=== PATIENT | female | born 1995 | race Caucasian/White ===

== ENCOUNTER → 2017-07-30 11:36 | Outpatient (CLI) | payer MEDICAID, SELFPAY ==
[2017-07-30 13:33] LABS: HCG Qualitative, Serum Negative (Negative); HCG,Quantitative 0 mIU/mL
== END ==
PROVIDERS: PCP Physician Assistant; Visit Provider Physician Assistant
DX: Z32.00 Encounter for pregnancy test, result unknown (principal)
CPT/HCPCS: 36415; 84702; 84703

== ENCOUNTER 2017-08-11 | Emergency (ER) | payer MEDICAID, SELFPAY ==
[2017-08-11 00:06] VITALS: BP 139/75; PULSE 60; RESP 16; TEMP 36.9; O2SAT 96; BMI 41.6
[2017-08-11 00:30] LABS: Microscopic, Urine URINE MICROSCOPIC (MICROSCOPIC)
[2017-08-11 00:33] LABS: Appearance,Urine Cloudy (Clear); Bilirubin,Urine Negative (Negative); Blood, Urine Negative (Negative); Color,Urine Yellow (Yellow); Glucose,Urine (UA) Negative (Negative); Ketones,Urine Negative (Negative); Leukocyte Esterase,Urine Negative (Negative); Nitrate,Urine Negative (Negative); Protein,Urine Trace (Negative); Urine Pregnancy, HCG Qual. Negative (Negative)
[2017-08-11 00:34] LABS: Squamous Epithelial Cell,Urine 20-50 #/hpf (0-5)
--- NOTE | 2017-08-11 01:19 | HMH.EDABDPAI ---
ED Disposition Clinical Impression: Viral gastroenteritis Disposition: Home, Self-Care Condition on Discharge: Good Instructions: DI for Viral Gastroenteritis -- Adult Additional Instructions: Please drink plenty of fluids, take the meds prescribed per instructions. If better within 2-3 days please follow-up with your PCP, in the office. Prescriptions: Ondansetron [Zofran 4mg ODT] 4 mg PO QID #20 tab.rapdis Referrals: Melissa Hernandez PA [Primary Care Provider] - Time of Disposition: 02:08 - Critical Care Critical Care Time: No Attestation: On 08/11/17, the high probability of a clinically significant, sudden or life threatening deterioration of the following system(s) required my full and direct attention, intervention and personal management. The time I documented below is in addition to time spent performing reported procedures but includes the following listed in this critical care notation. Medical Decision Making - Medical Records Medical records reviewed: Yes: I reviewed the patient's medical records. Vital Signs: 08/11/17 00:06 08/11/17 01:41 Temperature 98.5 F 97.3 F L Temperature Source Oral Oral Pulse Rate [Brachial] 60 59 L Respiratory Rate 16 20 Blood Pressure [Right Arm] 139/75 131/68 Blood Pressure Mean [Right Arm] 96 89 Blood Pressure Source [Right Arm] Automatic Cuff Automatic Cuff Blood Pressure Position [Right Arm] Sitting Sitting 02 Sat by Pulse Oximetry 96 97 Oxygen Delivery Method Room Air Room Air - Lab Data Lab results reviewed: Yes: I reviewed the patient's lab results. Lab Results 08/11/17 00:15: Urine Color Yellow, Urine Appearance Cloudy, Urine pH 7.0, Ur Specific [place] 1.020, Urine Protein Trace, Urine Glucose (UA) Negative, Urine Ketones Negative, Urine Blood Negative, Urine Nitrate Negative, Urine Bilirubin Negative, Urine Urobilinogen 1.0, Ur Leukocyte Esterase Negative, Urine RBC None, Urine WBC None, Ur Squamous Epith Cells 20-50 08/11/17 00:15: Urine HCG, Qual Negative 08/11/17 01:27: WBC 10.1, RBC 5.13, Hgb 13.7, Hct 43.7, MCV 85.2, MCH 26.7 L, MCHC 31.3 L, RDW 13.3, Plt Count 261, MPV 9.4, Neut % (Auto) 74.6, Lymph % (Auto) 19.2, [place] % (Auto) 5.5, Eos % (Auto) 0.5, Baso % (Auto) 0.2, Neut # (Auto) 7.5, Lymph # (Auto) 1.9, [place] # (Auto) 0.6, Eos # (Auto) 0.1, Baso # (Auto) 0.0 08/11/17 01:27: Sodium 140, Potassium 4.2, Chloride 103, Carbon Dioxide 31, Anion Gap 10.2, BUN 9, Creatinine 0.73, Estimated Creat Clear 100, Estimated GFR 100, Est GFR ( Amer) 121, Glucose 105, Calcium 9.0, Total Bilirubin 0.4, AST 16, ALT 23, Alkaline Phosphatase 52, Total Protein 7.8, Albumin 4.0, Globulin 3.8 H, Albumin/Globulin Ratio 1.1, Amylase 77, Lipase 109 Result diagrams: 08/11/17 01:27 08/11/17 01:27 Orders (Tests/Meds): ED MEDICATIONS Discontinued Medications Generic Name Dose Route Start Last Admin Trade Name Freq PRN Reason Stop Dose Admin Cephalexin HCl 500 mg 08/11/17 01:05 Cephalexin 500mg Capsule PO 08/11/17 01:06 ONCE ONE Protocol Tramadol HCl 1 noah 08/11/17 01:05 Ultram Take Home Pack 50mg (10) PO 08/11/17 01:06 ONCE ONE ORDERS Category Date Time Status CT abdomen pelvis wo con Stat Cat Scan 08/11/17 01:18 Stop Req - Vinny Inquiry Pt receiving controlled substance: No - Reevaluation(s) Time: 01:45 Reevaluation #1: Upon reevaluation patient appears in no acute distress, medically stable, afebrile, nonseptic looking. Patient is able to tolerate oral fluids, denies any ongoing pain or distress. Patient instructed to follow-up with PCP if not better per discharge instructions. Abdominal Pain HPI - General Chief Complaint: Abdominal Pain Stated Complaint: Nausea and Vomiting,Cramping Time Seen by Provider: 08/11/17 01:19 Mode of Arrival: Ambulatory Source of Information: Patient Limitations: No Limitations Description of Symptoms (Recalled from ER Triage Doc. by RN): GENERALIZED
[2017-08-11 01:40] LABS: Basophils % 0.2 % (0.1-2.0); Eosinophils # 0.1 K/mm3 (0.0-0.4); Eosinophils % 0.5 % (0.1-12.0); Hematocrit 43.7 % (37.0-47.0); Hemoglobin 13.7 g/dL (12.2-16.2); Lymphocytes # 1.9 K/mm3 (0.7-4.5); Lymphocytes % 19.2 K/mm3 (10-50); Mean Corpuscular HGB Conc 31.3 g/dL (31.8-35.4); Mean Corpuscular Hemoglobin 26.7 pg (27.0-31.2); Mean Corpuscular Volume 85.2 fl (81-99); Mean Platelet Volume 9.4 fl (7.4-10.4); Monocytes # 0.6 K/mm3 (0.1-1.0); Monocytes % 5.5 % (1.7-9.3); Neutrophils # 7.5 K/mm3 (1.8-7.8); Neutrophils % 74.6 % (37.0-80.0); Platelet Count 261 K/mm3 (142-424); Red Blood Count 5.13 M/mm3 (4.20-5.40); Red Cell Distribution Width 13.3 % (11.5-17.5); White Blood Count 10.1 K/mm3 (4.8-10.8)
[2017-08-11 01:41] VITALS: BP 131/68; PULSE 59; RESP 20; TEMP 36.3; O2SAT 97
[2017-08-11 01:53] LABS: Alanine Aminotransferase 23 U/L (12-78); Albumin/Globulin Ratio 1.1 (1.1-1.8); Alkaline Phosphatase 52 U/L (46-116); Amylase 77 U/L (25-125); Anion Gap 10.2 mEq/L (5-15); Aspartate Amino Transferase 16 U/L (15-37); Bilirubin,Total 0.4 mg/dL (0.2-1.0); Blood Urea Nitrogen 9 mg/dL (7-18); Carbon Dioxide 31 mmol/L (21.0-32.0); Chloride 103 mmol/L (98-107); Creatinine Clearance Estimated 100 mL/min (0-300); Creatinine,Serum 0.73 mg/dL (0.55-1.02); Estimated Glomerular Filt Rate 100 ml/min (>60); GFR (African American) 121 ML/MIN (>60); Globulin 3.8 gm/dl (1.3-3.2); Glucose 105 mg/dL (74-106); Lipase 109 u/L (73-393); Potassium 4.2 mmoL/L (3.5-5.1); Sodium 140 mmol/L (136-145); Total Protein,Serum 7.8 gm/dL (6.4-8.2)
== END 2017-08-11 02:46 | disposition home or self-care (01) ==
PROVIDERS: Emergency Provider Emergency Medicine; Family Provider Physician Assistant; PCP Physician Assistant
DX: A08.4 Viral intestinal infection, unspecified (principal); Z91.040 Latex allergy status
CPT/HCPCS: 80053; 81001; 81025; 82150; 83690; 85025; 99283

== ENCOUNTER 2017-10-17 20:41 | Emergency (ER) | payer MEDICAID, SELFPAY ==
[2017-10-17 21:06] VITALS: BP 141/68; PULSE 72; RESP 18; TEMP 36.8; O2SAT 98; BMI 41.1
[2017-10-17 21:18] LABS: Microscopic, Urine URINE MICROSCOPIC (MICROSCOPIC)
[2017-10-17 21:19] LABS: Appearance,Urine CLEAR (Clear); Bilirubin,Urine Negative (Negative); Blood, Urine Negative (Negative); Color,Urine YELLOW (Yellow); Glucose,Urine (UA) Negative (Negative); Ketones,Urine Negative (Negative); Leukocyte Esterase,Urine Negative (Negative); Nitrate,Urine Negative (Negative); PH,Urine 6.5 (5.0-8.5); Protein,Urine Negative (Negative); Specific Gravity, Urine 1.025 (1.005-1.030); Urobilinogen,Urine 0.2 EU/dl (0.2)
[2017-10-17 21:28] LABS: Amorphous Sediment,Urine 2+ /lpf; Bacteria,Urine 1+ /lpf; Squamous Epithelial Cell,Urine 20-50 #/hpf (0-5); WBC,Urine Occasional #/hpf (0-3)
[2017-10-17 21:33] LABS: Urine Pregnancy, HCG Qual. Positive (Negative)
[2017-10-17 22:38] VITALS: BP 136/74; PULSE 78; RESP 20
[2017-10-17 22:52] LABS: Basophils % 0.2 % (0.1-2.0); Eosinophils # 0.2 K/mm3 (0.0-0.4); Eosinophils % 1.3 % (0.1-12.0); Hemoglobin 13.8 g/dL (12.2-16.2); Lymphocytes # 3.4 K/mm3 (0.7-4.5); Lymphocytes % 22.9 K/mm3 (10-50); Mean Corpuscular HGB Conc 30.7 g/dL (31.8-35.4); Mean Corpuscular Hemoglobin 26.9 pg (27.0-31.2); Mean Corpuscular Volume 87.5 fl (81-99); Mean Platelet Volume 10.5 fl (7.4-10.4); Monocytes # 0.8 K/mm3 (0.1-1.0); Monocytes % 5.3 % (1.7-9.3); Neutrophils # 10.3 K/mm3 (1.8-7.8); Neutrophils % 70.4 % (37.0-80.0); Platelet Count 249 K/mm3 (142-424); Red Blood Count 5.14 M/mm3 (4.20-5.40); Red Cell Distribution Width 13.7 % (11.5-17.5); White Blood Count 14.6 K/mm3 (4.8-10.8)
[2017-10-17 23:17] LABS: Alanine Aminotransferase 21 U/L (12-78); Albumin Level 3.7 gm/dL (3.4-5.0); Albumin/Globulin Ratio 0.9 (1.1-1.8); Alkaline Phosphatase 48 U/L (46-116); Anion Gap 9.8 mEq/L (5-15); Aspartate Amino Transferase 16 U/L (15-37); Bilirubin,Total 0.2 mg/dL (0.2-1.0); Blood Urea Nitrogen 7 mg/dL (7-18); Calcium 9.1 mg/dL (8.5-10.1); Carbon Dioxide 27 mmol/L (21.0-32.0); Chloride 101 mmol/L (98-107); Creatinine Clearance Estimated 249 mL/min (0-300); Creatinine,Serum 0.59 mg/dL (0.55-1.02); Estimated Glomerular Filt Rate 127 ml/min (>60); GFR (African American) 154 ML/MIN (>60); Globulin 4.1 gm/dl (1.3-3.2); Glucose 83 mg/dL (74-106); Potassium 3.8 mmoL/L (3.5-5.1); Sodium 134 mmol/L (136-145); Total Protein,Serum 7.8 gm/dL (6.4-8.2)
--- NOTE | 2017-10-18 01:20 | HMH.EDPREG ---
ED Disposition Clinical Impression: Abdominal pain Qualifiers: Abdominal location: epigastric Qualified Code(s): R10.13 - Epigastric pain Qualifiers: Weeks of gestation: 8 weeks Qualified Code(s): Z3A.08 - 8 weeks gestation of Disposition: Home, Self-Care Condition on Discharge: Good Instructions: DI for Acute Abdomen Additional Instructions: keep appt with dr stevens friday Referrals: Melissa Hernandez PA [Primary Care Provider] - - Critical Care Critical Care Time: No Attestation: On 10/17/17, the high probability of a clinically significant, sudden or life threatening deterioration of the following system(s) required my full and direct attention, intervention and personal management. The time I documented below is in addition to time spent performing reported procedures but includes the following listed in this critical care notation. Medical Decision Making - Medical Records Medical records reviewed: Yes: I reviewed the patient's medical records. - Vinny Inquiry Pt receiving controlled substance: No Vital Signs: 10/17/17 21:06 10/17/17 22:38 Temperature 98.3 F Temperature Source Oral Pulse Rate [Brachial] 72 78 Respiratory Rate 18 20 Blood Pressure [Right Arm] 141/68 136/74 Blood Pressure Mean [Right Arm] 92 94 Blood Pressure Source [Right Arm] Automatic Cuff Automatic Cuff Blood Pressure Position [Right Arm] Sitting 02 Sat by Pulse Oximetry 98 Oxygen Delivery Method Room Air - Lab Data Lab results reviewed: Yes: I reviewed the patient's lab results. Lab Results 10/17/17 21:00: Urine Color Yellow, Urine Appearance Clear, Urine pH 6.5, Ur Specific [place] 1.025, Urine Protein Negative, Urine Glucose (UA) Negative, Urine Ketones Negative, Urine Blood Negative, Urine Nitrate Negative, Urine Bilirubin Negative, Urine Urobilinogen 0.2, Ur Leukocyte Esterase Negative, Urine RBC None, Urine WBC Occasional, Ur Squamous Epith Cells 20-50, Amorphous Sediment 2+, Urine Bacteria 1+ 10/17/17 21:20: Urine HCG, Qual Positive 10/17/17 22:35: WBC 14.6 H, RBC 5.14, Hgb 13.8, Hct 45.0, MCV 87.5, MCH 26.9 L, MCHC 30.7 L, RDW 13.7, Plt Count 249, MPV 10.5 H, Neut % (Auto) 70.4, Lymph % (Auto) 22.9, [place] % (Auto) 5.3, Eos % (Auto) 1.3, Baso % (Auto) 0.2, Neut # (Auto) 10.3 H, Lymph # (Auto) 3.4, [place] # (Auto) 0.8, Eos # (Auto) 0.2, Baso # (Auto) 0.0 10/17/17 22:35: Sodium 134 L, Potassium 3.8, Chloride 101, Carbon Dioxide 27, Anion Gap 9.8, BUN 7, Creatinine 0.59, Estimated Creat Clear 249, Estimated GFR 127, Est GFR ( Amer) 154, Glucose 83, Calcium 9.1, Total Bilirubin 0.2, AST 16, ALT 21, Alkaline Phosphatase 48, Total Protein 7.8, Albumin 3.7, Globulin 4.1 H, Albumin/Globulin Ratio 0.9 L, HCG, Quant [id number] Result diagrams: 10/17/17 22:35 10/17/17 22:35 HPI - General Chief complaint: Abdominal Pain Stated complaint: 8 Weeks Cramping Time Seen by Provider: 10/18/17 01:20 Mode of Arrival: Ambulatory Source of Information: Patient, Significant Other, Relative, Medical Record Limitations: No Limitations Description of Symptoms (Recalled from ER Triage Doc. by RN): C/O CRAMPING PAIN TO EPIGASTRIC AREA, REPORTS 8 WEEKS DENIES ANY. BLEEDING - History of Present Illness HPI Narrative: upper abd pain with no vag bleeding - 8 weeks preg - no vomiting and nausea MD Complaint: abdominal pain Onset (ago): hour(s) Location: abdomen Severity: moderate Vaginal bleeding: none : yes Date of Last Menstrual Period: 08/18/17 - Related Data Para: 0 Home Medications Medication Instructions Recorded Confirmed Albuterol Sulfate [Albuterol HFA 2 puff INHALATION Q6H 10/18/17 10/18/17 Inhaler] Pnv No.118/Iron Fumarate/FA 1 tab PO QAM 10/18/17 10/18/17 [Se- 19 Chewable Tablet] Allergies Allergy/AdvReac Type Severity Reaction Status Date / Time latex [LATEX] Allergy Unknown Verified 10/14/17 14:05 ONION Allergy Mild
--- NOTE | 2017-10-18 01:24 | ED_ITS ---
ED Disposition Clinical Impression: Abdominal pain Qualifiers: Abdominal location: epigastric Qualified Code(s): R10.13 - Epigastric pain Qualifiers: Weeks of gestation: 8 weeks Qualified Code(s): Z3A.08 - 8 weeks gestation of Disposition: Home, Self-Care Condition on Discharge: Good Instructions: DI for Acute Abdomen Additional Instructions: keep appt with dr stevens friday Referrals: Melissa Hernandez PA [Primary Care Provider] - - Critical Care Critical Care Time: No Attestation: On 10/17/17, the high probability of a clinically significant, sudden or life threatening deterioration of the following system(s) required my full and direct attention, intervention and personal management. The time I documented below is in addition to time spent performing reported procedures but includes the following listed in this critical care notation. Medical Decision Making - Medical Records Medical records reviewed: Yes: I reviewed the patient's medical records. - Vinny Inquiry Pt receiving controlled substance: No Vital Signs: 10/17/17 21:06 10/17/17 22:38 Temperature 98.3 F Temperature Source Oral Pulse Rate [Brachial] 72 78 Respiratory Rate 18 20 Blood Pressure [Right Arm] 141/68 136/74 Blood Pressure Mean [Right Arm] 92 94 Blood Pressure Source [Right Arm] Automatic Cuff Automatic Cuff Blood Pressure Position [Right Arm] Sitting 02 Sat by Pulse Oximetry 98 Oxygen Delivery Method Room Air - Lab Data Lab results reviewed: Yes: I reviewed the patient's lab results. Lab Results 10/17/17 21:00: Urine Color Yellow, Urine Appearance Clear, Urine pH 6.5, Ur Specific [place] 1.025, Urine Protein Negative, Urine Glucose (UA) Negative, Urine Ketones Negative, Urine Blood Negative, Urine Nitrate Negative, Urine Bilirubin Negative, Urine Urobilinogen 0.2, Ur Leukocyte Esterase Negative, Urine RBC None, Urine WBC Occasional, Ur Squamous Epith Cells 20-50, Amorphous Sediment 2+, Urine Bacteria 1+ 10/17/17 21:20: Urine HCG, Qual Positive 10/17/17 22:35: WBC 14.6 H, RBC 5.14, Hgb 13.8, Hct 45.0, MCV 87.5, MCH 26.9 L, MCHC 30.7 L, RDW 13.7, Plt Count 249, MPV 10.5 H, Neut % (Auto) 70.4, Lymph % ( Auto) 22.9, [place] % (Auto) 5.3, Eos % (Auto) 1.3, Baso % (Auto) 0.2, Neut # (Auto ) 10.3 H, Lymph # (Auto) 3.4, [place] # (Auto) 0.8, Eos # (Auto) 0.2, Baso # (Auto ) 0.0 10/17/17 22:35: Sodium 134 L, Potassium 3.8, Chloride 101, Carbon Dioxide 27, Anion Gap 9.8, BUN 7, Creatinine 0.59, Estimated Creat Clear 249, Estimated GFR 127, Est GFR ( Amer) 154, Glucose 83, Calcium 9.1, Total Bilirubin 0.2, AST 16, ALT 21, Alkaline Phosphatase 48, Total Protein 7.8, Albumin 3.7, Globulin 4.1 H, Albumin/Globulin Ratio 0.9 L, HCG, Quant [id number] Result diagrams: 10/17/17 22:35 10/17/17 22:35 HPI - General Chief complaint: Abdominal Pain Stated complaint: 8 Weeks Cramping Time Seen by Provider: 10/18/17 01:20 Mode of Arrival: Ambulatory Source of Information: Patient, Significant Other, Relative, Medical Record Limitations: No Limitations Description of Symptoms (Recalled from ER Triage Doc. by RN): C/O CRAMPING PAIN TO EPIGASTRIC AREA, REPORTS 8 WEEKS DENIES ANY. BLEEDING - History of Present Illness HPI Narrative: upper abd pain with no vag bleeding - 8 weeks preg - no vomiting and nausea MD Complaint: abdominal pain Onset (ago): hour(s) Location: abdomen Severity: moderate Vagina
[2017-10-18 01:42] VITALS: BP 123/85; PULSE 85; RESP 17; TEMP 36.8; O2SAT 96
== END 2017-10-18 01:43 | disposition home or self-care (01) ==
PROVIDERS: Emergency Provider Emergency Medicine; Family Provider Physician Assistant; PCP Physician Assistant
DX: R10.13 Epigastric pain (principal); Z3A.08 8 weeks gestation of pregnancy; F17.210 Nicotine dependence, cigarettes, uncomplicated
CPT/HCPCS: 80053; 81001; 81025; 84702; 85025; 99283

== ENCOUNTER → 2017-10-27 13:34 | Outpatient (CLI) | payer MEDICAID, SELFPAY ==
--- NOTE | 2017-10-27 13:36 | US_ITS ---
US OB transvaginal COMPARISON: None HISTORY: Known early , for dates TECHNIQUE: Transvaginal imaging FINDINGS: There is a single fetus within the gestational sac. The crown-rump length measures 1.75 cm corresponding to 8 weeks and 2 days. The exact measures 0.74 cm. The heart rate is 1 67 bpm there the amnion and chorion are visualized. There appears be small corpus luteum cyst left ovary measuring 2.0 x 1.8 x 1.1 cm. The right ovary is normal. IMPRESSION: Early viable intrauterine gestation proximal age 8 weeks 2 days, consider follow-up study in possibly 4-6 weeks to obtain better measurements for dating if clinically indicated.
[2017-10-27 15:10] LABS: Basophils % 0.1 % (0.1-2.0); Eosinophils # 0.1 K/mm3 (0.0-0.4); Eosinophils % 0.6 % (0.1-12.0); Hematocrit 42.9 % (37.0-47.0); Hemoglobin 13.4 g/dL (12.2-16.2); Mean Corpuscular HGB Conc 31.3 g/dL (31.8-35.4); Mean Corpuscular Hemoglobin 26.9 pg (27.0-31.2); Mean Corpuscular Volume 85.9 fl (81-99); Mean Platelet Volume 10.5 fl (7.4-10.4); Monocytes # 0.4 K/mm3 (0.1-1.0); Monocytes % 4.8 % (1.7-9.3); Neutrophils # 6.7 K/mm3 (1.8-7.8); Neutrophils % 72.4 % (37.0-80.0); Platelet Count 223 K/mm3 (142-424); Red Blood Count 4.99 M/mm3 (4.20-5.40); Red Cell Distribution Width 13.5 % (11.5-17.5); White Blood Count 9.2 K/mm3 (4.8-10.8)
[2017-10-29 05:14] LABS: HIV Screen 4th Generation wRfx Non Reactive (Non Reactive)
[2017-10-29 16:32] LABS: Hepatitis B Surface Antigen Negative (Negative); Hepatitis C Antibody <0.1 s/co ratio (0.0-0.9); Rapid Plasma Reagin Ab Titer Non Reactive (NonRea<1:1); Rubella Antibodies, IgG 1.52 index (Immune >0.99)
== END ==
PROVIDERS: Family Provider Physician Assistant; PCP Physician Assistant; Visit Provider Nurse Practitioner Obstetrics & Gynecology
DX: O26.841 Uterine size-date discrepancy, first trimester (principal); Z34.90 Encounter for supervision of normal pregnancy, unspecified, unspecified trimester
CPT/HCPCS: 36415; 76830; 85025; 86592; 86703; 86762; 86850; 87340; 87380; G0432

== ENCOUNTER → 2018-01-08 10:27 | Outpatient (CLI) | payer MEDICAID, SELFPAY ==
--- NOTE | 2018-01-08 12:14 | US_ITS ---
US abdomen complete HISTORY: Left upper quadrant pain and swelling ITS.REASON: Left upper quadrant pain and swelling ORDERING PHYSICIAN: TEO Sandoval PATIENT AGE: 22 years COMPARISON: None FINDINGS: Patient reports a generalized fullness in the upper abdomen. This area is scanned. The area of concern represents fatty tissue. No solid or cystic abnormalities evident. IMPRESSION: Area of fullness in the upper abdomen appears to represent fatty tissue.
[2018-01-08 18:55] LABS: Basophils % 0.2 % (0.1-2.0); Eosinophils # 0.1 K/mm3 (0.0-0.4); Eosinophils % 0.9 % (0.1-12.0); Hematocrit 41.5 % (37.0-47.0); Hemoglobin 12.4 g/dL (12.2-16.2); Lymphocytes # 1.9 K/mm3 (0.7-4.5); Lymphocytes % 20.4 K/mm3 (10-50); Mean Corpuscular HGB Conc 29.8 g/dL (31.8-35.4); Mean Corpuscular Hemoglobin 26.2 pg (27.0-31.2); Mean Platelet Volume 11.7 fl (7.4-10.4); Monocytes # 0.5 K/mm3 (0.1-1.0); Monocytes % 5.6 % (1.7-9.3); Neutrophils # 6.9 K/mm3 (1.8-7.8); Neutrophils % 72.9 % (37.0-80.0); Platelet Count 212 K/mm3 (142-424); Red Blood Count 4.72 M/mm3 (4.20-5.40); Red Cell Distribution Width 13.9 % (11.5-17.5); White Blood Count 9.5 K/mm3 (4.8-10.8)
[2018-01-08 19:00] LABS: Alanine Aminotransferase 22 U/L (12-78); Albumin Level 2.8 gm/dL (3.4-5.0); Albumin/Globulin Ratio 0.8 (1.1-1.8); Alkaline Phosphatase 45 U/L (46-116); Anion Gap 12.9 mEq/L (5-15); Aspartate Amino Transferase 17 U/L (15-37); Bilirubin,Total 0.2 mg/dL (0.2-1.0); Blood Urea Nitrogen 5 mg/dL (7-18); Calcium 9.1 mg/dL (8.5-10.1); Carbon Dioxide 27 mmol/L (21.0-32.0); Chloride 106 mmol/L (98-107); Creatinine,Serum 0.53 mg/dL (0.55-1.02); Estimated Glomerular Filt Rate 144 ml/min (>60); GFR (African American) 175 ML/MIN (>60); Globulin 3.6 gm/dl (1.3-3.2); Glucose 70 mg/dL (74-106); Potassium 3.9 mmoL/L (3.5-5.1); Sodium 142 mmol/L (136-145); T4 (Thyroxine) 16.1 ug/dl (4.7-13.3); Total Protein,Serum 6.4 gm/dL (6.4-8.2)
[2018-01-10 16:59] LABS: EBV Ab VCA, IgG 97.5 U/mL (0.0-17.9); EBV Ab VCA, IgM <36.0 U/mL (0.0-35.9); EBV Nuclear Antigen Ab, IgG 94.5 U/mL (0.0-17.9)
== END ==
PROVIDERS: PCP Physician Assistant; Visit Provider Physician Assistant
DX: R10.12 Left upper quadrant pain (principal); R19.00 Intra-abdominal and pelvic swelling, mass and lump, unspecified site
CPT/HCPCS: 76700; 80053; 84436; 84443; 85025; 86664; 86665; 87086

== ENCOUNTER 2018-01-20 22:37 | Outpatient (CLI) | payer MEDICAID, SELFPAY ==
[2018-01-20 22:52] VITALS: BP 116/68; PULSE 78; RESP 16; TEMP 36.8; O2SAT 99; BMI 40.5; BMI 40.6
[2018-01-20 23:14] LABS: Microscopic, Urine URINE MICROSCOPIC (MICROSCOPIC)
[2018-01-20 23:17] LABS: Appearance,Urine CLOUDY (Clear); Bilirubin,Urine Negative (Negative); Blood, Urine Negative (Negative); Color,Urine YELLOW (Yellow); Glucose,Urine (UA) Negative (Negative); Ketones,Urine Negative (Negative); Leukocyte Esterase,Urine TRACE (Negative); Nitrate,Urine Negative (Negative); Protein,Urine TRACE (Negative)
[2018-01-20 23:25] LABS: Amorphous Sediment,Urine 1+ /lpf; Bacteria,Urine 1+ /lpf; RBC,Urine Occasional #/hpf (0-3)
[2018-01-20 23:26] LABS: Amphetamine/Metha Screen,Urine Negative ng/mL (<1000); Barbiturates Screen,Urine Negative ng/mL (<200); Benzodiazepines Screen,Urine Negative ng/mL (200); Cannabinoid Screen,Urine Negative ng/mL (<50); Cocaine Screen,Urine Negative ng/g (<300); Methadone Screen,Urine Negative ng/mL (<300); Opiate Screen,Urine Negative ng/mL (<300); Phencyclidine Screen,Urine Negative ng/mL (<25)
== END 2018-01-20 23:47 | disposition home or self-care (01) ==
LOC: OBOUT 22:41 → OB 22:42
PROVIDERS: PCP Student in an Organized Health Care Education/Training Program; Visit Provider Nurse Practitioner Obstetrics & Gynecology
DX: O20.9 Hemorrhage in early pregnancy, unspecified (principal); Z3A.20 20 weeks gestation of pregnancy; R10.9 Unspecified abdominal pain
CPT/HCPCS: 80305; 81001

== ENCOUNTER 2018-02-02 20:46 | Outpatient (CLI) | payer MEDICAID, SELFPAY ==
[2018-02-02 20:54] VITALS: BMI 39.4
[2018-02-02 21:01] LABS: Microscopic, Urine URINE MICROSCOPIC (MICROSCOPIC)
[2018-02-02 21:04] LABS: Appearance,Urine SL CLOUDY (Clear); Bilirubin,Urine Negative (Negative); Blood, Urine Negative (Negative); Color,Urine YELLOW (Yellow); Glucose,Urine (UA) Negative (Negative); Ketones,Urine Negative (Negative); Leukocyte Esterase,Urine 1+ (Negative); Nitrate,Urine Negative (Negative); Protein,Urine Negative (Negative); Specific Gravity, Urine >= 1.030 (1.005-1.030); Urobilinogen,Urine 0.2 EU/dl (0.2)
[2018-02-02 21:08] VITALS: BP 122/65; PULSE 81; RESP 16; TEMP 36.9; O2SAT 100; BMI 39.4
[2018-02-02 21:12] LABS: Bacteria,Urine 3+ /lpf; RBC,Urine Occasional #/hpf (0-3); Squamous Epithelial Cell,Urine 20-50 #/hpf (0-5)
== END 2018-02-02 21:32 | disposition home or self-care (01) ==
LOC: OBOUT 20:47 → OB 20:48
PROVIDERS: PCP Physician Assistant; Referring Provider Student in an Organized Health Care Education/Training Program; Visit Provider Obstetrics & Gynecology
DX: O26.892 Other specified pregnancy related conditions, second trimester (principal); Z3A.22 22 weeks gestation of pregnancy; R10.32 Left lower quadrant pain; R10.2 Pelvic and perineal pain
CPT/HCPCS: 59025; 81001; 87086

== ENCOUNTER 2018-02-20 22:42 | Outpatient (CLI) | payer MEDICAID, SELFPAY ==
[2018-02-20 23:09] VITALS: BP 143/83; PULSE 83; RESP 16; TEMP 36.8; O2SAT 98; BMI 40.5
[2018-02-20 23:31] LABS: Amphetamine/Metha Screen,Urine Negative ng/mL (<1000); Barbiturates Screen,Urine Negative ng/mL (<200); Benzodiazepines Screen,Urine Negative ng/mL (<200); Cannabinoid Screen,Urine Negative ng/mL (<50); Cocaine Screen,Urine Negative ng/mL (<300); Methadone Screen,Urine Negative ng/mL (<300); Opiate Screen,Urine Negative ng/mL (<300); Phencyclidine Screen,Urine Negative ng/mL (<25)
== END 2018-02-20 23:40 | disposition home or self-care (01) ==
LOC: OBOUT 22:44 → OB 22:45
PROVIDERS: PCP Physician Assistant; Visit Provider Obstetrics & Gynecology
DX: O36.8130 Decreased fetal movements, third trimester, not applicable or unspecified (principal); Z3A.32 32 weeks gestation of pregnancy
CPT/HCPCS: 59025; 80305

== ENCOUNTER → 2018-02-23 10:10 | Outpatient (CLI) | payer MEDICAID, SELFPAY ==
[2018-02-23 10:51] LABS: Glucose,Fasting 83 mg/dL (60-105)
[2018-02-23 11:57] LABS: Basophils % 0.3 % (0.1-2.0); Eosinophils # 0.1 K/mm3 (0.0-0.4); Eosinophils % 0.6 % (0.1-12.0); Hematocrit 35.3 % (37.0-47.0); Hemoglobin 11.5 g/dL (12.2-16.2); Lymphocytes # 2.4 K/mm3 (0.7-4.5); Lymphocytes % 24.3 K/mm3 (10-50); Mean Corpuscular HGB Conc 32.4 g/dL (31.8-35.4); Mean Corpuscular Hemoglobin 27.8 pg (27.0-31.2); Mean Corpuscular Volume 85.6 fl (81-99); Mean Platelet Volume 10.6 fl (7.4-10.4); Monocytes # 0.4 K/mm3 (0.1-1.0); Monocytes % 4.4 % (1.7-9.3); Neutrophils # 6.9 K/mm3 (1.8-7.8); Neutrophils % 70.3 % (37.0-80.0); Platelet Count 208 K/mm3 (142-424); Red Blood Count 4.13 M/mm3 (4.20-5.40); White Blood Count 9.8 K/mm3 (4.8-10.8)
[2018-02-23 12:25] LABS: Glucose 1 Hour 142 mg/dL (74-106)
== END ==
PROVIDERS: Visit Provider Student in an Organized Health Care Education/Training Program
DX: Z34.83 Encounter for supervision of other normal pregnancy, third trimester (principal); Z3A.28 28 weeks gestation of pregnancy
CPT/HCPCS: 36415; 82951; 85025; 86850

== ENCOUNTER 2018-03-04 17:59 | Outpatient (CLI) | payer MEDICAID, SELFPAY ==
[2018-03-04 18:10] VITALS: BP 142/81; PULSE 76; RESP 18; TEMP 37.1; O2SAT 99; BMI 39.8
[2018-03-04 18:26] LABS: Microscopic, Urine URINE MICROSCOPIC (MICROSCOPIC)
[2018-03-04 18:28] LABS: Appearance,Urine SL CLOUDY (Clear); Bilirubin,Urine Negative (Negative); Blood, Urine Negative (Negative); Color,Urine YELLOW (Yellow); Glucose,Urine (UA) Negative (Negative); Ketones,Urine Negative (Negative); Leukocyte Esterase,Urine 1+ (Negative); Nitrate,Urine Negative (Negative); Protein,Urine Negative (Negative)
[2018-03-04 18:33] LABS: Amorphous Sediment,Urine 2+ /lpf; Bacteria,Urine 2+ /lpf; RBC,Urine Occasional #/hpf (0-3); Squamous Epithelial Cell,Urine TNTC #/hpf (0-5)
== END 2018-03-04 18:48 | disposition home or self-care (01) ==
LOC: OBOUT 18:01 → OB 18:02
PROVIDERS: PCP Physician Assistant; Referring Provider Student in an Organized Health Care Education/Training Program; Visit Provider Nurse Practitioner Obstetrics & Gynecology
DX: O36.8120 Decreased fetal movements, second trimester, not applicable or unspecified (principal); Z3A.26 26 weeks gestation of pregnancy
CPT/HCPCS: 59025; 81001; 87086

== ENCOUNTER 2018-03-18 17:54 | Outpatient (CLI) | payer MEDICAID, SELFPAY ==
[2018-03-18 18:00] VITALS: BP 129/7; PULSE 74; RESP 18; TEMP 37; O2SAT 100; BMI 40.3
[2018-03-18 18:28] LABS: Microscopic, Urine URINE MICROSCOPIC (MICROSCOPIC)
[2018-03-18 18:32] LABS: Appearance,Urine CLOUDY (Clear); Bilirubin,Urine Negative (Negative); Blood, Urine Negative (Negative); Color,Urine YELLOW (Yellow); Glucose,Urine (UA) Negative (Negative); Ketones,Urine Negative (Negative); Leukocyte Esterase,Urine Negative (Negative); Nitrate,Urine Negative (Negative); PH,Urine 7.5 (5.0-8.5); Protein,Urine Negative (Negative); Specific Gravity, Urine 1.025 (1.005-1.030); Urobilinogen,Urine 0.2 EU/dl (0.2)
[2018-03-18 18:36] LABS: Fetal Membrane Rupture (Rapid) Negative (Negative)
[2018-03-18 18:54] LABS: Fetal Fibronectin (Rapid) Negative (Negative)
[2018-03-18 18:58] LABS: Amorphous Sediment,Urine 3+ /lpf; Bacteria,Urine 2+ /lpf; Squamous Epithelial Cell,Urine TNTC #/hpf (0-5); WBC,Urine Occasional #/hpf (0-3)
== END 2018-03-18 18:51 | disposition home or self-care (01) ==
LOC: OBOUT 17:55 → OB 17:56
PROVIDERS: Visit Provider Nurse Practitioner Obstetrics & Gynecology
DX: O47.03 False labor before 37 completed weeks of gestation, third trimester (principal); Z3A.28 28 weeks gestation of pregnancy
CPT/HCPCS: 59025; 81001; 82731; 84112; 87086

== ENCOUNTER 2018-03-30 19:59 | Outpatient (CLI) | payer MEDICAID, SELFPAY ==
[2018-03-30 20:09] VITALS: BMI 40.1
[2018-03-30 20:25] VITALS: BP 121/74; PULSE 84; RESP 17; TEMP 36.9; O2SAT 98; BMI 40.1
[2018-03-30 20:34] LABS: Microscopic, Urine URINE MICROSCOPIC (MICROSCOPIC)
[2018-03-30 20:38] LABS: Appearance,Urine SL CLOUDY (Clear); Bilirubin,Urine Negative (Negative); Blood, Urine Negative (Negative); Color,Urine YELLOW (Yellow); Glucose,Urine (UA) Negative (Negative); Ketones,Urine Negative (Negative); Leukocyte Esterase,Urine TRACE (Negative); Nitrate,Urine Negative (Negative); Protein,Urine Negative (Negative); Specific Gravity, Urine >= 1.030 (1.005-1.030); Urobilinogen,Urine 0.2 EU/dl (0.2)
[2018-03-30 20:46] LABS: Amphetamine/Metha Screen,Urine Negative ng/mL (<1000); Bacteria,Urine 1+ /lpf; Barbiturates Screen,Urine Negative ng/mL (<200); Benzodiazepines Screen,Urine Negative ng/mL (<200); Cannabinoid Screen,Urine Negative ng/mL (<50); Cocaine Screen,Urine Negative ng/mL (<300); Methadone Screen,Urine Negative ng/mL (<300); Opiate Screen,Urine Negative ng/mL (<300); Phencyclidine Screen,Urine Negative ng/mL (<25)
[2018-03-30 21:06] LABS: Fetal Fibronectin (Rapid) Negative (Negative)
== END 2018-03-30 22:21 | disposition home or self-care (01) ==
LOC: OBOUT 20:01 → OB 20:02
PROVIDERS: PCP Student in an Organized Health Care Education/Training Program; Visit Provider Obstetrics & Gynecology
DX: O60.03 Preterm labor without delivery, third trimester (principal); Z3A.30 30 weeks gestation of pregnancy; N39.0 Urinary tract infection, site not specified; R10.2 Pelvic and perineal pain
CPT/HCPCS: 59025; 80305; 81001; 82731; 96360; J0290

== ENCOUNTER 2018-05-25 19:08 | Outpatient (CLI) | payer MEDICAID, SELFPAY ==
[2018-05-25 19:36] VITALS: BP 130/72; PULSE 103; RESP 18; TEMP 36.9; O2SAT 98; BMI 39.6
[2018-05-25 19:51] VITALS: BMI 34.0
[2018-05-25 20:18] LABS: Microscopic, Urine URINE MICROSCOPIC (MICROSCOPIC)
[2018-05-25 20:23] LABS: Appearance,Urine SL CLOUDY (Clear); Bilirubin,Urine Negative (Negative); Blood, Urine Negative (Negative); Color,Urine YELLOW (Yellow); Glucose,Urine (UA) Negative (Negative); Ketones,Urine Negative (Negative); Leukocyte Esterase,Urine 1+ (Negative); Nitrate,Urine Negative (Negative); Protein,Urine Negative (Negative); Specific Gravity, Urine 1.015 (1.005-1.030)
[2018-05-25 20:30] LABS: Amphetamine/Metha Screen,Urine Negative ng/mL (<1000); Barbiturates Screen,Urine Negative ng/mL (<200); Benzodiazepines Screen,Urine Negative ng/mL (<200); Cannabinoid Screen,Urine Negative ng/mL (<50); Cocaine Screen,Urine Negative ng/mL (<300); Methadone Screen,Urine Negative ng/mL (<300); Opiate Screen,Urine Negative ng/mL (<300); Phencyclidine Screen,Urine Negative ng/mL (<25)
[2018-05-25 20:54] LABS: WBC,Urine Occasional #/hpf (0-3)
== END 2018-05-25 20:37 | disposition home or self-care (01) ==
LOC: OBOUT 19:11 → OB 19:12
PROVIDERS: PCP Student in an Organized Health Care Education/Training Program; Visit Provider Obstetrics & Gynecology
DX: O60.03 Preterm labor without delivery, third trimester (principal); Z3A.38 38 weeks gestation of pregnancy; R11.0 Nausea
CPT/HCPCS: 59025; 80305; 81001; 87086

== ENCOUNTER → 2018-07-13 13:29 | Outpatient (CLI) | payer MEDICAID, SELFPAY | PROVIDERS: Visit Provider Physician Assistant | DX: R10.9 Unspecified abdominal pain (principal) | CPT/HCPCS: 87086 ==

== ENCOUNTER → 2018-07-30 13:23 | Outpatient (CLI) | payer MEDICAID, SELFPAY ==
--- NOTE | 2018-07-30 13:25 | CT_ITS ---
CT chest wo con HISTORY: Pulmonary nodule follow-up ITS.REASON: Nodule of lung on CT abd/pelvis ORDERING PHYSICIAN: TEO Sandoval PATIENT AGE: 23 years COMPARISON: 06/29/2018, 06/15/2018 Technique: Axial images obtained with sagittal and coronal reformats. All CT scans at the facility use one or more dose reduction, viz: automated exposure control, ma/kV adjustment per patient size (including targeted exams where dose is matched to indication, i.e. head), or iterative reconstruction technique. FINDINGS: Soft tissue density in the anterior mediastinum and may relate to residual finding tissue. There is prominence of pulmonary outflow tract. The right left main pulmonary arteries are not enlarged. No suspicious pulmonary nodules are evident. There is minimal thickening of the major fissure superiorly on the right. Adjacent to this there is a 4 mm noncalcified nodular density which is unchanged from 06/15/2018. There is some minimal subpleural scarring at this area which is unchanged. A small subpleural nodule present in the right lower lobe posteriorly measuring 3 mm unchanged. There is a 5 mm nodule in the left lower lobe anteriorly with central calcification consistent with a granuloma which is unchanged. No effusions or infiltrates. There are scattered small lymph nodes in the axilla. Unremarkable upper abdomen. No acute bony anomalies IMPRESSION: 1. Stable benign-appearing bilateral pulmonary nodules. Consider one-year follow-up to confirm stability 2. Mild prominence of the pulmonary outflow tract.
== END ==
PROVIDERS: PCP Physician Assistant; Visit Provider Physician Assistant
DX: R91.1 Solitary pulmonary nodule (principal)
CPT/HCPCS: 71250

== ENCOUNTER → 2018-10-19 15:53 | Outpatient (CLI) | payer MEDICAID, SELFPAY ==
[2018-10-19 16:24] LABS: HCG,Quantitative 0 mIU/mL
== END ==
PROVIDERS: Visit Provider Physician Assistant
DX: N91.2 Amenorrhea, unspecified (principal)
CPT/HCPCS: 84702

== ENCOUNTER → 2018-11-24 17:54 | Outpatient (CLI) | payer MEDICAID, SELFPAY ==
[2018-11-24 18:29] LABS: HCG Qualitative, Serum Positive (Negative)
== END ==
PROVIDERS: Visit Provider Nurse Practitioner Family
DX: N92.6 Irregular menstruation, unspecified (principal); Z34.90 Encounter for supervision of normal pregnancy, unspecified, unspecified trimester
CPT/HCPCS: 84702; 84703

== ENCOUNTER 2019-06-07 22:16 | Outpatient (CLI) | payer MEDICAID, SELFPAY ==
[2019-06-07 22:28] VITALS: BP 143/79; PULSE 87; RESP 18; TEMP 37.1; O2SAT 97; BMI 35.2
[2019-06-07 23:03] LABS: Microscopic, Urine URINE MICROSCOPIC (MICROSCOPIC)
[2019-06-07 23:15] LABS: Amphetamine/Metha Screen,Urine Negative ng/mL (<1000); Barbiturates Screen,Urine Negative ng/mL (<200); Benzodiazepines Screen,Urine Negative ng/mL (<200); Cannabinoid Screen,Urine Positive ng/mL (<50); Cocaine Screen,Urine Negative ng/mL (<300); Methadone Screen,Urine Negative ng/mL (<300); Opiate Screen,Urine Negative ng/mL (<300); Phencyclidine Screen,Urine Negative ng/mL (<25)
[2019-06-07 23:19] LABS: Appearance,Urine CLEAR (Clear); Bilirubin,Urine Negative (Negative); Blood, Urine Negative (Negative); Color,Urine YELLOW (Yellow); Glucose,Urine (UA) Negative (Negative); Ketones,Urine Negative (Negative); Leukocyte Esterase,Urine 1+ (Negative); Nitrate,Urine Negative (Negative); PH,Urine 6.5 (5.0-8.5); Protein,Urine Negative (Negative); Urobilinogen,Urine 0.2 EU/dl (0.2)
[2019-06-07 23:20] LABS: Bacteria,Urine Trace /lpf; WBC,Urine Occasional #/hpf (0-3)
[2019-06-07 23:50] LABS: Basophils % 0.3 % (0.1-2.0); Eosinophils # 0.1 K/mm3 (0.0-0.4); Eosinophils % 0.7 % (0.1-12.0); Hematocrit 36.4 % (37.0-47.0); Hemoglobin 11.5 g/dL (12.2-16.2); Lymphocytes # 2.9 K/mm3 (0.7-4.5); Lymphocytes % 24.6 % (10-50); Mean Corpuscular HGB Conc 31.6 g/dL (31.8-35.4); Mean Corpuscular Volume 85.5 fl (81-99); Mean Platelet Volume 10.7 fl (7.4-10.4); Monocytes # 0.5 K/mm3 (0.1-1.0); Monocytes % 4.6 % (1.7-9.3); Neutrophils # 8.2 K/mm3 (1.8-7.8); Neutrophils % 69.8 % (37.0-80.0); Platelet Count 217 K/mm3 (142-424); Red Blood Count 4.26 M/mm3 (4.20-5.40); Red Cell Distribution Width 14.7 % (11.5-17.5); White Blood Count 11.7 K/mm3 (4.8-10.8)
[2019-06-09 12:20] LABS: HIV Screen 4th Generation wRfx Non Reactive (Non Reactive); Hepatitis B Surface Antigen Negative (Negative); Rapid Plasma Reagin Ab Titer Non Reactive (NonRea<1:1); Rubella Antibodies, IgG 1.12 index (Immune >0.99)
== END 2019-06-08 00:59 | disposition home or self-care (01) ==
LOC: OBOUT 22:20 → OB 22:20
PROVIDERS: PCP Student in an Organized Health Care Education/Training Program; Visit Provider Obstetrics & Gynecology
DX: O47.03 False labor before 37 completed weeks of gestation, third trimester (principal); Z3A.35 35 weeks gestation of pregnancy
CPT/HCPCS: 36415; 59025; 80305; 81001; 85025; 86592; 86762; 86850; 87086; 87340; 96360; 96372

== ENCOUNTER 2019-06-23 13:55 | Outpatient (CLI) | payer MEDICAID, SELFPAY ==
[2019-06-23 14:37] VITALS: BMI 35.9
[2019-06-23 14:38] VITALS: BP 154/86; PULSE 117; RESP 18; TEMP 36.6; O2SAT 98; BMI 35.9
[2019-06-23 14:43] LABS: Microscopic, Urine URINE MICROSCOPIC (MICROSCOPIC)
[2019-06-23 14:49] LABS: Appearance,Urine CLOUDY (Clear); Bilirubin,Urine Negative (Negative); Blood, Urine Negative (Negative); Color,Urine DK YELLOW (Yellow); Glucose,Urine (UA) Negative (Negative); Ketones,Urine Negative (Negative); Leukocyte Esterase,Urine 1+ (Negative); Nitrate,Urine Negative (Negative); PH,Urine 7.5 (5.0-8.5); Protein,Urine Negative (Negative)
[2019-06-23 14:54] LABS: Amphetamine/Metha Screen,Urine Negative ng/mL (<1000); Barbiturates Screen,Urine Negative ng/mL (<200); Benzodiazepines Screen,Urine Negative ng/mL (<200); Cannabinoid Screen,Urine Positive ng/mL (<50); Cocaine Screen,Urine Negative ng/mL (<300); Methadone Screen,Urine Negative ng/mL (<300); Opiate Screen,Urine Negative ng/mL (<300); Phencyclidine Screen,Urine Negative ng/mL (<25)
[2019-06-23 15:11] LABS: Bacteria,Urine 2+ /lpf; RBC,Urine Occasional #/hpf (0-3); Squamous Epithelial Cell,Urine 20-50 #/hpf (0-5)
== END 2019-06-23 15:30 | disposition home or self-care (01) ==
LOC: OBOUT 13:56 → OB 13:57
PROVIDERS: Visit Provider Nurse Practitioner Obstetrics & Gynecology
DX: O21.9 Vomiting of pregnancy, unspecified (principal); Z3A.37 37 weeks gestation of pregnancy; R19.7 Diarrhea, unspecified; R10.9 Unspecified abdominal pain
CPT/HCPCS: 59025; 80305; 81001; 87086; 96360

== ENCOUNTER → 2019-10-28 16:00 | Outpatient (CLI) | payer MEDICAID, SELFPAY ==
[2019-10-30 07:26] LABS: Progesterone 14.7 ng/mL (.)
== END ==
PROVIDERS: PCP Physician Assistant; Visit Provider Family Medicine
DX: Z32.01 Encounter for pregnancy test, result positive (principal)
CPT/HCPCS: 36415; 84144; 84702

== ENCOUNTER → 2019-10-30 15:59 | Outpatient (CLI) | payer MEDICAID, SELFPAY ==
[2019-10-30 17:45] LABS: HCG,Quantitative 107440 mIU/ml (0-5.42)
== END ==
PROVIDERS: PCP Physician Assistant; Visit Provider Family Medicine
DX: Z32.01 Encounter for pregnancy test, result positive (principal)
CPT/HCPCS: 36415; 84702

== ENCOUNTER 2019-11-06 21:08 | Emergency (ER) | payer MEDICAID, SELFPAY ==
[2019-11-06 21:26] VITALS: BP 125/76; PULSE 65; RESP 18; TEMP 37.2; O2SAT 100; BMI 32.8
--- NOTE | 2019-11-06 21:56 | US_ITS ---
PROCEDURE: US OB TRANSVAGINAL CLINICAL INDICATION: abd crampin while patient with known early , unsure of dates COMPARISON: [facility] US OB transvaginal from 10/27/2017 FINDINGS: There is a single viable intrauterine gestation noted. The crown-rump length measures 1.99 cm equaling 8 weeks and 4 days. The heart rate is 156 beats per minute. The yolk sac is identified and appears normal. The amnion and chorion are identified. The left ovary pre is normal, there is small cyst right ovary. IMPRESSION: Viable early intrauterine gestation approximate age 8 weeks and 4 days. Dictated by: Dr. Tereso Garcia MD 11/07/2019 12:[address] Tereso Garcia MD in [place] 11/07/2019 12:23
[2019-11-06 22:08] LABS: Basophils % 0.2 % (0.1-2.0); Eosinophils # 0.2 K/mm3 (0.0-0.4); Eosinophils % 1.6 % (0.1-12.0); Hematocrit 36.6 % (37.0-47.0); Hemoglobin 11.2 g/dL (12.2-16.2); Lymphocytes # 2.5 K/mm3 (0.7-4.5); Lymphocytes % 26.6 % (10-50); Mean Corpuscular HGB Conc 30.6 g/dL (31.8-35.4); Mean Corpuscular Hemoglobin 24.4 pg (27.0-31.2); Mean Corpuscular Volume 79.9 fl (81-99); Mean Platelet Volume 10.4 fl (7.4-10.4); Monocytes # 0.4 K/mm3 (0.1-1.0); Monocytes % 4.6 % (1.7-9.3); Neutrophils # 6.4 K/mm3 (1.8-7.8); Neutrophils % 66.9 % (37.0-80.0); Platelet Count 236 K/mm3 (142-424); Red Blood Count 4.59 M/mm3 (4.20-5.40); Red Cell Distribution Width 15.3 % (11.5-17.5); White Blood Count 9.5 K/mm3 (4.8-10.8)
[2019-11-06 22:09] LABS: Microscopic, Urine URINE MICROSCOPIC (MICROSCOPIC)
[2019-11-06 22:10] LABS: Appearance,Urine CLOUDY (Clear); Bilirubin,Urine Negative (Negative); Blood, Urine Negative (Negative); Color,Urine YELLOW (Yellow); Glucose,Urine (UA) Negative (Negative); Ketones,Urine Negative (Negative); Leukocyte Esterase,Urine 1+ (Negative); Nitrate,Urine Negative (Negative); Protein,Urine Negative (Negative); Urobilinogen,Urine 0.2 EU/dl (0.2)
[2019-11-06 22:14] LABS: Bacteria,Urine 1+ /lpf; Squamous Epithelial Cell,Urine 50-100 #/hpf (0-5)
[2019-11-06 22:15] LABS: Chloride 101 mmol/L (98-107); Sodium 135 mmol/L (136-145)
[2019-11-06 22:18] LABS: Alanine Aminotransferase 24 U/L (12-78); Albumin Level 3.8 g/dl (3.5-5.0); Albumin/Globulin Ratio 1.3 (1.1-1.8); Alkaline Phosphatase 36 U/L (38-126); Aspartate Amino Transferase 28 U/L (14-36); Blood Urea Nitrogen 8 mg/dl (7-17); Carbon Dioxide 27 mmol/L (22.0-30.0); Creatinine Clearance Estimated 261 mL/min (50-200); Estimated Glomerular Filt Rate 152 ml/min (>60); GFR (African American) 183 ML/MIN (>60); Globulin 2.9 g/dL (1.3-3.2); Total Protein,Serum 6.7 g/dl (6.3-8.2)
[2019-11-06 22:19] LABS: Calcium 9.4 mg/dl (8.4-10.2); Glucose 97 mg/dl (74-100)
[2019-11-06 22:25] LABS: Bilirubin,Total 0.1 mg/dl (0.2-1.3)
--- NOTE | 2019-11-06 22:41 | HMH.EDPREG ---
ED Disposition Clinical Impression: Qualifiers: Weeks of gestation: 8 weeks Qualified Code(s): Z3A.08 - 8 weeks gestation of Disposition: Home, Self-Care Condition on Discharge: Good Instructions: DI for -- Discomforts and Remedies Additional Instructions: call ob on friday for follow up Referrals: Melissa Hernandez PA [Primary Care Provider] - - Critical Care Critical Care Time: No Attestation: On 11/06/19, the high probability of a clinically significant, sudden or life threatening deterioration of the following system(s) required my full and direct attention, intervention and personal management. The time I documented below is in addition to time spent performing reported procedures but includes the following listed in this critical care notation. Medical Decision Making - Medical Records Medical records reviewed: Yes: I reviewed the patient's medical records. - Vinny Inquiry Pt receiving controlled substance: No Vital Signs: 11/06/19 21:26 Temperature 99.0 F Temperature Source Oral Pulse Rate [Right Brachial] 65 Respiratory Rate 18 Blood Pressure [Right Arm] 125/76 Blood Pressure Mean [Right Arm] 92 Blood Pressure Source [Right Arm] Automatic Cuff Blood Pressure Position [Right Arm] Sitting 02 Sat by Pulse Oximetry 100 Oxygen Delivery Method Room Air - Lab Data Lab results reviewed: Yes: I reviewed the patient's lab results. Lab Results 11/06/19 21:56: WBC 9.5, RBC 4.59, Hgb 11.2 L, Hct 36.6 L, MCV 79.9 L, MCH 24.4 L, MCHC 30.6 L, RDW 15.3, Plt Count 236, MPV 10.4, Neut % (Auto) 66.9, Lymph % (Auto) 26.6, [place] % (Auto) 4.6, Eos % (Auto) 1.6, Baso % (Auto) 0.2, Neut # (Auto) 6.4, Lymph # (Auto) 2.5, [place] # (Auto) 0.4, Eos # (Auto) 0.2, Baso # (Auto) 0.0 11/06/19 21:56: Sodium 135 L, Potassium 4.0, Chloride 101, Carbon Dioxide 27, Anion Gap 11.0, BUN 8, Creatinine 0.50 L, Estimated Creat Clear 261, Estimated GFR 152, Est GFR ( Amer) 183, Glucose 97, Calcium 9.4, Total Bilirubin 0.1 L, AST 28, ALT 24, Alkaline Phosphatase 36 L, Total Protein 6.7, Albumin 3.8, Globulin 2.9, Albumin/Globulin Ratio 1.3, HCG, Quant [id number] H 11/06/19 21:56: Urine Color Yellow, Urine Appearance Cloudy, Urine pH 7.0, Ur Specific [place] 1.020, Urine Protein Negative, Urine Glucose (UA) Negative, Urine Ketones Negative, Urine Blood Negative, Urine Nitrate Negative, Urine Bilirubin Negative, Urine Urobilinogen 0.2, Ur Leukocyte Esterase 1+ A, Urine WBC 5-10, Ur Squamous Epith Cells 50-100, Urine Bacteria 1+ Result diagrams: 11/06/19 21:56 11/06/19 21:56 Orders (Tests/Meds): ED MEDICATIONS Generic Name Dose Route Start Last Admin Trade Name Freq PRN Reason Stop Dose Admin Sodium Chloride 1,000 mls @ 999 mls/hr 11/06/19 22:00 11/06/19 22:12 Sod Chlor 0.9% 1000ml Bag IV 11/06/19 23:00 999 mls/hr .[id number] RANI Administration ORDERS Category Date Time Status Urine Culture Stat Micro 11/06/19 21:56 Received US OB transvaginal Stat Ultrasound 11/06/19 21:56 Ordered - US Data US Images: Pelvis ED US Reviewed: Yes: I discussed the US results w/the radiologist Findings Narrative: 8 weeks iup with fht HPI - General Chief complaint: OB/Uterine Contractions Stated complaint: Time Seen by Provider: 11/06/19 21:50 Mode of Arrival: Family Vehicle Source of Information: Patient, Medical Record Limitations: No Limitations Description of Symptoms (Recalled from ER Triage Doc. by RN): pt is and unsure of how far along she is; states she has called her tactical/mobile watch officer who refuses to do anything about her cramping in her abdomen and tells me to take tylenol ; has been seen twice in the last week ( and fri) to have blood drawn - History of Present Illness HPI Narrative: reported as preg and has crampy abd pain with no vaginal bleeding - MD Complaint: abdominal pain Onset (ago): day(s) Consistency: intermittent Severity: moderate Asso
[2019-11-06 23:01] LABS: HCG,Quantitative 131160 mIU/ml (0-5.42)
--- NOTE | 2019-11-06 23:05 | PC.NURSE ---
pt back from ultrasound. verbal report given per eusebio stanton to dr hughes.
[2019-11-06 23:19] VITALS: BP 121/74; PULSE 73; RESP 19; TEMP 36.8; O2SAT 98
== END 2019-11-06 23:22 | disposition home or self-care (01) ==
PROVIDERS: Emergency Provider Emergency Medicine; PCP Physician Assistant
DX: O26.899 Other specified pregnancy related conditions, unspecified trimester (principal); R10.9 Unspecified abdominal pain; Z3A.08 8 weeks gestation of pregnancy
CPT/HCPCS: 76817; 80053; 81001; 84702; 85025; 87086; 96365; 99283

== ENCOUNTER 2019-12-12 02:45 | Emergency (ER) | payer MEDICAID, SELFPAY ==
[2019-12-12 03:12] VITALS: BP 131/65; PULSE 77; RESP 16; TEMP 36.9; O2SAT 100; BMI 37.4
--- NOTE | 2019-12-12 03:22 | PC.NURSE ---
Heart tones are 156
[2019-12-12 03:41] LABS: Microscopic, Urine URINE MICROSCOPIC (MICROSCOPIC)
[2019-12-12 03:44] LABS: Appearance,Urine CLOUDY (Clear); Bilirubin,Urine Negative (Negative); Blood, Urine Negative (Negative); Color,Urine YELLOW (Yellow); Glucose,Urine (UA) Negative (Negative); Ketones,Urine TRACE (Negative); Leukocyte Esterase,Urine TRACE (Negative); Nitrate,Urine Negative (Negative); Protein,Urine Negative (Negative); Specific Gravity, Urine 1.025 (1.005-1.030)
[2019-12-12 03:47] LABS: Squamous Epithelial Cell,Urine 50-100 #/hpf (0-5); Urine Pregnancy, HCG Qual. Positive (Negative); WBC,Urine Occasional #/hpf (0-3)
--- NOTE | 2019-12-12 03:56 | HMH.EDPREG ---
ED Disposition Clinical Impression: Qualifiers: Weeks of gestation: 13 weeks Qualified Code(s): Z3A.13 - 13 weeks gestation of Disposition: Home, Self-Care Condition on Discharge: Good Instructions: Diet Additional Instructions: fluids and see pcp for follow up Referrals: Melissa Hernandez PA [Primary Care Provider] - - Critical Care Critical Care Time: No Attestation: On 12/12/19, the high probability of a clinically significant, sudden or life threatening deterioration of the following system(s) required my full and direct attention, intervention and personal management. The time I documented below is in addition to time spent performing reported procedures but includes the following listed in this critical care notation. Medical Decision Making - Medical Records Medical records reviewed: Yes: I reviewed the patient's medical records. - Vinny Inquiry Pt receiving controlled substance: No Vital Signs: 12/12/19 03:12 Temperature 98.5 F Temperature Source Oral Pulse Rate [Right] 77 Respiratory Rate 16 Blood Pressure [Right Arm] 131/65 Blood Pressure Mean [Right Arm] 87 Blood Pressure Source [Right Arm] Automatic Cuff Blood Pressure Position [Right Arm] Sitting 02 Sat by Pulse Oximetry 100 Oxygen Delivery Method Room Air - Lab Data Lab results reviewed: Yes: I reviewed the patient's lab results. Lab Results 12/12/19 03:05: Urine Color Yellow, Urine Appearance Cloudy, Urine pH 7.0, Ur Specific [place] 1.025, Urine Protein Negative, Urine Glucose (UA) Negative, Urine Ketones Trace, Urine Blood Negative, Urine Nitrate Negative, Urine Bilirubin Negative, Urine Urobilinogen 1.0, Ur Leukocyte Esterase Trace, Urine WBC Occasional, Ur Squamous Epith Cells 50-100 12/12/19 03:05: Urine HCG, Qual Positive HPI - General Chief complaint: OB/Uterine Contractions Stated complaint: 13 wks can't hear heart beat some abdompn Time Seen by Provider: 12/12/19 03:56 Mode of Arrival: Ambulatory Source of Information: Patient, Medical Record Limitations: No Limitations Description of Symptoms (Recalled from ER Triage Doc. by RN): Pt states she got a home doppler and can't find her baby's heart beat and got concerned - History of Present Illness HPI Narrative: preg and could not hear fht - no fever or bleeding MD Complaint: other (no fht about 13 weeks ) Associated symptoms: denies other symptoms Vaginal discharge: none Vaginal bleeding: none : yes Date of Last Menstrual Period: na - Related Data Home Medications Medication Instructions Recorded Confirmed No.137/Iron/Folic Acd 1 each PO DAILY 11/06/19 12/12/19 [ Vitamin Tablet] Allergies Allergy/AdvReac Type Severity Reaction Status Date / Time ondansetron Allergy Verified 09/30/19 09:24 [From Zofran (as hydrochloride)] ONION Allergy Severe Anaphylaxis Uncoded 09/30/19 09:24 [facility] History - Hepatitis A Screen Drug use history?: No High risk sexual behaviors?: No History of sexually transmitted infection?: No Currently employed?: No Childcare worker?: No Do you have indoor plumbing?: Yes Do you have electricity?: Yes Attestation statement:: This patient has been screened for Hepatitis A risk factors. 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
[2019-12-12 04:10] VITALS: BP 111/62; PULSE 76; RESP 14; TEMP 36.9; O2SAT 99
== END 2019-12-12 04:12 | disposition home or self-care (01) ==
PROVIDERS: Emergency Provider Emergency Medicine; PCP Physician Assistant
DX: Z3A.13 13 weeks gestation of pregnancy (principal); J45.909 Unspecified asthma, uncomplicated; F17.210 Nicotine dependence, cigarettes, uncomplicated
CPT/HCPCS: 81001; 81025; 99282

== ENCOUNTER 2020-01-24 15:21 | Outpatient (CLI) | payer MEDICAID, SELFPAY ==
[2020-01-24 16:02] VITALS: BP 133/68; PULSE 73; RESP 18; TEMP 36.9; O2SAT 98; BMI 36.5
[2020-01-24 16:27] LABS: Microscopic, Urine URINE MICROSCOPIC (MICROSCOPIC)
[2020-01-24 16:32] LABS: Appearance,Urine CLEAR (Clear); Bilirubin,Urine Negative (Negative); Blood, Urine Negative (Negative); Color,Urine YELLOW (Yellow); Glucose,Urine (UA) Negative (Negative); Ketones,Urine Negative (Negative); Leukocyte Esterase,Urine Negative (Negative); Nitrate,Urine Negative (Negative); Protein,Urine Negative (Negative); Urobilinogen,Urine 0.2 EU/dl (0.2)
[2020-01-24 16:43] LABS: Barbiturates Screen,Urine Negative ng/ml (<200)
[2020-01-24 16:44] LABS: Amphetamine/Metha Screen,Urine Negative ng/ml (<1000); Benzodiazepines Screen,Urine Negative ng/ml (<200)
[2020-01-24 16:45] LABS: Cannabinoid Screen,Urine Positive ng/ml (<50)
[2020-01-24 16:46] LABS: Cocaine Screen,Urine Negative ng/ml (<300); Methadone Screen,Urine Negative ng/ml (<300)
[2020-01-24 16:47] LABS: Opiate Screen,Urine Negative ng/ml (<300)
[2020-01-24 16:48] LABS: Phencyclidine Screen,Urine Negative ng/ml (<25)
[2020-01-24 16:53] LABS: Bacteria,Urine Trace /lpf; WBC,Urine Occasional #/hpf (0-3)
--- NOTE | 2020-01-24 17:49 | PC.NURSE ---
Charting and pt care reviewed by this RN.
== END 2020-01-24 17:45 | disposition home or self-care (01) ==
LOC: OBOUT 15:22 → OB 15:25
PROVIDERS: PCP Physician Assistant; Visit Provider Nurse Practitioner Obstetrics & Gynecology
DX: O26.892 Other specified pregnancy related conditions, second trimester (principal); R10.9 Unspecified abdominal pain; M54.5 Low back pain; Z3A.20 20 weeks gestation of pregnancy
CPT/HCPCS: 80305; 81001; G0463

== ENCOUNTER → 2020-01-26 12:48 | Outpatient (CLI) | payer MEDICAID, SELFPAY ==
--- NOTE | 2020-01-26 12:49 | US_ITS ---
PROCEDURE: US OB /MATERNAL DETAIL CLINICAL INDICATION: 20 week gestation of Focus is at the COMPARISON: US OB TRANSVAGINAL from 11/06/2019 FINDINGS: The exam is technically difficult due to maternal body habitus. There is a single live fetus present in breech presentation. heart and body motion noted. Placenta is anterior and grade 1. The cervix is closed measuring 3.7 cm. Complete survey performed and was unremarkable on the submitted images as in PACS. No discrete anomalies identified on survey imaging by technologist. Active fetus. Three-vessel cord with satisfactory umbilical cord insertion. Subtle abnormality is noted of the left ventricular and right ventricular outflow tracts which do not appear to cross is a would normally be expected. Survey of brain & ventricles Unremarkable. Face and neck survey unremarkable. Diaphragm and chest views unremarkable. Abdomen: Both kidneys noted and unremarkable. Stomach noted and satisfactory. Spine: Survey of the spine satisfactory with no anomalies identified nor imaged. Both arms and legs noted. Amniotic Fluid: Adequate. Maternal adnexa: No significant findings. Measurements: Average ultrasound age 21w0d. Gestational Age 20w2d Estimated due date by ultrasound age 21w0d. Estimated weight 369g BPD = 21w4d OFD = 21w3d HC = 20w5d AC = 21w2d FL = 20w0d Growth Percentile= 67% Heart Rate = 167 bpm Cerebellum = 20w6d Humerus = 21w1d HC/AC is 1.13 (1.09-1.26) CI is 79% (70-86%) FL/BPD is 62% FL/AC is 20% IMPRESSION: Live IUP with an average ultrasound age of 21 weeks 0 days in breech presentation. All parameters correlate. There is however questionable anomaly at the cardiovascular region with the right ventricular outflow tract and left ventricular outflow tracts not having normal crossing appearance which could be seen with transposition of the great vessels.. Suggest high-risk OB ultrasound evaluation. Dictated by: Sajan Toledo MD 01/28/2020 16:07 Electronically signed by Sajan Toledo MD in [place] 01/28/2020 16:07
== END ==
PROVIDERS: PCP Physician Assistant; Visit Provider Nurse Practitioner Obstetrics & Gynecology
DX: Z34.90 Encounter for supervision of normal pregnancy, unspecified, unspecified trimester (principal); Z3A.20 20 weeks gestation of pregnancy
CPT/HCPCS: 76811

== ENCOUNTER → 2020-03-24 10:23 | Outpatient (CLI) | payer MEDICAID, SELFPAY ==
[2020-03-24 11:06] LABS: Basophils % 0.2 % (0.1-2.0); Eosinophils # 0.1 K/mm3 (0.0-0.4); Eosinophils % 0.9 % (0.1-12.0); Hematocrit 34.4 % (37.0-47.0); Hemoglobin 11.6 g/dL (12.2-16.2); Lymphocytes # 2.3 K/mm3 (0.7-4.5); Lymphocytes % 20.4 % (10-50); Mean Corpuscular HGB Conc 33.7 g/dL (31.8-35.4); Mean Corpuscular Hemoglobin 27.5 pg (27.0-31.2); Mean Corpuscular Volume 81.5 fl (81-99); Mean Platelet Volume 11.6 fl (7.4-10.4); Monocytes # 0.4 K/mm3 (0.1-1.0); Monocytes % 3.1 % (1.7-9.3); Neutrophils # 8.6 K/mm3 (1.8-7.8); Neutrophils % 75.5 % (37.0-80.0); Platelet Count 165 K/mm3 (142-424); Red Blood Count 4.22 M/mm3 (4.20-5.40); Red Cell Distribution Width 14.7 % (11.5-17.5); White Blood Count 11.4 K/mm3 (4.8-10.8)
[2020-03-24 11:16] LABS: Glucose,Fasting 89 mg/dl (74-100)
[2020-03-24 12:40] LABS: Glucose 1 Hour 133 mg/dL (74-100)
== END ==
PROVIDERS: Visit Provider Nurse Practitioner
DX: Z34.83 Encounter for supervision of other normal pregnancy, third trimester (principal); Z3A.28 28 weeks gestation of pregnancy
CPT/HCPCS: 36415; 82951; 85025; 86850

== ENCOUNTER 2020-04-21 15:40 | Emergency (ER) | payer MEDICAID, SELFPAY ==
[2020-04-21 15:48] VITALS: BP 115/70; PULSE 75; RESP 18; TEMP 36.7; O2SAT 95; BMI 36.6
--- NOTE | 2020-04-21 16:00 | HMH.EDUTC ---
[facility] [place] Disposition Clinical Impression: Chemical burn of left lower leg Qualifiers: Encounter type: initial encounter Corrosion degree: second degree Qualified Code(s): T24.632A - Corrosion of second degree of left lower leg, initial encounter Left knee pain Qualifiers: Chronicity: acute Qualified Code(s): M25.562 - Pain in left knee Disposition: Home, Self-Care Condition on Discharge: Good Instructions: How to Use Crutches, DI for Keyes, Keyes Additional Instructions: Keep the wounds clean and dry. Follow up with your regular doctor. 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 Apply the topical medication as directed. Watch the wound for any signs of infection, such as worsening redness, drainage, swelling, etc. GO TO THE ER FOR ANY WORSENING SYMPTOMS Follow up with orthopedics (Dr. Perez) if you continue to have trouble with your knee. Prescriptions: Mupirocin [Bactroban 2% Ointment 22gm tube] 1 applicatio TP TID 7 Days #1 tube Transmission Status: Pending to [facility] Referrals: Melissa Hernandez PA [Primary Care Provider] - Trinity Perez MD [Physician] - Time of Disposition: 16:11 Medical Decision Making - Medical Records Medical records reviewed: No: I reviewed the patient's medical records. - Vinny Inquiry Pt receiving controlled substance: No Vital Signs: 04/21/20 15:48 Temperature 98.0 F Temperature Source Oral Pulse Rate [Radial] 75 Respiratory Rate 18 Blood Pressure [Right Arm] 115/70 Blood Pressure Mean [Right Arm] 85 Blood Pressure Source [Right Arm] Automatic Cuff Blood Pressure Position [Right Arm] Sitting 02 Sat by Pulse Oximetry 95 Oxygen Delivery Method Room Air Medical Decision Narrative: heart tones checked. rate is 152. [facility] [place] HPI - General Stated complaint: fell in leaves twisted knee Time Seen by Provider: 04/21/20 16:00 Mode of Arrival: Wheelchair Source of Information: Patient Limitations: No Limitations Description of Symptoms (Recalled from Triage Doc. by RN): fell in bleach left knee HEENT Symptoms (Recalled from RN notes): No Resp Symptoms (Recalled from RN notes): No Skin Symptoms (Recalled from RN notes): Yes MS Symptoms (Recalled from RN notes): No Functional Status (Recalled from RN notes): wnl - History of Present Illness Provider Complaint: She states that earlier today she was cleaning at home when she got bleach on the floor and fell in it. She came down onto her left knee. The bleach on the floor has irritated an area on her left knee. She is 32 weeks . She denies any injuries other than the knee injury. Her tetanus immunization is up to date. - Related Data Home Medications Medication Instructions Recorded Confirmed No.137/Iron/Folic Acd 1 each PO DAILY 11/06/19 01/18/20 [ Vitamin Tablet] Previous Rx's Medication Instructions Recorded ferrous sulfate 325 mg (65 mg 325 mg PO DAILY #30 tab 01/18/20 iron) tablet terconazole 0.4 % vaginal cream 1 appful VAGINAL QHS 7 Days #45 g 01/18/20 Mupirocin [Bactroban 2% Ointment 1 applicatio TP TID 7 Days #1 tube 04/21/20 22gm tube] Allergies Allergy/AdvReac Type Severity Reaction Status Date / Time ondansetron Allergy Verified 01/18/20 13:57 [From Zofran (as hydrochloride)] ONION Allergy Severe Anaphylaxis Uncoded 01/18/20 13:57 - Worker's Comp Is this a Worker's Comp case?: No [facility] History - Hepatitis A Screen Drug use history?: No High risk sexual behaviors?: No History of sexually transmitted infection?: No Currently employed?: No Childcare worker?: No Do you have indoor plumbing?: Yes Do you have electricity?: Yes Attestation statement:: This patient has been screened for Hepatitis A risk factors. I have reviewed the patient's past medical history: Yes 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: Reports:: Asthma Denies:: Cancer, Diabetes Mellitus Type 1, Diabetes Mellitus Type 2, MRSA Comment: GERD
--- NOTE | 2020-04-21 16:00 | PC.NURSE ---
FHT HEARD AT 151 BPM USING DOPPLER. FETUS IS ACTIVE PER PATIENT. NO BLEEDING OR LOF.
[2020-04-21 16:20] VITALS: BP 115/70; PULSE 75; RESP 18; TEMP 36.7; O2SAT 95
== END 2020-04-21 16:22 | disposition home or self-care (01) ==
PROVIDERS: Emergency Provider Nurse Practitioner Family; PCP Physician Assistant
DX: S83.92XA Sprain of unspecified site of left knee, initial encounter (principal); W01.0XXA Fall on same level from slipping, tripping and stumbling without subsequent striking against object, initial encounter; Y92.010 Kitchen of single-family (private) house as the place of occurrence of the external cause; Z3A.32 32 weeks gestation of pregnancy; F17.210 Nicotine dependence, cigarettes, uncomplicated
CPT/HCPCS: 99201

== ENCOUNTER 2020-04-30 12:04 | Outpatient (CLI) | payer MEDICAID, SELFPAY ==
[2020-04-30 12:20] VITALS: BP 111/69; PULSE 80; RESP 20; TEMP 36.7; O2SAT 100; BMI 40.7
[2020-04-30 12:46] LABS: Microscopic, Urine URINE MICROSCOPIC (MICROSCOPIC)
[2020-04-30 12:47] LABS: Appearance,Urine SL CLOUDY (Clear); Bilirubin,Urine Negative (Negative); Blood, Urine Negative (Negative); Color,Urine YELLOW (Yellow); Glucose,Urine (UA) Negative (Negative); Ketones,Urine Negative (Negative); Leukocyte Esterase,Urine Negative (Negative); Nitrate,Urine Negative (Negative); Protein,Urine Negative (Negative); Specific Gravity, Urine 1.025 (1.005-1.030)
[2020-04-30 12:55] LABS: Fetal Membrane Rupture (Rapid) Negative (Negative)
[2020-04-30 12:58] LABS: Barbiturates Screen,Urine Negative ng/ml (<200)
[2020-04-30 12:59] LABS: Benzodiazepines Screen,Urine Negative ng/ml (<200)
[2020-04-30 13:00] LABS: Amphetamine/Metha Screen,Urine Negative ng/ml (<1000); Bacteria,Urine 2+ /lpf; Cannabinoid Screen,Urine Positive ng/ml (<50); Hyaline Casts,Urine Occasional #/lpf (0); WBC,Urine Occasional #/hpf (0-3)
[2020-04-30 13:01] LABS: Cocaine Screen,Urine Negative ng/ml (<300)
[2020-04-30 13:02] LABS: Methadone Screen,Urine Negative ng/ml (<300); Opiate Screen,Urine Negative ng/ml (<300)
[2020-04-30 13:03] LABS: Phencyclidine Screen,Urine Negative ng/ml (<25)
== END 2020-04-30 13:10 | disposition home or self-care (01) ==
LOC: OBOUT 12:09 → OB 12:10
PROVIDERS: PCP Physician Assistant; Visit Provider Obstetrics & Gynecology
DX: O26.893 Other specified pregnancy related conditions, third trimester (principal); Z3A.33 33 weeks gestation of pregnancy
CPT/HCPCS: 59025; 80305; 81001; 84112; 87086; 87088; 87186

== ENCOUNTER 2020-06-18 13:30 | Emergency (ER) | payer MEDICAID, SELFPAY ==
[2020-06-18 13:41] VITALS: BP 119/75; PULSE 67; RESP 17; TEMP 37; O2SAT 100; BMI 39.8
--- NOTE | 2020-06-18 13:56 | HMH.EDGENADL ---
ED Disposition Clinical Impression: Postoperative bleeding from incision Disposition: Home, Self-Care Condition on Discharge: Good Additional Instructions: Continue current care/treatment. 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 Referrals: Melissa Hernandez PA [Primary Care Provider] - - Critical Care Critical Care Time: No Attestation: On 06/18/20, the high probability of a clinically significant, sudden or life threatening deterioration of the following system(s) required my full and direct attention, intervention and personal management. The time I documented below is in addition to time spent performing reported procedures but includes the following listed in this critical care notation. Medical Decision Making - Vinny Inquiry Pt receiving controlled substance: No Vital Signs: 06/18/20 13:41 Temperature 98.6 F Temperature Source Oral Pulse Rate [Right Radial] 67 Respiratory Rate 17 Blood Pressure [Right Arm] 119/75 Blood Pressure Mean [Right Arm] 89 02 Sat by Pulse Oximetry 100 Oxygen Delivery Method Room Air General Adult HPI - General Chief complaint: Skin/Abscess/Foreign Body Stated complaint: C section incision bleeding Time Seen by Provider: 06/18/20 13:57 Mode of Arrival: Ambulatory Limitations: No Limitations Description of Symptoms (Recalled from ER Triage Doc. by RN): pt states that she had a c section on 05/31/[address] [place] [address] tianna guzman. pt states that she seen her on friday concerning a place in her c section incision that had opened up. pt states dr guzman instructed her to leave it alone and not lift her stomach. pt states that today she noticed a spot of blood on her underwear and thinks her site is bleeding. no bleeding noted upon nurse assessment. - History of Present Illness HPI narrative: 18 days post section, lower transverse incision. She has a known small area of superficial dehiscence of the wound for which she saw her surgeon on Friday, 2 days ago. Today she noticed a small spot of blood on her underwear and therefore came into the emergency department. No active bleeding. She has incisional pain, but no fever. - Related Data Home Medications Medication Instructions Recorded Confirmed No.137/Iron/Folic Acd 1 each PO DAILY 11/06/19 01/18/20 [ Vitamin Tablet] Previous Rx's Medication Instructions Recorded ferrous sulfate 325 mg (65 mg 325 mg PO DAILY #30 tab 01/18/20 iron) tablet terconazole 0.4 % vaginal cream 1 appful VAGINAL QHS 7 Days #45 g 01/18/20 Mupirocin [Bactroban 2% Ointment 1 applicatio TP TID 7 Days #1 tube 04/21/20 22gm tube] Allergies Allergy/AdvReac Type Severity Reaction Status Date / Time ondansetron Allergy Verified 06/18/20 13:46 [From Zofran (as hydrochloride)] ONION Allergy Severe Anaphylaxis Uncoded 01/18/20 13:57 [facility] History - Hepatitis A Screen Drug use history?: No High risk sexual behaviors?: No History of sexually transmitted infection?: No Currently employed?: No Childcare worker?: No Do you have indoor plumbing?: Yes Do you have electricity?: Yes Attestation statement:: This patient has been screened for Hepatitis A risk factors. 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
[2020-06-18 14:10] VITALS: BP 124/79; PULSE 85; RESP 15; TEMP 36.8; O2SAT 99
== END 2020-06-18 14:11 | disposition home or self-care (01) ==
PROVIDERS: Emergency Provider Emergency Medicine; PCP Physician Assistant
DX: L76.22 Postprocedural hemorrhage of skin and subcutaneous tissue following other procedure (principal); J45.909 Unspecified asthma, uncomplicated; F17.210 Nicotine dependence, cigarettes, uncomplicated
CPT/HCPCS: 99281

== ENCOUNTER 2020-06-26 11:10 | Emergency (ER) | payer MEDICAID, SELFPAY ==
[2020-06-26 11:11] VITALS: BP 143/89; PULSE 66; RESP 18; TEMP 36.8; O2SAT 100; BMI 39.8
--- NOTE | 2020-06-26 11:33 | HMH.EDGENADL ---
ED Disposition Clinical Impression: Wound dehiscence Pharyngitis Qualifiers: Pharyngitis/tonsillitis etiology: unspecified etiology Qualified Code(s): J02.9 - Acute pharyngitis, unspecified Disposition: Home, Self-Care Condition on Discharge: Good Referrals: Melissa Hernandez PA [Primary Care Provider] - - Critical Care Critical Care Time: No Attestation: On , the high probability of a clinically significant, sudden or life threatening deterioration of the following system(s) required my full and direct attention, intervention and personal management. The time I documented below is in addition to time spent performing reported procedures but includes the following listed in this critical care notation. Medical Decision Making - Medical Records Medical records reviewed: Yes: I reviewed the patient's medical records. - Vinny Inquiry Pt receiving controlled substance: No Vital Signs: 06/26/20 11:11 Temperature 98.3 F Temperature Source Oral Pulse Rate [Left Radial] 66 Respiratory Rate 18 Blood Pressure [Right Arm] 143/89 H Blood Pressure Mean [Right Arm] 107 Blood Pressure Source [Right Arm] Automatic Cuff Blood Pressure Position [Right Arm] Sitting 02 Sat by Pulse Oximetry 100 Oxygen Delivery Method Room Air - Lab Data Lab Results 06/26/20 11:32: Group A Strep Rapid Negative Orders (Tests/Meds): ORDERS Category Date Time Status Strep Screen Confirmation Stat Micro 06/26/20 11:32 Received Medical Decision Narrative: 25-year-old female presenting with sore throat. Nontoxic, afebrile, hemodynamically stable. Oropharynx is clear. Rapid strep is negative. She also presented with concern for wound dehiscence. I spoke to the the snow plow tractor operator on-call who advised that she was too far out from surgery to have a need for surgical repair and I agree with this clinically. He advised that she keep it clean and dry and follow-up in clinic. She will take NSAIDs for symptomatic control and follow-up accordingly. General Adult HPI - General Chief complaint: Vaginal Bleeding Stated complaint: sore itchy throat, c section icesion pain Time Seen by Provider: 06/26/20 11:34 Mode of Arrival: Ambulatory Limitations: No Limitations Description of Symptoms (Recalled from ER Triage Doc. by RN): c/o vaginal bleeding post on the 4th. States she is having big numerous blood clots with pain around belly button area. She is worried because she usually doesnt start her period for a few months after her c-sections so this is not normal for her. States per her OBGYN she should be starting her period soon but that should be after her appt with her. She is also having a itchy throat. - History of Present Illness HPI narrative: This is a 25-year-old female 1 month status post a section presenting with a 2-day history of sore throat and odynophagia and 1 week history of what she describes to be wound dehiscence to her . She thinks this has gotten worse in the past couple of days while working at [employer]. No fever, chills, difficulty tolerating oral intake, cough, shortness of breath. There was a triage report of vaginal bleeding, however I did not obtain this in my review of systems. She has not been taking any medication for her symptoms. - Related Data Home Medications Medication Instructions Recorded Confirmed No.137/Iron/Folic Acd 1 each PO DAILY 11/06/19 01/18/20 [ Vitamin Tablet] Previous Rx's Medication Instructions Recorded ferrous sulfate 325 mg (65 mg 325 mg PO DAILY #30 tab 01/18/20 iron) tablet terconazole 0.4 % vaginal cream 1 appful VAGINAL QHS 7 Days #45 g 01/18/20 Mupirocin [Bactroban 2% Ointment 1 applicatio TP TID 7 Days #1 tube 04/21/20 22gm tube] Allergies Allergy/AdvReac Type Severity Reaction Status Date / Time ondansetron Allergy Verified 06/18/20 13:46 [From Zofran (as hydrochloride)] ONION Aller
--- NOTE | 2020-06-26 11:37 | PC.NURSE ---
dr hilda martinez
--- NOTE | 2020-06-26 11:41 | PC.NURSE ---
Dr Peterson speaking with Dr Martinez
[2020-06-26 13:01] LABS: Strep Scrn Group A (Rapid) Negative (Negative)
[2020-06-26 13:20] VITALS: BP 130/76; PULSE 60; RESP 16; TEMP 36.8; O2SAT 100
== END 2020-06-26 13:21 | disposition home or self-care (01) ==
PROVIDERS: Emergency Provider Physician Assistant; PCP Physician Assistant
DX: T81.30XA Disruption of wound, unspecified, initial encounter (principal); J02.9 Acute pharyngitis, unspecified; J45.909 Unspecified asthma, uncomplicated; F17.210 Nicotine dependence, cigarettes, uncomplicated
CPT/HCPCS: 87430; 99282

== ENCOUNTER 2020-08-16 18:49 | Emergency (ER) | payer MEDICAID, SELFPAY ==
[2020-08-16 18:50] VITALS: BP 130/74; PULSE 76; RESP 18; TEMP 36.9; O2SAT 100; BMI 37.8
[2020-08-16 19:09] LABS: UTC Pregnancy Test, Urine Negative (Negative)
--- NOTE | 2020-08-16 19:09 | HMH.EDUTC ---
[facility] [place] Disposition Clinical Impression: Amenorrhea, Nausea Disposition: Home, Self-Care Condition on Discharge: Good Instructions: DI for Amenorrhea Additional Instructions: Follow up with your regular doctor. Follow up with your tanning consultant. Take the promethazine for nausea. It will make you drowsy so don't drive or operate heavy machinery after taking it. GO TO THE ER FOR ANY WORSENING SYMPTOMS OR CONCERNS Prescriptions: Promethazine HCl [Phenergan 25mg tab] 25 mg PO Q6H PRN #20 tab PRN Reason: Nausea And Vomiting Transmission Status: Received by [facility] Referrals: Melissa Hernandez PA [Primary Care Provider] - Time of Disposition: 19:14 Medical Decision Making - Medical Records Medical records reviewed: No: I reviewed the patient's medical records. - Vinny Inquiry Pt receiving controlled substance: No Vital Signs: 08/16/20 18:50 08/16/20 19:17 Temperature 98.4 F 98.4 F Temperature Source Oral Oral Pulse Rate 76 Pulse Rate [Right] 76 Respiratory Rate 18 18 Blood Pressure 130/74 Blood Pressure [Right Arm] 130/74 Blood Pressure Mean [Right Arm] 92 02 Sat by Pulse Oximetry 100 - Lab Data Lab results reviewed: Yes: I reviewed the patient's lab results. Lab Results 08/16/20 18:52: Tst Clinic Negative [facility] [place] HPI - General Stated complaint: possible three days late on period Time Seen by Provider: 08/16/20 19:09 Description of Symptoms (Recalled from Triage Doc. by RN): pt states 3 days late on period concerned she HEENT Symptoms (Recalled from RN notes): No Resp Symptoms (Recalled from RN notes): No Skin Symptoms (Recalled from RN notes): No MS Symptoms (Recalled from RN notes): No Functional Status (Recalled from RN notes): wnl - History of Present Illness Provider Complaint: She is 3 days late on her period. She last had a baby in May (2 months ago) so she does not want to be . - Related Data Home Medications Medication Instructions Recorded Confirmed No.137/Iron/Folic Acd 1 each PO DAILY 11/06/19 01/18/20 [ Vitamin Tablet] Previous Rx's Medication Instructions Recorded ferrous sulfate 325 mg (65 mg 325 mg PO DAILY #30 tab 01/18/20 iron) tablet terconazole 0.4 % vaginal cream 1 appful VAGINAL QHS 7 Days #45 g 01/18/20 Mupirocin [Bactroban 2% Ointment 1 applicatio TP TID 7 Days #1 tube 04/21/20 22gm tube] Promethazine HCl [Phenergan 25mg 25 mg PO Q6H PRN #20 tab 08/16/20 tab] Allergies Allergy/AdvReac Type Severity Reaction Status Date / Time ondansetron Allergy Verified 08/16/20 19:06 [From Zofran (as hydrochloride)] ONION Allergy Severe Anaphylaxis Uncoded 01/18/20 13:57 - Worker's Comp Is this a Worker's Comp case?: No [facility] History - Hepatitis A Screen Drug use history?: No High risk sexual behaviors?: No History of sexually transmitted infection?: No Currently employed?: No Childcare worker?: No Do you have indoor plumbing?: Yes Do you have electricity?: Yes Attestation statement:: This patient has been screened for Hepatitis A risk factors. 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
[2020-08-16 19:17] VITALS: BP 130/74; PULSE 76; RESP 18; TEMP 36.9; O2SAT 100
== END 2020-08-16 19:18 | disposition home or self-care (01) ==
PROVIDERS: Emergency Provider Nurse Practitioner Family; PCP Physician Assistant
DX: N91.2 Amenorrhea, unspecified (principal); K21.9 Gastro-esophageal reflux disease without esophagitis; J45.909 Unspecified asthma, uncomplicated; F17.210 Nicotine dependence, cigarettes, uncomplicated
CPT/HCPCS: 81025; 99202; G0463

== ENCOUNTER 2020-08-21 17:50 | Emergency (ER) | payer MEDICAID, SELFPAY ==
[2020-08-21 17:50] VITALS: BP 134/63; PULSE 65; RESP 20; TEMP 37; O2SAT 98; BMI 41.1
--- NOTE | 2020-08-21 18:04 | HMH.EDUTC ---
[facility] [place] Clinical Impression: Amenorrhea Disposition: Home, Self-Care Condition on Discharge: Good Instructions: DI for Amenorrhea Additional Instructions: Follow up with your primary care physician as you have scheduled. GO TO THE ER FOR ANY WORSENING SYMPTOMS OR CONCERNS Referrals: Melissa Hernandez PA [Primary Care Provider] - Time of Disposition: 18:27 Medical Decision Making - Medical Records Medical records reviewed: No: I reviewed the patient's medical records. - Vinny Inquiry Pt receiving controlled substance: No Vital Signs: 08/21/20 17:50 08/21/20 18:28 Temperature 98.6 F 98.6 F Temperature Source Oral Pulse Rate 65 Pulse Rate [Right Brachial] 65 Respiratory Rate 20 20 Blood Pressure 134/63 Blood Pressure [Right Arm] 134/63 Blood Pressure Mean [Right Arm] 86 Blood Pressure Source [Right Arm] Automatic Cuff Blood Pressure Position [Right Arm] Sitting 02 Sat by Pulse Oximetry 98 Oxygen Delivery Method Room Air - Lab Data Lab results reviewed: Yes: I reviewed the patient's lab results. Lab Results 08/21/20 18:09: Tst Clinic Negative [facility] [place]PI - General Stated complaint: test, nausea Time Seen by Provider: 08/21/20 18:07 - History of Present Illness Provider Complaint: She is here to have a urine test. She is 1 week late for her period. She denies any other complaints. - Related Data Home Medications Medication Instructions Recorded Confirmed No.137/Iron/Folic Acd 1 each PO DAILY 11/06/19 01/18/20 [ Vitamin Tablet] Previous Rx's Medication Instructions Recorded ferrous sulfate 325 mg (65 mg 325 mg PO DAILY #30 tab 01/18/20 iron) tablet terconazole 0.4 % vaginal cream 1 appful VAGINAL QHS 7 Days #45 g 01/18/20 Mupirocin [Bactroban 2% Ointment 1 applicatio TP TID 7 Days #1 tube 04/21/20 22gm tube] Promethazine HCl [Phenergan 25mg 25 mg PO Q6H PRN #20 tab 08/16/20 tab] Allergies Allergy/AdvReac Type Severity Reaction Status Date / Time ondansetron Allergy Verified 08/16/20 19:06 [From Zofran (as hydrochloride)] ONION Allergy Severe Anaphylaxis Uncoded 01/18/20 13:57 [facility] History - Hepatitis A Screen Attestation statement:: This patient has been screened for Hepatitis A risk factors. 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 Obtained: Yes All systems reviewed & no additional complaints - Constitutional Constitutional: Reports system reviewed and no additional complaints, except as docu - Eyes Eyes: Reports system reviewed and no additional complaints, except as docu - ENT Ears, Nose, Mouth, and Throat: Reports system reviewed and no additional complaints, except as docu - Cardiovascular Cardiovascular: Reports system reviewed and no additional complaints, except as docu - Respiratory Respiratory: Reports system reviewed and no additional complaints, except as docu - Gastrointestinal Gastrointestingal: Reports: system reviewed and no additional complaints, except as docu Physical Exam - General General appearance: alert, in no apparent distress - Head Head exam: atraumatic, normocephalic, normal inspection - Eye Eye exam: Present: normal appearance, PERRL, EOMI - ENT ENT exam: Present: normal exam, normal oropharynx, mucous membranes
[2020-08-21 18:13] LABS: UTC Pregnancy Test, Urine Negative (Negative)
[2020-08-21 18:28] VITALS: BP 134/63; PULSE 65; RESP 20; TEMP 37; O2SAT 98
== END 2020-08-21 18:30 | disposition home or self-care (01) ==
PROVIDERS: Emergency Provider Nurse Practitioner Family; PCP Physician Assistant
DX: N91.2 Amenorrhea, unspecified (principal); J45.909 Unspecified asthma, uncomplicated; F17.210 Nicotine dependence, cigarettes, uncomplicated
CPT/HCPCS: 81025; 99202; G0463

== ENCOUNTER → 2020-08-23 16:54 | Outpatient (CLI) | payer MEDICAID, SELFPAY ==
[2020-08-23 17:30] LABS: HCG Qualitative, Serum Negative (Negative)
== END ==
PROVIDERS: Visit Provider Physician Assistant
DX: N92.6 Irregular menstruation, unspecified (principal)
CPT/HCPCS: 84703

== ENCOUNTER 2020-09-21 19:35 | Emergency (ER) | payer MEDICAID, SELFPAY ==
[2020-09-21 19:40] VITALS: BP 136/68; PULSE 67; RESP 20; TEMP 36.4; O2SAT 100; BMI 41.1
[2020-09-21 20:09] LABS: Apearance,Urine Clear (Clear); Bilirubin,Urine Negative (Negative); Blood, Urine Negative (Negative); Color,Urine Yellow (Yellow); Glucose,Urine (UA) Negative (Negative); Ketones,Urine Negative (Negative); Protein,Urine Trace (Negative); UTC Leukocyte Esterase,Urine Negative (Negative); UTC Nitrate,Urine Negative (Negative); UTC Pregnancy Test, Urine Negative (Negative); Urobilinogen,Urine 1 EU/dl (0.2)
--- NOTE | 2020-09-21 20:19 | HMH.EDUTC ---
[facility] [place] Clinical Impression: Amenorrhea Disposition: Home, Self-Care Condition on Discharge: Good Instructions: Amenorrhea (Alternative Therapy), Absent Periods, DI for Low Back Pain Additional Instructions: *Ibuprofen maged 6 hours with meal as needed for pain/inflammation *Remember you had a Toradol shot in the clinic today, which is similar to Motrin *Not additional anti-inflammatory like motrin, aleve, advil with the above amount of ibuprofen. You can still take Tylenol every 4 hours as needed if you need something else for pain *Ice 20 minutes every 2 hours for the first 48 hours after the initial injury followed by moist heat every 20 minutes 3-4 times a day to affected area *Keep this area active, no movement leads to more stiffness, However take it easy and avoid heavy lifting pushing or pulling *Follow up with you family doctor if no improvement for further treatment Over the counter Pain patches like lidocaine or salan pas may help with pain in your lower back area Referrals: Melissa Hernandez PA [Primary Care Provider] - As needed Time of Disposition: 20:36 Medical Decision Making - Vinny Inquiry Pt receiving controlled substance: No Vinny was queried for this patient: No Vital Signs: 09/21/20 19:40 Temperature 97.6 F Temperature Source Temporal Artery Scan Pulse Rate [Left Brachial] 67 Respiratory Rate 20 Blood Pressure [Left Arm] 136/68 Blood Pressure Mean [Left Arm] 90 Blood Pressure Source [Left Arm] Automatic Cuff Blood Pressure Position [Left Arm] Sitting 02 Sat by Pulse Oximetry 100 Oxygen Delivery Method Room Air - Lab Data Lab Results 09/21/20 19:49: Urine Color Yellow, Urine Appearance Clear, Urine pH 7.0, Ur Specific [place] 1.020, Urine Protein Trace, Urine Glucose (UA) Negative, Urine Ketones Negative, Urine Blood Negative, Urine Nitrate Negative, Urine Bilirubin Negative, Urine Urobilinogen 1, Ur Leukocyte Esterase Negative, Tst Clinic Negative 09/21/20 20:00: Serum HCG, Qual Negative [facility] [place] HPI - General Stated complaint: n/v Time Seen by Provider: 09/21/20 20:19 Mode of Arrival: Ambulatory Source of Information: Patient Limitations: No Limitations Description of Symptoms (Recalled from Triage Doc. by RN): PATEINT C/O NAUSEA AND LOWER BACK PAIN X 1 MONTH. STATES THE MOST RECENT HOME TEST SHE TOOK WAS POSITIVE HEENT Symptoms (Recalled from RN notes): No Resp Symptoms (Recalled from RN notes): No Skin Symptoms (Recalled from RN notes): No MS Symptoms (Recalled from RN notes): No Functional Status (Recalled from RN notes): WNL - History of Present Illness Provider Complaint: Patient states that she has history of muscle spasms in her lower back States that she has been having them off and on for about a month States that also she hasnt had a period since Jul and took a home test and it was positive so she came in [facility] to get checked for - Related Data Home Medications Medication Instructions Recorded Confirmed Acetaminophen with Codeine 1 tab PO Q6HP PRN 09/21/20 09/21/20 [Acetaminophen w/Codeine #3 Tablet] Allergies Allergy/AdvReac Type Severity Reaction Status Date / Time ondansetron Allergy Verified 08/23/20 12:54 [From Zofran (as hydrochloride)] onion Allergy Verified 09/21/20 19:57 - Worker's Comp Is this a Worker's Comp case?: No [facility] History - Hepatitis A Screen Drug use history?: No High risk sexual behaviors?: No History of sexually transmitted infection?: No Currently employed?: No Childcare worker?: No Do you have indoor plumbing?: Yes Do you have electricity?: Yes Attestation statement:: This patient has been screened for Hepatitis A risk factors. 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
[2020-09-21 20:28] VITALS: BP 136/68; PULSE 67; RESP 20; TEMP 36.4; O2SAT 100
[2020-09-21 20:35] LABS: HCG Qualitative, Serum Negative (Negative)
== END 2020-09-21 20:30 | disposition home or self-care (01) ==
PROVIDERS: Emergency Provider Nurse Practitioner; PCP Physician Assistant
DX: N91.2 Amenorrhea, unspecified (principal); M54.5 Low back pain; J45.909 Unspecified asthma, uncomplicated; F17.210 Nicotine dependence, cigarettes, uncomplicated
CPT/HCPCS: 81003; 81025; 84703; 99202; G0463

== ENCOUNTER 2020-10-19 11:38 | Emergency (ER) | payer MEDICAID, SELFPAY ==
[2020-10-19 11:53] VITALS: BP 138/70; PULSE 64; RESP 17; TEMP 36.7; O2SAT 98; BMI 37.4
[2020-10-19 11:56] LABS: UTC Pregnancy Test, Urine Negative (Negative)
--- NOTE | 2020-10-19 11:58 | HMH.EDUTC ---
[facility] – [place] Disposition Clinical Impression: Urine test negative Disposition: Home, Self-Care Condition on Discharge: Good Instructions: Menstrual Problems, General (Alternative Therapy) Additional Instructions: Make sure to keep your appointment with your OBGYN next month and they can retest you for Return if needed Straight to ER if any life threatening symptoms Referrals: Melissa Hernandez PA [Primary Care Provider] - As needed Time of Disposition: 12:02 Medical Decision Making - Vinny Inquiry Pt receiving controlled substance: No Vinny was queried for this patient: No Vital Signs: 10/19/20 11:53 Temperature 98.0 F Temperature Source Oral Pulse Rate [Right] 64 Respiratory Rate 17 Blood Pressure [Right Arm] 138/70 Blood Pressure Mean [Right Arm] 92 02 Sat by Pulse Oximetry 98 Oxygen Delivery Method Room Air - Lab Data Lab results reviewed: Yes: I reviewed the patient's lab results. Lab Results 10/19/20 11:47: Tst Clinic Negative [facility] [place] HPI - General Stated complaint: test Time Seen by Provider: 10/19/20 11:58 Mode of Arrival: Family Vehicle Source of Information: Patient Limitations: No Limitations Description of Symptoms (Recalled from Triage Doc. by RN): Pt presents to [facility] wanting to have a pregancny test. Pt states her last period was 09/30/20 and only lasted for 3 days which has never happened before . HEENT Symptoms (Recalled from RN notes): No Resp Symptoms (Recalled from RN notes): No Skin Symptoms (Recalled from RN notes): No MS Symptoms (Recalled from RN notes): No Functional Status (Recalled from RN notes): na - History of Present Illness Provider Complaint: Patient state that she wanted to get a test States that she had a period earlier this month but it only lasted a couple days States that she took a test at home but it was inconclusive so she came in to get tested here - Related Data Allergies Allergy/AdvReac Type Severity Reaction Status Date / Time ondansetron Allergy Verified 08/23/20 12:54 [From Zofran (as hydrochloride)] onion Allergy Verified 09/21/20 19:57 - Worker's Comp Is this a Worker's Comp case?: No [facility] History - Hepatitis A Screen Drug use history?: Yes High risk sexual behaviors?: No History of sexually transmitted infection?: No Currently employed?: No Childcare worker?: No Do you have indoor plumbing?: Yes Do you have electricity?: Yes Attestation statement:: This patient has been screened for Hepatitis A risk factors. 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 Absent: respiratory distress - Cardiovascular Cardiovascular exam: Present: regular rate, normal rhythm. Absent: JVD - Abdom
[2020-10-19 12:00] VITALS: BP 140/80; PULSE 79; RESP 20; TEMP 36.7; O2SAT 98
== END 2020-10-19 12:05 | disposition home or self-care (01) ==
PROVIDERS: Emergency Provider Nurse Practitioner; PCP Physician Assistant
DX: N92.5 Other specified irregular menstruation (principal)
CPT/HCPCS: 81025; 99202; G0463

== ENCOUNTER 2020-10-26 11:10 | Emergency (ER) | payer MEDICAID, SELFPAY ==
[2020-10-26 11:11] VITALS: BP 136/87; PULSE 89; RESP 18; TEMP 36.7; O2SAT 97; BMI 37.4
[2020-10-26 11:33] LABS: Microscopic, Urine URINE MICROSCOPIC (MICROSCOPIC)
[2020-10-26 11:37] LABS: Urine Pregnancy, HCG Qual. Negative (Negative)
--- NOTE | 2020-10-26 11:41 | HMH.EDABDPAI ---
ED Disposition Clinical Impression: Dyspepsia Disposition: Home, Self-Care Condition on Discharge: Good Instructions: DI for Dyspepsia Prescriptions: Famotidine [Pepcid 20mg Tablet] 20 mg PO DAILY #15 tab Transmission Status: Pending to [facility] Promethazine HCl [Phenergan 25mg tab] 25 mg PO BID #8 tab Transmission Status: Pending to [facility] Referrals: Melissa Hernandez PA [Primary Care Provider] - Romeo Ziegler MD [Staff Physician] - - Critical Care Critical Care Time: No Attestation: On 10/26/20, the high probability of a clinically significant, sudden or life threatening deterioration of the following system(s) required my full and direct attention, intervention and personal management. The time I documented below is in addition to time spent performing reported procedures but includes the following listed in this critical care notation. Medical Decision Making - Medical Records Medical records reviewed: Yes: I reviewed the patient's medical records. - Vinny Inquiry Pt receiving controlled substance: No Vital Signs: 10/26/20 11:11 Temperature 98.1 F Temperature Source Oral Pulse Rate [Right] 89 Respiratory Rate 18 Blood Pressure [Right Arm] 136/87 Blood Pressure Mean [Right Arm] 103 02 Sat by Pulse Oximetry 97 - Lab Data Lab Results 10/26/20 11:23: Urine Color Yellow, Urine Appearance Cloudy, Urine pH 8.5, Ur Specific [place] 1.020, Urine Protein Negative, Urine Glucose (UA) Negative, Urine Ketones Negative, Urine Blood Trace-l, Urine Nitrate Negative, Urine Bilirubin Negative, Urine Urobilinogen 0.2, Ur Leukocyte Esterase Negative, Urine RBC None, Urine WBC 5-10, Ur Squamous Epith Cells 10-20, Urine Bacteria 2+ 10/26/20 11:23: Urine HCG, Qual Negative 10/26/20 11:39: WBC 12.1 H, RBC 5.34, Hgb 12.5, Hct 41.1, MCV 77.0 L, MCH 23.3 L, MCHC 30.3 L, RDW 15.2, Plt Count 240, MPV 10.2, Neut % (Auto) 84.9 H, Lymph % (Auto) 10.0, [place] % (Auto) 4.1, Eos % (Auto) 0.7, Baso % (Auto) 0.2, Neut # (Auto) 10.3 H, Lymph # (Auto) 1.2, [place] # (Auto) 0.5, Eos # (Auto) 0.1, Baso # (Auto) 0.0 10/26/20 11:39: Sodium 138, Potassium 4.5, Chloride 104, Carbon Dioxide 29, Anion Gap 9.5, BUN 13, Creatinine 0.60, Estimated Creat Clear 238, Estimated GFR 122, Est GFR ( Amer) 147, Glucose 105 H, Calcium 9.4, Total Bilirubin 0.6, AST 25, ALT 24, Alkaline Phosphatase 61, Total Protein 7.5, Albumin 4.6, Globulin 2.9, Albumin/Globulin Ratio 1.6, Lipase 50 Result diagrams: 10/26/20 11:39 10/26/20 11:39 Orders (Tests/Meds): ED MEDICATIONS Generic Name Dose Route Start Last Admin Trade Name Freq PRN Reason Stop Dose Admin Sodium Chloride 1,000 mls @ 999 mls/hr 10/26/20 11:30 10/26/20 11:44 Sod Chlor 0.9% 1000ml Bag IV 10/26/20 12:30 999 mls/hr .Q1H1M RANI Administration Sodium Chloride 8 ml 10/26/20 11:19 Sodium Chloride 0.9% 10ml Vial IV 11/25/20 11:18 NEEDED PRN dilute pepcid Discontinued Medications Generic Name Dose Route Start Last Admin Trade Name Freq PRN Reason Stop Dose Admin Diphenhydramine HCl 25 mg 10/26/20 11:19 10/26/20 11:48 Diphenhydramine 50mg/Ml Vial IV 10/26/20 11:20 25 mg ONCE ONE Administration Famotidine 20 mg 10/26/20 11:19 10/26/20 11:46 Famotidine 20mg/2ml Vial IV 10/26/20 11:20 20 mg ONCE ONE Administration ORDERS Category Date Time Status Comprehensive Metabolic Panel Stat Lab 10/26/20 11:39 Results HCG,Quantitative Stat Lab 10/26/20 11:39 Results Lipase Stat Lab 10/26/20 11:39 Results Urine Culture Stat Micro 10/26/20 11:23 Received - Reevaluation(s) Time: 12:10 Reevaluation #1: On reevaluation, patient is feeling much better. Repeat abdominal exam is benign. Patient is tolerating oral intake. was negative. I do believe symptoms are consistent with dyspepsia versus peptic ulcer disease. I do believe the patient would benefit from follow-up gastroenterology
[2020-10-26 11:42] LABS: Appearance,Urine CLOUDY (Clear); Bilirubin,Urine Negative (Negative); Blood, Urine TRACE-L (Negative); Color,Urine YELLOW (Yellow); Glucose,Urine (UA) Negative (Negative); Ketones,Urine Negative (Negative); Leukocyte Esterase,Urine Negative (Negative); Nitrate,Urine Negative (Negative); PH,Urine 8.5 (5.0-8.5); Protein,Urine Negative (Negative); Urobilinogen,Urine 0.2 EU/dl (0.2)
[2020-10-26 11:44] LABS: Bacteria,Urine 2+ /lpf
[2020-10-26 11:48] LABS: Basophils % 0.2 % (0.1-2.0); Eosinophils # 0.1 K/mm3 (0.0-0.4); Eosinophils % 0.7 % (0.1-12.0); Hematocrit 41.1 % (37.0-47.0); Hemoglobin 12.5 g/dL (12.2-16.2); Lymphocytes # 1.2 K/mm3 (0.7-4.5); Mean Corpuscular HGB Conc 30.3 g/dL (31.8-35.4); Mean Corpuscular Hemoglobin 23.3 pg (27.0-31.2); Mean Platelet Volume 10.2 fl (7.4-10.4); Monocytes # 0.5 K/mm3 (0.1-1.0); Monocytes % 4.1 % (1.7-9.3); Neutrophils # 10.3 K/mm3 (1.8-7.8); Neutrophils % 84.9 % (37.0-80.0); Platelet Count 240 K/mm3 (142-424); Red Blood Count 5.34 M/mm3 (4.20-5.40); Red Cell Distribution Width 15.2 % (11.5-17.5); White Blood Count 12.1 K/mm3 (4.8-10.8)
[2020-10-26 11:55] LABS: Chloride 104 mmol/L (98-107); Potassium 4.5 mmoL/L (3.5-5.1); Sodium 138 mmol/L (136-145)
[2020-10-26 11:58] LABS: Alanine Aminotransferase 24 U/L (12-78); Albumin Level 4.6 g/dl (3.5-5.0); Albumin/Globulin Ratio 1.6 (1.1-1.8); Alkaline Phosphatase 61 U/L (38-126); Anion Gap 9.5 mEq/L (5-15); Aspartate Amino Transferase 25 U/L (14-36); Bilirubin,Total 0.6 mg/dl (0.2-1.3); Blood Urea Nitrogen 13 mg/dl (7-17); Calcium 9.4 mg/dl (8.4-10.2); Carbon Dioxide 29 mmol/L (22.0-30.0); Creatinine Clearance Estimated 238 mL/min (50-200); Estimated Glomerular Filt Rate 122 ml/min (>60); GFR (African American) 147 ML/MIN (>60); Globulin 2.9 g/dL (1.3-3.2); Glucose 105 mg/dl (74-100); Lipase 50 U/L (23-300); Total Protein,Serum 7.5 g/dl (6.3-8.2)
[2020-10-26 12:19] LABS: HCG,Quantitative < 2 mIU/ml (0-5.42)
--- NOTE | 2020-10-26 12:38 | PC.NURSE ---
speaking with Dr Rojas
[2020-10-26 12:43] VITALS: BP 146/54; PULSE 78; RESP 16; TEMP 36.9; O2SAT 98
== END 2020-10-26 12:34 | disposition home or self-care (01) ==
PROVIDERS: Emergency Provider Emergency Medicine; PCP Physician Assistant
DX: R10.13 Epigastric pain (principal); J45.909 Unspecified asthma, uncomplicated; F17.210 Nicotine dependence, cigarettes, uncomplicated
CPT/HCPCS: 80053; 81001; 81025; 83690; 84702; 85025; 87086; 87088; 99281

== ENCOUNTER 2021-01-09 15:27 | Emergency (ER) | payer MEDICAID, SELFPAY ==
[2021-01-09 15:51] VITALS: BP 151/85; PULSE 70; RESP 18; TEMP 37.1; O2SAT 99; BMI 41.1
--- NOTE | 2021-01-09 15:58 | HMH.EDUTC ---
[facility] – [place] Disposition Clinical Impression: Qualifiers: Weeks of gestation: less than 8 weeks Qualified Code(s): Z3A.01 - Less than 8 weeks gestation of Disposition: Home, Self-Care Condition on Discharge: Good Instructions: Diet Additional Instructions: Follow up with your primary care physician and your ob\[facility] doctor as scheduled. GO TO THE ER FOR ANY CONCERNS Prescriptions: Pnv No.95/Ferrous Fum/Folic AC [ Vitamins Tablet] 1 each PO DAILY 11 Days #30 tab Transmission Status: Received by [facility] Referrals: Melissa Hernandez PA [Primary Care Provider] - Time of Disposition: 16:05 Medical Decision Making - Medical Records Medical records reviewed: No: I reviewed the patient's medical records. - Vinny Inquiry Pt receiving controlled substance: No Vital Signs: 01/09/21 15:51 01/09/21 16:03 Temperature 98.8 F 98.0 F Temperature Source Temporal Artery Scan Pulse Rate 70 Pulse Rate [Right Brachial] 70 Respiratory Rate 18 18 Blood Pressure 151/85 H Blood Pressure [Right Arm] 151/85 H Blood Pressure Mean [Right Arm] 107 Blood Pressure Source [Right Arm] Automatic Cuff Blood Pressure Position [Right Arm] Sitting 02 Sat by Pulse Oximetry 99 Oxygen Delivery Method Room Air - Lab Data Lab results reviewed: Yes: I reviewed the patient's lab results. Lab Results 01/09/21 16:00: HCG, Quant 263 H [facility] [place] HPI - General Stated complaint: Possibly Time Seen by Provider: 01/09/21 15:58 - History of Present Illness Provider Complaint: She is here to have her positive home test verified. She states that her last period was in November. She is unsure of the last date. She states that she had 2 periods in November and that is why she is here. She would like to have a blood test done to see what her hcg level is. - Related Data Previous Rx's Medication Instructions Recorded Famotidine [Pepcid 20mg Tablet] 20 mg PO DAILY #15 tab 10/26/20 Promethazine HCl [Phenergan 25mg 25 mg PO BID #8 tab 10/26/20 tab] omeprazole 40 mg capsule,delayed 40 mg PO DAILY #90 cap 10/31/20 release Pnv No.95/Ferrous Fum/Folic AC 1 each PO DAILY 11 Days #30 tab 01/09/21 [ Vitamins Tablet] Allergies Allergy/AdvReac Type Severity Reaction Status Date / Time ondansetron Allergy Verified 01/09/21 16:02 [From Zofran (as hydrochloride)] onion Allergy Verified 12/19/20 15:48 [facility] History - Hepatitis A Screen Attestation statement:: This patient has been screened for Hepatitis A risk factors. 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: Yes All systems reviewed & no additional complaints - Constitutional Constitutional: Reports system reviewed and no additional complaints, except as docu - Eyes Eyes: Reports system reviewed and no additional complaints, except as docu - ENT Ears, Nose, Mouth, and Throat: Reports system reviewed and no additional complaints, except as docu - Cardiovascular Cardiovascular: Reports system reviewed and no additional complaints, except as docu, Denies chest pain - Respiratory Respiratory: Reports system reviewed and no additional complaints, except as docu, Denies chest congestion, Denies cough - Gastrointestinal Gastrointestingal: Denies: abdominal pain, diarrhea, nausea,
[2021-01-09 16:03] VITALS: BP 151/85; PULSE 70; RESP 18; TEMP 36.7; O2SAT 99
[2021-01-09 16:51] LABS: HCG,Quantitative 263 mIU/ml (0-5.42)
[2021-01-09 19:46] LABS: UTC Pregnancy Test, Urine Positive (Negative)
== END 2021-01-09 16:22 | disposition home or self-care (01) ==
PROVIDERS: Emergency Provider Nurse Practitioner Family; PCP Physician Assistant
DX: Z3A.01 Less than 8 weeks gestation of pregnancy (principal); J45.909 Unspecified asthma, uncomplicated; F17.210 Nicotine dependence, cigarettes, uncomplicated; Z32.01 Encounter for pregnancy test, result positive
CPT/HCPCS: 81025; 84702; 99202; G0463

== ENCOUNTER → 2021-01-17 15:56 | Outpatient (CLI) | payer MEDICAID, SELFPAY ==
[2021-01-17 18:02] LABS: HCG,Quantitative 6579 mIU/ml (0-5.42)
== END ==
PROVIDERS: Visit Provider Obstetrics & Gynecology
DX: Z34.90 Encounter for supervision of normal pregnancy, unspecified, unspecified trimester (principal)
CPT/HCPCS: 84702

== ENCOUNTER 2021-01-22 19:59 | Emergency (ER) | payer MEDICAID, SELFPAY ==
[2021-01-22 20:09] VITALS: BP 134/68; PULSE 76; RESP 18; TEMP 36.8; O2SAT 99; BMI 41.1
[2021-01-22 20:19] VITALS: BMI 41.1
--- NOTE | 2021-01-22 20:20 | XR_ITS ---
PROCEDURE INFORMATION: Exam: XR Left Knee Exam date and time: 01/22/2021 8:20 PM Age: 25 years old Clinical indication: Injury or trauma; Fall; Blunt trauma; Patient HX: Patient is six weeks . She fell this morning injuring her left knee. She was shielded with 2 full lead aprons. ; Additional info: Fall with left knee injury TECHNIQUE: Imaging protocol: XR Left knee. Views: 3 views. COMPARISON: No relevant prior studies available. FINDINGS: Bones/joints: No acute fracture. No dislocation. No significant joint effusion. Soft tissues: Unremarkable. IMPRESSION: No fracture. If pain persists, suggest MRI to evaluate for occult fracture/internal arrangement.
[2021-01-22 20:24] LABS: Microscopic, Urine URINE MICROSCOPIC (MICROSCOPIC)
[2021-01-22 20:27] LABS: Urine Pregnancy, HCG Qual. Positive (Negative)
[2021-01-22 20:35] LABS: Basophils % 0.4 % (0.1-2.0); Eosinophils # 0.2 K/mm3 (0.0-0.4); Eosinophils % 1.9 % (0.1-12.0); Hematocrit 36.1 % (37.0-47.0); Hemoglobin 11.9 g/dL (12.2-16.2); Lymphocytes # 2.7 K/mm3 (0.7-4.5); Mean Corpuscular HGB Conc 32.9 g/dL (31.8-35.4); Mean Corpuscular Hemoglobin 24.8 pg (27.0-31.2); Mean Corpuscular Volume 75.3 fl (81-99); Mean Platelet Volume 11.2 fl (7.4-10.4); Monocytes # 0.5 K/mm3 (0.1-1.0); Monocytes % 5.1 % (1.7-9.3); Neutrophils # 6.9 K/mm3 (1.8-7.8); Neutrophils % 66.6 % (37.0-80.0); Platelet Count 289 K/mm3 (142-424); Red Cell Distribution Width 15.2 % (11.5-17.5); White Blood Count 10.4 K/mm3 (4.8-10.8)
[2021-01-22 20:37] LABS: Chloride 104 mmol/L (98-107); Potassium 4.3 mmoL/L (3.5-5.1); Sodium 136 mmol/L (136-145)
[2021-01-22 20:39] LABS: Amylase 116 U/L (30-110)
[2021-01-22 20:40] LABS: Alanine Aminotransferase 34 U/L (12-78); Albumin Level 4.4 g/dl (3.5-5.0); Albumin/Globulin Ratio 1.3 (1.1-1.8); Alkaline Phosphatase 58 U/L (38-126); Anion Gap 13.3 mEq/L (5-15); Aspartate Amino Transferase 38 U/L (14-36); Bilirubin,Total 0.7 mg/dl (0.2-1.3); Blood Urea Nitrogen 9 mg/dl (7-17); Calcium 8.9 mg/dl (8.4-10.2); Carbon Dioxide 23 mmol/L (22.0-30.0); Creatinine Clearance Estimated 238 mL/min (50-200); Estimated Glomerular Filt Rate 122 ml/min (>60); GFR (African American) 147 ML/MIN (>60); Globulin 3.5 g/dL (1.3-3.2); Glucose 87 mg/dl (74-100); Lipase 78 U/L (23-300); Total Protein,Serum 7.9 g/dl (6.3-8.2)
[2021-01-22 20:44] LABS: Appearance,Urine CLEAR (Clear); Bilirubin,Urine Negative (Negative); Blood, Urine Negative (Negative); Color,Urine YELLOW (Yellow); Glucose,Urine (UA) Negative (Negative); Ketones,Urine Negative (Negative); Leukocyte Esterase,Urine Negative (Negative); Nitrate,Urine Negative (Negative); Protein,Urine Negative (Negative); Specific Gravity, Urine 1.025 (1.005-1.030); Urobilinogen,Urine 0.2 EU/dl (0.2)
[2021-01-22 20:45] LABS: Amorphous Sediment,Urine 1+ /lpf; Bacteria,Urine Trace /lpf; WBC,Urine Occasional #/hpf (0-3)
--- NOTE | 2021-01-22 20:45 | HMH.ITSTN ---
PATIENT IS SIX WEEKS . SHE SIGNED CONSENT FORM. SHE WAS SHIELDED WITH 2 LEAD APRONS FOR LEFT KNEE X-RAY.
--- NOTE | 2021-01-22 21:26 | HMH.EDLOEX ---
ED Disposition Clinical Impression: Contusion of knee, left Qualifiers: Encounter type: initial encounter Qualified Code(s): S80.02XA - Contusion of left knee, initial encounter Qualifiers: Weeks of gestation: less than 8 weeks Qualified Code(s): Z3A.01 - Less than 8 weeks gestation of Disposition: Home, Self-Care Condition on Discharge: Good Instructions: DI for Knee Pain Additional Instructions: ice and tyenol and see pcp for follow up Referrals: Melissa Hernandez PA [Primary Care Provider] - - Critical Care Critical Care Time: No Attestation: On 01/22/21, the high probability of a clinically significant, sudden or life threatening deterioration of the following system(s) required my full and direct attention, intervention and personal management. The time I documented below is in addition to time spent performing reported procedures but includes the following listed in this critical care notation. Medical Decision Making - Medical Records Medical records reviewed: Yes: I reviewed the patient's medical records. - Vinny Inquiry Pt receiving controlled substance: No Vital Signs: 01/22/21 20:09 Temperature 98.2 F Temperature Source Oral Pulse Rate [Right] 76 Respiratory Rate 18 Blood Pressure [Right Arm] 134/68 Blood Pressure Mean [Right Arm] 90 Blood Pressure Source [Right Arm] Automatic Cuff Blood Pressure Position [Right Arm] Sitting 02 Sat by Pulse Oximetry 99 Oxygen Delivery Method Room Air - Lab Data Lab results reviewed: Yes: I reviewed the patient's lab results. Lab Results 01/22/21 20:15: Urine Color Yellow, Urine Appearance Clear, Urine pH 6.0, Ur Specific [place] 1.025, Urine Protein Negative, Urine Glucose (UA) Negative, Urine Ketones Negative, Urine Blood Negative, Urine Nitrate Negative, Urine Bilirubin Negative, Urine Urobilinogen 0.2, Ur Leukocyte Esterase Negative, Urine WBC Occasional, Ur Squamous Epith Cells 3-5, Amorphous Sediment 1+, Urine Bacteria Trace 01/22/21 20:15: WBC 10.4, RBC 4.80, Hgb 11.9 L, Hct 36.1 L, MCV 75.3 L, MCH 24.8 L, MCHC 32.9, RDW 15.2, Plt Count 289, MPV 11.2 H, Neut % (Auto) 66.6, Lymph % (Auto) 26.0, [place] % (Auto) 5.1, Eos % (Auto) 1.9, Baso % (Auto) 0.4, Neut # (Auto) 6.9, Lymph # (Auto) 2.7, [place] # (Auto) 0.5, Eos # (Auto) 0.2, Baso # (Auto) 0.0 01/22/21 20:15: Urine HCG, Qual Positive 01/22/21 20:15: Sodium 136, Potassium 4.3, Chloride 104, Carbon Dioxide 23, Anion Gap 13.3, BUN 9, Creatinine 0.60, Estimated Creat Clear 238, Estimated GFR 122, Est GFR ( Amer) 147, Glucose 87, Calcium 8.9, Total Bilirubin 0.7, AST 38 H, ALT 34, Alkaline Phosphatase 58, Total Protein 7.9, Albumin 4.4, Globulin 3.5 H, Albumin/Globulin Ratio 1.3, Amylase 116 H, Lipase 78 Result diagrams: 01/22/21 20:15 01/22/21 20:15 Orders (Tests/Meds): ORDERS Category Date Time Status Knee XR left 3 views [XR knee LT 3V] Stat Exams 01/22/21 20:20 Taken - Radiology Data #1 Image(s): Knee Image Reviewed: Yes I reviewed the patient's radiology image Preliminary Findings: No Fracture Seen Medical Decision Narrative: ice and tyenol and see pcp for follow up Lower Extremity Injury HPI - General Chief Complaint: Abdominal Pain Stated Complaint: 7 weeks abdominal pain Time Seen by Provider: 01/22/21 21:27 Mode of Arrival: Ambulatory Source of Information: Patient, Significant Other, Medical Record Limitations: No Limitations Description of Symptoms (Recalled from ER Triage Doc. by RN): Pt states she is 6 weeks and is having RLQ abd pain with Nausea, denies Bleeding or discharge. Pt states she also fell down on her left knee. - History of Present Illness HPI Narrative: acute injury lt knee tonight - is w/o bleeding -has seen ob MD complaint: knee injury Onset (ago): hour(s) Injury: Left: knee Type of Injury: blunt Place: home Severity: moderate Context: fall Associated symptoms: ambulatory Othe
[2021-01-22 21:58] VITALS: BP 125/75; PULSE 76; RESP 18; TEMP 36.9; O2SAT 98
== END 2021-01-22 22:01 | disposition home or self-care (01) ==
PROVIDERS: Emergency Provider Emergency Medicine; PCP Physician Assistant
DX: S80.02XA Contusion of left knee, initial encounter (principal); Z3A.01 Less than 8 weeks gestation of pregnancy; W01.0XXA Fall on same level from slipping, tripping and stumbling without subsequent striking against object, initial encounter; Y92.9 Unspecified place or not applicable; F17.210 Nicotine dependence, cigarettes, uncomplicated
CPT/HCPCS: 73562; 80053; 81001; 81025; 82150; 83690; 85025; 99283

== ENCOUNTER → 2021-01-26 12:54 | Outpatient (CLI) | payer MEDICAID, SELFPAY ==
--- NOTE | 2021-01-26 12:54 | US_ITS ---
PROCEDURE: US OB <= 14 WEEKS FETUS CLINICAL INDICATION: Dates Evaluate gestational age COMPARISON: US US OB /MATERNAL DETAIL from 01/26/2020 FINDINGS: There is an intrauterine gestational sac present. A pole is not identified and a yolk sac is not identified. Cannot confirm viability. Please correlate with serum beta HCG and follow-up ultrasound. Adnexa are unremarkable. No cul-de-sac fluid. Beta HCG was reported to be 6579 on 01/17/2021. If this was indeed the case then, a blighted ovum is considered. IMPRESSION: Intrauterine gestational sac without pole or yolk sac. Cannot confirm viability. Suggest follow-up with serial beta hCG and repeat ultrasound. Dictated by: Sajan Toledo MD 01/26/2021 13:48 Sajan Toledo MD in OV 01/26/2021 13:48
== END ==
PROVIDERS: PCP Physician Assistant; Visit Provider Obstetrics & Gynecology
DX: Z34.90 Encounter for supervision of normal pregnancy, unspecified, unspecified trimester (principal)
CPT/HCPCS: 76801

== ENCOUNTER → 2021-02-01 13:51 | Outpatient (CLI) | payer MEDICAID, SELFPAY | PROVIDERS: Visit Provider Obstetrics & Gynecology | DX: Z34.90 Encounter for supervision of normal pregnancy, unspecified, unspecified trimester (principal) | CPT/HCPCS: 36415; 84702 ==

== ENCOUNTER → 2021-02-02 12:21 | Outpatient (CLI) | payer MEDICAID, SELFPAY ==
--- NOTE | 2021-02-02 12:21 | US_ITS ---
PROCEDURE: US OB TRANSVAGINAL CLINICAL INDICATION: Dates and viability COMPARISON: US US OB <= 14 WEEKS FETUS from 01/26/2021 FINDINGS: There is an intrauterine gestational sac present. Yolk sac is now noted. A pole is not identified. Gestational sac is larger measuring 3.7 x 1.4 cm. Previously the gestational sac measured 2.31.7 cm. Unremarkable adnexa. IMPRESSION: There is an intrauterine gestational sac present now with the yolk sac identified. However, pole is not demonstrated. Cannot confirm viability at this time. Suggest follow-up in 1-2 weeks as well as correlation with beta HCG. Dictated by: Sajan Toledo MD 02/02/2021 13:52 Sajan Toledo MD in OV 02/02/2021 13:52
== END ==
PROVIDERS: PCP Physician Assistant; Visit Provider Obstetrics & Gynecology
DX: Z34.91 Encounter for supervision of normal pregnancy, unspecified, first trimester (principal)
CPT/HCPCS: 76817

== ENCOUNTER → 2021-02-12 13:26 | Outpatient (CLI) | payer MEDICAID, SELFPAY ==
--- NOTE | 2021-02-12 13:26 | US_ITS ---
PROCEDURE: US OB <= 14 WEEKS FETUS CLINICAL INDICATION: Dates Viability COMPARISON: US US OB TRANSVAGINAL from 02/02/2021 FINDINGS: An intrauterine gestational sac is present with a pole with a crown-rump length of 2.31cm correlating to gestational age of 9weeks 1day. heart tones are present with an FHR of 151bpm. Yolk sac is noted. Left ovary is visualized and appears unremarkable. Right ovary is not visualized on the current study. IMPRESSION: Single viable intrauterine gestation. Estimated due date by Ultrasound is 09/16/2021 Dictated by: Farideh Harris 02/12/2021 15:21 Farideh Harris in [facility] 02/12/2021 15:21
== END ==
PROVIDERS: PCP Physician Assistant; Visit Provider Obstetrics & Gynecology
DX: Z34.91 Encounter for supervision of normal pregnancy, unspecified, first trimester (principal)
CPT/HCPCS: 76801

== ENCOUNTER 2021-02-27 16:04 | Emergency (ER) | payer MEDICAID, SELFPAY ==
[2021-02-27 16:05] VITALS: BP 130/88; PULSE 73; RESP 16; TEMP 36.1; O2SAT 100; BMI 41.6
--- NOTE | 2021-02-27 16:52 | HMH.EDUTC ---
[facility] [place] Disposition Clinical Impression: First trimester bleeding Disposition: Home, Self-Care Condition on Discharge: Good Instructions: DI for Acute Abdominal Pain Referrals: Melissa Hernandez PA [Primary Care Provider] - Demetria Rojas MD [Staff Physician] - (call office in the AM) Medical Decision Making - Vinny Inquiry Pt receiving controlled substance: No Vinny was queried for this patient: No Vital Signs: 02/27/21 16:05 02/27/21 17:08 02/27/21 17:52 Temperature 97.0 F L 98.6 F 98.3 F Temperature Source Oral Oral Oral Pulse Rate 62 Pulse Rate [Apical] 73 66 Respiratory Rate 16 18 16 Blood Pressure 141/87 H Blood Pressure [Right Arm] 130/88 126/71 Blood Pressure Mean [Right Arm] 102 89 Blood Pressure Source Automatic Cuff Blood Pressure Source [Right Arm] Automatic Cuff Blood Pressure Position Sitting Blood Pressure Position [Right Arm] Supine 02 Sat by Pulse Oximetry 100 99 Oxygen Delivery Method Room Air Room Air Room Air - Lab Data Lab Results 02/27/21 17:05: Urine Color Dk yellow, Urine Appearance Cloudy, Urine pH 6.0, Ur Specific [place] 1.025, Urine Protein Negative, Urine Glucose (UA) Negative, Urine Ketones Negative, Urine Blood Negative, Urine Nitrate Negative, Urine Bilirubin Negative, Urine Urobilinogen 1.0, Ur Leukocyte Esterase Negative, Urine RBC None, Urine WBC None, Ur Squamous Epith Cells Occasional, Urine Bacteria None Orders (Tests/Meds): ORDERS Category Date Time Status US OB transvaginal Stat Ultrasound 02/27/21 17:11 Taken Medical Decision Narrative: Due to patient being 11wks OB and having abdominal pain and spotting recommended transfer to the ED for further work up and evaluation and patient agreed Called ED spoke with Diane Salguero and patient was moved to room 11 [facility] [place] HPI - General Stated complaint: ao 02/26@2300Fell 11 wk preg abd pain and spottoin Time Seen by Provider: 02/27/21 16:52 Mode of Arrival: Ambulatory Source of Information: Patient Limitations: No Limitations Description of Symptoms (Recalled from Triage Doc. by RN): spotting, post fall. 11 weeks HEENT Symptoms (Recalled from RN notes): No Resp Symptoms (Recalled from RN notes): No Skin Symptoms (Recalled from RN notes): No MS Symptoms (Recalled from RN notes): No Functional Status (Recalled from RN notes): na - History of Present Illness Provider Complaint: Patient states that she was running last night on the road and felt like her knee gave out and she fell State that she is 11wks OB States that she started having spotting and pain in her abdomen today States that she isnt worried about the scratches on her right leg she is worried about the baby where she is spotting and having abdominal pain - Related Data Previous Rx's Medication Instructions Recorded Famotidine [Pepcid 20mg Tablet] 20 mg PO DAILY #15 tab 10/26/20 Promethazine HCl [Phenergan 25mg 25 mg PO BID #8 tab 10/26/20 tab] omeprazole 40 mg capsule,delayed 40 mg PO DAILY #90 cap 10/31/20 release Pnv No.95/Ferrous Fum/Folic AC 1 each PO DAILY 11 Days #30 tab 01/09/21 [ Vitamins Tablet] vitamin no.115-iron 29 1 tab PO DAILY #90 tab 02/02/21 mg-folic acid 1 mg chewable tablet Allergies Allergy/AdvReac Type Severity Reaction Status Date / Time ondansetron Allergy Verified 01/09/21 16:02 [From Zofran (as hydrochloride)] onion Allergy Verified 12/19/20 15:48 - Worker's Comp Is this a Worker's Comp case?: No [facility] History - Hepatitis A Screen Drug use history?: No High risk sexual behaviors?: No History of sexually transmitted infection?: No Currently employed?: No Childcare worker?: No Do you have indoor plumbing?: Yes Do you have electricity?: Yes Attestation statement:: This patient has been screened for Hepatitis A risk factors. I have reviewed the patient's past medical history: Yes 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: Reports:: Asthma Denies:: Canc
[2021-02-27 17:08] VITALS: BP 126/71; PULSE 66; RESP 18; TEMP 37; O2SAT 99; BMI 39.1
--- NOTE | 2021-02-27 17:11 | US_ITS ---
PROCEDURE INFORMATION: Exam: US , Transvaginal Exam date and time: 02/27/2021 5:11 PM Age: 25 years old Clinical indication: Lmp or gestational age (in weeks): 11 w 2 d; ; Patient HX: Spotting after falling down TECHNIQUE: Imaging protocol: Real-time transvaginal obstetrical ultrasound of the maternal pelvis with image documentation. Transvaginal imaging was used for better evaluation of the fetus, adnexa, and/or cervix. COMPARISON: US OB <= 14 WEEKS FETUS 02/12/2021 1:39 PM FINDINGS: Gestation: Single live intrauterine gestation. Gestational sac is normal in shape and contains a yolk sac. heart rate: 160 bpm (within normal limits for age) Placenta: No subchorionic hemorrhage. Amniotic fluid: Amniotic fluid volume is normal. BIOMETRY: Wadley-Rump length: 43.6 mm, 11 weeks 2 days estimated gestational age MATERNAL: Cervix: 4.85 cm with closed internal cervical os Right adnexa: Right ovary is normal in size and appearance. Left adnexa: Left ovary is normal in size and appearance. IMPRESSION: Normal intrauterine gestation, size equals dates.
--- NOTE | 2021-02-27 17:11 | PC.NURSE ---
notified rad of ultrasound order
[2021-02-27 17:12] LABS: Microscopic, Urine URINE MICROSCOPIC (MICROSCOPIC)
--- NOTE | 2021-02-27 17:15 | HMH.EDGENADL ---
ED Disposition Clinical Impression: First trimester bleeding Disposition: Home, Self-Care Condition on Discharge: Good Referrals: Melissa Hernandez PA [Primary Care Provider] - Demetria Rojas MD [Staff Physician] - (call office in the AM) Time of Disposition: 17:51 - Critical Care Critical Care Time: No Attestation: On 02/27/21, the high probability of a clinically significant, sudden or life threatening deterioration of the following system(s) required my full and direct attention, intervention and personal management. The time I documented below is in addition to time spent performing reported procedures but includes the following listed in this critical care notation. Medical Decision Making - Vinny Inquiry Pt receiving controlled substance: No Vital Signs: 02/27/21 16:05 02/27/21 17:08 Temperature 97.0 F L 98.6 F Temperature Source Oral Oral Pulse Rate [Apical] 73 66 Respiratory Rate 16 18 Blood Pressure [Right Arm] 130/88 126/71 Blood Pressure Mean [Right Arm] 102 89 Blood Pressure Source [Right Arm] Automatic Cuff Blood Pressure Position [Right Arm] Supine 02 Sat by Pulse Oximetry 100 99 Oxygen Delivery Method Room Air Room Air - Lab Data Lab Results 02/27/21 17:05: Urine Color Dk yellow, Urine Appearance Cloudy, Urine pH 6.0, Ur Specific [place] 1.025, Urine Protein Negative, Urine Glucose (UA) Negative, Urine Ketones Negative, Urine Blood Negative, Urine Nitrate Negative, Urine Bilirubin Negative, Urine Urobilinogen 1.0, Ur Leukocyte Esterase Negative, Urine RBC None, Urine WBC None, Ur Squamous Epith Cells Occasional, Urine Bacteria None Orders (Tests/Meds): ORDERS Category Date Time Status US OB transvaginal Stat Ultrasound 02/27/21 17:11 Ordered - US Data US Images: Pelvis Findings Narrative: no abnormal findings per US tech Medical Decision Narrative: Patient in no acute distress. Ultrasound obtained and tech finds no abnormal findings. Patient instructed to call OB office in the morning to discuss events and any further symptoms. Patient voiced understanding and agreed with plan. General Adult HPI - General Stated complaint: ao 02/26@2300Fell 11 wk preg abd pain and spottoin Time Seen by Provider: 02/27/21 16:52 Mode of Arrival: Ambulatory Source of Information: Patient Limitations: No Limitations Description of Symptoms (Recalled from ER Triage Doc. by RN): spotting, post fall. 11 weeks - History of Present Illness HPI narrative: 25yo at apprx 11wks reports the emergency department because she fell last night. She skinned her right leg on the concrete. She reports this morning she had some spotting. The spotting is now resolved but she complains of crampy lower abdominal pain. She denies any other injury. No fever, dysuria, nausea/vomiting. - Related Data Previous Rx's Medication Instructions Recorded Famotidine [Pepcid 20mg Tablet] 20 mg PO DAILY #15 tab 10/26/20 Promethazine HCl [Phenergan 25mg 25 mg PO BID #8 tab 10/26/20 tab] omeprazole 40 mg capsule,delayed 40 mg PO DAILY #90 cap 10/31/20 release Pnv No.95/Ferrous Fum/Folic AC 1 each PO DAILY 11 Days #30 tab 01/09/21 [ Vitamins Tablet] vitamin no.115-iron 29 1 tab PO DAILY #90 tab 02/02/21 mg-folic acid 1 mg chewable tablet Allergies Allergy/AdvReac Type Severity Reaction Status Date / Time ondansetron Allergy Verified 01/09/21 16:02 [From Zofran (as hydrochloride)] onion Allergy Verified 12/19/20 15:48 [facility] History - Hepatitis A Screen Drug use history?: No High risk sexual behaviors?: No History of sexually transmitted infection?: No Currently employed?: No Childcare worker?: No Do you have indoor plumbing?: Yes Do you have electricity?: Yes Attestation statement:: This patient has been screened for Hepatitis A risk factors. I have reviewed the patient's past medical history: Yes 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: Reports::
[2021-02-27 17:19] LABS: Appearance,Urine CLOUDY (Clear); Bilirubin,Urine Negative (Negative); Blood, Urine Negative (Negative); Color,Urine DK YELLOW (Yellow); Glucose,Urine (UA) Negative (Negative); Ketones,Urine Negative (Negative); Leukocyte Esterase,Urine Negative (Negative); Nitrate,Urine Negative (Negative); Protein,Urine Negative (Negative); Specific Gravity, Urine 1.025 (1.005-1.030)
[2021-02-27 17:28] LABS: Squamous Epithelial Cell,Urine Occasional #/hpf (0-5)
[2021-02-27 17:52] VITALS: BP 141/87; PULSE 62; RESP 16; TEMP 36.8; O2SAT 99
== END 2021-02-27 17:59 | disposition home or self-care (01) ==
LOC: UTC 16:57 → ER 17:01
PROVIDERS: Family Medicine; Emergency Provider Nurse Practitioner; PCP Physician Assistant
DX: O20.9 Hemorrhage in early pregnancy, unspecified (principal); Z3A.11 11 weeks gestation of pregnancy; W01.0XXA Fall on same level from slipping, tripping and stumbling without subsequent striking against object, initial encounter; Y92.89 Other specified places as the place of occurrence of the external cause; J45.909 Unspecified asthma, uncomplicated; F17.210 Nicotine dependence, cigarettes, uncomplicated
CPT/HCPCS: 76817; 81001; 99282

== ENCOUNTER 2021-04-25 12:12 | Outpatient (CLI) | payer MEDICAID, SELFPAY ==
[2021-04-25 12:55] VITALS: BP 122/52; PULSE 65; RESP 18; TEMP 36.4; O2SAT 95
[2021-04-25 13:09] VITALS: BMI 42.9
[2021-04-25 13:12] VITALS: BMI 42.9
[2021-04-25 13:30] LABS: Microscopic, Urine URINE MICROSCOPIC (MICROSCOPIC)
[2021-04-25 13:33] LABS: Appearance,Urine CLOUDY (Clear); Bilirubin,Urine Negative (Negative); Blood, Urine Negative (Negative); Color,Urine YELLOW (Yellow); Glucose,Urine (UA) Negative (Negative); Ketones,Urine Negative (Negative); Leukocyte Esterase,Urine Negative (Negative); Nitrate,Urine Negative (Negative); PH,Urine 8.5 (5.0-8.5); Protein,Urine TRACE (Negative); Specific Gravity, Urine 1.015 (1.005-1.030)
[2021-04-25 13:44] LABS: Barbiturates Screen,Urine Negative ng/ml (<200)
[2021-04-25 13:45] LABS: Benzodiazepines Screen,Urine Negative ng/ml (<200)
[2021-04-25 13:46] LABS: Amphetamine/Metha Screen,Urine Negative ng/ml (<1000); Cocaine Screen,Urine Negative ng/ml (<300)
[2021-04-25 13:47] LABS: Methadone Screen,Urine Negative ng/ml (<300); Squamous Epithelial Cell,Urine Occasional #/hpf (0-5)
[2021-04-25 13:48] LABS: Cannabinoid Screen,Urine Positive ng/ml (<50); Opiate Screen,Urine Negative ng/ml (<300)
[2021-04-25 13:49] LABS: Phencyclidine Screen,Urine Negative ng/ml (<25)
== END 2021-04-25 13:55 | disposition home or self-care (01) ==
LOC: OBOUT 12:14 → OB 12:19
PROVIDERS: PCP Physician Assistant; Visit Provider Nurse Practitioner Obstetrics & Gynecology
DX: O26.892 Other specified pregnancy related conditions, second trimester (principal); Z3A.20 20 weeks gestation of pregnancy; K59.00 Constipation, unspecified; R10.30 Lower abdominal pain, unspecified
CPT/HCPCS: 80305; 81001; G0463

== ENCOUNTER 2021-05-11 20:33 | Outpatient (CLI) | payer MEDICAID, SELFPAY ==
[2021-05-11 21:08] VITALS: BP 100/64; PULSE 66; RESP 18; TEMP 37; O2SAT 100; BMI 44.2
[2021-05-11 21:18] VITALS: BMI 44.2
[2021-05-11 21:27] LABS: Microscopic, Urine URINE MICROSCOPIC (MICROSCOPIC)
[2021-05-11 21:38] LABS: Appearance,Urine CLOUDY (Clear); Bilirubin,Urine Negative (Negative); Blood, Urine Negative (Negative); Color,Urine YELLOW (Yellow); Glucose,Urine (UA) Negative (Negative); Ketones,Urine Negative (Negative); Leukocyte Esterase,Urine Negative (Negative); Nitrate,Urine Negative (Negative); Protein,Urine Negative (Negative); Specific Gravity, Urine 1.025 (1.005-1.030); Urobilinogen,Urine 0.2 EU/dl (0.2)
[2021-05-11 21:49] LABS: Bacteria,Urine 4+ /lpf
[2021-05-11 21:51] LABS: Amphetamine/Metha Screen,Urine Negative ng/ml (<1000); Benzodiazepines Screen,Urine Negative ng/ml (<200)
[2021-05-11 21:52] LABS: Barbiturates Screen,Urine Negative ng/ml (<200)
[2021-05-11 21:53] LABS: Cannabinoid Screen,Urine Positive ng/ml (<50); Cocaine Screen,Urine Negative ng/ml (<300)
[2021-05-11 21:54] LABS: Methadone Screen,Urine Negative ng/ml (<300)
[2021-05-11 21:55] LABS: Opiate Screen,Urine Negative ng/ml (<300); Phencyclidine Screen,Urine Negative ng/ml (<25)
== END 2021-05-11 22:00 | disposition home or self-care (01) ==
LOC: OBOUT 20:37 → OB 20:37
PROVIDERS: PCP Obstetrics & Gynecology; Visit Provider Obstetrics & Gynecology
DX: O26.892 Other specified pregnancy related conditions, second trimester (principal); Z3A.22 22 weeks gestation of pregnancy; R10.9 Unspecified abdominal pain; M54.50 Low back pain, unspecified
CPT/HCPCS: 80305; 81001; 87086; G0463

== ENCOUNTER 2021-06-22 10:43 | Emergency (ER) | payer MEDICAID, SELFPAY ==
[2021-06-22 12:40] VITALS: BP 143/66; PULSE 76; RESP 20; TEMP 36.8; O2SAT 98; BMI 43.2
--- NOTE | 2021-06-22 13:28 | HMH.EDUTC ---
[facility] [place] Disposition Clinical Impression: Viral syndrome, Gastroenteritis Disposition: Home, Self-Care Condition on Discharge: Good Instructions: Viral Gastroenteritis, Promethazine Additional Instructions: Drink plenty of fluids. Take tylenol or ibuprofen for pain or fever. Take the medications as directed. Follow up with your regular doctor. GO TO THE ER FOR ANY WORSENING SYMPTOMS Quarantine until you know the results of your covid-19 test. If it is positive, the health department should call you and give you further instructions about your length of Quarantine and other things. Notify your school or workplace of your results and follow their instructions regarding return to work/school. 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 Prescriptions: Promethazine HCl [Phenergan 25mg tab] 25 mg PO Q6H PRN #30 tab PRN Reason: Nausea And Vomiting Transmission Status: Received by [facility] Referrals: Melissa Hernandez PA [Primary Care Provider] - Time of Disposition: 13:32 Medical Decision Making - Medical Records Medical records reviewed: No: I reviewed the patient's medical records. - Vinny Inquiry Pt receiving controlled substance: No Vital Signs: 06/22/21 12:40 06/22/21 13:30 Temperature 98.3 F 98.3 F Temperature Source Oral Pulse Rate 76 Pulse Rate [Right Brachial] 76 Respiratory Rate 20 20 Blood Pressure 143/66 H Blood Pressure [Right Arm] 143/66 H Blood Pressure Mean [Right Arm] 91 Blood Pressure Source [Right Arm] Automatic Cuff Blood Pressure Position [Right Arm] Sitting 02 Sat by Pulse Oximetry 98 Oxygen Delivery Method Room Air - Lab Data Lab results reviewed: Yes: I reviewed the patient's lab results. [facility] [place] HPI - General Stated complaint: BAKER,loss of appetite Time Seen by Provider: 06/22/21 12:50 Mode of Arrival: Ambulatory Source of Information: Patient Limitations: No Limitations Description of Symptoms (Recalled from Triage Doc. by RN): PATIENT C/O HEADACHE, NAUSEA AND DECREASED APPETITE X 4 DAYS HEENT Symptoms (Recalled from RN notes): Yes Resp Symptoms (Recalled from RN notes): No Skin Symptoms (Recalled from RN notes): No MS Symptoms (Recalled from RN notes): No Functional Status (Recalled from RN notes): WNL - History of Present Illness Provider Complaint: She has had n/v for the past 2 days. She is now able to hold down water, but at first even that came right back up. She denies diarrhea so far. She denies any abdominal pain. She is 28 weeks . She denies any issues with the . She denies any dysuria or urinary symptoms. She denies any back pain. - Related Data Home Medications Medication Instructions Recorded Confirmed Pnv No.118/Iron Fumarate/FA 1 tab PO DAILY 06/22/21 06/22/21 [ 19] Previous Rx's Medication Instructions Recorded Promethazine HCl [Phenergan 25mg 25 mg PO Q6H PRN #30 tab 06/22/21 tab] Allergies Allergy/AdvReac Type Severity Reaction Status Date / Time ondansetron Allergy Verified 05/29/21 11:12 [From Zofran (as hydrochloride)] onion Allergy Verified 05/29/21 11:12 - Worker's Comp Is this a Worker's Comp case?: No [facility] History - Hepatitis A Screen Drug use history?: No High risk sexual behaviors?: No History of sexually transmitted infection?: No Currently employed?: No Childcare worker?: No Do you have indoor plumbing?: Yes Do you have electricity?: Yes Attestation statement:: This patient has been screened for Hepatitis A risk factors. I have reviewed the patient's past medical history: Yes 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: Reports:: Asthma Denies:: Cancer, Diabetes Mellitus Type 1, Diabetes Mellitus Type 2, Internal Pacemaker, MRSA Comment: GERD Other Surgeries: Yes: No Previous Surgery, . No: Pacemaker Amputation: No Fractures: No - Social History Smoking Status: Current every day smoker Tobacco Type: c
[2021-06-22 13:30] VITALS: BP 143/66; PULSE 76; RESP 20; TEMP 36.8; O2SAT 98
== END 2021-06-22 13:35 | disposition home or self-care (01) ==
PROVIDERS: Emergency Provider Nurse Practitioner Family; PCP Physician Assistant
DX: K52.9 Noninfective gastroenteritis and colitis, unspecified (principal); J45.909 Unspecified asthma, uncomplicated; Z3A.28 28 weeks gestation of pregnancy; F17.210 Nicotine dependence, cigarettes, uncomplicated
CPT/HCPCS: 99202; C9803; G0463; U0003; U0005

== ENCOUNTER → 2021-06-27 08:28 | Outpatient (CLI) | payer MEDICAID, SELFPAY ==
[2021-06-27 09:27] LABS: Basophils % 0.5 % (0.1-2.0); Eosinophils # 0.1 K/mm3 (0.0-0.4); Hematocrit 34.6 % (37.0-47.0); Hemoglobin 11.5 g/dL (12.2-16.2); Lymphocytes # 2.2 K/mm3 (0.7-4.5); Lymphocytes % 27.3 % (10-50); Mean Corpuscular HGB Conc 33.3 g/dL (31.8-35.4); Mean Corpuscular Volume 83.9 fl (81-99); Mean Platelet Volume 11.9 fl (7.4-10.4); Monocytes # 0.4 K/mm3 (0.1-1.0); Monocytes % 4.5 % (1.7-9.3); Neutrophils # 5.2 K/mm3 (1.8-7.8); Neutrophils % 66.7 % (37.0-80.0); Platelet Count 172 K/mm3 (142-424); Red Blood Count 4.12 M/mm3 (4.20-5.40); Red Cell Distribution Width 14.7 % (11.5-17.5); White Blood Count 7.9 K/mm3 (4.8-10.8)
[2021-06-27 09:34] LABS: Opiate Screen,Urine Negative ng/ml (<300)
[2021-06-27 09:35] LABS: Phencyclidine Screen,Urine Negative ng/ml (<25)
[2021-06-27 09:36] LABS: Benzodiazepines Screen,Urine Negative ng/ml (<200)
[2021-06-27 09:37] LABS: Amphetamine/Metha Screen,Urine Negative ng/ml (<1000); Barbiturates Screen,Urine Negative ng/ml (<200)
[2021-06-27 09:40] LABS: Cannabinoid Screen,Urine Positive ng/ml (<50)
[2021-06-27 09:41] LABS: Cocaine Screen,Urine Negative ng/ml (<300); Methadone Screen,Urine Negative ng/ml (<300)
[2021-06-27 09:43] LABS: Glucose,Fasting 92 mg/dl (74-100)
[2021-06-27 11:15] LABS: Glucose 1 Hour 164 mg/dL (74-100)
[2021-06-27 13:39] LABS: Glucose 2 Hour 105 mg/dL (74-100)
[2021-06-27 14:19] LABS: Glucose 3 Hour 106 mg/dL (74-100)
== END ==
PROVIDERS: Visit Provider Student in an Organized Health Care Education/Training Program
DX: Z34.83 Encounter for supervision of other normal pregnancy, third trimester (principal); Z3A.28 28 weeks gestation of pregnancy
CPT/HCPCS: 36415; 80305; 82951; 85025; 86850

== ENCOUNTER 2021-07-11 14:40 | Outpatient (CLI) | payer MEDICAID, SELFPAY ==
[2021-07-11 15:01] VITALS: BP 116/75; PULSE 78; RESP 20; TEMP 36.9; O2SAT 97; BMI 44.2
[2021-07-11 15:20] LABS: Microscopic, Urine URINE MICROSCOPIC (MICROSCOPIC)
[2021-07-11 15:46] LABS: Appearance,Urine CLEAR (Clear); Bilirubin,Urine Negative (Negative); Blood, Urine Negative (Negative); Color,Urine YELLOW (Yellow); Glucose,Urine (UA) Negative (Negative); Ketones,Urine Negative (Negative); Leukocyte Esterase,Urine Negative (Negative); Nitrate,Urine Negative (Negative); Protein,Urine Negative (Negative)
[2021-07-11 15:50] LABS: Benzodiazepines Screen,Urine Negative ng/ml (<200); RBC,Urine Occasional #/hpf (0-3)
[2021-07-11 15:51] LABS: Amphetamine/Metha Screen,Urine Negative ng/ml (<1000)
[2021-07-11 15:52] LABS: Barbiturates Screen,Urine Negative ng/ml (<200); Cannabinoid Screen,Urine Positive ng/ml (<50)
[2021-07-11 15:53] LABS: Cocaine Screen,Urine Negative ng/ml (<300)
[2021-07-11 15:54] LABS: Methadone Screen,Urine Negative ng/ml (<300); Opiate Screen,Urine Negative ng/ml (<300)
[2021-07-11 15:55] LABS: Phencyclidine Screen,Urine Negative ng/ml (<25)
== END 2021-07-11 15:55 | disposition home or self-care (01) ==
LOC: OBOUT 14:41 → OB 14:42
PROVIDERS: Visit Provider Obstetrics & Gynecology
DX: O47.03 False labor before 37 completed weeks of gestation, third trimester (principal); Z3A.30 30 weeks gestation of pregnancy; R10.2 Pelvic and perineal pain
CPT/HCPCS: 59025; 80305; 81001; G0463

== ENCOUNTER 2021-08-19 14:45 | Outpatient (CLI) | payer MEDICAID, SELFPAY ==
[2021-08-19 14:59] VITALS: BMI 42.9
[2021-08-19 15:36] LABS: Microscopic, Urine URINE MICROSCOPIC (MICROSCOPIC)
[2021-08-19 15:44] LABS: Appearance,Urine SL CLOUDY (Clear); Bilirubin,Urine Negative (Negative); Blood, Urine Negative (Negative); Color,Urine YELLOW (Yellow); Glucose,Urine (UA) Negative (Negative); Ketones,Urine Negative (Negative); Leukocyte Esterase,Urine Negative (Negative); Nitrate,Urine Negative (Negative); PH,Urine 8.5 (5.0-8.5); Protein,Urine Negative (Negative)
[2021-08-19 15:46] VITALS: BMI 42.8
[2021-08-19 15:52] LABS: Fetal Membrane Rupture (Rapid) Negative (Negative)
[2021-08-19 15:55] LABS: Amphetamine/Metha Screen,Urine Negative ng/ml (<1000)
[2021-08-19 15:56] LABS: Barbiturates Screen,Urine Negative ng/ml (<200); Benzodiazepines Screen,Urine Negative ng/ml (<200)
[2021-08-19 15:57] LABS: Cannabinoid Screen,Urine Positive ng/ml (<50)
[2021-08-19 15:58] LABS: Cocaine Screen,Urine Negative ng/ml (<300); Methadone Screen,Urine Negative ng/ml (<300)
[2021-08-19 15:59] LABS: Opiate Screen,Urine Negative ng/ml (<300)
[2021-08-19 16:00] LABS: Phencyclidine Screen,Urine Negative ng/ml (<25)
[2021-08-19 16:04] LABS: Bacteria,Urine 4+ /lpf; WBC,Urine 20-50 #/hpf (0-3)
== END 2021-08-19 16:40 | disposition home or self-care (01) ==
LOC: OBOUT 14:47 → OB 14:48
PROVIDERS: PCP Physician Assistant; Visit Provider Obstetrics & Gynecology
DX: O36.8130 Decreased fetal movements, third trimester, not applicable or unspecified (principal); O60.03 Preterm labor without delivery, third trimester; Z3A.36 36 weeks gestation of pregnancy
CPT/HCPCS: 59025; 80305; 81001; 84112; 87086; G0463

== ENCOUNTER 2021-08-29 23:34 | Outpatient (CLI) | payer MEDICAID, SELFPAY ==
[2021-08-30 00:03] VITALS: BP 127/72; PULSE 70; RESP 17; TEMP 36.8; O2SAT 97; BMI 41.5
[2021-08-30 00:22] LABS: Microscopic, Urine URINE MICROSCOPIC (MICROSCOPIC)
[2021-08-30 00:24] LABS: Appearance,Urine CLOUDY (Clear); Bilirubin,Urine Negative (Negative); Blood, Urine Negative (Negative); Color,Urine YELLOW (Yellow); Glucose,Urine (UA) Negative (Negative); Ketones,Urine Negative (Negative); Leukocyte Esterase,Urine TRACE (Negative); Nitrate,Urine Negative (Negative); PH,Urine 8.5 (5.0-8.5); Protein,Urine TRACE (Negative)
[2021-08-30 00:26] LABS: Bacteria,Urine 2+ /lpf
[2021-08-30 01:37] LABS: Barbiturates Screen,Urine Negative ng/ml (<200)
[2021-08-30 01:38] LABS: Amphetamine/Metha Screen,Urine Negative ng/ml (<1000); Benzodiazepines Screen,Urine Negative ng/ml (<200)
[2021-08-30 01:39] LABS: Cannabinoid Screen,Urine Positive ng/ml (<50); Methadone Screen,Urine Negative ng/ml (<300)
[2021-08-30 01:40] LABS: Cocaine Screen,Urine Negative ng/ml (<300)
[2021-08-30 01:41] LABS: Opiate Screen,Urine Negative ng/ml (<300); Phencyclidine Screen,Urine Negative ng/ml (<25)
== END 2021-08-30 01:10 | disposition home or self-care (01) ==
LOC: OBOUT 23:36 → OB 23:37
PROVIDERS: PCP Emergency Medicine; Visit Provider Nurse Practitioner Obstetrics & Gynecology
DX: O60.03 Preterm labor without delivery, third trimester (principal); O36.8190 Decreased fetal movements, unspecified trimester, not applicable or unspecified; Z3A.37 37 weeks gestation of pregnancy
CPT/HCPCS: 59025; 80305; 81001; 87086; G0463

== ENCOUNTER 2021-11-23 23:08 | Emergency (ER) | payer MEDICAID, SELFPAY ==
[2021-11-23 23:20] VITALS: BP 138/56; PULSE 107; RESP 18; TEMP 36.7; O2SAT 97; BMI 37.3
[2021-11-23 23:24] VITALS: BP 138/56; PULSE 107; RESP 18; TEMP 36.8; O2SAT 99
== END 2021-11-23 23:26 | disposition left against medical advice (07) ==
PROVIDERS: Emergency Provider Emergency Medicine; PCP Physician Assistant
DX: Z53.21 Procedure and treatment not carried out due to patient leaving prior to being seen by health care provider (principal)
CPT/HCPCS: 99211

== ENCOUNTER 2021-12-06 15:13 | Emergency (ER) | payer MEDICAID, SELFPAY ==
[2021-12-06 15:58] VITALS: BP 129/64; PULSE 66; RESP 18; TEMP 36.9; O2SAT 98; BMI 41.2
--- NOTE | 2021-12-06 16:03 | XR_ITS ---
FINAL REPORT CLINICAL HISTORY: foot pain shielded FINDINGS: LEFT FOOT Two views view were obtained. There is no acute fracture or dislocation. The joint spaces appear normal. There are small calcaneal spurs. No soft tissue abnormality is identified. IMPRESSION: No acute process. Reviewed, Interpreted and Dictated by Flaco Fermin III, MD Transcribed by Kaitlyn Cade Authenticated by Flaco Fermin III, MD on 12/06/2021 04:49:16 PM [facility]
--- NOTE | 2021-12-06 16:03 | HMH.EDUTC ---
[facility] [place] Disposition Clinical Impression: Foot pain, left Disposition: Home, Self-Care Condition on Discharge: Good Instructions: DI for Foot Pain Additional Instructions: Weightbearing as tolerated rest Ice with cold pack for 20 minutes remove may repeat for comfort every hour Rich wrap for support and swelling no less in the shower. Be sure not too tight but not to lose either Elevate with foot above your heart as much as possible to help reduce swelling and therefore pain Ibuprofen every 6 hours as needed for pain or inflammation. If needs something more you can take Tylenol every 4 hours as needed as long as her primary care has told he was okayed for you to take both. If improving any do not need to follow-up you can bring begin exercising 2-3 weeks after injury. Follow-up immediately if new or worsening symptoms or no noticeable improvement over the next 3-[address] monique office for appointment if no improvement Referrals: Melissa Hernandez PA [Primary Care Provider] - Jess Monique DPM [Staff Physician] - Forms: Work/School Release Time of Disposition: 16:22 Medical Decision Making - Vinny Inquiry Pt receiving controlled substance: No Vital Signs: 12/06/21 15:58 Temperature 98.4 F Temperature Source Oral Pulse Rate [Radial] 66 Respiratory Rate 18 Blood Pressure [Right Arm] 129/64 Blood Pressure Mean [Right Arm] 85 02 Sat by Pulse Oximetry 98 Orders (Tests/Meds): ORDERS Category Date Time Status Foot XR left 2 views [XR foot LT 2V] Stat Exams 12/06/21 16:03 Taken [facility] [place] HPI - General Chief complaint: Urgent Treatment Center Stated complaint: L swollen foot Time Seen by Provider: 12/06/21 16:04 Mode of Arrival: Ambulatory Source of Information: Patient Limitations: No Limitations - History of Present Illness Provider Complaint: 26 yr old female presents for left foot pain and swelling. pt states for 3 days she has had swelling on the top of foot and today starte having pain. no known injury - Related Data Home Medications Medication Instructions Recorded Confirmed Pnv No.118/Iron Fumarate/FA 1 tab PO DAILY 06/22/21 09/27/21 [ 19] Previous Rx's Medication Instructions Recorded amoxicillin 875 mg tablet 875 mg PO BID #20 tab 09/27/21 prednisone 20 mg tablet 20 mg PO BID #10 tab 09/27/21 Allergies Allergy/AdvReac Type Severity Reaction Status Date / Time ondansetron Allergy Verified 12/06/21 16:07 [From Zofran (as hydrochloride)] onion Allergy Verified 12/06/21 16:07 [facility] History - Hepatitis A Screen Attestation statement:: This patient has been screened for Hepatitis A risk factors. I have reviewed the patient's past medical history: Yes 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: Reports:: Asthma Denies:: Cancer, Diabetes Mellitus Type 1, Diabetes Mellitus Type 2, Internal Pacemaker, MRSA Comment: GERD Other Surgeries: Yes: No Previous Surgery, . 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
[2021-12-06 16:39] VITALS: BP 129/64; PULSE 66; RESP 18; TEMP 36.9
== END 2021-12-06 16:41 | disposition home or self-care (01) ==
PROVIDERS: Emergency Provider Nurse Practitioner Family; PCP Physician Assistant
DX: M79.672 Pain in left foot (principal); Z88.8 Allergy status to other drugs, medicaments and biological substances
CPT/HCPCS: 73620; 99212; G0463

== ENCOUNTER 2021-12-11 13:34 | Emergency (ER) | payer MEDICAID, SELFPAY ==
[2021-12-11 13:45] VITALS: BP 147/86; PULSE 66; RESP 19; TEMP 37; O2SAT 97; BMI 38.6
--- NOTE | 2021-12-11 13:56 | HMH.EDUTC ---
[facility] [place] Disposition Clinical Impression: Gastroenteritis Disposition: Home, Self-Care Condition on Discharge: Good Instructions: Viral Gastroenteritis, DI for Viral Gastroenteritis -- Adult, Gastroenteritis Diet, Ondansetron Prescriptions: Promethazine HCl [Phenergan 25mg tab] 25 mg PO Q6H PRN #12 tab PRN Reason: Nausea And Vomiting Transmission Status: Pending to [facility] Referrals: Melissa Hernandez PA [Primary Care Provider] - Forms: Work/School Release Time of Disposition: 14:30 Medical Decision Making - Medical Records Medical records reviewed: No: I reviewed the patient's medical records. - Vinny Inquiry Pt receiving controlled substance: No Vital Signs: 12/11/21 13:45 Temperature 98.6 F Temperature Source Oral Pulse Rate [Left Radial] 66 Respiratory Rate 19 Blood Pressure [Right Arm] 147/86 H Blood Pressure Mean [Right Arm] 106 02 Sat by Pulse Oximetry 97 - Lab Data Lab results reviewed: Yes: I reviewed the patient's lab results. Lab Results 12/11/21 13:48: Group A Strep Rapid Negative 12/11/21 13:48: Influenza Type A Ag Negative, Influenza Type B Ag Negative Orders (Tests/Meds): ORDERS Category Date Time Status Strep Screen Confirmation Stat Micro 12/11/21 13:48 Received [facility] [place] HPI - General Stated complaint: fever, lightheaded, vomiting Time Seen by Provider: 12/11/21 14:21 Limitations: No Limitations HEENT Symptoms (Recalled from RN notes): No Resp Symptoms (Recalled from RN notes): No Skin Symptoms (Recalled from RN notes): No MS Symptoms (Recalled from RN notes): No Functional Status (Recalled from RN notes): wnl - History of Present Illness Provider Complaint: She states that since earlier today she has had n/v/d. She denies abdominal pain. She has been around multiple members of her family that have a stomach virus . She denies any cough or congestion. - Related Data Home Medications Medication Instructions Recorded Confirmed Pnv No.118/Iron Fumarate/FA 1 tab PO DAILY 06/22/21 09/27/21 [ 19] Previous Rx's Medication Instructions Recorded amoxicillin 875 mg tablet 875 mg PO BID #20 tab 09/27/21 prednisone 20 mg tablet 20 mg PO BID #10 tab 09/27/21 Promethazine HCl [Phenergan 25mg 25 mg PO Q6H PRN #12 tab 12/11/21 tab] Allergies Allergy/AdvReac Type Severity Reaction Status Date / Time ondansetron Allergy Verified 12/11/21 13:45 [From Zofran (as hydrochloride)] onion Allergy Verified 12/11/21 13:45 - Worker's Comp Is this a Worker's Comp case?: No [facility] History - Hepatitis A Screen Attestation statement:: This patient has been screened for Hepatitis A risk factors. I have reviewed the patient's past medical history: Yes 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: Reports:: Asthma Denies:: Cancer, Diabetes Mellitus Type 1, Diabetes Mellitus Type 2, Internal Pacemaker, MRSA Comment: GERD Other Surgeries: Yes: No Previous Surgery, . No: Pacemaker Amputation: No Fractures: No - Social History Smoking Status: Current every day smoker Tobacco Type: cigarettes # Packs/Day (cigarettes): 1 #Yrs smoked (if former smoker): 1 Alcohol Intake: never Substance Use Type: marijuana, former substance user Occupational Status: unemployed Housing: house Family Hx:: No significant family history Comment: Hx of Uncle born with hole in heart PHARMACY INTERN history: Spontaneous ROS Obtained: Yes All systems reviewed & no additional complaints - Constitutional Constitutional: Denies chills, Denies fever(s), Reports poor appetite, Reports malaise - Eyes Eyes: Denies eye discharge - ENT Ears, Nose, Mouth, and Throat: Denies dizziness, Denies otalgia, Denies sore throat - Cardiovascular Cardiovascular: Denies chest pain - Respiratory Respiratory: Denies chest congestion, Denies cough - Gastrointestinal Gastrointestingal: Reports: cramping, diarrhea, nausea, vomiting. Denies: abdominal pain - Genit
[2021-12-11 13:58] LABS: UTC Influenza A Antigen Negative (Negative)
[2021-12-11 13:59] LABS: UTC Influenza B Antigen Negative (Negative)
[2021-12-11 14:01] LABS: Strep Scrn Group A (Rapid) Negative (Negative)
[2021-12-11 14:47] VITALS: BP 147/86; PULSE 66; RESP 19; TEMP 37
== END 2021-12-11 14:48 | disposition home or self-care (01) ==
PROVIDERS: Emergency Provider Nurse Practitioner Family; PCP Physician Assistant
DX: K52.9 Noninfective gastroenteritis and colitis, unspecified
CPT/HCPCS: 87430; 87804; 99212; G0463

== ENCOUNTER 2021-12-19 08:00 | Emergency (ER) | payer MEDICAID, SELFPAY ==
[2021-12-19 08:15] VITALS: BP 122/69; PULSE 65; RESP 18; TEMP 36.8; O2SAT 98; BMI 38.4
--- NOTE | 2021-12-19 08:28 | PC.NURSE ---
Swab sent to lab
--- NOTE | 2021-12-19 08:32 | HMH.EDGENADL ---
ED Disposition Clinical Impression: Viral syndrome Disposition: Home, Self-Care Condition on Discharge: Good Instructions: DI for Viral Syndrome Additional Instructions: Please follow-up with your primary care physician in 2 to 3 days for further management. Please take the Phenergan as prescribed for symptomatic relief. Please also utilize Tylenol and ibuprofen as needed. Please return to the emergency department for inability to eat and drink, chest pain, difficulty breathing or any other concerning symptoms. Prescriptions: Promethazine HCl [Phenergan 12.5mg tablet] 12.5 mg PO Q6H PRN 3 Days #6 tab PRN Reason: Nausea Transmission Status: Received by [facility] Referrals: Melissa Hernandez PA [Primary Care Provider] - Forms: Work/School Release - Critical Care Critical Care Time: No Attestation: On 12/19/21, the high probability of a clinically significant, sudden or life threatening deterioration of the following system(s) required my full and direct attention, intervention and personal management. The time I documented below is in addition to time spent performing reported procedures but includes the following listed in this critical care notation. Medical Decision Making - Medical Records Medical records reviewed: Yes: I reviewed the patient's medical records. - Vinny Inquiry Pt receiving controlled substance: No Vital Signs: 12/19/21 08:15 12/19/21 08:45 Temperature 98.3 F 98.3 F Temperature Source Oral Pulse Rate 64 Pulse Rate [Left Radial] 65 Respiratory Rate 18 17 Blood Pressure 124/70 Blood Pressure [Right Arm] 122/69 Blood Pressure Mean [Right Arm] 86 02 Sat by Pulse Oximetry 98 Oxygen Delivery Method Room Air Room Air - Lab Data Lab results reviewed: Yes: I reviewed the patient's lab results. Orders (Tests/Meds): ED MEDICATIONS Discontinued Medications Generic Name Dose Route Start Last Admin Trade Name Freq PRN Reason Stop Dose Admin Acetaminophen 1,000 mg 12/19/21 08:18 12/19/21 08:29 Acetaminophen 500mg Tab PO 12/19/21 08:19 1,000 mg ONCE ONE Administration Promethazine HCl 12.5 mg 12/19/21 08:18 12/19/21 08:31 Promethazine Hcl 12.5mg Tablet PO 01/18/22 08:17 12.5 mg Q4HP PRN Administration Nausea And Vomiting ORDERS Category Date Time Status Covid-19 Nasal PCR ([facility]) Routine Lab 12/19/21 08:18 Received Medical Decision Narrative: Mrs. Montenegro is a 26-year-old female with no significant past medical history presenting to the emergency department for nausea, diarrhea, cough and congestion for 2 days. Known sick contacts. Patient is afebrile and hemodynamically stable on arrival. On physical exam patient is well-appearing. No clinical signs of dehydration. Good cap refill, moist mucous membranes good skin turgor. Patient has no abdominal tenderness on exam and is breathing comfortably otherwise benign exam. Low suspicion for pneumonia at this time given current clinical picture will not investigate further. Patient symptoms consistent with a viral mediated illness. Patient is given Tylenol, ibuprofen and Zofran for symptomatic relief and is p.o. challenge successfully. Patient is informed to follow-up with her primary care physician in 2 to 3 days for further management and to return for any concerning symptoms such as inability to eat and drink, bloody stools, abdominal pain or any other worsening symptoms. Patient reports she is ready for discharge and would just need a work note. Patient discharged in stable condition. General Adult HPI - General Chief complaint: Nausea/Vomiting/Diarrhea Stated complaint: nausea, congestion, cough, headache Time Seen by Provider: 12/19/21 08:20 Mode of Arrival: Ambulatory Source of Information: Patient Limitations: No Limitations Description of Symptoms (Recalled from ER Triage Doc. by RN): pt states diarrhea and a headache since friday. pt denies vomiting or abd pain
[2021-12-19 08:45] VITALS: BP 124/70; PULSE 64; RESP 17; TEMP 36.8; O2SAT 99
== END 2021-12-19 08:47 | disposition home or self-care (01) ==
PROVIDERS: Emergency Provider Student in an Organized Health Care Education/Training Program; PCP Physician Assistant
DX: J45.909 Unspecified asthma, uncomplicated (principal); F17.210 Nicotine dependence, cigarettes, uncomplicated
CPT/HCPCS: 99212; C9803; G0463; U0003; U0005

== ENCOUNTER 2022-01-09 11:17 | Emergency (ER) | payer MEDICAID, SELFPAY ==
[2022-01-09 11:30] VITALS: BP 114/70; PULSE 64; RESP 19; TEMP 36.8; O2SAT 97; BMI 37.0
--- NOTE | 2022-01-09 11:52 | HMH.EDUTC ---
[facility] [place] Clinical Impression: Viral syndrome Disposition: Home, Self-Care Condition on Discharge: Good Instructions: DI for Viral Syndrome, DI for Nasal Congestion Additional Instructions: *Monitor Temp, Over the counter Motrin or Tylenol as directed/as needed Tylenol every 4 hours and Motrin every 6 hours (as long as your family doctor has told you that you can take it) for fever or pain. and straight to ER if unable to lower temp less than 101.0 after medication given *Warm salt water gargles may help to soothe the throat *Throat Lozenges *Warm fluids like tea with honey may help to soothe the throat *Sleep elevated *Humidifier/Vaporizer Make sure to be drinking plenty of fluids Follow up IMMEDIATELY for new or worsening symptoms or no Noticeable improvement over the next 48-72 hours. 911 for difficulty breathing or swallowing You were tested for today for COVID19 your test result should be back in the next 24-48 hours, you may check your results on the [facility] My Health Portal Make sure to take your Vitamins Vit. C Vit D and Zinc if you can take them Referrals: Melissa Hernandez PA [Primary Care Provider] - As needed Forms: Work/School Release Medical Decision Making - Vinny Inquiry Pt receiving controlled substance: No Vinny was queried for this patient: No Vital Signs: 01/09/22 11:30 01/09/22 12:09 Temperature 98.2 F 98.2 F Temperature Source Oral Pulse Rate 64 Pulse Rate [Right Brachial] 64 Respiratory Rate 19 19 Blood Pressure 114/70 Blood Pressure [Right Arm] 114/70 Blood Pressure Mean [Right Arm] 84 Blood Pressure Source [Right Arm] Automatic Cuff Blood Pressure Position [Right Arm] Sitting 02 Sat by Pulse Oximetry 97 Oxygen Delivery Method Room Air - Lab Data Lab results reviewed: Yes: I reviewed the patient's lab results. Lab Results 01/09/22 11:30: [facility] Negative 01/09/22 12:01: Chlamy pneumoniae PCR Not detected, Adenovirus (PCR) Not detected, B. pertussis DNA (PCR) Not detected, Coronavirus OC43 (PCR) Not detected, Coronavirus HKU1 (PCR) Not detected, Coronavirus 229E (PCR) Not detected, SARS-CoV-2 (PCR) Not detected, Coronavirus NL63 (PCR) Not detected, Human Metapneumovir PCR Not detected, Influenza A (H1) PCR Not detected, Influ A (H1N1/09) PCR Not detected, Influenza A (H3) PCR Not detected, Influenza Type A (PCR) Not detected, Influenza Type B (PCR) Not detected, M. pneumoniae (PCR) Not detected, Parainfluenza 1 (PCR) Not detected, Parainfluenza 2 (PCR) Not detected, Parainfluenza 3 (PCR) Not detected, Parainfluenza 4 (PCR) Not detected, RSV (PCR) Not detected, Entero/Rhino (PCR) Detected A Medical Decision Narrative: Patient states that she hasnt had BM for 2 days and last BM was diarrhea and she was thinking she may be constipated, no tenderness with palpation abdomen soft Discussed with patient and if she recently had diarrhea may take a couple days for her to get back to normal States that she has been drinking plenty of water to help Denies pain at this time [facility] [place] - General Stated complaint: runny nose, BAKER, constipated, abd pain Time Seen by Provider: 01/09/22 11:52 Mode of Arrival: Ambulatory Source of Information: Patient Limitations: No Limitations Description of Symptoms (Recalled from Triage Doc. by RN): PATIENT C/O HEADACHE, VOMITING, CONSTIPATION, NASAL COGESTION. REQUESTING TEST HEENT Symptoms (Recalled from RN notes): Yes Resp Symptoms (Recalled from RN notes): No Skin Symptoms (Recalled from RN notes): No MS Symptoms (Recalled from RN notes): No Functional Status (Recalled from RN notes): WNL - History of Present Illness Provider Complaint: Patient state that she was having a headache yesterday and took some medication and it helped, state that she has been having nasal congestion, a little cough and had diarrhea last week then it stopped and not had a bowel movement in two days since the diarrhea stopped States kuldeep
[2022-01-09 11:53] LABS: UTC Pregnancy Test, Urine Negative (Negative)
[2022-01-09 12:08] LABS: Adenovirus,PCR Not Detected (NotDetected); Bordetella Pertussis Not Detected (NotDetected); Chlamydophila Pneumoniae, PCR Not Detected (NotDetected); Coronavirus 19, PCR Not Detected (NotDetected); Coronavirus 229E Not Detected (NotDetected); Coronavirus NL63 Not Detected (NotDetected); Coronavirus OC43 Not Detected (NotDetected); Coronovirus HKU1,PCR Not Detected (NotDetected); Human Metapneumovirus Not Detected (NotDetected); Influenza A, PCR Not Detected (NotDetected); Influenza AH1, 2009 Not Detected (NotDetected); Influenza AH1, PCR Not Detected (NotDetected); Influenza AH3,PCR Not Detected (NotDetected); Influenza B, PCR Not Detected (NotDetected); Mycoplasma Pneumoniae, PCR Not Detected (NotDetected); Parainfluenza 1, PCR Not Detected (NotDetected); Parainfluenza 2, PCR Not Detected (NotDetected); Parainfluenza 3, PCR Not Detected (NotDetected); Parainfluenza 4, PCR Not Detected (NotDetected); Respiratory Syncytial Virus Not Detected (NotDetected)
[2022-01-09 12:09] VITALS: BP 114/70; PULSE 64; RESP 19; TEMP 36.8; O2SAT 97
[2022-01-09 17:43] LABS: Rhinovirus/Enterovirus Detected (NotDetected)
== END 2022-01-09 12:12 | disposition home or self-care (01) ==
PROVIDERS: Emergency Provider Nurse Practitioner; PCP Physician Assistant
DX: B34.9 Viral infection, unspecified (principal); R51.9 Headache, unspecified; K59.00 Constipation, unspecified; R10.9 Unspecified abdominal pain; R05.9 Cough, unspecified; R09.81 Nasal congestion
CPT/HCPCS: 81025; 87581; 87632; 87798; 99212; C9803; G0463; U0003; U0005

== ENCOUNTER → 2022-02-25 14:08 | Outpatient (CLI) | payer MEDICAID, SELFPAY ==
[2022-02-25 13:23] LABS: Basophils # 0.1 K/mm3 (0-0.2); Basophils % 0.7 % (0.1-2.0); Chloride 104 mmol/L (98-107); Eosinophils # 0.1 K/mm3 (0.0-0.4); Eosinophils % 1.6 % (0.1-12.0); Hematocrit 40.1 % (37.0-47.0); Hemoglobin 12.3 g/dL (12.2-16.2); Lymphocytes # 2.4 K/mm3 (0.7-4.5); Lymphocytes % 28.8 % (10-50); Mean Corpuscular HGB Conc 30.6 g/dL (31.8-35.4); Mean Corpuscular Hemoglobin 24.6 pg (27.0-31.2); Mean Corpuscular Volume 80.5 fl (81-99); Mean Platelet Volume 11.8 fl (7.4-10.4); Monocytes # 0.5 K/mm3 (0.1-1.0); Monocytes % 5.5 % (1.7-9.3); Neutrophils # 5.4 K/mm3 (1.8-7.8); Neutrophils % 63.3 % (37.0-80.0); Platelet Count 272 K/mm3 (142-424); Potassium 4.6 mmoL/L (3.5-5.1); Red Blood Count 4.99 M/mm3 (4.20-5.40); Red Cell Distribution Width 15.6 % (11.5-17.5); Sodium 137 mmol/L (136-145); White Blood Count 8.4 K/mm3 (4.8-10.8)
[2022-02-25 13:25] LABS: Blood Urea Nitrogen 13 mg/dl (7-17)
[2022-02-25 13:26] LABS: Alanine Aminotransferase 19 U/L (12-78); Albumin Level 4.1 g/dl (3.5-5.0); Albumin/Globulin Ratio 1.3 (1.1-1.8); Alkaline Phosphatase 54 U/L (38-126); Anion Gap 10.6 mEq/L (5-15); Aspartate Amino Transferase 32 U/L (14-36); Bilirubin,Total 0.2 mg/dl (0.2-1.3); Carbon Dioxide 27 mmol/L (22.0-30.0); Cholesterol 219 mg/dl (140-200); Estimated Glomerular Filt Rate 101 ml/min (>60); GFR (African American) 122 ML/MIN (>60); Globulin 3.1 g/dL (1.3-3.2); Total Protein,Serum 7.2 g/dl (6.3-8.2); Triglycerides 92 mg/dl (30-150); VLDL Cholesterol 18 mg/dL (0-40)
[2022-02-25 13:27] LABS: Calcium 9.2 mg/dl (8.4-10.2); Chol/HDL Ratio 3.4 (1-3.5); Glucose 96 mg/dl (74-100); HDL Cholesterol 64 mg/dl (40-60)
[2022-02-25 13:37] LABS: Direct LDL Cholesterol 129.53 mg/dL (100-129)
[2022-02-25 13:57] LABS: Thyroid Stimulating Hormone 2.42 uIU/mL (0.465-4.68)
[2022-02-25 14:24] LABS: 25-OH Vitamin D, Total 27.2 ng/mL (30-100)
== END ==
PROVIDERS: PCP Physician Assistant; Visit Provider Physician Assistant
DX: K46.9 Unspecified abdominal hernia without obstruction or gangrene (principal); T14.8XXA Other injury of unspecified body region, initial encounter
CPT/HCPCS: 80053; 80061; 82306; 84443; 85025

== ENCOUNTER 2022-03-30 17:55 | Emergency (ER) | payer MEDICAID, SELFPAY ==
[2022-03-30 18:10] VITALS: BP 128/73; PULSE 64; RESP 18; TEMP 36.7; O2SAT 99; BMI 32.5
--- NOTE | 2022-03-30 19:05 | EXP.UTC ---
Discharge Plan Disposition Patient Disposition: Home, Self-Care Condition: Good Prescriptions Prescriptions: No Action ibuprofen 800 mg tablet 800 mg PO Q8H PRN (Reason: headache) Qty: 30 2RF zolmitriptan [Zomig] 5 mg tablet See Rx Instructions PO .COMPLEX Qty: 9 0RF Rx Instructions: take 1 tab at onset of headache; if no relief, may repeat 1 tab after at least 2 hrs; max = 2 tabs/24 hrs PO amitriptyline 25 mg tablet 25 mg PO HS Qty: 30 2RF norgestimate-ethinyl estradiol [Tri-Sprintec (28)] 0.18/0.215/0.25 mg-35 mcg (28) tablet 1 tab PO DAILY Qty: 28 12RF bhloydcmpf-gmnadetcyi-jyf-cod [Fioricet with Codeine] 48-923-44-30 mg capsule 1 cap PO ONCE PRN (Reason: headache if other meds don't work) Qty: 20 0RF sumatriptan succinate 25 mg tablet 25 mg PO Q2H PRN (Reason: migraine headache) Qty: 14 0RF Rx Instructions: do not exceed 8 doses per 24 hrs atorvastatin [Lipitor] 10 mg tablet 10 mg PO HS Qty: 90 3RF ergocalciferol (vitamin D2) 1,250 mcg (50,000 unit) capsule 1,250 mcg PO WEEKLY Qty: 14 3RF Referrals Follow up/Referrals: Melissa Hernandez PA [Primary Care Provider] - See instructions Clinical Impressions Clinical Impression: Headache above the eye region Instructions Patient Instructions: DI for Headache Discharge ED Provider: Karina Pineda [facility] [place] General Stated complaint: BAKER x 3 days Mode of Arrival: Ambulatory Source of Information: Patient Limitations: No Limitations Time Seen by Provider: 03/30/22 18:55 Description of Symptoms (Recalled from Triage Doc. by RN): PATIENT C/O HEADACHE X 3 DAYS HEENT Symptoms (Recalled from RN notes): Yes Resp Symptoms (Recalled from RN notes): No Skin Symptoms (Recalled from RN notes): No MS Symptoms (Recalled from RN notes): No Functional Status (Recalled from RN notes): WNL Related Data Previous Rx's Medication Instructions Recorded sumatriptan succinate 25 mg tablet 25 mg PO Q2H PRN migraine headache 06/17/22 #14 tabs amitriptyline 25 mg tablet 25 mg PO HS #30 tabs 01/30/22 butalbital 50 mg-acetaminophen 300 1 cap PO ONCE PRN headache if 01/30/22 mg-caffeine 40 mg-codeine 30 mg other meds don't work #20 caps cap (Fioricet with Codeine) ibuprofen 800 mg tablet 800 mg PO Q8H PRN headache #30 tabs 01/30/22 norgestimate-ethinyl estradiol 1 tab PO DAILY #28 tabs 01/30/22 0.18 mg/0.215mg/0.25mg-35 mcg(28)tablet (Tri-Sprintec (28)) zolmitriptan 5 mg tablet (Zomig) See Rx Instructions PO .COMPLEX #9 01/30/22 tabs atorvastatin 10 mg tablet (Lipitor) 10 mg PO HS #90 tabs 02/25/22 ergocalciferol (vitamin D2) 1,250 1,250 mcg PO WEEKLY #14 caps 02/25/22 mcg (50,000 unit) capsule Allergies Allergy/AdvReac Type Severity Reaction Status Date / Time ondansetron Allergy Verified 02/25/22 08:39 [From Zofran (as hydrochloride)] onion Allergy Verified 02/25/22 08:39 Worker's Comp Is this a Worker's Comp case?: No [facility] 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 (Updated 03/30/22 @ 19:14 by Karina Pineda APRN) Anxiety Depression Gastroesophageal reflux disease Hypertension Positive home test with 22 completed weeks gestation Round ligament pain Surgical History (Updated 03/30/22 @ 18:26 by Trish Garcia RN) History of section Social History (Updated 03/30/22 @ 18:27 by Trish Garcia RN) Smoking Status: Current every day smoker tobacco type: cigarettes packs per day: 1 second hand exposure: No alcohol intake: never substance use type: former substance user and marijuana current occupational status: unemployed Travel in the last 8 weeks: None housing: house number of children: 1 current occupational exposures/hazards: No caffeine: No ROS Obtained: Yes All systems reviewed & no additional complaints except as documented Constitutional Constitutional: Reports as per HPI and Reports headache(s) Comments: States that she cou
[2022-03-30 19:22] VITALS: BP 128/73; PULSE 64; RESP 18; TEMP 36.7; O2SAT 99
== END 2022-03-30 19:35 | disposition home or self-care (01) ==
PROVIDERS: Emergency Provider Nurse Practitioner Family; PCP Physician Assistant
DX: R51.9 Headache, unspecified (principal)
CPT/HCPCS: 96372; 99212; G0463

== ENCOUNTER 2022-04-16 17:27 | Emergency (ER) | payer MEDICAID, SELFPAY ==
[2022-04-16 17:29] VITALS: BP 126/55; PULSE 65; RESP 18; TEMP 37.1; O2SAT 97; BMI 38.2
--- NOTE | 2022-04-16 17:57 | EXP.UTC ---
Discharge Plan Disposition Patient Disposition: Home, Self-Care Condition: Good Prescriptions Prescriptions: New ondansetron 4 mg Tablet,Disintegrating 4 mg PO Q8H PRN (Reason: Nausea) Qty: 20 0RF No Action ibuprofen 800 mg tablet 800 mg PO Q8H PRN (Reason: headache) Qty: 30 2RF zolmitriptan [Zomig] 5 mg tablet See Rx Instructions PO .COMPLEX Qty: 9 0RF Rx Instructions: take 1 tab at onset of headache; if no relief, may repeat 1 tab after at least 2 hrs; max = 2 tabs/24 hrs PO amitriptyline 25 mg tablet 25 mg PO HS Qty: 30 2RF norgestimate-ethinyl estradiol [Tri-Sprintec (28)] 0.18/0.215/0.25 mg-35 mcg (28) tablet 1 tab PO DAILY Qty: 28 12RF mhgiywbdav-myjrjiscdm-qmi-cod [Fioricet with Codeine] 14-327-77-30 mg capsule 1 cap PO ONCE PRN (Reason: headache if other meds don't work) Qty: 20 0RF sumatriptan succinate 25 mg tablet 25 mg PO Q2H PRN (Reason: migraine headache) Qty: 14 0RF Rx Instructions: do not exceed 8 doses per 24 hrs atorvastatin [Lipitor] 10 mg tablet 10 mg PO HS Qty: 90 3RF ergocalciferol (vitamin D2) 1,250 mcg (50,000 unit) capsule 1,250 mcg PO WEEKLY Qty: 14 3RF Referrals Follow up/Referrals: Melissa Hernandez PA [Primary Care Provider] - See instructions Clinical Impressions Clinical Impression: Gastroenteritis Stand Alone Forms Stand Alone Forms: Work/School Release Instructions Patient Instructions: DI for Viral Gastroenteritis -- Adult Discharge ED Provider: Jimbo Chandra [facility] General Stated complaint: Light Headed, nasua Mode of Arrival: Ambulatory Source of Information: Patient Limitations: No Limitations Time Seen by Provider: 04/16/22 17:57 Description of Symptoms (Recalled from Triage Doc. by RN): THINKS SHE HAS FOOD POISIONING. N/V HEADACHE AND LIGHT HEADED HEENT Symptoms (Recalled from RN notes): No Resp Symptoms (Recalled from RN notes): No Skin Symptoms (Recalled from RN notes): No MS Symptoms (Recalled from RN notes): No Functional Status (Recalled from RN notes): NA History of Present Illness Provider Complaint: She states that she has had gi upset for the past 1 day. Her family has similar symptoms. they all ate some fried chicken that she thinks may have caused this. Related Data Previous Rx's Medication Instructions Recorded sumatriptan succinate 25 mg tablet 25 mg PO Q2H PRN migraine headache 01/11/22 #14 tabs amitriptyline 25 mg tablet 25 mg PO HS #30 tabs 01/30/22 butalbital 50 mg-acetaminophen 300 1 cap PO ONCE PRN headache if 01/30/22 mg-caffeine 40 mg-codeine 30 mg other meds don't work #20 caps cap (Fioricet with Codeine) ibuprofen 800 mg tablet 800 mg PO Q8H PRN headache #30 tabs 01/30/22 norgestimate-ethinyl estradiol 1 tab PO DAILY #28 tabs 01/30/22 0.18 mg/0.215mg/0.25mg-35 mcg(28)tablet (Tri-Sprintec (28)) zolmitriptan 5 mg tablet (Zomig) See Rx Instructions PO .COMPLEX #9 01/30/22 tabs atorvastatin 10 mg tablet (Lipitor) 10 mg PO HS #90 tabs 02/25/22 ergocalciferol (vitamin D2) 1,250 1,250 mcg PO WEEKLY #14 caps 02/25/22 mcg (50,000 unit) capsule ondansetron 4 mg disintegrating 4 mg PO Q8H PRN Nausea #20 tabs 04/16/22 tablet Allergies Allergy/AdvReac Type Severity Reaction Status Date / Time ondansetron Allergy Verified 02/25/22 08:39 [From Zofran (as hydrochloride)] onion Allergy Verified 02/25/22 08:39 Worker's Comp Is this a Worker's Comp case?: No PFSH PFSH 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 Anxiety Depression Gastroesophageal reflux disease Hypertension Positive home test with 22 completed weeks gestation Round ligament pain Surgical History History of section Social History Smoking Status: Current every day smoker tobacco type: cigarettes packs per day: 1 second hand
[2022-04-16 18:46] VITALS: BP 126/55; PULSE 65; RESP 18; TEMP 37.1; O2SAT 98
== END 2022-04-16 18:47 | disposition home or self-care (01) ==
PROVIDERS: Emergency Provider Nurse Practitioner Family; PCP Physician Assistant
DX: K52.9 Noninfective gastroenteritis and colitis, unspecified (principal)
CPT/HCPCS: 99212; G0463

== ENCOUNTER 2022-04-25 10:54 | Emergency (ER) | payer MEDICAID, SELFPAY ==
[2022-04-25 11:55] VITALS: BP 129/55; PULSE 60; RESP 20; TEMP 37; O2SAT 98; BMI 38.6
--- NOTE | 2022-04-25 12:10 | EXP.UTC ---
Discharge Plan Disposition Patient Disposition: Home, Self-Care Condition: Good Prescriptions Prescriptions: New amoxicillin [amoxicillin] 500 mg tablet 500 mg PO TID 10 Days Qty: 30 0RF pxpxrqpnidkjrzt-ouxroymuh-BT [Bromfed DM] 2-30-10 mg/5 mL Syrup 5 ml PO Q6H PRN (Reason: Cough) Qty: 240 0RF ondansetron 4 mg Tablet,Disintegrating 4 mg PO Q8H PRN (Reason: Nausea) Qty: 12 0RF No Action ibuprofen 800 mg tablet 800 mg PO Q8H PRN (Reason: headache) Qty: 30 2RF zolmitriptan [Zomig] 5 mg tablet See Rx Instructions PO .COMPLEX Qty: 9 0RF Rx Instructions: take 1 tab at onset of headache; if no relief, may repeat 1 tab after at least 2 hrs; max = 2 tabs/24 hrs PO amitriptyline 25 mg tablet 25 mg PO HS Qty: 30 2RF norgestimate-ethinyl estradiol [Tri-Sprintec (28)] 0.18/0.215/0.25 mg-35 mcg (28) tablet 1 tab PO DAILY Qty: 28 12RF vsmzhangbd-pfkkobgeyf-zro-cod [Fioricet with Codeine] 38-052-06-30 mg capsule 1 cap PO ONCE PRN (Reason: headache if other meds don't work) Qty: 20 0RF sumatriptan succinate 25 mg tablet 25 mg PO Q2H PRN (Reason: migraine headache) Qty: 14 0RF Rx Instructions: do not exceed 8 doses per 24 hrs atorvastatin [Lipitor] 10 mg tablet 10 mg PO HS Qty: 90 3RF ergocalciferol (vitamin D2) 1,250 mcg (50,000 unit) capsule 1,250 mcg PO WEEKLY Qty: 14 3RF ondansetron 4 mg Tablet,Disintegrating 4 mg PO Q8H PRN (Reason: Nausea) Qty: 20 0RF Referrals Follow up/Referrals: Melissa Hernandez PA [Primary Care Provider] - See instructions Activity Restrictions/Add. Instructions Additional Instructions/Restrictions: Drink plenty of fluids. Take tylenol or ibuprofen for pain or fever. Take the medications as directed. Follow up with your regular doctor. GO TO THE ER FOR ANY WORSENING SYMPTOMS Throw your tooth brush away and get a new one. Her symptoms began 2 days ago, so her excuse needs to count for yesterday too. Clinical Impressions Clinical Impression: Pharyngitis Stand Alone Forms Stand Alone Forms: Work/School Release Instructions Patient Instructions: DI for Strep Throat Discharge ED Provider: Jimbo Chandra [facility] [place] HPI General Stated complaint: nausea, vomiting Mode of Arrival: Ambulatory Source of Information: Patient Limitations: No Limitations Time Seen by Provider: 04/25/22 12:10 Description of Symptoms (Recalled from Triage Doc. by RN): HEADACHE, NAUSEA AND VOMITING HEENT Symptoms (Recalled from RN notes): Yes Resp Symptoms (Recalled from RN notes): No Skin Symptoms (Recalled from RN notes): No MS Symptoms (Recalled from RN notes): No Functional Status (Recalled from RN notes): NA History of Present Illness Provider Complaint: She states that for the past 2 days she has had sore throat, n/v/d. She states that she feels like she has strep throat. She has had a negative covid-19 test at home so she refuses a covid test. Related Data Previous Rx's Medication Instructions Recorded sumatriptan succinate 25 mg tablet 25 mg PO Q2H PRN migraine headache 01/11/22 #14 tabs amitriptyline 25 mg tablet 25 mg PO HS #30 tabs 01/30/22 butalbital 50 mg-acetaminophen 300 1 cap PO ONCE PRN headache if 01/30/22 mg-caffeine 40 mg-codeine 30 mg other meds don't work #20 caps cap (Fioricet with Codeine) ibuprofen 800 mg tablet 800 mg PO Q8H PRN headache #30 tabs 01/30/22 norgestimate-ethinyl estradiol 1 tab PO DAILY #28 tabs 01/30/22 0.18 mg/0.215mg/0.25mg-35 mcg(28)tablet (Tri-Sprintec (28)) zolmitriptan 5 mg tablet (Zomig) See Rx Instructions PO .COMPLEX #9 01/30/22 tabs atorvastatin 10 mg tablet (Lipitor) 10 mg PO HS #90 tabs 02/25/22 ergocalciferol (vitamin D2) 1,250 1,250 mcg PO WEEKLY #14 caps 02/25/22 mcg (50,000 unit) capsule ondansetron 4 mg disintegrating 4 mg PO Q8H PRN Nausea #20 tabs 04/16/22 tablet amoxicillin 500 mg tablet 500 mg PO TID 10 days #30 tabs 04/25/22 brompheniramine-pseudoep
[2022-04-25 12:27] VITALS: BP 129/55; PULSE 60; RESP 18; TEMP 37; O2SAT 98
== END 2022-04-25 12:28 | disposition home or self-care (01) ==
PROVIDERS: Emergency Provider Nurse Practitioner Family; PCP Physician Assistant
DX: J02.9 Acute pharyngitis, unspecified (principal); R11.2 Nausea with vomiting, unspecified; R51.9 Headache, unspecified; Z88.8 Allergy status to other drugs, medicaments and biological substances; Z79.899 Other long term (current) drug therapy
CPT/HCPCS: 99212; G0463

== ENCOUNTER 2022-05-02 11:59 | Emergency (ER) | payer MEDICAID, SELFPAY ==
[2022-05-02 12:35] VITALS: BP 124/67; PULSE 78; RESP 19; TEMP 36.8; O2SAT 99; BMI 42.2
[2022-05-02 12:47] LABS: UTC Strep Screen (Rapid) Negative (Negative)
--- NOTE | 2022-05-02 12:52 | EXP.UTC ---
Discharge Plan Disposition Patient Disposition: Home, Self-Care Condition: Good Prescriptions Prescriptions: No Action ibuprofen 800 mg tablet 800 mg PO Q8H PRN (Reason: headache) Qty: 30 2RF zolmitriptan [Zomig] 5 mg tablet See Rx Instructions PO .COMPLEX Qty: 9 0RF Rx Instructions: take 1 tab at onset of headache; if no relief, may repeat 1 tab after at least 2 hrs; max = 2 tabs/24 hrs PO amitriptyline 25 mg tablet 25 mg PO HS Qty: 30 2RF norgestimate-ethinyl estradiol [Tri-Sprintec (28)] 0.18/0.215/0.25 mg-35 mcg (28) tablet 1 tab PO DAILY Qty: 28 12RF alwvacvwsj-hqpukicvto-lfv-cod [Fioricet with Codeine] 56-283-03-30 mg capsule 1 cap PO ONCE PRN (Reason: headache if other meds don't work) Qty: 20 0RF sumatriptan succinate 25 mg tablet 25 mg PO Q2H PRN (Reason: migraine headache) Qty: 14 0RF Rx Instructions: do not exceed 8 doses per 24 hrs atorvastatin [Lipitor] 10 mg tablet 10 mg PO HS Qty: 90 3RF ergocalciferol (vitamin D2) 1,250 mcg (50,000 unit) capsule 1,250 mcg PO WEEKLY Qty: 14 3RF amoxicillin [amoxicillin] 500 mg tablet 500 mg PO TID 10 Days Qty: 30 0RF dcxosyifnipzrub-cutyexfbz-IQ [Bromfed DM] 2-30-10 mg/5 mL Syrup 5 ml PO Q6H PRN (Reason: Cough) Qty: 240 0RF ondansetron 4 mg Tablet,Disintegrating 4 mg PO Q8H PRN (Reason: Nausea) Qty: 12 0RF ondansetron 4 mg Tablet,Disintegrating 4 mg PO Q8H PRN (Reason: Nausea) Qty: 20 0RF Referrals Follow up/Referrals: Melissa Hernandez PA [Primary Care Provider] - See instructions Activity Restrictions/Add. Instructions Additional Instructions/Restrictions: Warm soaks and muscle rubs may help with calf spasms Make sure to wear good supportive socks and shoes when at work *Monitor Temp, Over the counter Motrin or Tylenol as directed/as needed Tylenol every 4 hours and Motrin every 6 hours (as long as your family doctor has told you that you can take it) for fever or pain. and straight to ER if unable to lower temp less than 101.0 after medication given *Warm salt water gargles may help to soothe the throat *Throat Lozenges? *Warm fluids like tea with honey may help to soothe the throat? *Sleep elevated *Humidifier/Vaporizer Your throat swab was sent for culture. Those results are typically sent to your primary care. Be sure to follow up in 2-3 days with your family doctor/primary care physician if no improvement so they can review those result and treat if necessary. If you don?t have a primary care doctor, I recommend you get one but in the mean time, you will have to return to a walk in clinic Follow up IMMEDIATELY for new or worsening symptoms or no Noticeable improvement over the next 48-72 hours. 911 for difficulty breathing or swallowing Clinical Impressions Clinical Impression: Sore throat (viral) Instructions Patient Instructions: DI for Calf Muscle Strain, DI for Muscle Spasm, Sore Throat Discharge ED Provider: Radha Mcgrath [facility] [place] HPI General Stated complaint: Sore throat, dry throat, cough, pain RT leg Mode of Arrival: Ambulatory Source of Information: Patient Limitations: No Limitations Time Seen by Provider: 05/02/22 12:52 Description of Symptoms (Recalled from Triage Doc. by RN): PATIENT C/O SORE THROAT AND LEG PAIN. RECENTLY EXPOSED TO STREP HEENT Symptoms (Recalled from RN notes): Yes Resp Symptoms (Recalled from RN notes): No Skin Symptoms (Recalled from RN notes): No MS Symptoms (Recalled from RN notes): Yes Functional Status (Recalled from RN notes): WNL History of Present Illness Provider Complaint: Patient states that he and child recently had strep throat and now her throat is hurting too States that also she has been having to walk alot at work and has been having cramping like pain in her right calf area but no swelling or bruising thinks she may have pulled something Related Data Previous Rx's Medication Instructions Rec
[2022-05-02 13:10] VITALS: BP 124/67; PULSE 78; RESP 19; TEMP 36.8; O2SAT 99
== END 2022-05-02 13:12 | disposition home or self-care (01) ==
PROVIDERS: Emergency Provider Nurse Practitioner; PCP Physician Assistant
DX: J02.9 Acute pharyngitis, unspecified (principal); R05.9 Cough, unspecified
CPT/HCPCS: 87880; 99212; G0463

== ENCOUNTER 2022-05-05 16:37 | Emergency (ER) | payer MEDICAID, SELFPAY ==
--- NOTE | 2022-05-05 17:13 | EXP.UTC ---
Discharge Plan Disposition Patient Disposition: Home, Self-Care Condition: Good Prescriptions Prescriptions: New ibuprofen [IBU] 800 mg tablet 800 mg PO Q8HP PRN (Reason: Moderate Pain) Qty: 30 0RF No Action ibuprofen 800 mg tablet 800 mg PO Q8H PRN (Reason: headache) Qty: 30 2RF zolmitriptan [Zomig] 5 mg tablet See Rx Instructions PO .COMPLEX Qty: 9 0RF Rx Instructions: take 1 tab at onset of headache; if no relief, may repeat 1 tab after at least 2 hrs; max = 2 tabs/24 hrs PO amitriptyline 25 mg tablet 25 mg PO HS Qty: 30 2RF norgestimate-ethinyl estradiol [Tri-Sprintec (28)] 0.18/0.215/0.25 mg-35 mcg (28) tablet 1 tab PO DAILY Qty: 28 12RF igemtwgmwj-thwgszhrdb-buw-cod [Fioricet with Codeine] 23-956-52-30 mg capsule 1 cap PO ONCE PRN (Reason: headache if other meds don't work) Qty: 20 0RF sumatriptan succinate 25 mg tablet 25 mg PO Q2H PRN (Reason: migraine headache) Qty: 14 0RF Rx Instructions: do not exceed 8 doses per 24 hrs atorvastatin [Lipitor] 10 mg tablet 10 mg PO HS Qty: 90 3RF ergocalciferol (vitamin D2) 1,250 mcg (50,000 unit) capsule 1,250 mcg PO WEEKLY Qty: 14 3RF amoxicillin [amoxicillin] 500 mg tablet 500 mg PO TID 10 Days Qty: 30 0RF wbjhsufnbhhmups-oxozpcrjy-OM [Bromfed DM] 2-30-10 mg/5 mL Syrup 5 ml PO Q6H PRN (Reason: Cough) Qty: 240 0RF ondansetron 4 mg Tablet,Disintegrating 4 mg PO Q8H PRN (Reason: Nausea) Qty: 12 0RF ondansetron 4 mg Tablet,Disintegrating 4 mg PO Q8H PRN (Reason: Nausea) Qty: 20 0RF Referrals Follow up/Referrals: Melissa Hernandez PA [Primary Care Provider] - See instructions Jess Monique DPM [Staff Physician] - See instructions Activity Restrictions/Add. Instructions Additional Instructions/Restrictions: Rest the extremity, apply ice for 15 minutes as tolerated three or four times per day, Wear the selvin wrap for compression, Elevate the extremity as tolerated while you are resting. Take ibuprofen for pain. I sent in a prescription to your pharmacy. Follow up with Dr. Monique (podiatry). I put in a referral but you need to call her office and schedule an appointment. Follow up with your regular doctor. GO TO THE ER FOR ANY WORSENING SYMPTOMS Clinical Impressions Clinical Impression: Foot pain, left Stand Alone Forms Stand Alone Forms: Work/School Release Instructions Patient Instructions: Metatarsalgia, DI for Foot Pain Discharge ED Provider: Jimbo Chandra [facility] General Stated complaint: L LEG SWOLLEN NO ACC Time Seen by Provider: 05/05/22 17:13 History of Present Illness Provider Complaint: She states that since yesterday day she has had left foot pain and swelling. She denies any known injury. Related Data Previous Rx's Medication Instructions Recorded sumatriptan succinate 25 mg tablet 25 mg PO Q2H PRN migraine headache 01/11/22 #14 tabs amitriptyline 25 mg tablet 25 mg PO HS #30 tabs 01/30/22 butalbital 50 mg-acetaminophen 300 1 cap PO ONCE PRN headache if 01/30/22 mg-caffeine 40 mg-codeine 30 mg other meds don't work #20 caps cap (Fioricet with Codeine) ibuprofen 800 mg tablet 800 mg PO Q8H PRN headache #30 tabs 01/30/22 norgestimate-ethinyl estradiol 1 tab PO DAILY #28 tabs 01/30/22 0.18 mg/0.215mg/0.25mg-35 mcg(28)tablet (Tri-Sprintec (28)) zolmitriptan 5 mg tablet (Zomig) See Rx Instructions PO .COMPLEX #9 01/30/22 tabs atorvastatin 10 mg tablet (Lipitor) 10 mg PO HS #90 tabs 02/25/22 ergocalciferol (vitamin D2) 1,250 1,250 mcg PO WEEKLY #14 caps 02/25/22 mcg (50,000 unit) capsule ondansetron 4 mg disintegrating 4 mg PO Q8H PRN Nausea #20 tabs 04/16/22 tablet amoxicillin 500 mg tablet 500 mg PO TID 10 days #30 tabs 04/25/22 rgdfwbwikzuhsmd-wkshiggmijynxol-XR 5 ml PO Q6H PRN Cough #240 mL 04/25/22 2 mg-30 mg-10 mg/5 mL oral syrup (Bromfed DM) ondansetron 4 mg disintegrating 4 mg PO Q8H PRN Nausea #12 tabs 04/25/22 tablet
[2022-05-05 17:14] VITALS: BP 135/81; PULSE 63; RESP 18; TEMP 37.3; O2SAT 100; BMI 38.6
[2022-05-05 17:46] VITALS: BP 135/81; PULSE 63; RESP 18; TEMP 37.3
== END 2022-05-05 17:49 | disposition home or self-care (01) ==
PROVIDERS: Emergency Provider Nurse Practitioner Family; PCP Physician Assistant
DX: M79.672 Pain in left foot (principal)
CPT/HCPCS: 99212; G0463

== ENCOUNTER 2022-05-25 10:36 | Emergency (ER) | payer MEDICAID, SELFPAY ==
[2022-05-25 11:15] VITALS: BP 117/61; PULSE 60; RESP 14; TEMP 36.8; O2SAT 97; BMI 34.2
--- NOTE | 2022-05-25 12:09 | EXP.UTC ---
Discharge Plan Disposition Patient Disposition: Home, Self-Care Condition: Good Prescriptions Prescriptions: New benzonatate 100 mg capsule 100 mg PO TID PRN (Reason: cough) Qty: 20 0RF No Action zolmitriptan [Zomig] 5 mg tablet See Rx Instructions PO .COMPLEX Qty: 9 0RF Rx Instructions: take 1 tab at onset of headache; if no relief, may repeat 1 tab after at least 2 hrs; max = 2 tabs/24 hrs PO amitriptyline 25 mg tablet 25 mg PO HS Qty: 30 2RF norgestimate-ethinyl estradiol [Tri-Sprintec (28)] 0.18/0.215/0.25 mg-35 mcg (28) tablet 1 tab PO DAILY Qty: 28 12RF lolkegojnv-dbmciuntrh-qhg-cod [Fioricet with Codeine] 05-644-38-30 mg capsule 1 cap PO ONCE PRN (Reason: headache if other meds don't work) Qty: 20 0RF prednisone 20 mg tablet 20 mg PO BID 5 Days Qty: 10 0RF naproxen 500 mg tablet 500 mg PO BID Qty: 30 0RF sumatriptan succinate 25 mg tablet 25 mg PO Q2H PRN (Reason: migraine headache) Qty: 14 0RF Rx Instructions: do not exceed 8 doses per 24 hrs atorvastatin [Lipitor] 10 mg tablet 10 mg PO HS Qty: 90 3RF ergocalciferol (vitamin D2) 1,250 mcg (50,000 unit) capsule 1,250 mcg PO WEEKLY Qty: 14 3RF ibuprofen [IBU] 800 mg tablet 800 mg PO Q8HP PRN (Reason: Moderate Pain) Qty: 30 0RF Referrals Follow up/Referrals: Melissa Hernandez PA [Primary Care Provider] - See instructions Activity Restrictions/Add. Instructions Additional Instructions/Restrictions: * No sign of bacterial infection. Likely viral. Virus can take 7-14 days to run their course *Nasal saline and bulb syringe or nose michelle to remove nasal drainage and help with nasal congestion. Hard to eat, drink, or sleep with nasal congestion so important to keep nose cleaned out. *Monitor Temp, Over the counter Motrin or Tylenol as directed/as needed Tylenol every 4 hours and Motrin every 6 hours (as long as your family doctor has told you that you can take it) for fever or pain. and straight to ER if unable to lower temp less than 101.0 after medication given *Warm salt water gargles may help to soothe the throat *Throat Lozenges? *Warm fluids like tea with honey may help to soothe the throat? *Sleep elevated *Humidifier/Vaporizer Your throat swab was sent for culture. Those results are typically sent to your primary care. Be sure to follow up in 2-3 days with your family doctor/primary care physician if no improvement so they can review those result and treat if necessary. If you don?t have a primary care doctor, I recommend you get one but in the mean time, you will have to return to a walk in clinic Follow up IMMEDIATELY for new or worsening symptoms or no Noticeable improvement over the next 48-72 hours. 911 for difficulty breathing or swallowing Clinical Impressions Clinical Impression: Sore throat (viral) Instructions Patient Instructions: Sore Throat Discharge ED Provider: Radha Mcgrath [facility] General Stated complaint: cough, sore throat Mode of Arrival: Ambulatory Source of Information: Patient Limitations: No Limitations Time Seen by Provider: 05/25/22 12:09 Description of Symptoms (Recalled from Triage Doc. by RN): PATIENT C/O SORE THROAT AND COUGH X 2 DAYS HEENT Symptoms (Recalled from RN notes): Yes Resp Symptoms (Recalled from RN notes): Yes Skin Symptoms (Recalled from RN notes): No MS Symptoms (Recalled from RN notes): No Functional Status (Recalled from RN notes): WNL History of Present Illness Provider Complaint: Patient states that she has been having cough and sore throat for several days States that today her throat was still hurting so she came in to get checked Related Data Previous Rx's Medication Instructions Recorded sumatriptan succinate 25 mg tablet 25 mg PO Q2H PRN migraine headache 01/11/22 #14 tabs amitriptyline 25 mg tablet 25 mg PO HS #30 tabs 01/30/22 butalbital 50 mg-acetaminophen 300 1 cap PO ONCE PRN heada
[2022-05-25 12:12] VITALS: BP 117/61; PULSE 60; RESP 14; TEMP 36.8; O2SAT 97
[2022-05-26 20:19] LABS: UTC Strep Screen (Rapid) Negative (Negative)
== END 2022-05-25 12:15 | disposition home or self-care (01) ==
PROVIDERS: Emergency Provider Nurse Practitioner; PCP Physician Assistant
DX: J02.9 Acute pharyngitis, unspecified (principal); R05.9 Cough, unspecified; I10 Essential (primary) hypertension; K21.9 Gastro-esophageal reflux disease without esophagitis; E78.5 Hyperlipidemia, unspecified; G43.909 Migraine, unspecified, not intractable, without status migrainosus; F32.A Depression, unspecified; F41.9 Anxiety disorder, unspecified; F17.210 Nicotine dependence, cigarettes, uncomplicated; Z79.3 Long term (current) use of hormonal contraceptives; Z79.52 Long term (current) use of systemic steroids; Z79.899 Other long term (current) drug therapy; Z88.8 Allergy status to other drugs, medicaments and biological substances; Z91.018 Allergy to other foods
CPT/HCPCS: 87880; 99213; G0463

== ENCOUNTER 2022-06-05 15:41 | Emergency (ER) | payer MEDICAID, SELFPAY ==
--- NOTE | 2022-06-05 17:06 | EXP.UTC ---
Discharge Plan Disposition Patient Disposition: Home, Self-Care Condition: Good Prescriptions Prescriptions: New azithromycin [Zithromax] 250 mg tablet 250 mg PO UD DOSE PK Qty: 6 0RF Rx Instructions: Take two (2) tablets today, then one (1) tablet days #2 thru #5 methylprednisolone 4 mg Tablets,Dose Pack 4 mg PO DIRECTED Qty: 21 0RF birvrwttosziojw-ixnfymaic-IP [Bromfed DM] 2-30-10 mg/5 mL Syrup 5 ml PO Q6H PRN (Reason: Cough) Qty: 240 0RF No Action zolmitriptan [Zomig] 5 mg tablet See Rx Instructions PO .COMPLEX Qty: 9 0RF Rx Instructions: take 1 tab at onset of headache; if no relief, may repeat 1 tab after at least 2 hrs; max = 2 tabs/24 hrs PO amitriptyline 25 mg tablet 25 mg PO HS Qty: 30 2RF norgestimate-ethinyl estradiol [Tri-Sprintec (28)] 0.18/0.215/0.25 mg-35 mcg (28) tablet 1 tab PO DAILY Qty: 28 12RF nmakqmztks-ivrrhebwrt-wsk-cod [Fioricet with Codeine] 36-428-68-30 mg capsule 1 cap PO ONCE PRN (Reason: headache if other meds don't work) Qty: 20 0RF prednisone 20 mg tablet 20 mg PO BID 5 Days Qty: 10 0RF naproxen 500 mg tablet 500 mg PO BID Qty: 30 0RF sumatriptan succinate 25 mg tablet 25 mg PO Q2H PRN (Reason: migraine headache) Qty: 14 0RF Rx Instructions: do not exceed 8 doses per 24 hrs atorvastatin [Lipitor] 10 mg tablet 10 mg PO HS Qty: 90 3RF ergocalciferol (vitamin D2) 1,250 mcg (50,000 unit) capsule 1,250 mcg PO WEEKLY Qty: 14 3RF ibuprofen [IBU] 800 mg tablet 800 mg PO Q8HP PRN (Reason: Moderate Pain) Qty: 30 0RF benzonatate 100 mg capsule 100 mg PO TID PRN (Reason: cough) Qty: 20 0RF Referrals Follow up/Referrals: Melissa Hernandez PA [Primary Care Provider] - See instructions Activity Restrictions/Add. Instructions Additional Instructions/Restrictions: Drink plenty of fluids. Take tylenol or ibuprofen for pain or fever. Take the medications as directed. Follow up with your regular doctor. GO TO THE ER FOR ANY WORSENING SYMPTOMS Clinical Impressions Clinical Impression: Sinusitis Stand Alone Forms Stand Alone Forms: Work/School Release Instructions Patient Instructions: Sinusitis, DI for Sinusitis Discharge ED Provider: Jimbo Chandra [facility] General Stated complaint: coughing,headache Time Seen by Provider: 06/05/22 17:06 History of Present Illness Provider Complaint: She states that for the past 5 days she has had sinus congestion, sinus drainage, ear pain and a cough. She states that she has a sinus infection Related Data Previous Rx's Medication Instructions Recorded sumatriptan succinate 25 mg tablet 25 mg PO Q2H PRN migraine headache 01/11/22 #14 tabs amitriptyline 25 mg tablet 25 mg PO HS #30 tabs 01/30/22 butalbital 50 mg-acetaminophen 300 1 cap PO ONCE PRN headache if 01/30/22 mg-caffeine 40 mg-codeine 30 mg other meds don't work #20 caps cap (Fioricet with Codeine) norgestimate-ethinyl estradiol 1 tab PO DAILY #28 tabs 01/30/22 0.18 mg/0.215mg/0.25mg-35 mcg(28)tablet (Tri-Sprintec (28)) zolmitriptan 5 mg tablet (Zomig) See Rx Instructions PO .COMPLEX #9 01/30/22 tabs atorvastatin 10 mg tablet (Lipitor) 10 mg PO HS #90 tabs 02/25/22 ergocalciferol (vitamin D2) 1,250 1,250 mcg PO WEEKLY #14 caps 02/25/22 mcg (50,000 unit) capsule ibuprofen 800 mg tablet (IBU) 800 mg PO Q8HP PRN Moderate Pain 05/05/22 #30 tabs naproxen 500 mg tablet 500 mg PO BID #30 tabs 05/09/22 prednisone 20 mg tablet 20 mg PO BID 5 days #10 tabs 05/09/22 benzonatate 100 mg capsule 100 mg PO TID PRN cough #20 caps 05/25/22 azithromycin 250 mg tablet 250 mg PO UD DOSE PK #6 tabs 06/05/22 (Zithromax) lvveshljzevqdqz-nkmoznaxsvmvoaq-VK 5 ml PO Q6H PRN Cough #240 mL 06/05/22 2 mg-30 mg-10 mg/5 mL oral syrup (Bromfed DM) methylprednisolone 4 mg tablets in 4 mg PO DIRECTED #21 tabs 06/05/22 a dose pack Allergies Allergy/AdvReac Type Severity Reaction
[2022-06-05 17:12] VITALS: BP 131/66; PULSE 61; RESP 17; TEMP 37; O2SAT 98; BMI 38.9
[2022-06-05 17:25] VITALS: BP 131/66; PULSE 61; RESP 17; TEMP 37
== END 2022-06-05 17:28 | disposition home or self-care (01) ==
PROVIDERS: Emergency Provider Nurse Practitioner Family; PCP Physician Assistant
DX: J32.9 Chronic sinusitis, unspecified (principal)
CPT/HCPCS: 99212; G0463

== ENCOUNTER → 2022-06-27 11:12 | Outpatient (CLI) | payer MEDICAID, SELFPAY | PROVIDERS: PCP Student in an Organized Health Care Education/Training Program; Visit Provider Student in an Organized Health Care Education/Training Program | DX: R35.0 Frequency of micturition (principal) | CPT/HCPCS: 87086 ==

== ENCOUNTER → 2022-07-10 10:35 | Outpatient (CLI) | payer MEDICAID, SELFPAY ==
[2022-07-10 14:48] LABS: HCG Qualitative, Serum Negative (Negative)
[2022-07-10 15:42] LABS: HCG,Quantitative < 2 mIU/ml (0-5.42)
== END ==
PROVIDERS: PCP Physician Assistant; Visit Provider Physician Assistant
DX: Z32.00 Encounter for pregnancy test, result unknown (principal); N91.2 Amenorrhea, unspecified
CPT/HCPCS: 84702; 84703

== ENCOUNTER → 2023-07-10 23:13 | Outpatient (CLI) | payer MEDICAID, SELFPAY ==
[2023-07-10 18:24] LABS: HCG Qualitative, Serum Negative (Negative)
[2023-07-10 18:26] LABS: Alanine Aminotransferase 21 U/L (12-78); Albumin Level 4.2 g/dl (3.5-5.0); Albumin/Globulin Ratio 1.3 (1.1-1.8); Alkaline Phosphatase 49 U/L (38-126); Anion Gap 11.6 mEq/L (5-15); Aspartate Amino Transferase 32 U/L (14-36); Bilirubin,Total 0.5 mg/dl (0.2-1.3); Blood Urea Nitrogen 11 mg/dl (7-17); Calcium 8.7 mg/dl (8.4-10.2); Carbon Dioxide 24 mmol/L (22.0-30.0); Chloride 104 mmol/L (98-107); Cholesterol 180 mg/dl (140-200); Estimated Glomerular Filt Rate 119 ml/min (>60); GFR (African American) 144 ML/MIN (>60); Globulin 3.2 g/dL (1.3-3.2); Glucose 80 mg/dl (74-100); HDL Cholesterol 61 mg/dl (40-60); Potassium 4.6 mmoL/L (3.5-5.1); Sodium 135 mmol/L (136-145); Total Protein,Serum 7.4 g/dl (6.3-8.2); Triglycerides 49 mg/dl (30-150); VLDL Cholesterol 10 mg/dL (0-40)
[2023-07-10 18:37] LABS: Direct LDL Cholesterol 104.05 mg/dL (100-129)
[2023-07-10 18:39] LABS: Basophils # 0.1 K/mm3 (0-0.2); Basophils % 0.4 % (0.1-2.0); Eosinophils # 0.1 K/mm3 (0.0-0.4); Eosinophils % 0.8 % (0.1-12.0); Hemoglobin 13.1 g/dL (12.2-16.2); Lymphocytes # 3.4 K/mm3 (0.7-4.5); Mean Corpuscular HGB Conc 32.7 g/dL (31.8-35.4); Mean Corpuscular Volume 82.6 fl (81-99); Mean Platelet Volume 12.3 fl (7.4-10.4); Monocytes # 0.5 K/mm3 (0.1-1.0); Monocytes % 4.4 % (1.7-9.3); Neutrophils # 7.4 K/mm3 (1.8-7.8); Neutrophils % 64.4 % (37.0-80.0); Platelet Count 234 K/mm3 (142-424); Red Blood Count 4.84 M/mm3 (4.20-5.40); Red Cell Distribution Width 15.2 % (11.5-17.5); White Blood Count 11.5 K/mm3 (4.8-10.8)
[2023-07-10 18:44] LABS: 25-OH Vitamin D, Total 18.7 ng/mL (30-100)
[2023-07-10 18:57] LABS: Thyroid Stimulating Hormone 0.93 uIU/mL (0.465-4.68)
== END ==
PROVIDERS: PCP Student in an Organized Health Care Education/Training Program; Visit Provider Student in an Organized Health Care Education/Training Program
DX: N91.2 Amenorrhea, unspecified (principal); R35.0 Frequency of micturition; Z13.21 Encounter for screening for nutritional disorder; E66.9 Obesity, unspecified; Z68.41 Body mass index [BMI] 40.0-44.9, adult
CPT/HCPCS: 80053; 80061; 82306; 84443; 84703; 85025; 87086

== ENCOUNTER → 2023-07-11 12:33 | Outpatient (CLI) | payer MEDICAID, SELFPAY ==
--- NOTE | 2023-07-11 12:36 | XR_ITS ---
FINAL REPORT CLINICAL HISTORY: low back pain worsening x2 months COMPARISON: None FINDINGS: No fracture is identified. Disc spaces are well-preserved. Alignment is normal. IMPRESSION: Unremarkable lumbar spine series. Reviewed, Interpreted and Dictated by Ej Muñiz MD Transcribed by Lottie Dumont Authenticated and [facility]
== END ==
PROVIDERS: PCP Student in an Organized Health Care Education/Training Program; Visit Provider Student in an Organized Health Care Education/Training Program
DX: M54.50 Low back pain, unspecified (principal)
CPT/HCPCS: 72100

== ENCOUNTER 2023-07-31 06:26 | Outpatient (CLI) | payer MEDICAID, SELFPAY | END 2023-07-31 23:59 | LOC: LAB.DROPOF 08-01 06:26 | PROVIDERS: PCP Student in an Organized Health Care Education/Training Program; Visit Provider Student in an Organized Health Care Education/Training Program | DX: R35.0 Frequency of micturition (principal); B96.89 Other specified bacterial agents as the cause of diseases classified elsewhere | CPT/HCPCS: 87086 ==

== ENCOUNTER 2023-08-01 10:49 | Emergency (ER) | payer MEDICAID, SELFPAY ==
[2023-08-01 11:20] VITALS: BP 141/85; PULSE 72; RESP 19; TEMP 36.9; O2SAT 99; BMI 42.7
[2023-08-01 11:24] LABS: UTC Pregnancy Test, Urine Negative (Negative)
--- NOTE | 2023-08-01 11:31 | ED_ITS ---
Discharge Plan Disposition Patient Disposition: Home, Self-Care Condition: Good Prescriptions Prescriptions: No Action metformin 850 mg tablet 850 mg PO DAILY Patient Comments: TAKE 1 TABLET BY MOUTH ONCE DAILY WITH BREAKFAST norgestimate-ethinyl estradiol [Tri-Linyah] 0.18/0.215/0.25 mg-35 mcg (28) tablet 1 tab PO DAILY hydroxyzine HCl 25 mg tablet 25 mg PO DAILY Vraylar 1.5 mg capsule 1.5 mg PO DAILY Referrals Follow up/Referrals: Silke Cano PA [Primary Care Provider] - See instructions Activity Restrictions/Add. Instructions Additional Instructions/Restrictions: Take tylenol or ibuprofen for pain. Follow up with your regular doctor. GO TO THE ER FOR ANY WORSENING SYMPTOMS Clinical Impressions Clinical Impression: Amenorrhea Instructions Patient Instructions: DI for Amenorrhea Discharge ED Provider: Jimbo Chandra [facility] General Stated complaint: needs bloodwork and lower back pain Time Seen by Provider: 08/01/23 11:31 History of Present Illness Provider Complaint: She states that her menstrual period is 1 week late. She is having breast tenderness and nausea also. She had a negative urine test yesterday. She came in to have a blood test done today. Related Data Home Medications Medication Instructions Recorded Confirmed cariprazine 1.5 mg capsule 1.5 mg PO DAILY 08/01/23 08/01/23 (Vraylar) hydroxyzine HCl 25 mg tablet 25 mg PO DAILY 08/01/23 08/01/23 metformin 850 mg tablet 850 mg PO DAILY 08/01/23 08/01/23 norgestimate-ethinyl estradiol 1 tab PO DAILY 08/01/23 08/01/23 0.18 mg/0.215mg/0.25mg-35 mcg(28)tablet (Tri-Linyah) Allergies Allergy/AdvReac Type Severity Reaction Status Date / Time ondansetron Allergy Verified 07/31/23 13:12 [From Zofran (as hydrochloride)] onion Allergy Verified 07/31/23 13:12 [facility] Disclaimer: The information contained in this section may have been updated after the patient was seen, as this information can be updated by other users. 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 Anxiety Depression Gastroesophageal reflux disease Hyperlipidemia Hypertension Pain of wrist after trauma Positive home test LMP 08/18/17. Positive urine test here. EDC 08/25/17. Call Dr Martinez for 1st OB appt. Start vitamins. Stop Zofran (takes PRN). Stop Advil, Aleve. No alcohol. with 22 completed weeks gestation Round ligament pain Surgical History History of section Family History Other No significant family history Social History Smoking Status: Current every day smoker tobacco type: cigarettes packs per day: 1 second hand exposure: No alcohol intake: never substance use type: former substance user and marijuana current occupational status: unemployed Travel in the last 8 weeks: None housing: house number of children: 1 current occupational exposures/hazards: No caffeine: No ROS Obtained: Yes All systems reviewed & no additional complaints except as documented Constitutional Constitutional: Denies chills and Denies fever(s) Eyes Eyes: Denies eye discharge ENT Ears, Nose, Mouth, and Throat: Denies dizziness, Denies otalgia and Denies sore throat Cardiovascular Cardiovascular: Denies chest pain Respiratory Respiratory: Denies shortness of breath, Denies chest congestion, Denies cough, Denies stridor and Denies wheezing Gastrointestinal Gastrointestingal: Denies nausea or vomiting Musculoskeletal Musculoskeletal: Reports system reviewed and no additional complaints, except as documented and Denies arthralgias Integumentary/Breasts Skin/Breast: Denies rash Neurologic Neurologic: Denies dizziness and Denies paresthesias Allergic/Immunologic Allergic/Immunologic: Denies wheezing Physical Exam General General appearance: alert and in no apparent distress Head Head exam: atraumatic, normocephalic and normal inspection Eye Eye exam: Present normal appearance, PERRL and EOMI ENT ENT exam: Present normal exam, normal oropharynx, mucous membranes moist, TM's normal bilaterally and normal external ear exam Neck Neck exam: Present normal inspection, full ROM and trachea midline; Absent meningismus or lymphadenopathy Chest Chest inspection: Present normal inspection and symmetric chest wall rise; Absent tenderness Respiratory Respiratory exam: Present normal lung sounds bilaterally; Absent respiratory distress Cardiovascular Cardiovascular exam: Present regular rate and normal rhythm; Absent JVD Abdominal Exam Abdominal exam: Present soft and normal bowel sounds; Absent distention, tenderness or guarding Extremities Exam Extremities exam: Present normal inspection, full ROM and normal capillary refill; Absent calf tenderness Back Exam Back exam: Present normal inspection; Absent tenderness Neurological Exam Neurological exam: Present alert and oriented X3 Psychiatric Psychiatric exam: Present normal affect and normal mood Skin Skin exam: Present warm, dry, intact and normal color Lymphatic Lymphatic Findings: no adenopathy Medical Decision Making Medical Records Medical records reviewed: No I reviewed the patient's medical records. Vinny Inquiry Pt receiving controlled substance: No Lab Data Lab results reviewed: Yes I reviewed the patient's lab results. Lab Results 08/01/23 11:12: [facility] Negative Orders (Tests/Meds): ORDERS Category Date Time Status Serum [HCG Qualitative, Serum] Stat Lab 08/01/23 11:12 Ordered
[2023-08-01 12:06] VITALS: BP 141/85; PULSE 72; RESP 19; TEMP 36.9; O2SAT 99
[2023-08-01 12:24] LABS: HCG Qualitative, Serum Negative (Negative)
== END 2023-08-01 12:29 | disposition home or self-care (01) ==
PROVIDERS: Emergency Provider Nurse Practitioner Family; PCP Student in an Organized Health Care Education/Training Program
DX: N91.2 Amenorrhea, unspecified (principal); K21.9 Gastro-esophageal reflux disease without esophagitis; I10 Essential (primary) hypertension; E78.5 Hyperlipidemia, unspecified
CPT/HCPCS: 81025; 84703; 99212; 99213; G0463

== ENCOUNTER 2023-08-14 17:00 | Outpatient (RCR) | payer MEDICAID, SELFPAY ==
--- NOTE | 2023-07-29 18:08 | HMH.PTOPEV ---
PT Outpatient Evaluation Rehab PT Outpatient Evaluation Start: 07/29/23 17:03 Freq: Status: Active Protocol: Document 07/29/23 17:03 DEBORAHSANDRA (Rec: 07/29/23 18:07 JAD [id number]) E-signed By Anum Russell, PT Outpatient Therapy Subjective History Subjective History Pt is a 28 y/o female who reports onset of low back pain following the of her first son in 2018. Pt reports she had an epidural and a c- section and after that she had intermittent low back pain. Pt reports after the of her second son in 2018 when she had a spinal tap, she has had constant low back pain and onset of left leg pain. Pt reports when she sits for prolonged periods her left leg will go to sleep from the knee to her calf region. Pt reports increased urgency to urinate after having her fourth kid in 2021. Pt denies saddle anesthesia. Pt had a lumbar spine radiograph at [facility] performed on 07/11/23 with impression of No fracture is identified. Disc spaces are well-preserved. Alignment is normal. Pt reports she was prescribed muscle relaxers which she states has helped with pain. Pt reports pain is aggravated by lifting her kids (45-50#), lifting the left leg, sitting straight up, and applying pressure to her back. 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: high blood pressure, pre-diabetic, anxiety New diagnosis of cancer in past 12 No months? Chief Complaint Pain,Paresthesia Symptom Type Throb,Sharp,Numbness,Tingling Symptoms Relieved By Heat,Prescription Meds Symptoms Aggravated By Bending/Stooping,Physical Activity,Lifting Prior Functional Limitations None Current Functional Limitations Lifting,Housework,Sleeping, Standing,Sitting,Bending/ Stooping Symptom Description Constant but Variable Level of pain today (0-10) 8 Pain scale - at its best (0-10) 7 Pain scale - at its worst (0-10) 10 Lumbopelvic Eval Posture Lumbar Spine Posture Standing Position Increased Lordosis Palapation tenderness bilateral lumbar spinal tenderness Yes paraspinal tenderness Yes buttock tenderness Yes: L piriformis, greater troch Lumbar/Sacral Palpation Findings Tenderness Lumbar/Sacral Palpation Overall Comment 3/4 TTP Accessory Movement L-spine Vertebrae Accessory Movements Central P/A Wilson that Elicit Symptoms L3 bilateral L4 bilateral L5 bilateral Range of Motion Lumbar Spine Active Flexion Range of 90 Motion (degrees) Lumbar Spine Active Extension Range of 25 Motion (degrees) Left Lumbar Spine Lateral Flexion Active 18 Range of Motion (degrees) Right Lumbar Spine Lateral Flexion 14 Active Range of Motion (degrees) Manual Muscle Test Bilateral Knee Extension Strength Grade 5 Normal Knee Flexion Strength Grade 5 Normal Hip Flexion Strength Grade 5 Normal Hip Abduction Strength Grade 4 Good Hip Adduction Strength Grade 4 Good Hip Extension Strength Grade 4 Good Ankle Dorsiflexion Strength Grade 5 Normal DTR Rt Patellar 1+ Lt Patellar 2+ Rt Gastroc/Soleus 2+ Lt Gastroc/Soleus 2+ Altered Sensation Bilateral LE Dermatome Level L3,L4 Comment decreased light touch sensation L compared to R Special Tests Hip Gustavo (ALMA) Test Negative Left,Negative Right Sciatic Nerve Tension Test Negative Right,Positive Left Unilateral Straight Leg Raise (Lasegue) Negative Right,Positive Left Test Oswestry Index Section 1 Pain Intensity The pain comes and goes and is moderate Section 2 Personal Care (Washing,Dresing) change my way of washing or dressing in order to avoid pain Section 3 Lifting Pain prevents me from lifting weights off the floor Section 4 Walking I have no pain when walking Section 5 Sitting Pain prevents me from sitting for more than one hour Section 6 Standing I have some pain on standing, but it does not increase with time Section 7 Sleeping Because of pain, my normal nights sleep is less than 2 hours sleep Section 8 Social Life My social life is normal and gives me no extra pain Section 9 Traveling I get some pain when traveling , but none of my usual forms of travel m Section 10 Changing Degreee of Pain My pain fluctuates, but overall is definitely getting better Score and Risk Level Oswestry Sc 13 Oswestry Risk Level Mild Disability Outpatient Therapy Assessment Impairments Problems/Impairmments Palpation Tenderness,Impaired Range of Motion,Impaired Strength,Impaired Sitting, Impaired Lifting,Impaired Household Care,Impaired Bending,Subjective C/O Pain, Impaired Self Care/Self Management Prognosis Rehab Potential Good Clinical Impression Consistent with Diagnosis Yes Short Term Goals Number of Weeks 3 Decrease Subjective C/O Pain Yes: Improve pain at worst 8/ 10 to improve overall QOL Improve Self Care/Self Management Yes Patient to be Ind w/ HEP Yes Care Home Goals Number of Weeks 6 Decreased Palpation Tenderness Yes: 1-2/4 TTP of lumbar paraspinals, SP Increase Range of Motion Yes: Improve lumbar LF AROM to 20-25 Increase Strength Yes: Improve hip/core strength to 4+-5/5 grossly to assist with function Restore Ability to Lift Objects to Waist Yes: 45-50# with proper Level mechanics to assist with lifting children Improve Oswestry Score Yes: Improve score to 8 to improve overall QOL Decrease Subjective C/O Pain Yes: Improve pain at worst 6/ 10 to improve overall QOL Outpatient Therapy Plan of Care Treatment Plan May Include Therapeutic Exercise Including Home Yes Exercise Program Manual Therapy Techniques Yes Neuromuscular Re-education Yes Therapeutic Activities to Return to Yes Previous Functional/Work Level ADL/Self Care Education Yes Mechanical Traction Yes Dry Needling Yes Thermal Modalities Yes Electrical Stimulation Yes Ultrasound/Phonophoresis Yes Iontophoresis Yes Massage Yes Eval/Re-Eval Yes Frequency Times per week 2 Duration Number of Weeks 4-6 Addendums This patient is a candidate for social No or vocational rehab? Patient/Guardian verbally acknowledges Yes understanding of treatment program and consents to further treatment? Patient/Guardian verbally acknowledges Yes understanding of diagnosis, prognosis and goals for treatment? Eval Complexity PT Charges 64202 - Low Complexity Shoulder/Elbow Eval Shoulder Objective Measurements Elbow Objective Measurements PHYSICIAN CERTIFICATION: I certify the specified therapy services for [facility] are required, authorized, and reviewed every 30 days.
== END 2023-08-14 18:00 | disposition home or self-care (01) ==
LOC: PT 17:00
PROVIDERS: PCP Student in an Organized Health Care Education/Training Program; Visit Provider Student in an Organized Health Care Education/Training Program
DX: M54.50 Low back pain, unspecified (principal)
CPT/HCPCS: 97010; 97014; 97110; 97163; 97530; G0283

== ENCOUNTER 2023-08-18 17:55 | Outpatient (CLI) | payer MEDICAID, SELFPAY ==
[2023-08-18 22:43] LABS: HCG,Quantitative 13 mIU/ml (0-5.42)
[2023-08-20 13:11] LABS: Progesterone 13.4 ng/mL (.)
== END 2023-08-18 23:59 ==
LOC: LAB.DROPOF 17:55
PROVIDERS: PCP Student in an Organized Health Care Education/Training Program; Visit Provider Student in an Organized Health Care Education/Training Program
DX: N91.2 Amenorrhea, unspecified (principal); Z32.01 Encounter for pregnancy test, result positive
CPT/HCPCS: 84144; 84702

== ENCOUNTER 2023-08-26 21:15 | Outpatient (CLI) | payer MEDICAID, SELFPAY ==
[2023-08-26 18:41] LABS: Adenovirus,PCR Not Detected (NotDetected); Coronavirus 19, PCR Not Detected (NotDetected); Coronavirus 229E Not Detected (NotDetected); Coronavirus NL63 Not Detected (NotDetected); Coronavirus OC43 Not Detected (NotDetected); Coronovirus HKU1,PCR Not Detected (NotDetected); Human Metapneumovirus Not Detected (NotDetected); Influenza A, PCR Not Detected (NotDetected); Influenza AH1, 2009 Not Detected (NotDetected); Influenza AH1, PCR Not Detected (NotDetected); Influenza AH3,PCR Not Detected (NotDetected); Parainfluenza 1, PCR Not Detected (NotDetected); Parainfluenza 2, PCR Not Detected (NotDetected); Parainfluenza 3, PCR Not Detected (NotDetected); Parainfluenza 4, PCR Not Detected (NotDetected); Respiratory Syncytial Virus Not Detected (NotDetected); Rhinovirus/Enterovirus Not Detected (NotDetected)
[2023-08-26 21:37] LABS: Influenza B, PCR Detected (NotDetected)
== END 2023-08-26 23:59 ==
LOC: LAB.DROPOF 21:15
PROVIDERS: PCP Student in an Organized Health Care Education/Training Program; Visit Provider Student in an Organized Health Care Education/Training Program
DX: R11.2 Nausea with vomiting, unspecified (principal); J10.1 Influenza due to other identified influenza virus with other respiratory manifestations
CPT/HCPCS: 87632; 87635

== ENCOUNTER 2023-10-03 06:39 | Emergency (ER) | payer MEDICAID, SELFPAY ==
[2023-10-03 06:42] VITALS: BP 138/94; PULSE 67; RESP 18; TEMP 37.1; O2SAT 99; BMI 38.2
--- NOTE | 2023-10-03 07:29 | PC.NURSE ---
Dr. Rojas at [facility] with [facility]
--- NOTE | 2023-10-03 07:31 | US_ITS ---
PROCEDURE INFORMATION: Exam: US , Transvaginal and US Duplex Artery and Vein, Ovaries, Complete Exam date and time: 10/03/2023 7:59 AM Age: 28 years old Clinical indication: Lmp or gestational age (in weeks): 07/13/2024; Other: Bleeding and cramping; ; Additional info: 11 wks by dates, spotting LABS AND CLINICAL REPORTS: Last menstrual period start date: 07/13/2023 TECHNIQUE: Imaging protocol: Real-time transvaginal obstetrical ultrasound of the maternal pelvis and a first trimester with image documentation. Transvaginal imaging was used for better evaluation of the fetus, adnexa, and/or cervix. Real-time duplex ultrasound scan of the arterial and venous flow of the ovaries with B-mode, color Doppler flow and spectral waveform analysis, Complete Duplex. Duplex exam was performed to evaluate for torsion and other vascular conditions. COMPARISON: No relevant recent comparison exams. FINDINGS: GESTATION: Gestation: Single intrauterine gestational sac containing yolk sac without visualization pole. Embryonic/ heart rate: NA Subchorionic hemorrhage: Small subchorionic-perigestational bleed measuring approximately less than 10% by volume compared to gestational sac size. Extra-embryonic membranes/Placenta: Not evaluated due to early gestation. Amniotic fluid: Not evaluated due to early gestation. BIOMETRY: Gestational age (AUA): 6 w 4 d Estimated due date (AUA): 05/24/2024 Mean sac diameter: 1.89 cm. MATERNAL: Right ovary/adnexa: Measures 7.1 mL. Complex RIGHT ovarian corpus luteal cyst/follicle measuring approximately 1.5 x 1.9 cm. Left ovary/adnexa: Measures 3.7 mL. Doppler: Doppler examination of the ovaries with pulsed wave and color images was performed which demonstrate arterial/venous waveforms within normal limits. Intraperitoneal space: No free fluid in the pelvis. IMPRESSION: 1. Single early intrauterine gestation containing yolk sac without pole as described. 2. Recommend short interval followup in 11-14 days. 3. Small subchorionic hemorrhage. 4. Normal ovaries demonstrating blood flow on Doppler. COMMENT: Recommendations For Followup If No Viable Intrauterine : Gestational Sac With Yolk Sac: Followup sonogram after 11 days. NO embryo WITH heartbeat on follow up sonogram is suggestive failed .
--- NOTE | 2023-10-03 07:36 | HMH.EDGENADL ---
Discharge Plan Disposition Patient Disposition: Home, Self-Care Prescriptions Prescriptions: No Action PNV [id number] 3.33 mg iron- 0.33 mg tablet,chewable 3 tab PO DAILY Qty: 90 2RF promethazine 12.5 mg tablet 6.25 mg PO BID Qty: 14 0RF pyridoxine (vitamin B6) 25 mg tablet 25 mg PO DAILY Qty: 30 2RF Unisom (doxylamine) 25 mg tablet 25 mg PO HS PRN (Reason: sleep) Qty: 30 0RF Referrals Follow up/Referrals: Silke Cano PA [Primary Care Provider] - See instructions Activity Restrictions/Add. Instructions Additional Instructions/Restrictions: Your ultrasound was consistent with a gestational sac of 6 weeks and did show a pole. This is most likely an early intrauterine but is certainly not consistent with your dates which were at 11 weeks. Cannot definitively rule out an abnormal therefore please follow-up closely with your ENGINE EMISSION TECHNICIAN doctor as previously instructed and return with any heavy bleeding or other concerns. Clinical Impressions Clinical Impression: Threatened miscarriage Discharge ED Provider: John Chavez General Adult HPI General Chief complaint: Vaginal Bleeding Stated complaint: 11 wks antepartum, vaginal bleeding Time Seen by Provider: 10/03/23 07:22 Mode of Arrival: Ambulatory Source of Information: Patient Limitations: No Limitations Description of Symptoms (Recalled from ER Triage Doc. by RN): Patient reports that she is currently 11 weeks , she began experiencing spotting when wiping yesterday approximately 11pm. She started having cramping pain approximately 0600 and slight increase in spotting. Patient has not had a dating/confirmation ultrasound at this time and has had 4 miscarriages in the past. History of Present Illness HPI narrative: Patient is a G9, who is 11 gestational age presenting today with abdominal cramping and spotting. No significant or heavy bleeding. No severe abdominal pain. No urinary symptoms. She does not know her blood type but has not had RhoGAM administered in the past and is O+ in our system. Related Data Previous Rx's Medication Instructions Recorded vit 112-iron 3.33 3 tab PO DAILY #90 tabs 08/18/23 mg-folate 0.33 [id number] chew tablet doxylamine succinate 25 mg tablet 25 mg PO HS PRN sleep #30 tabs 08/26/23 (Unisom (doxylamine)) promethazine 12.5 mg tablet 6.25 mg (1/2 x 12.5 mg) PO BID #14 08/26/23 tabs pyridoxine (vitamin B6) 25 mg 25 mg PO DAILY #30 tabs 08/26/23 tablet Allergies Allergy/AdvReac Type Severity Reaction Status Date / Time ondansetron Allergy Verified 08/26/23 15:29 [From Zofran (as hydrochloride)] onion Allergy Verified 08/26/23 15:29 [facility] Disclaimer: The information contained in this section may have been updated after the patient was seen, as this information can be updated by other users. 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 Anxiety Depression Gastroesophageal reflux disease Hyperlipidemia Hypertension Pain of wrist after trauma Positive home test LMP 08/18/17. Positive urine test here. EDC 08/25/17. Call Dr Martinez for 1st OB appt. Start vitamins. Stop Zofran (takes PRN). Stop Advil, Aleve. No alcohol. with 22 completed weeks gestation Round ligament pain Surgical History History of section Family History Other No significant family history Social History Smoking Status: Current every day smoker tobacco type: cigarettes packs per day: 1 second hand exposure: No alcohol intake: never substance use type: former substance user and marijuana current occupational status: unemployed Travel in the last 8 weeks: None housing: house number of children: 1 current occupational exposures/hazards: No caffeine: No ROS Obtained: Yes All systems reviewed & no additional complaints except as documented Physical Exam General General appearance: alert Respiratory Respiratory exam: Present normal lung sounds bilaterally Cardiovascular Cardiovascular exam: Present regular rate Abdominal Exam Abdominal exam: Present soft; Absent distention or tenderness Neurological Exam Neurological exam: Present alert and oriented X3 Medical Decision Making Vinny Inquiry Pt receiving controlled substance: No Vital Signs: 10/03/23 06:42 Temperature 98.8 F Temperature Source Oral Pulse Rate [Left Radial] 67 Respiratory Rate 18 Blood Pressure [Right Arm] 138/94 H Blood Pressure Mean [Right Arm] 108 Blood Pressure Source [Right Arm] Automatic Cuff Blood Pressure Position [Right Arm] Sitting 02 Sat by Pulse Oximetry 99 Oxygen Delivery Method Room Air Lab Data Lab results reviewed: Yes I reviewed the patient's lab results. Lab Results 10/03/23 06:55: WBC 12.2 H, RBC 5.04, Hgb 14.1, Hct 43.8, MCV 86.8, MCH 27.9, MCHC 32.2, RDW 15.1, Plt Count 234, MPV 10.1, Neut % (Auto) 62.1, Lymph % (Auto) 31.0, [place] % (Auto) 4.7, Eos % (Auto) 1.1, Baso % (Auto) 1.1, Neut # (Auto) 7.6, Lymph # (Auto) 3.8, [place] # (Auto) 0.6, Eos # (Auto) 0.1, Baso # (Auto) 0.1, Sodium 137, Potassium 4.5, Chloride 104, Carbon Dioxide 25, Anion Gap 12.5, BUN 6 L, Creatinine 0.60, Estimated Creat Clear 230, Estimated GFR 119, Est GFR ( Amer) 144, Glucose 100, Calcium 9.1, Total Bilirubin 0.4, AST 34, ALT 23, Alkaline Phosphatase 43, Total Protein 7.2, Albumin 4.2, Globulin 3.0, Albumin/Globulin Ratio 1.4, HCG, Quant [id number] H 10/03/23 06:55 10/03/23 06:55 Orders (Tests/Meds): ORDERS Category Date Time Status Type and Screen Stat BBK 10/03/23 08:39 Received POCUS Point of Care (ER Only) Stat Exams 10/03/23 07:23 Completed Beta HCG, Quant [HCG,Quantitative] Stat Lab 10/03/23 06:55 Completed CBC w/Auto Diff [Complete Blood Count Auto Diff] Stat Lab 10/03/23 06:55 Completed CMP [Comprehensive Metabolic Panel] Stat Lab 10/03/23 06:55 Completed UA [Urinalysis and Microscopic] Stat Lab 10/03/23 07:33 Ordered US OB transvaginal Stat Ultrasound 10/03/23 07:31 Taken Medical Decision Narrative: Patient is a G9, at 11 weeks gestational age from dates presents today with abdominal cramping and spotting. Differential includes intrauterine ectopic threatened etc. Limited bedside ultrasound was performed and documented. No definitive IUP was identified however there was a gestational sac but certainly not consistent with an 11 weeks gestation. It is possible her dates are often this is an early intrauterine or that this is a blighted ovum. Does not appear to be a pseudo gestational sac but that is within the realm of possibility as well. Unlikely that this is an ectopic but cannot rule in an intrauterine at the moment. Reassessment 8:49 AM transvaginal ultrasound performed which I first interpreted images there is evidence of a gestational sac and pole and yolk sac which is closer to around 6 weeks and dates. Most likely this is just an early intrauterine but is certainly not consistent with a 11-week gestation. She has been advised to follow-up closely with her ENGINE EMISSION TECHNICIAN doctor. Ectopic or heterotopic is an exceedingly unlikely right now. Quantitative hCG was above discriminatory zone and will be followed. She has an appointment on Friday with her ENGINE EMISSION TECHNICIAN doctor at [facility] in [place] and she is been given return precautions and was discharged in stable condition. Procedures Miscellaneous Procedure Procedure Performed: Limited OB ultrasound Indication: Vaginal bleeding in setting of Identified structures: [-Uterus -Left adnexa -Right adnexa -Pouch of Woody] Findings: Gestational sac without pole or yolk sac Right adnexa: No free fluid Left adnexa: No free fluid Cul de sac: No free fluid Impression: Gestational sac without pole or yolk sac therefore cannot confirm intrauterine differential includes early blighted ovum and pseudo gestational sac which is less likely Images were saved to permanent archive The study was technically adequate CPT Transabdominal: 75249-59 This study was performed by me, and I personally interpreted all images/videos. Based on my clinical judgement, these images were adequate and did not necessitate further imaging. Critical Care Critical Care Time Critical Care Time: No
[2023-10-03 07:46] LABS: Alanine Aminotransferase 23 U/L (12-78); Albumin Level 4.2 g/dl (3.5-5.0); Albumin/Globulin Ratio 1.4 (1.1-1.8); Alkaline Phosphatase 43 U/L (38-126); Anion Gap 12.5 mEq/L (5-15); Aspartate Amino Transferase 34 U/L (14-36); Bilirubin,Total 0.4 mg/dl (0.2-1.3); Blood Urea Nitrogen 6 mg/dl (7-17); Calcium 9.1 mg/dl (8.4-10.2); Carbon Dioxide 25 mmol/L (22.0-30.0); Chloride 104 mmol/L (98-107); Creatinine Clearance Estimated 230 mL/min (50-200); Estimated Glomerular Filt Rate 119 ml/min (>60); GFR (African American) 144 ML/MIN (>60); Glucose 100 mg/dl (74-100); Potassium 4.5 mmoL/L (3.5-5.1); Sodium 137 mmol/L (136-145); Total Protein,Serum 7.2 g/dl (6.3-8.2)
[2023-10-03 07:47] LABS: Basophils # 0.1 K/mm3 (0-0.2); Basophils % 1.1 % (0.1-2.0); Eosinophils # 0.1 K/mm3 (0.0-0.4); Eosinophils % 1.1 % (0.1-12.0); Hematocrit 43.8 % (37.0-47.0); Hemoglobin 14.1 g/dL (12.2-16.2); Lymphocytes # 3.8 K/mm3 (0.7-4.5); Mean Corpuscular HGB Conc 32.2 g/dL (31.8-35.4); Mean Corpuscular Hemoglobin 27.9 pg (27.0-31.2); Mean Corpuscular Volume 86.8 fl (81-99); Mean Platelet Volume 10.1 fl (7.4-10.4); Monocytes # 0.6 K/mm3 (0.1-1.0); Monocytes % 4.7 % (1.7-9.3); Neutrophils # 7.6 K/mm3 (1.8-7.8); Neutrophils % 62.1 % (37.0-80.0); Platelet Count 234 K/mm3 (142-424); Red Blood Count 5.04 M/mm3 (4.20-5.40); Red Cell Distribution Width 15.1 % (11.5-17.5); White Blood Count 12.2 K/mm3 (4.8-10.8)
--- NOTE | 2023-10-03 07:55 | PC.NURSE ---
PT TO US
[2023-10-03 08:03] LABS: HCG,Quantitative 12455 mIU/ml (0-5.42)
--- NOTE | 2023-10-03 08:18 | PC.NURSE ---
pt returned from US Advised of findings
--- NOTE | 2023-10-03 08:46 | PC.NURSE ---
DR MCINTOSH AT BEDSIDE TO UPDATE PT
[2023-10-03 08:48] VITALS: BP 129/83; PULSE 61; RESP 16; TEMP 36.7
== END 2023-10-03 08:54 | disposition home or self-care (01) ==
PROVIDERS: Student in an Organized Health Care Education/Training Program; Emergency Provider Emergency Medicine; PCP Student in an Organized Health Care Education/Training Program
DX: O20.0 Threatened abortion (principal); Z3A.00 Weeks of gestation of pregnancy not specified; I10 Essential (primary) hypertension; E78.5 Hyperlipidemia, unspecified; K21.9 Gastro-esophageal reflux disease without esophagitis
CPT/HCPCS: 36415; 76817; 80053; 84702; 85025; 86850; 99284

== ENCOUNTER 2023-10-04 10:56 | Emergency (ER) | payer MEDICAID, SELFPAY ==
[2023-10-04 10:59] VITALS: BP 149/86; PULSE 58; RESP 18; TEMP 36.8; O2SAT 98; BMI 39.9
--- NOTE | 2023-10-04 11:03 | PC.NURSE ---
DR YADAV AT BEDSIDE
--- NOTE | 2023-10-04 11:09 | HMH.EDGENADL ---
Discharge Plan Disposition Patient Disposition: Home, Self-Care Chief Complaint: Vaginal Bleeding Prescriptions Prescriptions: No Action PNV [id number] 3.33 mg iron- 0.33 mg tablet,chewable 3 tab PO DAILY Qty: 90 2RF promethazine 12.5 mg tablet 6.25 mg PO BID Qty: 14 0RF pyridoxine (vitamin B6) 25 mg tablet 25 mg PO DAILY Qty: 30 2RF Unisom (doxylamine) 25 mg tablet 25 mg PO HS PRN (Reason: sleep) Qty: 30 0RF Referrals Follow up/Referrals: Silke Cano PA [Primary Care Provider] - See instructions Activity Restrictions/Add. Instructions Additional Instructions/Restrictions: At this time it was felt you are safe to be discharged home. If new or worsening symptoms please do not hesitate to return the emergency department. Please continue to follow-up with OB as discussed. Clinical Impressions Clinical Impression: , threatened Discharge ED Provider: Eamon Hicks General Adult HPI General Chief complaint: Vaginal Bleeding Stated complaint: antepartum 6wks vaginal bleeding vaginal discharge Time Seen by Provider: 10/04/23 10:59 Mode of Arrival: Ambulatory Source of Information: Patient Limitations: No Limitations Description of Symptoms (Recalled from ER Triage Doc. by RN): increased vaginal bleeding. 6 weeks History of Present Illness HPI narrative: Patient is a 28-year-old female G9, P4 EGA 6 weeks proven on ultrasound who presents emerged part for repeat evaluation of vaginal bleeding. Patient was seen in the emergency department yesterday where workup was remarkable for a single early intrauterine gestation containing yolk sac without pole for which short interval follow-up was recommended in 10 to 14 days with a small subchorionic hemorrhage. EGA 6 weeks and 4 days. Normal ovaries, no evidence of extrauterine . Since patient was discharged she has had increased vaginal bleeding going through approximately 1 pad an hour today causing her to present here for continued evaluation. She has definitive follow-up with her outpatient obstetric doctor this Friday. Related Data Previous Rx's Medication Instructions Recorded vit 112-iron 3.33 3 tab PO DAILY #90 tabs 08/18/23 mg-folate 0.33 [id number] chew tablet doxylamine succinate 25 mg tablet 25 mg PO HS PRN sleep #30 tabs 08/26/23 (Unisom (doxylamine)) promethazine 12.5 mg tablet 6.25 mg (1/2 x 12.5 mg) PO BID #14 08/26/23 tabs pyridoxine (vitamin B6) 25 mg 25 mg PO DAILY #30 tabs 08/26/23 tablet Allergies Allergy/AdvReac Type Severity Reaction Status Date / Time ondansetron Allergy Verified 08/26/23 15:29 [From Zofran (as hydrochloride)] onion Allergy Verified 08/26/23 15:29 [facility] Disclaimer: The information contained in this section may have been updated after the patient was seen, as this information can be updated by other users. 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 Anxiety Depression Gastroesophageal reflux disease Hyperlipidemia Hypertension Pain of wrist after trauma Positive home test LMP 08/18/17. Positive urine test here. EDC 08/25/17. Call Dr Martinez for 1st OB appt. Start vitamins. Stop Zofran (takes PRN). Stop Advil, Aleve. No alcohol. with 22 completed weeks gestation Round ligament pain Surgical History History of section Family History Other No significant family history Social History Smoking Status: Current some day smoker tobacco type: cigarettes packs per day: 1 second hand exposure: No alcohol intake: never substance use type: former substance user and marijuana current occupational status: unemployed Travel in the last 8 weeks: None housing: house number of children: 1 current occupational exposures/hazards: No caffeine: No ROS Obtained: Yes Systems reviewed as appropriate & no additional complaints except as documented Physical Exam General General appearance: alert and in no apparent distress Head Head exam: atraumatic and normocephalic Eye Eye exam: Present PERRL ENT ENT exam: Present mucous membranes moist Neck Neck exam: Present normal inspection Chest Chest inspection: Present normal inspection and symmetric chest wall rise Respiratory Respiratory exam: Absent respiratory distress Cardiovascular Cardiovascular exam: Present regular rate and normal rhythm Abdominal Exam Abdominal exam: Present soft and tenderness (Mild, suprapubic) Bimanual exam: Present other (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, blood and clots in the posterior vaginal vault, no hemorrhaging) Neurological Exam Neurological exam: Present alert Psychiatric Psychiatric exam: Present normal affect Skin Skin exam: Present warm and dry Medical Decision Making Vinny Inquiry Pt receiving controlled substance: No Vital Signs: 10/04/23 10:59 Temperature 98.2 F Temperature Source Oral Pulse Rate [Right Radial] 58 L Respiratory Rate 18 Blood Pressure [Right Arm] 149/86 H Blood Pressure Mean [Right Arm] 107 02 Sat by Pulse Oximetry 98 Oxygen Delivery Method Room Air Medical Decision Narrative: In summary patient is a 28-year-old female with past medical history described above presents emergency department for evaluation of vaginal bleeding. Patient is hemodynamically stable nontoxic-appearing upon arrival, afebrile. Workup yesterday was appropriate, transvaginal ultrasound makes extrauterine exceptionally unlikely, patient is not tachycardic to suggest acute hemorrhagic shock. Repeat labs were considered but are not indicated as they will not add additional value. Patient does not require RhoGAM given that she is O+. Given patient's rate of bleeding unfortunately I suspect miscarriage at this time although not definitive. Pain control will be attempted with Tylenol and single dose oxycodone given safety in . Given that patient has documented transvaginal ultrasound from yesterday no further imaging is indicated. Expectant management will be undertaken and patient will follow-up with OB on Friday. She was given multiple return precautions and verbalized understanding. Critical Care Critical Care Time Critical Care Time: No
--- NOTE | 2023-10-04 11:17 | PC.NURSE ---
DR YADAV SPEAKING WITH DR JACK
[2023-10-04] MEDS: OXYCODONE 5MG IMMEDIATE RELEASE TABLET 5 MG PO (11:25)
[2023-10-04] MEDS: ACETAMINOPHEN 500MG TAB 1000 MG PO (11:25)
[2023-10-04 11:29] VITALS: BP 144/82; PULSE 70; RESP 20; TEMP 36.7; O2SAT 97
== END 2023-10-04 11:34 | disposition home or self-care (01) ==
PROVIDERS: Emergency Provider Emergency Medicine; PCP Student in an Organized Health Care Education/Training Program
DX: O20.0 Threatened abortion (principal); I10 Essential (primary) hypertension; E78.5 Hyperlipidemia, unspecified; K21.9 Gastro-esophageal reflux disease without esophagitis; Z3A.01 Less than 8 weeks gestation of pregnancy
CPT/HCPCS: 99283

== ENCOUNTER 2024-03-13 10:56 | Emergency (ER) | payer MEDICAID, SELFPAY ==
[2024-03-13 11:30] VITALS: BP 113/65; PULSE 56; RESP 22; TEMP 37.1; O2SAT 100; BMI 41.2
--- NOTE | 2024-03-13 11:55 | EXP.UTC ---
Discharge Plan Disposition Patient Disposition: Home, Self-Care Condition: Good Referrals Follow up/Referrals: Silke Cano PA [Primary Care Provider] - See instructions Activity Restrictions/Add. Instructions Additional Instructions/Restrictions: follow up with pcp this week return if symptoms worsen or no improvement Clinical Impressions Clinical Impression: Impacted cerumen of both ears, Absent periods Instructions Patient Instructions: Cerumen Impaction, Absent Periods Print Language Print Language: [place] Discharge [facility] [place] General Stated complaint: lower back pain, abd pain Mode of Arrival: Ambulatory Source of Information: Patient Limitations: No Limitations Time Seen by Provider: 03/13/24 11:59 Description of Symptoms (Recalled from Triage Doc. by RN): PATIENT C/O LOWER BACK PAIN, ABDOMINAL PAIN, AND RIGHT EAR FEELS LIKE THERE IS SOMETHING IN IT HEENT Symptoms (Recalled from RN notes): Yes Resp Symptoms (Recalled from RN notes): No Skin Symptoms (Recalled from RN notes): No MS Symptoms (Recalled from RN notes): No Functional Status (Recalled from RN notes): WNL History of Present Illness Provider Complaint: 28 yr old female presents for lower abd pain, late period(feels like she did when she was , wants test), ears hurt feels there is something in them. no freq,urgency, burning Related Data Allergies Allergy/AdvReac Type Severity Reaction Status Date / Time ondansetron Allergy Verified 08/26/23 15:29 [From Zofran (as hydrochloride)] onion Allergy Verified 08/26/23 15:29 Worker's Comp Is this a Worker's Comp case?: No [facility] Disclaimer: The information contained in this section may have been updated after the patient was seen, as this information can be updated by other users. 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) Smoking Status: Current some day smoker tobacco type: cigarettes packs per day: 1 second hand exposure: No alcohol intake: never substance use type: former substance user and marijuana current occupational status: unemployed Travel in the last 8 weeks: None housing: house number of children: 1 current occupational exposures/hazards: No caffeine: No ROS Obtained: Yes All systems reviewed & no additional complaints except as documented Constitutional Constitutional: Reports system reviewed and no additional complaints, except as documented Eyes Eyes: Reports system reviewed and no additional complaints, except as documented ENT Ears, Nose, Mouth, and Throat: Reports system reviewed and no additional complaints, except as documented, Reports as per HPI and Reports otalgia Cardiovascular Cardiovascular: Reports system reviewed and no additional complaints, except as documented Respiratory Respiratory: Reports system reviewed and no additional complaints, except as documented Gastrointestinal Gastrointestingal: Reports system reviewed and no additional complaints, except as documented Genitourinary Female Genitourinary: Reports system reviewed and no additional complaints, except as documented, Reports as per HPI, Denies hematuria, Denies urinary frequency, Denies urinary hesitancy and Denies urinary urgency Musculoskeletal Musculoskeletal: Reports system reviewed and no additional complaints, except as documented Integumentary/Breasts Skin/Breast: Reports system reviewed and no additional complaints, except as documented Neurologic Neurologic: Reports system reviewed and no additional complaints, except as documented Endocrine Endocrine: Reports system reviewed and no additional complaints, except as documented Hematologic/Lymphatic Henatologic/Lymphatic: Reports system reviewed and no additional complaints, except as documented Allergic/Immunologic Allergic/Immunologic: Reports system reviewed and no additional complaints, except as documented Physical Exam General General appearance: alert and in no apparent distress Eye Eye exam: Present normal appearance and PERRL ENT ENT exam: Present normal oropharynx and mucous membranes moist Expanded ENT Exam TM/Canal exam: Bilateral TM: cerumen impaction Respiratory Respiratory exam: Present normal lung sounds bilaterally Cardiovascular Cardiovascular exam: Present regular rate and normal rhythm Abdominal Exam Abdominal exam: Present soft and normal bowel sounds; Absent distention, tenderness, guarding, rebound or rigidity Abdominal tenderness: Present suprapubic Back Exam Back exam: Present normal inspection; Absent tenderness, CVA tenderness (R) or CVA tenderness (L) Neurological Exam Neurological exam: Present alert and oriented X3 Lymphatic Lymphatic Findings: no adenopathy Medical Decision Making Medical Records Medical records reviewed: Yes I reviewed the patient's medical records. Vinny Inquiry Pt receiving controlled substance: No Vinny was queried for this patient: No Vital Signs: 03/13/24 11:30 Temperature 98.7 F Temperature Source Oral Pulse Rate [Left Brachial] 56 L Respiratory Rate 22 Blood Pressure [Left Arm] 113/65 Blood Pressure Mean [Left Arm] 81 Blood Pressure Source [Left Arm] Automatic Cuff Blood Pressure Position [Left Arm] Sitting 02 Sat by Pulse Oximetry 100 Oxygen Delivery Method Room Air Lab Data Lab results reviewed: Yes I reviewed the patient's lab results.
[2024-03-13 12:14] VITALS: BP 113/65; PULSE 56; RESP 22; TEMP 37.1; O2SAT 100
[2024-03-13 12:16] LABS: Apearance,Urine Cloudy (Clear); Bilirubin,Urine Negative (Negative); Blood, Urine Negative (Negative); Color,Urine Yellow (Yellow); Glucose,Urine (UA) Negative (Negative); Ketones,Urine Negative (Negative); Protein,Urine Negative (Negative); Specific Gravity, Urine >= 1.030 (1.005-1.030)
[2024-03-13 12:17] LABS: UTC Leukocyte Esterase,Urine Negative (Negative); UTC Nitrate,Urine Negative (Negative); UTC Pregnancy Test, Urine Negative (Negative); Urobilinogen,Urine 0.2 EU/dl (0.2)
[2024-03-13 13:51] LABS: HCG Qualitative, Serum Negative (Negative)
== END 2024-03-13 12:17 | disposition home or self-care (01) ==
PROVIDERS: Emergency Provider Nurse Practitioner Family; PCP Student in an Organized Health Care Education/Training Program
DX: R10.30 Lower abdominal pain, unspecified (principal); H92.03 Otalgia, bilateral; N91.2 Amenorrhea, unspecified; H61.23 Impacted cerumen, bilateral
CPT/HCPCS: 81003; 81025; 84703; 99212; 99213; G0463

== ENCOUNTER 2024-03-17 11:27 | Outpatient (CLI) | payer MEDICAID, SELFPAY ==
[2024-03-17 19:16] LABS: HCG Qualitative, Serum Negative (Negative)
[2024-03-17 19:49] LABS: HCG,Quantitative < 2 mIU/ml (0-5.42)
== END 2024-03-17 23:59 | disposition home or self-care (01) ==
LOC: LAB.DROPOF 03-18 11:28
PROVIDERS: PCP Family Medicine; Visit Provider Family Medicine
DX: N92.6 Irregular menstruation, unspecified (principal); N91.2 Amenorrhea, unspecified
CPT/HCPCS: 84702; 84703

== ENCOUNTER 2024-03-25 10:39 | Outpatient (CLI) | payer MEDICAID, SELFPAY ==
[2024-03-25 10:52] LABS: Basophils % 0.5 % (0.1-2.0); Eosinophils # 0.1 K/mm3 (0.0-0.4); Eosinophils % 1.5 % (0.1-12.0); Hematocrit 40.5 % (37.0-47.0); Hemoglobin 12.1 g/dL (12.2-16.2); Lymphocytes # 2.4 K/mm3 (0.7-4.5); Lymphocytes % 27.5 % (10-50); Mean Corpuscular HGB Conc 29.8 g/dL (31.8-35.4); Mean Corpuscular Hemoglobin 24.6 pg (27.0-31.2); Mean Corpuscular Volume 82.8 fl (81-99); Mean Platelet Volume 10.2 fl (7.4-10.4); Monocytes # 0.4 K/mm3 (0.1-1.0); Monocytes % 4.1 % (1.7-9.3); Neutrophils # 5.8 K/mm3 (1.8-7.8); Neutrophils % 66.4 % (37.0-80.0); Platelet Count 241 K/mm3 (142-424); White Blood Count 8.7 K/mm3 (4.8-10.8)
[2024-03-25 11:48] LABS: Albumin Level 4.1 g/dl (3.5-5.0); Chloride 109 mmol/L (98-107); Potassium 4.6 mmoL/L (3.5-5.1); Sodium 139 mmol/L (136-145)
[2024-03-25 11:51] LABS: Alanine Aminotransferase 16 U/L (12-78); Albumin/Globulin Ratio 1.4 (1.1-1.8); Alkaline Phosphatase 42 U/L (38-126); Anion Gap 10.6 mEq/L (5-15); Aspartate Amino Transferase 23 U/L (14-36); Bilirubin,Total 0.5 mg/dl (0.2-1.3); Blood Urea Nitrogen 10 mg/dl (7-17); Calcium 8.8 mg/dl (8.4-10.2); Carbon Dioxide 24 mmol/L (22.0-30.0); Estimated Glomerular Filt Rate 100 ml/min (>60); GFR (African American) 121 ML/MIN (>60); Globulin 2.9 g/dL (1.3-3.2); Glucose 93 mg/dl (74-100)
[2024-03-25 16:24] LABS: Hemoglobin A1C 5.6 % (4.0-6.0)
[2024-03-25 16:35] LABS: Thyroid Stimulating Hormone 1.29 uIU/mL (0.465-4.68)
== END 2024-03-25 23:59 | disposition home or self-care (01) ==
PROVIDERS: PCP Student in an Organized Health Care Education/Training Program; Visit Provider Obstetrics & Gynecology
DX: N93.9 Abnormal uterine and vaginal bleeding, unspecified (principal); E28.2 Polycystic ovarian syndrome; E66.9 Obesity, unspecified; Z68.41 Body mass index [BMI] 40.0-44.9, adult
CPT/HCPCS: 36415; 80050; 80053; 83036; 84443; 85025

== ENCOUNTER 2024-04-05 08:52 | Outpatient (CLI) | payer MEDICAID, SELFPAY ==
--- NOTE | 2024-04-05 08:53 | US_ITS ---
PROCEDURE: US TRANSVAGINAL CLINICAL INDICATION: abnormal uterine bleeding COMPARISON: US US OB TRANSVAGINAL from 10/03/2023 FINDINGS: Transvaginal sonographic images of the pelvis were obtained. UTERUS: 9.8 cm x 5.3cmx 4.7 cm midline and retroflexed with a combined endometrial thickness of 8.7 mm. There is a trace of fluid within the cervix. LEFT OVARY: 2.4cmx1.7 cmx2.2cm with a volume of 4.6ml. There are multiple small peripheral follicles. RIGHT OVARY: 3.1cmx 2.1cmx2.3cm with a volume of 7.9ml. There is a dominant follicle measuring 1.7 cm x 1.4 cm x 1.7 cm. There are multiple small peripheral follicles. Both ovaries are seen and appear polycystic. Doppler flow to both ovaries are seen. There is no fluid in the cul-de-sac. IMPRESSION: 1. Midline, retroflexed uterus that is slightly enlarged. The endometrium measures 8.7 mm. 2. There is a small amount of fluid in the lower uterine segment and cervix. 3. Both ovaries are seen and appear polycystic. The right ovary has a dominant follicle measuring 1.7 cm. 4. There is no fluid in the cul-de-sac. Dictated by: Nasir Martinez MD 04/06/2024 07:19 Nasir Martinez MD in OV 04/06/2024 07:19
== END 2024-04-05 23:59 | disposition home or self-care (01) ==
LOC: RAD 08:53
PROVIDERS: PCP Student in an Organized Health Care Education/Training Program; Visit Provider Obstetrics & Gynecology
DX: N93.9 Abnormal uterine and vaginal bleeding, unspecified (principal)
CPT/HCPCS: 76830

== ENCOUNTER 2024-06-04 16:24 | Emergency (ER) | payer MEDICAID, SELFPAY ==
[2024-06-04 16:55] VITALS: BP 137/73; PULSE 51; RESP 20; TEMP 36.6; O2SAT 100; BMI 39.9
[2024-06-04 17:01] LABS: Apearance,Urine Cloudy (Clear); Bilirubin,Urine Negative (Negative); Blood, Urine Negative (Negative); Color,Urine Yellow (Yellow); Glucose,Urine (UA) Negative (Negative); Ketones,Urine Negative (Negative); Protein,Urine 3+ (Negative); Urobilinogen,Urine 1 EU/dl (0.2)
[2024-06-04 17:02] LABS: UTC Leukocyte Esterase,Urine Negative (Negative); UTC Nitrate,Urine Negative (Negative); UTC Pregnancy Test, Urine Negative (Negative)
--- NOTE | 2024-06-04 17:19 | ED_ITS ---
Discharge Plan Disposition Patient Disposition: Home, Self-Care Condition: Good Prescriptions Prescriptions: No Action No Known Home Medications Referrals Follow up/Referrals: Silke Cano PA [Primary Care Provider] - See instructions Activity Restrictions/Add. Instructions Additional Instructions/Restrictions: Follow up with your PCP first of next week for recheck of your urinalysis due to protein in your urine Follow up with your PCP first of next week for your STD testing results and treatment if needed FOllow up OBGYN Clinical Impressions Clinical Impression: test negative Instructions Patient Instructions: How to Detect and Treat STDs, Chlamydia: The Silent STD, and STDs Print Language Print Language: Sinhala Discharge ED Provider: Radha Mcgrath [facility] [place] HPI General Stated complaint: vaginal discharge, odor Mode of Arrival: Ambulatory Source of Information: Patient Limitations: No Limitations Time Seen by Provider: 06/04/24 17:19 Description of Symptoms (Recalled from Triage Doc. by RN): PATIENT REQUESTING TEST HEENT Symptoms (Recalled from RN notes): No Resp Symptoms (Recalled from RN notes): No Skin Symptoms (Recalled from RN notes): No MS Symptoms (Recalled from RN notes): No Functional Status (Recalled from RN notes): WNL History of Present Illness Provider Complaint: Patient states that she has been [place], feeling tired on and off, wanting to get a test and tested for STD states after having sex earlier today they noticed green discharge not sure if it is from her or her man Related Data Home Medications ?Medication ?Instructions ?Recorded ?Confirmed No Known Home Medications 03/17/24 03/25/24 Allergies Allergy/AdvReac Type Severity Reaction Status Date / Time ondansetron Allergy Verified 03/25/24 09:55 [From Zofran (as hydrochloride)] onion Allergy Verified 03/25/24 09:55 Worker's Comp Is this a Worker's Comp case?: No [facility] Disclaimer: The information contained in this section may have been updated after the patient was seen, as this information can be updated by other users. 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 Pain of wrist after trauma Hyperlipidemia Depression Anxiety Hypertension Gastroesophageal reflux disease with 22 completed weeks gestation Round ligament pain Positive home test LMP 08/18/17. Positive urine test here. EDC 1/29/18. Call Dr Martinez for 1st OB appt. Start vitamins. Stop Zofran (takes PRN). Stop Advil, Aleve. No alcohol. Surgical History History of section Family History Other No significant family history Social History Smoking Status: Current some day smoker tobacco type: cigarettes packs per day: 1 second hand exposure: No alcohol intake: never substance use type: former substance user and marijuana current occupational status: unemployed Travel in the last 8 weeks: None housing: house number of children: 1 current occupational exposures/hazards: No caffeine: No ROS Obtained: Yes All systems reviewed & no additional complaints except as documented and Yes Systems reviewed as appropriate & no additional complaints ex cept as documented Constitutional Constitutional: Reports system reviewed and no additional complaints, except as documented and Reports as per HPI ENT Ears, Nose, Mouth, and Throat: Reports system reviewed and no additional complaints, except as documented and Reports as per HPI Cardiovascular Cardiovascular: Reports system reviewed and no additional complaints, except as documented and Reports as per HPI Respiratory Respiratory: Reports system reviewed and no additional complaints, except as documented and Reports as per HPI Gastrointestinal Gastrointestingal: Reports system reviewed and no additional complaints, except as documented and as per HPI Genitourinary Female Genitourinary: Reports system reviewed and no additional complaints, except as documented, Reports as per HPI, Reports vaginal discharge and Reports other (requesting test) Physical Exam General General appearance: alert and in no apparent distress ENT ENT exam: Present mucous membranes moist Neck Neck exam: Present normal inspection, full ROM and trachea midline Chest Chest inspection: Present normal inspection and symmetric chest wall rise Respiratory Respiratory exam: Present normal lung sounds bilaterally; Absent respiratory distress or wheezes Cardiovascular Cardiovascular exam: Present regular rate, normal rhythm and normal heart sounds Abdominal Exam Abdominal exam: Present soft and normal bowel sounds; Absent distention or tenderness External exam: Present other (declined) Neurological Exam Neurological exam: Present alert, oriented X3 and normal gait Medical Decision Making Medical Records Screening: Per USPSTF and CDC recommendations, given the prevalence of disease in our region, it is our hospital?s policy to screen for HIV and viral Hepatitis for all patients aged 18 and over and those with ongoing risk factors. Vinny Inquiry Pt receiving controlled substance: No Vinny was queried for this patient: No Vital Signs: 06/04/24 16:55 Temperature 97.8 F Temperature Source Oral Pulse Rate [Left Brachial] 51 L Respiratory Rate 20 Blood Pressure [Left Arm] 137/73 Blood Pressure Mean [Left Arm] 94 Blood Pressure Source [Left Arm] Automatic Cuff Blood Pressure Position [Left Arm] Sitting 02 Sat by Pulse Oximetry 100 Oxygen Delivery Method Room Air Lab Data Lab results reviewed: Yes I reviewed the patient's lab results. Lab Results 06/04/24 16:57: Urine Color Yellow, Urine Appearance Cloudy, Urine pH 8.0, Ur Specific [place] 1.020, Urine Protein 3+, Urine Glucose (UA) Negative, Urine Ketones Negative, Urine Blood Negative, Urine Nitrate Negative, Urine Bilirubin Negative, Urine Urobilinogen 1, Ur Leukocyte Esterase Negative, Tst Clinic Negative Orders (Tests/Meds): ORDERS Category Date Time Status Trichomonas Vaginalis, HUSSAIN Stat Lab 06/04/24 16:46 Received
[2024-06-04 17:24] VITALS: BP 137/73; PULSE 51; RESP 20; TEMP 36.6; O2SAT 100
[2024-06-06 07:43] LABS: Trichomonas Vaginalis, NAA Negative (Negative)
[2024-06-07 05:07] LABS: Neisseria gonorrhoeae, NAA Negative (Negative)
== END 2024-06-04 17:26 | disposition home or self-care (01) ==
PROVIDERS: Emergency Provider Nurse Practitioner; PCP Student in an Organized Health Care Education/Training Program
DX: Z32.02 Encounter for pregnancy test, result negative (principal); R53.83 Other fatigue; N89.8 Other specified noninflammatory disorders of vagina
CPT/HCPCS: 81003; 81025; 87491; 87591; 87661; 99212; G0381

== ENCOUNTER 2024-06-09 15:40 | Outpatient (CLI) | payer MEDICAID, SELFPAY ==
[2024-06-09 19:42] LABS: Hemoglobin A1C 5.6 % (4.0-6.0)
[2024-06-09 20:05] LABS: HCG,Quantitative < 2 mIU/ml (0-5.42)
== END 2024-06-09 23:59 | disposition home or self-care (01) ==
LOC: LAB.DROPOF 06-10 15:54
PROVIDERS: PCP Family Medicine; Visit Provider Family Medicine
DX: Z13.1 Encounter for screening for diabetes mellitus (principal); N92.6 Irregular menstruation, unspecified; E66.01 Morbid (severe) obesity due to excess calories; Z68.41 Body mass index [BMI] 40.0-44.9, adult
CPT/HCPCS: 83036; 84702

== ENCOUNTER 2024-06-27 14:39 | Emergency (ER) | payer MEDICAID, SELFPAY ==
[2024-06-27 15:06] LABS: Apearance,Urine Clear (Clear); Bilirubin,Urine Negative (Negative); Blood, Urine Negative (Negative); Color,Urine Yellow (Yellow); Glucose,Urine (UA) Negative (Negative); Ketones,Urine Negative (Negative); Protein,Urine Negative (Negative); Specific Gravity, Urine 1.025 (1.005-1.030); UTC Leukocyte Esterase,Urine Negative (Negative); UTC Nitrate,Urine Negative (Negative); Urobilinogen,Urine 1 EU/dl (0.2)
[2024-06-27 15:18] VITALS: BP 102/72; PULSE 55; RESP 20; TEMP 37.1; O2SAT 99; BMI 40.6
[2024-06-27 15:22] LABS: UTC Pregnancy Test, Urine Negative (Negative)
--- NOTE | 2024-06-27 15:58 | ED_ITS ---
Discharge Plan Disposition Patient Disposition: Home, Self-Care Condition: Good Prescriptions Prescriptions: New promethazine 25 mg tablet 25 mg PO TID PRN (Reason: nausea and vomiting) Qty: 20 0RF Referrals Follow up/Referrals: Staci Shaw APRN [Primary Care Provider] - See instructions Activity Restrictions/Add. Instructions Additional Instructions/Restrictions: Drink plenty of fluids. Take the medications as directed. The promethazine will make you drowsy, so don't drive or operate heavy machinery after taking it. Follow up with your regular doctor. GO TO THE ER FOR ANY WORSENING SYMPTOMS Clinical Impressions Clinical Impression: Amenorrhea Instructions Patient Instructions: Promethazine Print Language Print Language: [place] Discharge ED Provider: Jimbo Chandra [facility] General Stated complaint: mood swings loss of apatite late mensies gifty. urin Mode of Arrival: Ambulatory Source of Information: Patient Time Seen by Provider: 06/27/24 15:58 Description of Symptoms (Recalled from Triage Doc. by RN): 4 DAYS LATE ON PERIOD, N/V EVERDAY, DENIES GERD, MOOD SWINGS X2 WEEKS HEENT Symptoms (Recalled from RN notes): No Resp Symptoms (Recalled from RN notes): No Skin Symptoms (Recalled from RN notes): No MS Symptoms (Recalled from RN notes): No Functional Status (Recalled from RN notes): WNL History of Present Illness Provider Complaint: She states that her period is several days late, she is having mood swings, and frequent nausea. She states that she feels exactly like she feels when she is . Related Data Previous Rx's ?Medication ?Instructions ?Recorded promethazine 25 mg tablet 25 mg PO TID PRN nausea and 06/27/24 vomiting #20 tabs Allergies Allergy/AdvReac Type Severity Reaction Status Date / Time ondansetron (From Zofran (as Allergy Verified 06/23/24 11:12 hydrochloride)) onion Allergy Verified 06/23/24 11:12 Worker's Comp Is this a Worker's Comp case?: No [facility] Disclaimer: The information contained in this section may have been updated after the patient was seen, as this information can be updated by other users. 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 Pain of wrist after trauma Hyperlipidemia Depression Anxiety Hypertension Gastroesophageal reflux disease with 22 completed weeks gestation Round ligament pain Positive home test LMP 08/18/17. Positive urine test here. EDC 08/25/17. Call Dr Martinez for 1st OB appt. Start vitamins. Stop Zofran (takes PRN). Stop Advil, Aleve. No alcohol. Surgical History History of section Family History Other No significant family history Social History Smoking Status: Current some day smoker tobacco type: cigarettes packs per day: 1 second hand exposure: No alcohol intake: never substance use type: former substance user and marijuana current occupational status: unemployed housing: house number of children: 1 current occupational exposures/hazards: No caffeine: No ROS Obtained: Yes All systems reviewed & no additional complaints except as documented Constitutional Constitutional: Denies chills and Denies fever(s) Eyes Eyes: Denies eye discharge ENT Ears, Nose, Mouth, and Throat: Denies dizziness, Denies otalgia and Denies sore throat Cardiovascular Cardiovascular: Denies chest pain Respiratory Respiratory: Denies shortness of breath, Denies chest congestion, Denies cough, Denies stridor and Denies wheezing Gastrointestinal Gastrointestingal: Denies nausea or vomiting Musculoskeletal Musculoskeletal: Reports system reviewed and no additional complaints, except as documented and Denies arthralgias Integumentary/Breasts Skin/Breast: Denies rash Neurologic Neurologic: Denies dizziness and Denies paresthesias Allergic/Immunologic Allergic/Immunologic: Denies wheezing Physical Exam General General appearance: alert and in no apparent distress Head Head exam: atraumatic, normocephalic and normal inspection Eye Eye exam: Present normal appearance, PERRL and EOMI ENT ENT exam: Present normal exam, normal oropharynx, mucous membranes moist, TM's normal bilaterally and normal external ear exam Neck Neck exam: Present normal inspection, full ROM and trachea midline; Absent meningismus or lymphadenopathy Chest Chest inspection: Present normal inspection and symmetric chest wall rise; Absent tenderness Respiratory Respiratory exam: Present normal lung sounds bilaterally; Absent respiratory distress Cardiovascular Cardiovascular exam: Present regular rate and normal rhythm; Absent JVD Abdominal Exam Abdominal exam: Present soft and normal bowel sounds; Absent distention, tenderness or guarding Extremities Exam Extremities exam: Present normal inspection, full ROM and normal capillary refill; Absent calf tenderness Back Exam Back exam: Present normal inspection; Absent tenderness Neurological Exam Neurological exam: Present alert and oriented X3 Psychiatric Psychiatric exam: Present normal affect and normal mood Skin Skin exam: Present warm, dry, intact and normal color Lymphatic Lymphatic Findings: no adenopathy Medical Decision Making Medical Records Medical records reviewed: No I reviewed the patient's medical records. Screening: Per USPSTF and CDC recommendations, given the prevalence of disease in our region, it is our hospital?s policy to screen for HIV and viral Hepatitis for all patients aged 18 and over and those with ongoing risk factors. Vinny Inquiry Pt receiving controlled substance: No Vital Signs: 06/27/24 15:18 Temperature 98.8 F Temperature Source Oral Pulse Rate [Left Radial] 55 L Respiratory Rate 20 Blood Pressure [Left Arm] 102/72 L Blood Pressure Mean [Left Arm] 82 02 Sat by Pulse Oximetry 99 Lab Data Lab results reviewed: Yes I reviewed the patient's lab results. Lab Results 06/27/24 15:03: Urine Color Yellow, Urine Appearance Clear, Urine pH 6.0, Ur Specific [place] 1.025, Urine Protein Negative, Urine Glucose (UA) Negative, Urine Ketones Negative, Urine Blood Negative, Urine Nitrate Negative, Urine Bilirubin Negative, Urine Urobilinogen 1, Ur Leukocyte Esterase Negative 06/27/24 15:05: Tst Clinic Negative
[2024-06-27 16:23] VITALS: BP 102/72; PULSE 55; RESP 18; TEMP 37.1
[2024-06-27 17:18] LABS: HCG Qualitative, Serum Negative (Negative)
== END 2024-06-27 16:26 | disposition home or self-care (01) ==
PROVIDERS: Emergency Provider Nurse Practitioner Family; PCP Family Medicine
DX: N91.2 Amenorrhea, unspecified (principal); R11.2 Nausea with vomiting, unspecified; R63.8 Other symptoms and signs concerning food and fluid intake; R45.89 Other symptoms and signs involving emotional state
CPT/HCPCS: 81003; 81025; 84703; 99212; G0381

== ENCOUNTER 2024-09-01 09:45 | Outpatient (CLI) | payer MEDICAID, SELFPAY ==
[2024-09-01 18:14] LABS: Basophils % 0.3 % (0.1-2.0); Eosinophils % 0.2 % (0.1-12.0); Hematocrit 41.5 % (37.0-47.0); Hemoglobin 13.2 g/dL (12.2-16.2); Lymphocytes # 2.6 K/mm3 (0.7-4.5); Lymphocytes % 21.9 % (10-50); Mean Corpuscular HGB Conc 31.8 g/dL (31.8-35.4); Mean Corpuscular Hemoglobin 25.8 pg (27.0-31.2); Mean Corpuscular Volume 81.2 fl (81-99); Mean Platelet Volume 13.2 fl (7.4-10.4); Monocytes # 0.5 K/mm3 (0.1-1.0); Monocytes % 4.3 % (1.7-9.3); Neutrophils # 8.5 K/mm3 (1.8-7.8); Platelet Count 262 K/mm3 (142-424); Red Blood Count 5.11 M/mm3 (4.20-5.40); Red Cell Distribution Width 15.6 % (11.5-17.5); White Blood Count 11.6 K/mm3 (4.8-10.8)
[2024-09-01 18:45] LABS: Hemoglobin A1C 5.3 % (4.0-6.0)
[2024-09-01 19:23] LABS: Chloride 104 mmol/L (98-107); Potassium 4.7 mmoL/L (3.5-5.1); Sodium 138 mmol/L (136-145)
[2024-09-01 19:26] LABS: Alanine Aminotransferase 22 U/L (12-78); Albumin/Globulin Ratio 2.1 (1.1-1.8); Alkaline Phosphatase 58 U/L (38-126); Anion Gap 15.7 mEq/L (5-15); Aspartate Amino Transferase 29 U/L (14-36); Bilirubin,Total 0.4 mg/dl (0.2-1.3); Blood Urea Nitrogen 7 mg/dl (7-17); Calcium 9.4 mg/dl (8.4-10.2); Carbon Dioxide 23 mmol/L (22.0-30.0); Estimated Glomerular Filt Rate 118 ml/min (>60); GFR (African American) 143 ML/MIN (>60); Globulin 2.4 g/dL (1.3-3.2); Glucose 83 mg/dl (74-100); Total Protein,Serum 7.4 g/dl (6.3-8.2)
== END 2024-09-01 23:59 | disposition home or self-care (01) ==
LOC: LAB.DROPOF 09-03 09:46
PROVIDERS: PCP Family Medicine; Visit Provider Family Medicine
DX: R35.0 Frequency of micturition (principal); N39.0 Urinary tract infection, site not specified
CPT/HCPCS: 80053; 83036; 85025; 87086; 87088; 87186

== ENCOUNTER 2024-09-07 08:34 | Outpatient (CLI) | payer MEDICAID, SELFPAY ==
[2024-09-07 10:06] LABS: HCG,Quantitative 452 mIU/ml (0-5.42)
== END 2024-09-07 23:59 | disposition home or self-care (01) ==
LOC: LAB 08:35
PROVIDERS: PCP Family Medicine; Visit Provider Obstetrics & Gynecology
DX: Z32.01 Encounter for pregnancy test, result positive (principal)
CPT/HCPCS: 36415; 84702

== ENCOUNTER 2024-09-09 08:40 | Outpatient (CLI) | payer MEDICAID, SELFPAY ==
[2024-09-09 09:51] LABS: HCG,Quantitative 1005 mIU/ml (0-5.42)
== END 2024-09-09 23:59 | disposition home or self-care (01) ==
LOC: LAB 08:40
PROVIDERS: PCP Family Medicine; Visit Provider Obstetrics & Gynecology
DX: Z32.01 Encounter for pregnancy test, result positive (principal)
CPT/HCPCS: 36415; 84702

== ENCOUNTER 2024-09-23 03:08 | Emergency (ER) | payer MEDICAID, SELFPAY ==
[2024-09-23] VITALS (19 sets, daily range): BP systolic 133–187; BP diastolic 68–106; PULSE 64–97; RESP 16–24; TEMP 36.7–37.1; O2SAT 93–100; BMI 38.6
--- NOTE | 2024-09-23 03:18 | CT_ITS ---
PROCEDURE INFORMATION: Exam: CT Neck With Contrast Exam date and time: 09/23/2024 3:51 AM Age: 29 years old Clinical indication: Painful swallowing and throat pain; Additional info: Throat pain/swelling, R tonsil larger than L TECHNIQUE: Imaging protocol: Computed tomography of the neck with contrast. Radiation optimization: All CT scans at this facility use at least one of these dose optimization techniques: automated exposure control; mA and/or kV adjustment per patient size (includes targeted exams where dose is matched to clinical indication); or iterative reconstruction. Contrast material: ISOVUE; Contrast volume: 75 ml; Contrast route: IV; COMPARISON: CHESTWO CT chest wo con 07/30/2018 1:29 PM FINDINGS: Salivary glands: Normal. Glands are normal in size. Pharynx: There is enlargement of the pharyngeal tonsils, right greater than left, consistent with tonsillitis. There is some airway narrowing tonsillar enlargement. Suggestion of a 2.1 x 0.4 cm right peritonsillar abscess; not well defined and may represent early abscess formation. Edema/stranding of the right parapharyngeal fat planes. To a lesser extent, there is inflammatory change of the dorsal right submental fat and slight thickening of the upper right platysmas muscle. Mild prominence of the adenoid soft tissues and right lingual tonsil. Larynx: Epiglottis is normal. Thyroid: Normal. No enlarged or calcified nodules. Trachea: Visualized trachea is unremarkable. Lungs: Unremarkable as visualized. Lymph nodes: Bilateral neck segment lymph node enlargement, right greater than left, largest level II lymph node segments. The largest right neck segment lymph node measures 2.1 x 1.3 cm in the largest left neck segment lymph node measures 1.7 x 1.2 cm. There is also a right submental lymph node enlargement with the largest lymph node measuring 1.1 x 1.0 cm. Bones/joints: Imaging through the lower head demonstrates an incompletely imaged 3.1 x 2.0 cm arachnoid cyst of the left anterior temporal fossa. Soft tissues: See pharynx findings. IMPRESSION: 1. Tonsillitis. Suggestion of a 2.1 x 0.4 cm right peritonsillar abscess. There is edema/stranding of the right parapharyngeal fat planes. There is some airway narrowing related to tonsillar enlargement. Bilateral neck segment lymphadenopathy, [id number]. 2. Incompletely imaged 3.1 x 2.0 cm arachnoid cyst of the left anterior temporal fossa.
--- NOTE | 2024-09-23 03:21 | PC.NURSE ---
Last menstral period on 08/01/24 Pt states she is G-10 P-4. Skin pink warm and dry Resp full and easy Speech clear and appropriate. Pt having significant swelling and pain in throat
[2024-09-23 03:24] LABS: Coronavirus 19, PCR Not Detected (NotDetected); Influenza A, PCR Not Detected (NotDetected); Influenza B, PCR Not Detected (NotDetected)
[2024-09-23] MEDS: LACTATED RINGERS 1000ML 1,000 ML 999 ML IV (03:29)
[2024-09-23] MEDS: ACETAMINOPHEN 1,000MG/100ML VIAL 1000 MG IV (03:29)
[2024-09-23 03:31] LABS: Basophils % 0.2 % (0.1-2.0); Eosinophils # 0.1 K/mm3 (0.0-0.4); Eosinophils % 0.4 % (0.1-12.0); Hematocrit 40.4 % (37.0-47.0); Hemoglobin 12.8 g/dL (12.2-16.2); Lymphocytes # 2.3 K/mm3 (0.7-4.5); Lymphocytes % 15.5 % (10-50); Mean Corpuscular HGB Conc 31.7 g/dL (31.8-35.4); Mean Corpuscular Hemoglobin 25.6 pg (27.0-31.2); Mean Corpuscular Volume 80.8 fl (81-99); Mean Platelet Volume 11.8 fl (7.4-10.4); Monocytes # 0.9 K/mm3 (0.1-1.0); Monocytes % 6.1 % (1.7-9.3); Neutrophils # 11.6 K/mm3 (1.8-7.8); Neutrophils % 77.4 % (37.0-80.0); Platelet Count 253 K/mm3 (142-424); Red Cell Distribution Width 15.7 % (11.5-17.5)
[2024-09-23 03:34] LABS: MANUAL DIFFERENTIAL MANUAL DIFFERENTIAL (MANUAL DIFF)
[2024-09-23 03:36] LABS: Strep Scrn Group A (Rapid) Positive (Negative)
[2024-09-23 03:43] LABS: Alanine Aminotransferase 28 U/L (12-78); Albumin Level 4.6 g/dl (3.5-5.0); Albumin/Globulin Ratio 1.4 (1.1-1.8); Alkaline Phosphatase 48 U/L (38-126); Anion Gap 11.4 mEq/L (5-15); Aspartate Amino Transferase 29 U/L (14-36); Bilirubin,Total 0.9 mg/dl (0.2-1.3); Blood Urea Nitrogen 7 mg/dl (7-17); Calcium 9.3 mg/dl (8.4-10.2); Carbon Dioxide 25 mmol/L (22.0-30.0); Chloride 102 mmol/L (98-107); Creatinine Clearance Estimated 230 mL/min (50-200); Estimated Glomerular Filt Rate 118 ml/min (>60); GFR (African American) 143 ML/MIN (>60); Globulin 3.2 g/dL (1.3-3.2); Glucose 123 mg/dl (74-100); Potassium 3.4 mmoL/L (3.5-5.1); Sodium 135 mmol/L (136-145); Total Protein,Serum 7.8 g/dl (6.3-8.2)
[2024-09-23] MEDS: predniSONE 20MG TAB 40 MG PO (03:43)
[2024-09-23] MEDS: IOPAMIDOL-370 (76%);100ML BOTTLE 75 ML IV (03:56)
[2024-09-23] MEDS: SODIUM CHLORIDE 0.9% 10ML SYR (RAD ONLY) 10 ML IV (03:57)
--- NOTE | 2024-09-23 03:57 | ED_ITS ---
Discharge Plan Disposition Patient Disposition: Xfer Short-Term Hosp Condition: Fair Prescriptions Prescriptions: No Action Alive Daily Support 180 mcg-25 mg- 25 mg tablet,chewable 1 tab PO DAILY Qty: 90 2RF cephalexin 500 mg capsule 500 mg PO BID 7 Days Qty: 14 0RF Referrals Follow up/Referrals: Carla Redding DO [Staff Physician] - See instructions (In ER for peritonsillar abscess, 7-8w by LMP, appears to be gestational sac in uterus but no definite IUP. Please see BRIGITTE) Provider,Referral, [Primary Care Provider] - See instructions Clinical Impressions Clinical Impression: Abscess, peritonsillar, Hypertension, First trimester Stand Alone Forms Stand Alone Forms: Transfer Record - ED Print Language Print Language: Malaysian Discharge ED Provider: Darrell Aranda Adult HPI <Darrell Aranda MD - Last Filed: 09/23/24 07:17> General Chief complaint: PAIN Stated complaint: sore throat Time Seen by Provider: 09/23/24 03:08 Mode of Arrival: EMS Source of Information: Patient Limitations: No Limitations Description of Symptoms (Recalled from ER Triage Doc. by RN): pain History of Present Illness HPI narrative: 29-year-old female approximately 8 weeks based on last menstrual period who has not yet had her first OB appointment presents to the ER for concerns of sore throat now having difficulty swallowing. She reports 4 days of sore throat, in the last day, it has been more difficult for her to swallow and she states the last few hours she has been spitting her saliva secondary to pain. She has not had fevers, chills, cough, congestion, vomiting, diarrhea, abdominal pain, chest pain, difficulty breathing, or other associated symptoms. She states it is painful to talk but her voice is normal. She is not having any abdominal pain, vaginal bleeding, or vaginal discharge. She has not taken any medications for her symptoms prior to arrival. No other complaints or concerns at this time. Patient reports her first OB appointment will be the first week of September, her OB will be Dr. Redding Related Data Previous Rx's ?Medication ?Instructions ?Recorded cephalexin 500 mg capsule 500 mg PO BID 7 days #14 caps 09/06/24 mv-mn no.97-folic 180 mcg-dha 25 1 tab PO DAILY #90 tabs 09/06/24 mg-herb no.293 25 mg chewable tablet (Alive Daily Support ) Allergies Allergy/AdvReac Type Severity Reaction Status Date / Time ondansetron (From Zofran (as Allergy Verified 09/06/24 08:42 hydrochloride)) onion Allergy Verified 09/06/24 08:42 PFSH <Darrell Aranda MD - Last Filed: 09/23/24 07:17> [facility] Disclaimer: The information contained in this section may have been updated after the patient was seen, as this information can be updated by other users. 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 (Updated 09/23/24 @ 09:36 by Anum Mauricio DO) Positive test Pain of wrist after trauma Hyperlipidemia Depression Anxiety Hypertension Gastroesophageal reflux disease with 22 completed weeks gestation Round ligament pain Positive home test Surgical History History of section Family History Other No significant family history Social History Smoking Status: Never smoker second hand exposure: No alcohol intake: never substance use type: former substance user and marijuana current occupational status: unemployed Travel in the last 8 weeks: None housing: house number of children: 1 current occupational exposures/hazards: No caffeine: No Other 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 Have you received the Flu Vaccine for this season: No Have you received the Pneumonia Vaccine: No <Darrell Aranda MD - Last Filed: 09/23/24 07:17> ROS Obtained: Yes Systems reviewed as appropriate & no additional complaints except as documented per HPI Physical Exam <Darrell Aranda MD - Last Filed: 09/23/24 07:17> General General appearance: alert, in no apparent distress and obese Head Head exam: atraumatic and normocephalic Eye Eye exam: Present PERRL and EOMI ENT ENT exam: Present mucous membranes moist, TM's normal bilaterally and other (Voice not muffled, no hot potato voice) Expanded ENT Exam External ear exam: Present normal external inspection Throat exam: Present tonsillar erythema and tonsillomegaly (Right larger than left, right tonsil is touching and deviating the uvula); Absent tonsillar exudate Neck Neck exam: Present normal inspection, full ROM and other (No pain with extension or range of motion of the neck; thyroid normal to palpation) Chest Chest inspection: Present symmetric chest wall rise Respiratory Respiratory exam: Present normal lung sounds bilaterally; Absent respiratory distress, wheezes or stridor Cardiovascular Cardiovascular exam: Present regular rate and normal rhythm Abdominal Exam Abdominal exam: Present soft; Absent distention or tenderness Extremities Exam Extremities exam: Present full ROM; Absent edema Neurological Exam Neurological exam: Present alert and oriented X3; Absent motor sensory deficit Psychiatric Psychiatric exam: Present normal affect and normal mood Skin Skin exam: Present warm and dry Medical Decision Making <Darrell Aranda MD - Last Filed: 09/23/24 07:17> Medical Records Medical records reviewed: Yes I reviewed the patient's medical records. Screening: Per USPSTF and CDC recommendations, given the prevalence of disease in our region, it is our hospital?s policy to screen for HIV and viral Hepatitis for all patients aged 18 and over and those with ongoing risk factors. MR Comment: Last OB appointment was in February 2024 patient was seen for an annual visit and also had abnormal uterine bleeding, Pap was collected, patient declined contraception, transvaginal ultrasound was completed after that appointment demonstrating retroflexed, enlarged uterus with fluid in the lower uterine segment, polycystic ovaries, no fluid in the cul-de-sac. Vinny Inquiry Pt receiving controlled substance: No Vital Signs: 09/23/24 03:16 09/23/24 03:30 09/23/24 04:15 Temperature 98.7 F Temperature Source Oral Pulse Rate 91 H 75 Pulse Rate [Right Brachial] 97 H Respiratory Rate 24 Blood Pressure 158/106 H 142/79 H Blood Pressure [Right Arm] 135/83 Blood Pressure Mean Blood Pressure Mean [Right Arm] 100 Blood Pressure Source [Right Arm] Automatic Cuff Blood Pressure Position [Right Arm] Sitting 02 Sat by Pulse Oximetry 99 100 97 Oxygen Delivery Method Room Air Room Air Room Air 09/23/24 04:30 09/23/24 04:45 09/23/24 05:00 Temperature Temperature Source Pulse Rate 68 74 81 Pulse Rate [Right Brachial] Respiratory Rate Blood Pressure 133/70 158/72 H 149/88 H Blood Pressure [Right Arm] Blood Pressure Mean Blood Pressure Mean [Right Arm] Blood Pressure Source [Right Arm] Blood Pressure Position [Right Arm] 02 Sat by Pulse Oximetry 97 98 98 Oxygen Delivery Method Room Air Room Air Room Air 09/23/24 05:16 09/23/24 05:54 09/23/24 06:00 Temperature Temperature Source Pulse Rate 79 75 76 Pulse Rate [Right Brachial] Respiratory Rate Blood Pressure 156/83 H 158/89 H 153/92 H Blood Pressure [Right Arm] Blood Pressure Mean Blood Pressure Mean [Right Arm] Blood Pressure Source [Right Arm] Blood Pressure Position [Right Arm] 02 Sat by Pulse Oximetry 97 98 99 Oxygen Delivery Method 09/23/24 06:15 09/23/24 06:30 09/23/24 06:45 Temperature Temperature Source Pulse Rate 70 70 69 Pulse Rate [Right Brachial] Respiratory Rate Blood Pressure 157/92 H 162/83 H 165/71 H Blood Pressure [Right Arm] Blood Pressure Mean Blood Pressure Mean [Right Arm] Blood Pressure Source [Right Arm] Blood Pressure Position [Right Arm] 02 Sat by Pulse Oximetry 96 97 93 L Oxygen Delivery Method Room Air 09/23/24 07:00 09/23/24 07:15 09/23/24 08:31 Temperature Temperature Source Pulse Rate 68 64 68 Pulse Rate [Right Brachial] Respiratory Rate Blood Pressure 169/94 H 185/95 H 167/68 H Blood Pressure [Right Arm] Blood Pressure Mean Blood Pressure Mean [Right Arm] Blood Pressure Source [Right Arm] Blood Pressure Position [Right Arm] 02 Sat by Pulse Oximetry 94 L 97 97 Oxygen Delivery Method Room Air 09/23/24 08:46 09/23/24 09:16 09/23/24 09:49 Temperature Temperature Source Pulse Rate 69 68 90 Pulse Rate [Right Brachial] Respiratory Rate Blood Pressure 157/89 H 187/98 H 138/69 Blood Pressure [Right Arm] Blood Pressure Mean 111 128 Blood Pressure Mean [Right Arm] Blood Pressure Source [Right Arm] Blood Pressure Position [Right Arm] 02 Sat by Pulse Oximetry 97 96 99 Oxygen Delivery Method Lab Data Lab Results 09/23/24 03:18: SARS-CoV-2 (PCR) Not detected, Influenza A Untype (PCR) Not detected, Influenza Type B (PCR) Not detected, Group A Strep Rapid Positive A 09/23/24 03:23: WBC 15.0 H, RBC 5.00, Hgb 12.8, Hct 40.4, MCV 80.8 L, MCH 25.6 L , MCHC 31.7 L, RDW 15.7, Plt Count 253, MPV 11.8 H, Neut % (Auto) 77.4, Lymph % (Auto) 15.5, [place] % (Auto) 6.1, Eos % (Auto) 0.4, Baso % (Auto) 0.2, Neut # (Auto) 11.6 H, Lymph # (Auto) 2.3, [place] # (Auto) 0.9, Eos # (Auto) 0.1, Baso # (Auto) 0.0, Total Counted 100, Neutrophils % (Manual) 75, Lymphocytes % (Manual) 23, Monocytes % (Manual) 1 L, Eosinophils % (Manual) 1, Platelet Estimate Normal, RBC Morphology Normal, Sodium 135 L, Potassium 3.4 L, Chloride 102, Carbon Dioxide 25, Anion Gap 11.4, BUN 7, Creatinine 0.60, Estimated Creat Clear 230, Estimated GFR 118, Est GFR ( Amer) 143, Glucose 123 H, Calcium 9.3, Total Bilirubin 0.9, AST 29, ALT 28, Alkaline Phosphatase 48, C-Reactive Protein 40.3 H, Total Protein 7.8, Albumin 4.6, Globulin 3.2, Albumin/Globulin Ratio 1.4, TSH 2.57, Free T4 1.44, HCG, Quant 21684 H, HCV Ab TIP w/Rflx PCR Qn Negative, HIV Ag/Ab Combo Qual Negative 09/23/24 03:23 09/23/24 03:23 Orders (Tests/Meds): ED MEDICATIONS Generic Name Dose Route Start Last Admin Trade Name Freq PRN Reason Stop Dose Admin Sodium Chloride 10 ml 09/23/24 03:56 09/23/24 03:57 Sodium Chloride 0.9% 10ml Syr (Rad Only) IV 10/23/24 03:55 10 ml NEEDED PRN Administration Maintain IV Site Discontinued Medications Generic Name Dose Route Start Last Admin Trade Name Freq PRN Reason Stop Dose Admin Acetaminophen 1,000 mg 09/23/24 03:21 09/23/24 03:29 Acetaminophen 1,000mg/100ml Vial IV 09/23/24 03:22 1,000 mg ONCE ONE Administration Lactated Ringer's 1,000 mls @ 999 mls/hr 09/23/24 03:21 09/23/24 03:29 Lactated Ringer's 1000 Ml Bag IV 09/23/24 04:21 999 mls/hr .Q1H1M ONE Administration Ampicillin Sodium/Sulbactam 100 mls @ 200 mls/hr 09/23/24 03:56 09/23/24 05:50 Sodium 3 gm/ Sodium Chloride IV 09/23/24 03:57 200 mls/hr ONCE ONE Administration Iopamidol 75 ml 09/23/24 03:56 09/23/24 03:56 Iopamidol-370 (76%);100ml Bottle IV 09/23/24 03:57 75 ml ONCE ONE Administration Prednisone 40 mg 09/23/24 03:34 09/23/24 03:43 Prednisone 20mg Tab PO 09/23/24 03:35 40 mg ONCE ONE Administration ORDERS Category Date Time Status CT soft tissue neck w con Stat Cat Scan 09/23/24 03:18 Completed POCUS Point of Care (ER Only) Stat Exams 09/23/24 03:09 Completed Beta HCG, Quant [HCG,Quantitative] Stat Lab 09/23/24 03:23 Completed CBC w/Auto Diff [Complete Blood Count Auto Diff] Stat Lab 09/23/24 03:23 Completed CMP [Comprehensive Metabolic Panel] Stat Lab 09/23/24 03:23 Completed CRP [C-Reactive Protein] Stat Lab 09/23/24 03:23 Completed Free T4 (Free Thyroxine) Stat Lab 09/23/24 03:23 Completed HIV Combo Routine Lab 09/23/24 03:23 Completed Hepatitis C Ab Qual. W/ RFX Routine Lab 09/23/24 03:23 Completed Rapid PCR Covid and Flu A/B Stat Lab 09/23/24 03:18 Completed Rapid Strep Scrn Group A [Strep Scrn Group A (Rapid)] Lab 09/23/24 03:18 Completed Stat TSH [Thyroid Stimulating Hormone] Stat Lab 09/23/24 03:23 Completed Blood Culture Stat Micro 09/23/24 05:28 Received Medical Decision Narrative: In summary, this 29-year-old female approximately 8 weeks presents to the emergency department today with sore throat, difficulty swallowing. On initial evaluation patient is hemodynamically stable, afebrile, independently ambulatory though EMS brought her in. They did not administer any medications en route. Patient has tonsillomegaly and erythema without exudate, right tonsil significantly larger than the left and is deviating her uvula towards the left, airway patent, no stridor, tolerating secretions though she states it is painful to swallow, voice not muffled or hoarse. Currently an airway watcher. Differential diagnosis includes but is not limited to neuro syndrome including COVID, influenza considered strep, peritonsillar abscess, also considered retropharyngeal abscess but patient has no pain with range of motion of the neck or extension of the neck, voice is normal, patient does not appear to be an airway risk at this time with obviously patent airway, tolerating secretions, no stridor. Will monitor closely. Thyroid abnormality was also considered though I do not appreciate thyromegaly clinically. Since she is I of course considered the possibility of ectopic or heterotopic though patient has no abdominal pain, vaginal bleeding, or vaginal discharge.. Based on these concerns, I ordered serum labs, CT imaging with contrast, IV fluids, IV acetaminophen initially for pain management. I discussed CT imaging with the patient including risks of radiation and iodinated contrast. I recommended the CT imaging with contrast to the patient due to the risk of missing something significant such as a deep space abscess. I explained there was a potential risk to the fetus but also that the fetus would be at more risk if she had something severe ongoing that was missed. Patient would like to proceed with CT with contrast. I discussed this with Dr. Hernandes prior to the test being performed. He agreed with this plan including the contrast administration. I also asked him about steroid administration since patient has obvious swelling of the posterior oropharynx, he recommended prednisone orally stating that it does not cross the placenta. Prednisone was administered. Labs personally reviewed demonstrate leukocytosis, strep positive, COVID and flu negative, free T4 normal, CMP not acutely actionable, CRP is elevated at 40.3 consistent with infectious or inflammatory condition. [id number] ultrasound personally performed and interpreted by me at bedside demonstrates patient has fluid-filled sac in the uterus likely a gestational sac, I do not appreciate evidence of ectopic . No heart rate was identified likely related to patient being early in . No fluid in the pelvis appreciated. CT soft tissue neck was personally interpreted by me, I appreciate 2 cm by approximately 0.5 cm right peritonsillar abscess causing airway narrowing but airway is patent. I do not appreciate retropharyngeal abscess. See radiology read for final interpretation. Unasyn is being administered. Radiology read was in agreement. Given patient has space-occupying abscess in the back of the throat, I believe she requires transfer for ENT evaluation and possible drainage. I spoke with transfer center and ENT Dr. Johnson, unfortunately since patient is not a surgical emergency, they refused to take this patient. They discussed it with the [employer] who reportedly stated they could provide a vehicle to take the patient from [facility] to ENT clinic for drainage later in the day however this would not be medical transportation I have concerns that patient's abscess is large enough that I am not comfortable sending her without medical transportation. Patient is not able to be transferred to at this time. I then discussed this case with [facility] transfer center including Dr. Iverson with their ENT team. They also are on divert and unable to take ER transfers. He suggested this patient could be seen in clinic and recommended calling back after 8 AM when the medical exchange opens. The transfer center suggested letting the patient come by her own volition to their ER for evaluation, however this would require me discharging the patient and requesting her to go to a different ER which would be an EMTALA violation. At this time patient remained stable in the ER and I continued to monitor her, she has not had any worsening of symptoms or airway compromise. I will continue to monitor her until medical exchange opens and then potentially work with case management to try to arrange transportation. Additionally, we may have ENT coverage during the day today, however the schedule for outpatient ENT services at our facility is unclear at this moment. Will reassess their schedule during normal business hours. On further reassessment patient reports her throat pain has improved, she feels like it is easier to swallow and that her voice has improved. I do appreciate slight reduction in swelling. I still believe patient requires ENT evaluation and treatment which should become more available during regular business/clinic hours. Patient handed off to Dr. Mauricio at physician shift change for further management and disposition. <Anum Mauricio, DO - Last Filed: 09/23/24 09:55> Vital Signs: 09/23/24 03:16 09/23/24 03:30 09/23/24 04:15 Temperature 98.7 F Temperature Source Oral Pulse Rate 91 H 75 Pulse Rate [Right Brachial] 97 H Respiratory Rate 24 Blood Pressure 158/106 H 142/79 H Blood Pressure [Right Arm] 135/83 Blood Pressure Mean Blood Pressure Mean [Right Arm] 100 Blood Pressure Source [Right Arm] Automatic Cuff Blood Pressure Position [Right Arm] Sitting 02 Sat by Pulse Oximetry 99 100 97 Oxygen Delivery Method Room Air Room Air Room Air 09/23/24 04:30 09/23/24 04:45 09/23/24 05:00 Temperature Temperature Source Pulse Rate 68 74 81 Pulse Rate [Right Brachial] Respiratory Rate Blood Pressure 133/70 158/72 H 149/88 H Blood Pressure [Right Arm] Blood Pressure Mean Blood Pressure Mean [Right Arm] Blood Pressure Source [Right Arm] Blood Pressure Position [Right Arm] 02 Sat by Pulse Oximetry 97 98 98 Oxygen Delivery Method Room Air Room Air Room Air 09/23/24 05:16 09/23/24 05:54 09/23/24 06:00 Temperature Temperature Source Pulse Rate 79 75 76 Pulse Rate [Right Brachial] Respiratory Rate Blood Pressure 156/83 H 158/89 H 153/92 H Blood Pressure [Right Arm] Blood Pressure Mean Blood Pressure Mean [Right Arm] Blood Pressure Source [Right Arm] Blood Pressure Position [Right Arm] 02 Sat by Pulse Oximetry 97 98 99 Oxygen Delivery Method 09/23/24 06:15 09/23/24 06:30 09/23/24 06:45 Temperature Temperature Source Pulse Rate 70 70 69 Pulse Rate [Right Brachial] Respiratory Rate Blood Pressure 157/92 H 162/83 H 165/71 H Blood Pressure [Right Arm] Blood Pressure Mean Blood Pressure Mean [Right Arm] Blood Pressure Source [Right Arm] Blood Pressure Position [Right Arm] 02 Sat by Pulse Oximetry 96 97 93 L Oxygen Delivery Method Room Air 09/23/24 07:00 09/23/24 07:15 09/23/24 08:31 Temperature Temperature Source Pulse Rate 68 64 68 Pulse Rate [Right Brachial] Respiratory Rate Blood Pressure 169/94 H 185/95 H 167/68 H Blood Pressure [Right Arm] Blood Pressure Mean Blood Pressure Mean [Right Arm] Blood Pressure Source [Right Arm] Blood Pressure Position [Right Arm] 02 Sat by Pulse Oximetry 94 L 97 97 Oxygen Delivery Method Room Air 09/23/24 08:46 09/23/24 09:16 09/23/24 09:49 Temperature Temperature Source Pulse Rate 69 68 90 Pulse Rate [Right Brachial] Respiratory Rate Blood Pressure 157/89 H 187/98 H 138/69 Blood Pressure [Right Arm] Blood Pressure Mean 111 128 Blood Pressure Mean [Right Arm] Blood Pressure Source [Right Arm] Blood Pressure Position [Right Arm] 02 Sat by Pulse Oximetry 97 96 99 Oxygen Delivery Method Lab Data Lab Results 09/23/24 03:18: SARS-CoV-2 (PCR) Not detected, Influenza A Untype (PCR) Not detected, Influenza Type B (PCR) Not detected, Group A Strep Rapid Positive A 09/23/24 03:23: WBC 15.0 H, RBC 5.00, Hgb 12.8, Hct 40.4, MCV 80.8 L, MCH 25.6 L , MCHC 31.7 L, RDW 15.7, Plt Count 253, MPV 11.8 H, Neut % (Auto) 77.4, Lymph % (Auto) 15.5, [place] % (Auto) 6.1, Eos % (Auto) 0.4, Baso % (Auto) 0.2, Neut # (Auto) 11.6 H, Lymph # (Auto) 2.3, [place] # (Auto) 0.9, Eos # (Auto) 0.1, Baso # (Auto) 0.0, Total Counted 100, Neutrophils % (Manual) 75, Lymphocytes % (Manual) 23, Monocytes % (Manual) 1 L, Eosinophils % (Manual) 1, Platelet Estimate Normal, RBC Morphology Normal, Sodium 135 L, Potassium 3.4 L, Chloride 102, Carbon Dioxide 25, Anion Gap 11.4, BUN 7, Creatinine 0.60, Estimated Creat Clear 230, Estimated GFR 118, Est GFR ( Amer) 143, Glucose 123 H, Calcium 9.3, Total Bilirubin 0.9, AST 29, ALT 28, Alkaline Phosphatase 48, C-Reactive Protein 40.3 H, Total Protein 7.8, Albumin 4.6, Globulin 3.2, Albumin/Globulin Ratio 1.4, TSH 2.57, Free T4 1.44, HCG, Quant 35230 H, HCV Ab TIP w/Rflx PCR Qn Negative, HIV Ag/Ab Combo Qual Negative Orders (Tests/Meds): ED MEDICATIONS Generic Name Dose Route Start Last Admin Trade Name Freq PRN Reason Stop Dose Admin Sodium Chloride 10 ml 09/23/24 03:56 09/23/24 03:57 Sodium Chloride 0.9% 10ml Syr (Rad Only) IV 10/23/24 03:55 10 ml NEEDED PRN Administration Maintain IV Site Discontinued Medications Generic Name Dose Route Start Last Admin Trade Name Brittany PRN Reason Stop Dose Admin Acetaminophen 1,000 mg 09/23/24 03:21 09/23/24 03:29 Acetaminophen 1,000mg/100ml Vial IV 09/23/24 03:22 1,000 mg ONCE ONE Administration Lactated Ringer's 1,000 mls @ 999 mls/hr 09/23/24 03:21 09/23/24 03:29 Lactated Ringer's 1000 Ml Bag IV 09/23/24 04:21 999 mls/hr .Q1H1M ONE Administration Ampicillin Sodium/Sulbactam 100 mls @ 200 mls/hr 09/23/24 03:56 09/23/24 05:50 Sodium 3 gm/ Sodium Chloride IV 09/23/24 03:57 200 mls/hr ONCE ONE Administration Iopamidol 75 ml 09/23/24 03:56 09/23/24 03:56 Iopamidol-370 (76%);100ml Bottle IV 09/23/24 03:57 75 ml ONCE ONE Administration Prednisone 40 mg 09/23/24 03:34 09/23/24 03:43 Prednisone 20mg Tab PO 09/23/24 03:35 40 mg ONCE ONE Administration ORDERS Category Date Time Status CT soft tissue neck w con Stat Cat Scan 09/23/24 03:18 Completed POCUS Point of Care (ER Only) Stat Exams 09/23/24 03:09 Completed Beta HCG, Quant [HCG,Quantitative] Stat Lab 09/23/24 03:23 Completed CBC w/Auto Diff [Complete Blood Count Auto Diff] Stat Lab 09/23/24 03:23 Completed CMP [Comprehensive Metabolic Panel] Stat Lab 09/23/24 03:23 Completed CRP [C-Reactive Protein] Stat Lab 09/23/24 03:23 Completed Free T4 (Free Thyroxine) Stat Lab 09/23/24 03:23 Completed HIV Combo Routine Lab 09/23/24 03:23 Completed Hepatitis C Ab Qual. W/ RFX Routine Lab 09/23/24 03:23 Completed Rapid PCR Covid and Flu A/B Stat Lab 09/23/24 03:18 Completed Rapid Strep Scrn Group A [Strep Scrn Group A (Rapid)] Lab 09/23/24 03:18 Completed Stat TSH [Thyroid Stimulating Hormone] Stat Lab 09/23/24 03:23 Completed Blood Culture Stat Micro 09/23/24 05:28 Received Medical Decision Narrative: In summary, this 29-year-old female approximately 8 weeks presents to the emergency department today with sore throat, difficulty swallowing. On initial evaluation patient is hemodynamically stable, afebrile, independently ambulatory though EMS brought her in. They did not administer any medications en route. Patient has tonsillomegaly and erythema without exudate, right tonsil significantly larger than the left and is deviating her uvula towards the left, airway patent, no stridor, tolerating secretions though she states it is painful to swallow, voice not muffled or hoarse. Currently an airway watcher. Differential diagnosis includes but is not limited to neuro syndrome including COVID, influenza considered strep, peritonsillar abscess, also considered retropharyngeal abscess but patient has no pain with range of motion of the neck or extension of the neck, voice is normal, patient does not appear to be an airway risk at this time with obviously patent airway, tolerating secretions, no stridor. Will monitor closely. Thyroid abnormality was also considered though I do not appreciate thyromegaly clinically. Since she is I of course considered the possibility of ectopic or heterotopic though patient has no abdominal pain, vaginal bleeding, or vaginal discharge.. Based on these concerns, I ordered serum labs, CT imaging with contrast, IV fluids, IV acetaminophen initially for pain management. I discussed CT imaging with the patient including risks of radiation and iodinated contrast. I recommended the CT imaging with contrast to the patient due to the risk of missing something significant such as a deep space abscess. I explained there was a potential risk to the fetus but also that the fetus would be at more risk if she had something severe ongoing that was missed. Patient would like to proceed with CT with contrast. I discussed this with Dr. Hernandes prior to the test being performed. He agreed with this plan including the contrast administration. I also asked him about steroid administration since patient has obvious swelling of the posterior oropharynx, he recommended prednisone orally stating that it does not cross the placenta. Prednisone was administered. Labs personally reviewed demonstrate leukocytosis, strep positive, COVID and flu negative, free T4 normal, CMP not acutely actionable, CRP is elevated at 40.3 consistent with infectious or inflammatory condition. [id number] ultrasound personally performed and interpreted by me at bedside demonstrates patient has fluid-filled sac in the uterus likely a gestational sac, I do not appreciate evidence of ectopic . No heart rate was identified likely related to patient being early in . No fluid in the pelvis appreciated. CT soft tissue neck was personally interpreted by me, I appreciate 2 cm by approximately 0.5 cm right peritonsillar abscess causing airway narrowing but airway is patent. I do not appreciate retropharyngeal abscess. See radiology read for final interpretation. Unasyn is being administered. Radiology read was in agreement. Given patient has space-occupying abscess in the back of the throat, I believe she requires transfer for ENT evaluation and possible drainage. I spoke with transfer center and ENT Dr. Johnson, unfortunately since patient is not a surgical emergency, they refused to take this patient. They discussed it with the PLANT ANAT[employer]IST who reportedly stated they could provide a vehicle to take the patient from [facility] to ENT clinic for drainage later in the day however this would not be medical transportation I have concerns that patient's abscess is large enough that I am not comfortable sending her without medical transportation. Patient is not able to be transferred to at this time. I then discussed this case with [facility] transfer fruita including Dr. Iverson with their ENT team. They also are on divert and unable to take ER transfers. He suggested this patient could be seen in clinic and recommended calling back after 8 AM when the medical exchange opens. The transfer center suggested letting the patient come by her own volition to their ER for evaluation, however this would require me discharging the patient and requesting her to go to a different ER which would be an EMTALA violation. At this time patient remained stable in the ER and I continued to monitor her, she has not had any worsening of symptoms or airway compromise. I will continue to monitor her until medical exchange opens and then potentially work with case management to try to arrange transportation. Additionally, we may have ENT coverage during the day today, however the schedule for outpatient ENT services at our facility is unclear at this moment. Will reassess their schedule during normal business hours. On further reassessment patient reports her throat pain has improved, she feels like it is easier to swallow and that her voice has improved. I do appreciate slight reduction in swelling. I still believe patient requires ENT evaluation and treatment which should become more available during regular business/clinic hours. Patient handed off to Dr. Mauricio at physician shift change for further management and disposition. DO Hang: I assumed care of the patient at 0700. On my assessment, she states she is feeling better. She has no drooling, trismus, or stridor. She has no increased work of breathing, no muffled voice. She is, however, hypertensive. Previous provider had spoken with and [facility]. I called our ENT office once they opened, and they advised calling maxillofacial surgeon ENT via [employer]. I spoke with the newspaper press operator apprentice, who forwarded me to Dr. Perez's office. Dr. Perez advised calling the ENT maxillofacial surgeon, Dr. Hawkins. I then was forwarded to his office, where he advised he and Dr. Perez both reviewed imaging and feel that the patient would benefit from transfer to higher level of care such as for potential operative intervention given the size of the abscess and concern for airway compromise, especially given that she is . She is only 7 to 8 weeks based on last menstrual period, but not confirmed as she has not yet had OB follow-up with formal ultrasound. I then again called and spoke with Dr. Arana who again advised they are still on divert and they are unable to override divert to accept this patient for transfer. At this point, I do not feel comfortable with bedside drainage because of poor landmarks, I do feel she would benefit from ENT consultation and evaluation. We have tried to local and surrounding hospitals who have all declined, telling us that they are on divert or that the patient needs higher level of care. Given this, I called and spoke with Dr. Torre at with ENT who advised that they could consult but the patient would need to be an ER to ER transfer as this is not a surgical emergency. I spoke with Dr. Ko in the ER who advised that they are at capacity but they will accept the patient for transfer for evaluation given that other places have declined. On multiple subsequent reassessments, the patient states that she is continue to have symptomatic improvement and feels better and better. Her airway exam remains reassuring with no stridor, drooling, trismus. Vitals normal on cardiac telemetry with exception of continued hypertension. Systolics have been in the 160s-180s in the setting of pain and . She was given IV fentanyl (minumal dose for pain control) and zofran. She was started on maintenance IV fluids. At this point, feel patient is stable for transfer and I do not feel that she is at imminent risk of decompensation. She has been observed here in the emergency department for over 6 hours while we have tried to find a place to accept her. EMS transport was arranged, ALS as the patient does need monitoring to make sure that she does not have any sort of clinical decompensation. Patient left for UC in stable condition. Procedures <Darrell Aranda MD - Last Filed: 09/23/24 07:17> Miscellaneous Procedure Procedure Performed: Limited OB ultrasound Indication: Positive home test Identified structures: [-Uterus -Left adnexa -Right adnexa -Pouch of Woody] Findings: Uterus: No definitive IUP however there is a fluid-filled sac that appears to be consistent with gestational sac FHR: Not identified Right adnexa: Normal Left adnexa: Normal Cul de sac: Free fluid absent Impression: -IUP: No definitive IUP but there is a sac likely gestational sac - heart rate: Not identified -Ectopic : Not identified -Free fluid: Absent Images were saved to permanent archive The study was technically adequate CPT Transabdominal: 28700-49 This study was performed by me, and I personally interpreted all images/videos. Based on my clinical judgement, these images were adequate and did not necessitate further imaging. Critical Care <Darrell Aranda MD - Last Filed: 09/23/24 07:17> Critical Care Time Critical Care Time: No <Anum Mauricio DO - Last Filed: 09/23/24 09:55> Critical Care Time Critical Care Time: Yes Attestation: On 09/23/24, the high probability of a clinically significant, sudden or life threatening deterioration of the following system(s) required my full and direct attention, intervention and personal management. The time I documented below is in addition to time spent performing reported procedures but includes the following listed in this critical care notation. Total Time Total Critical Care Time: 40
[2024-09-23 04:01] LABS: C-Reactive Protein 40.3 mg/L (0-4)
[2024-09-23 04:15] LABS: Free T4 (Free Thyroxine) 1.44 ng/dl (0.78-2.19)
[2024-09-23 04:29] LABS: Thyroid Stimulating Hormone 2.57 uIU/mL (0.465-4.68)
--- NOTE | 2024-09-23 04:30 | PC.NURSE ---
Spoke with Hetal about getting a ENT consult, we are awaiting a call back at this time
[2024-09-23 04:35] LABS: Eosinophils % 1 % (0-3); Lymphocytes % 23 % (10-50); Monocytes % 1 % (2-9); Neutrophils % 75 % (42-76); Total Cells Counted 100
[2024-09-23 04:36] LABS: Platelet Estimate Normal; RBC Morphology Normal
[2024-09-23 04:51] LABS: HIV Combo NEGATIVE (Negative)
[2024-09-23 04:59] LABS: Hepatitis C Ab Qual. W/ RFX NEGATIVE (Negative)
[2024-09-23] MEDS: AMPICILLIN SODIUM/SULBACTAM 3 GM in 0.9 % SODIUM CHLORIDE 100 ML IV (05:50)
--- NOTE | 2024-09-23 07:11 | PC.NURSE ---
ROUNDED ON THE PT. THE PT VOICES THAT HE DOES NOT NEED ANYTHING AT THIS TIME. CALL LIGHT IS WITHIN REACH OF THE PT.
--- NOTE | 2024-09-23 08:09 | PC.NURSE ---
DR FERREIRA SPEAKING WITH [facility], WITH ENT
--- NOTE | 2024-09-23 09:15 | PC.NURSE ---
Called [facility] back per Dr Mauricio to speak with them about this pt. On hold while they make contact with the Hospitalist
--- NOTE | 2024-09-23 09:19 | PC.NURSE ---
Dr Mauricio is speaking with [facility] at this time
--- NOTE | 2024-09-23 09:31 | PC.NURSE ---
called UC per dr. naranjo for poss transfer for para tonsil abscess ( 2 by 4 CM). UC is currently on the phone with .
--- NOTE | 2024-09-23 09:50 | PC.NURSE ---
DR FERREIRA AT BEDSIDE TO UPDATE PT ON POC
--- NOTE | 2024-09-23 09:52 | PC.NURSE ---
Report called to NEYMAR Medley at [facility].
== END 2024-09-23 10:19 | disposition short-term general hospital (02) ==
PROVIDERS: Emergency Provider Emergency Medicine
DX: Z34.91 Encounter for supervision of normal pregnancy, unspecified, first trimester (principal); J36 Peritonsillar abscess; I10 Essential (primary) hypertension; R07.0 Pain in throat; Z3A.08 8 weeks gestation of pregnancy
CPT/HCPCS: 70491; 80053; 84439; 84443; 84702; 85007; 85025; 85027; 86140; 86803; 87040; 87389; 87430; 87636; 96361; 96374; 96375; 99291; J0131; J0295; J7120; Q9967

== ENCOUNTER 2024-09-30 10:06 | Outpatient (CLI) | payer MEDICAID, SELFPAY ==
[2024-09-30 10:35] LABS: Basophils % 0.3 % (0.1-2.0); Eosinophils # 0.1 K/mm3 (0.0-0.4); Hematocrit 38.7 % (37.0-47.0); Hemoglobin 12.3 g/dL (12.2-16.2); Lymphocytes # 2.8 K/mm3 (0.7-4.5); Lymphocytes % 29.2 % (10-50); Mean Corpuscular HGB Conc 31.8 g/dL (31.8-35.4); Mean Corpuscular Hemoglobin 25.7 pg (27.0-31.2); Mean Platelet Volume 12.9 fl (7.4-10.4); Monocytes # 0.6 K/mm3 (0.1-1.0); Monocytes % 5.9 % (1.7-9.3); Neutrophils % 63.2 % (37.0-80.0); Platelet Count 236 K/mm3 (142-424); Red Blood Count 4.78 M/mm3 (4.20-5.40); Red Cell Distribution Width 15.7 % (11.5-17.5); White Blood Count 9.5 K/mm3 (4.8-10.8)
[2024-09-30 11:45] LABS: HIV Combo NEGATIVE (Negative)
[2024-09-30 11:53] LABS: Hepatitis C Ab Qual. W/ RFX NEGATIVE (Negative)
[2024-09-30 15:16] LABS: RPR W/RFX Titers Nonreactive (Nonreactive)
[2024-10-01 08:19] LABS: Hepatitis B Surface Antigen Negative (Negative)
[2024-10-01 11:35] LABS: Rubella Antibodies, IgG <0.90 index (Immune >0.99)
[2024-10-01 21:14] LABS: Neisseria gonorrhoeae, NAA Negative (Negative)
== END 2024-09-30 23:59 | disposition home or self-care (01) ==
LOC: LAB 10:07
PROVIDERS: PCP Family Medicine; Visit Provider Obstetrics & Gynecology
DX: Z34.01 Encounter for supervision of normal first pregnancy, first trimester (principal); Z3A.08 8 weeks gestation of pregnancy
CPT/HCPCS: 36415; 84702; 85025; 86592; 86762; 86803; 86850; 87340; 87389; 87491; 87591

== ENCOUNTER 2024-10-01 13:07 | Outpatient (CLI) | payer MEDICAID, SELFPAY ==
--- NOTE | 2024-10-01 13:07 | US_ITS ---
PROCEDURE: US OB <= 14 WEEKS FETUS CLINICAL INDICATION: dates and viabilility COMPARISON: US POINT OF CARE US (ER ONLY) from 09/23/2024 FINDINGS: Transvaginal sonographic images of the pelvis were obtained. From her last menstrual period she is 9weeks 1day. The uterus is retroflexed. An intrauterine gestational sac is present with a pole with a crown-rump length of 0.85cm This correlates to a gestational age of 6weeks 6days. JILL 05/21/2025. heart tones are present with an FHR of 165bpm. Yolk sac is noted. The yolk sac measures 5.2mm. The right ovary is seen and appears normal. There is a corpus luteum within the right ovary measuring 1.6 cm x 2.0 cm X 1.6 cm. The left ovary is seen and appears normal. There is no fluid in the cul-de-sac. IMPRESSION: 1. Retroflexed uterus with a viable embryo within the uterine cavity. 2. The embryo measures 6 weeks 6 days and her due date should be revised to reflect this and will be 05/21/2025. 3. Both ovaries are seen and appear normal. There appears to be a corpus luteum on the right ovary. 4. No fluid in the cul-de-sac. Dictated by: Nasir Martinez MD 10/01/2024 18:19 Nasir Martinez MD in OV 10/01/2024 18:19
== END 2024-10-01 23:59 | disposition home or self-care (01) ==
LOC: RAD 13:07
PROVIDERS: PCP Family Medicine; Visit Provider Obstetrics & Gynecology
DX: O36.71X0 Maternal care for viable fetus in abdominal pregnancy, first trimester, not applicable or unspecified (principal); O36.80X0 Pregnancy with inconclusive fetal viability, not applicable or unspecified; Z3A.09 9 weeks gestation of pregnancy
CPT/HCPCS: 76801

== ENCOUNTER 2024-10-15 21:37 | Emergency (ER) | payer MEDICAID, SELFPAY ==
[2024-10-15 21:47] VITALS: BP 123/70; PULSE 67; RESP 18; TEMP 36.6; O2SAT 100; BMI 39.1
--- NOTE | 2024-10-15 22:08 | ED_ITS ---
Discharge Plan Disposition Patient Disposition: Home, Self-Care Condition: Good Prescriptions Prescriptions: No Action promethazine 12.5 mg tablet 12.5 mg PO Q4-6H PRN (Reason: nausea and vomiting) Qty: 30 1RF fosfomycin tromethamine 3 gram packet 1 packet PO Q OTHER DAY Qty: 1 0RF Alive Daily Support 180 mcg-25 mg- 25 mg tablet,chewable 1 tab PO DAILY Qty: 90 2RF Referrals Follow up/Referrals: Staci Shaw APRN [Primary Care Provider] - See instructions Activity Restrictions/Add. Instructions Additional Instructions/Restrictions: You were evaluated in the emergency department today. It is common to have vaginal bleeding in the first trimester of . It can be completely normal, but heavy bleeding, painful bleeding, or passage of large clots can be signs of more serious problems, such as miscarriage or ectopic . You do not have an ectopic . I recommend pelvic rest, which means no insertion of tampons, avoid sexual intercourse, avoid douching, and avoid vaginal insertion of any objects for 1 week or until you have been cleared by your OB. I recommend rest, so we have provided you with a work excuse. Avoid heavy lifting or strenuous activity until cleared by your OB. Please call your OB to help arrange very close follow-up for this. Return to the emergency department if you experience new or concerning symptoms, such as significant worsening of bleeding beyond that of a normal period, severe abdominal pain, lightheadedness, or passing out. Clinical Impressions Clinical Impression: Vaginal bleeding during Stand Alone Forms Stand Alone Forms: Work/School Release Instructions Patient Instructions: DI for Vaginal Bleeding Print Language Print Language: Bengali Discharge ED Provider: Anum Mauricio General Adult HPI General Chief complaint: Vaginal Bleeding Stated complaint: 9 wks antepartum, spotting Time Seen by Provider: 10/15/24 21:51 Mode of Arrival: Ambulatory Source of Information: Patient Description of Symptoms (Recalled from ER Triage Doc. by RN): Pt states she is 9 weeks . Pt states she and her significant other had intercourse at 5pm and shortly after she noticed she was lightly spotting when she went to the bathroom. It was light in color. Pt states she is no longer bleeding now. denies any pain. History of Present Illness HPI narrative: This patient is a 29-year-old female currently 9 weeks presenting to the emergency department for evaluation concern for light vaginal spotting after intercourse. She notes that she just went to the bathroom again, and the spotting had completely resolved. She states she was fine prior to having intercourse with no concerns. She is not having any abdominal pain, leakage of fluid, or heavy bleeding. She states has been progressing normally with no concerns or complaints. Related Data Previous Rx's ?Medication ?Instructions ?Recorded mv-mn no.97-folic 180 mcg-dha 25 1 tab PO DAILY #90 tabs 09/06/24 mg-herb no.293 25 mg chewable tablet (Alive Daily Support ) fosfomycin tromethamine 3 gram 1 packet PO Q OTHER DAY 1 dose #1 10/04/24 oral packet ea promethazine 12.5 mg tablet 12.5 mg PO Q4-6H PRN nausea and 10/04/24 vomiting #30 tabs Allergies Allergy/AdvReac Type Severity Reaction Status Date / Time onion Allergy Verified 09/30/24 09:17 sertraline (From Zoloft) Allergy Swelling Verified 09/30/24 10:09 of Lip/Tongue/Throat [facility] Disclaimer: The information contained in this section may have been updated after the patient was seen, as this information can be updated by other users. 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 Rubella non-immune status, antepartum History of miscarriage History of hypertension Maternal obesity affecting , antepartum Positive test Pain of wrist after trauma Hyperlipidemia Depression Anxiety Hypertension Gastroesophageal reflux disease with 22 completed weeks gestation Round ligament pain Positive home test Surgical History History of section Family History Other No significant family history Social History Smoking Status: Current every day smoker tobacco type: cigarettes packs per day: 1 second hand exposure: No alcohol intake: never substance use type: former substance user and marijuana current occupational status: unemployed Travel in the last 8 weeks: None housing: house number of children: 1 current occupational exposures/hazards: No caffeine: No Have you lived/traveled outside [place] in past 30 days?: No Contact w/someone who lives/traveled outside US past 30 days?: No Exposure to someone with infectious disease in past 14 days?: No Do you have a fever (greater than 100.4 F or 38 C)?: No Have you tested positive for COVID-19: No Exposed to someone with COVID-19 in past 14 days?: No Do you have a sore throat?: No Do you have a cough?: No Do you have any weakness?: No Do you have any diarrhea?: No Are you experiencing any unusual bleeding?: No Do you have any muscle aches/pain?: No Do you have any abdominal pain?: No Are you experiencing loss of taste or smell?: No Other 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 Have you received the Flu Vaccine for this season: No Have you received the Pneumonia Vaccine: No ROS Obtained: Yes All systems reviewed & no additional complaints except as documented Physical Exam General General appearance: alert, in no apparent distress and obese Head Head exam: atraumatic and normocephalic Eye Eye exam: Present normal appearance, PERRL and EOMI ENT ENT exam: Present normal exam, normal oropharynx, mucous membranes moist and normal external ear exam Neck Neck exam: Present normal inspection, full ROM and trachea midline; Absent tenderness Chest Chest inspection: Present normal inspection and symmetric chest wall rise; Absent tenderness Respiratory Respiratory exam: Present normal lung sounds bilaterally; Absent respiratory distress, wheezes, stridor or accessory muscle use Cardiovascular Cardiovascular exam: Present regular rate and normal rhythm Abdominal Exam Abdominal exam: Present soft; Absent distention, tenderness or guarding Extremities Exam Extremities exam: Present normal inspection, full ROM and normal capillary refill; Absent tenderness or edema Back Exam Back exam: Present normal inspection and full ROM; Absent tenderness Neurological Exam Neurological exam: Present alert, oriented X3, CN II-XII intact and normal gait; Absent motor sensory deficit Psychiatric Psychiatric exam: Present normal affect and normal mood Skin Skin exam: Present warm and dry Medical Decision Making Medical Records Medical records reviewed: Yes I reviewed the patient's medical records. Screening: Per USPSTF and CDC recommendations, given the prevalence of disease in our region, it is our hospital?s policy to screen for HIV and viral Hepatitis for all patients aged 18 and over and those with ongoing risk factors. Vinny Inquiry Pt receiving controlled substance: No Vital Signs: 10/15/24 21:47 Temperature 98 F Temperature Source Oral Pulse Rate [Right] 67 Respiratory Rate 18 Blood Pressure [Right Arm] 123/70 Blood Pressure Mean [Right Arm] 87 Blood Pressure Source [Right Arm] Automatic Cuff Blood Pressure Position [Right Arm] Sitting 02 Sat by Pulse Oximetry 100 Oxygen Delivery Method Room Air Lab Data Lab results reviewed: Yes I reviewed the patient's lab results. Orders (Tests/Meds): ORDERS Category Date Time Status POCUS Point of Care (ER Only) Stat Exams 10/15/24 22:00 Ordered Medical Decision Narrative: In summary, this patient is a 29-year-old female presenting to the Emergency Department for evaluation of vaginal spotting in the setting of that has now resolved. She notes this was after intercourse. Differential diagnoses considered include but are not limited to threatened , subchorionic hemorrhage, vaginal bleeding after intercourse. Ruling out the most morbid conditions drove assessment. It should be noted patient's history includes obesity which is not at goal therapy. This complicates all aspects of care by increasing patient's risk for morbidity. I reviewed patient's past medical records and noted prior OB evaluations, prior ultrasounds confirming intrauterine . Her blood type is B+, no indication for RhoGAM. On exam, the patient is sitting upright in no acute distress with reassuring vital signs. Abdominal exam is benign. She notes the spotting has now resolved and she is having no pain, cramping, or other concerns. [id number] ultrasound performed which demonstrated viable intrauterine fetus with a heart rate of 171 bpm. Given that bleeding has resolved and exam is overall reassuring, I feel that she is appropriate for discharge home. Instructions for close follow-up with OB and pelvic rest were given as well as strict return precautions Procedures Limited Ultrasound Findings:: Limited OB ultrasound Indication: Vaginal bleeding during Identified structures: [-Uterus -Left adnexa -Right adnexa -Pouch of Woody] Findings: Uterus: Definitive IUP FHR: 171 Right adnexa: Normal Left adnexa: Normal Cul de sac: Free fluid absent Impression: -IUP: Present - heart rate: 171 -Ectopic : Absent -Free fluid: Absent Images were saved to permanent archive The study was technically adequate CPT Transabdominal: 54023-48 This study was performed by me, and I personally interpreted all images/videos. Based on my clinical judgement, these images were adequate and did not necessitate further imaging. Critical Care Critical Care Time Critical Care Time: No
[2024-10-15 22:11] VITALS: BP 138/79; PULSE 59; RESP 16; TEMP 36.6; O2SAT 97
== END 2024-10-15 22:12 | disposition home or self-care (01) ==
PROVIDERS: Emergency Provider Emergency Medicine; PCP Family Medicine
DX: O46.90 Antepartum hemorrhage, unspecified, unspecified trimester (principal); F17.210 Nicotine dependence, cigarettes, uncomplicated; Z3A.09 9 weeks gestation of pregnancy
CPT/HCPCS: 99283

== ENCOUNTER 2024-10-30 00:12 | Emergency (ER) | payer MEDICAID, SELFPAY ==
[2024-10-30 00:31] VITALS: BP 136/89; PULSE 71; RESP 17; TEMP 37.2; O2SAT 98; BMI 39.6
[2024-10-30 00:32] LABS: Blood, Urine 3+ (Negative); Glucose,Urine (UA) Negative (Negative); Ketones,Urine Negative (Negative); Leukocyte Esterase,Urine 1+ (Negative); Microscopic, Urine URINE MICROSCOPIC (MICROSCOPIC); Nitrate,Urine Negative (Negative); PH,Urine 6.5 (5.0-8.5); Protein,Urine 2+ (Negative); Specific Gravity, Urine 1.025 (1.005-1.030)
[2024-10-30 00:36] LABS: Appearance,Urine Slightly Cloudy (Clear); Bilirubin,Urine 1+ (Negative); Color,Urine Amber (Yellow)
[2024-10-30 00:50] LABS: Bacteria,Urine Trace /lpf; RBC,Urine 50-100 #/hpf (0-3); Squamous Epithelial Cell,Urine Occasional #/hpf (0-5)
[2024-10-30] MEDS: CEFDINIR 300MG CAPSULE 300 MG PO (01:04)
--- NOTE | 2024-10-30 01:18 | ED_ITS ---
Discharge Plan Disposition Patient Disposition: Home, Self-Care Condition: Good Prescriptions Prescriptions: New cefdinir 300 mg capsule 300 mg PO BID 7 Days Qty: 14 0RF No Action promethazine 12.5 mg tablet 12.5 mg PO Q4-6H PRN (Reason: nausea and vomiting) Qty: 30 1RF fosfomycin tromethamine 3 gram packet 1 packet PO Q OTHER DAY Qty: 1 0RF Alive Daily Support 180 mcg-25 mg- 25 mg tablet,chewable 1 tab PO DAILY Qty: 90 2RF Referrals Follow up/Referrals: Staci Shaw APRN [Primary Care Provider] - See instructions Activity Restrictions/Add. Instructions Additional Instructions/Restrictions: You were evaluated in the ER and are appropriate for discharge at this time. Take the prescribed cefdinir antibiotic as directed, do not skip doses, do not stop taking it early. Drink plenty of fluids. Call your OB and make an appointment for immediate follow-up. Return to the ER with any new, worsening, or otherwise concerning symptoms. Clinical Impressions Clinical Impression: Urinary tract infection during , Acute hemorrhagic cystitis Instructions Patient Instructions: DI for Urinary Tract Infection (UTI), DI for Urinary Tract Infection in Children Print Language Print Language: Liberian Discharge ED Provider: John Chavez Adult HPI General Chief complaint: Urogenital-Female Stated complaint: 11 wks antepartum,spotting,difficulty urinating Time Seen by Provider: 10/30/24 00:28 Mode of Arrival: Ambulatory Source of Information: Patient Description of Symptoms (Recalled from ER Triage Doc. by RN): Patient to ED with complaints of urinary frequency, burning with urination, and blood in urine. Patient states that this started approx 2330. Patient also 11wks . Denies abdominal cramping at this time. History of Present Illness HPI narrative: 29-year-old female presents to the ER with complaints of urinary frequency, burning, and blood in the urine. She states her symptoms onset shortly prior to arrival. She is 11 weeks , . She has had her first OB ultrasound already. She denies any abdominal pain, she believes the blood when she wipes is from urinating not from her vagina, she is not having any fevers, chills, back pain, nausea, vomiting, headache, dizziness, chest pain, or any other associated symptoms. Related Data Previous Rx's ?Medication ?Instructions ?Recorded mv-mn no.97-folic 180 mcg-dha 25 1 tab PO DAILY #90 tabs 09/06/24 mg-herb no.293 25 mg chewable tablet (Alive Daily Support ) fosfomycin tromethamine 3 gram 1 packet PO Q OTHER DAY 1 dose #1 10/04/24 oral packet ea promethazine 12.5 mg tablet 12.5 mg PO Q4-6H PRN nausea and 10/04/24 vomiting #30 tabs cefdinir 300 mg capsule 300 mg PO BID 7 days #14 caps 10/30/24 Allergies Allergy/AdvReac Type Severity Reaction Status Date / Time onion Allergy Verified 09/30/24 09:17 sertraline (From Zoloft) Allergy Swelling Verified 09/30/24 10:09 of Lip/Tongue/Throat [facility] Disclaimer: The information contained in this section may have been updated after the patient was seen, as this information can be updated by other users. 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 Rubella non-immune status, antepartum History of miscarriage History of hypertension Maternal obesity affecting , antepartum Positive test Pain of wrist after trauma Hyperlipidemia Depression Anxiety Hypertension Gastroesophageal reflux disease with 22 completed weeks gestation Round ligament pain Positive home test Surgical History History of section Family History Other No significant family history Social History Smoking Status: Current every day smoker tobacco type: cigarettes packs per day: 1 second hand exposure: No alcohol intake: never substance use type: former substance user and marijuana current occupational status: unemployed Travel in the last 8 weeks: None housing: house number of children: 1 current occupational exposures/hazards: No caffeine: No Have you lived/traveled outside US in past 30 days?: No Contact w/someone who lives/traveled outside US past 30 days?: No Exposure to someone with infectious disease in past 14 days?: No Do you have a fever (greater than 100.4 F or 38 C)?: No Have you tested positive for COVID-19: No Exposed to someone with COVID-19 in past 14 days?: No Do you have a sore throat?: No Do you have a cough?: No Do you have any weakness?: No Do you have any diarrhea?: No Are you experiencing any unusual bleeding?: No Do you have any muscle aches/pain?: No Do you have any abdominal pain?: No Are you experiencing loss of taste or smell?: No Other 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 Have you received the Flu Vaccine for this season: No Have you received the Pneumonia Vaccine: No ROS Obtained: Yes Systems reviewed as appropriate & no additional complaints except as documented Per HPI Physical Exam General General appearance: alert, in no apparent distress and obese Head Head exam: atraumatic and normocephalic Eye Eye exam: Present PERRL and EOMI ENT ENT exam: Present mucous membranes moist Neck Neck exam: Present normal inspection and full ROM Chest Chest inspection: Present symmetric chest wall rise Respiratory Respiratory exam: Present normal lung sounds bilaterally; Absent respiratory distress, wheezes or stridor Cardiovascular Cardiovascular exam: Present regular rate and normal rhythm Abdominal Exam Abdominal exam: Present soft; Absent distention or tenderness External exam: Present normal external exam; Absent erythema or lesions Speculum exam: Present normal speculum exam and other (Normal-appearing cervix); Absent erythema or vaginal bleeding (No evidence of vaginal bleeding, normal vaginal discharge present) Extremities Exam Extremities exam: Present full ROM Neurological Exam Neurological exam: Present alert and oriented X3; Absent motor sensory deficit Psychiatric Psychiatric exam: Present normal affect and normal mood Skin Skin exam: Present warm and dry Medical Decision Making Medical Records Medical records reviewed: Yes I reviewed the patient's medical records. Screening: Per USPSTF and CDC recommendations, given the prevalence of disease in our region, it is our hospital?s policy to screen for HIV and viral Hepatitis for all patients aged 18 and over and those with ongoing risk factors. MR Comment: Most recent OB ultrasound 10/01/2024 demonstrated gestational age 6 weeks 6 days with intrauterine . Patient has blood type O+ based on most recent test from 09/30/2024 and previous blood bank tests. Vinny Inquiry Pt receiving controlled substance: No Vital Signs: 10/30/24 00:31 Temperature 99.0 F Temperature Source Oral Pulse Rate [Right] 71 Respiratory Rate 17 Blood Pressure [Right Arm] 136/89 Blood Pressure Mean [Right Arm] 104 Blood Pressure Position [Right Arm] Sitting 02 Sat by Pulse Oximetry 98 Oxygen Delivery Method Room Air Lab Data Lab Results 10/30/24 00:17: Urine Color Anum, Urine Appearance Slightly cloudy, Urine pH 6.5, Ur Specific Harper 1.025, Urine Protein 2+ A, Urine Glucose (UA) Negative, Urine Ketones Negative, Urine Blood 3+ A, Urine Nitrate Negative, Urine Bilirubin 1+ A, Urine Urobilinogen 1.0, Ur Leukocyte Esterase 1+ A, Urine RBC 50-100, Urine WBC 10-20, Ur Squamous Epith Cells Occasional, Urine Bacteria Trace Orders (Tests/Meds): ED MEDICATIONS Discontinued Medications Generic Name Dose Route Start Last Admin Trade Name Freschuyler PRN Reason Stop Dose Admin Cefdinir 300 mg 10/30/24 01:00 10/30/24 01:04 Cefdinir 300mg Capsule PO 10/30/24 01:01 300 mg ONCE ONE Administration ORDERS Category Date Time Status POCUS Point of Care (ER Only) Stat Exams 10/30/24 00:45 Ordered Urinalysis and Microscopic Stat Lab 10/30/24 00:17 Completed Urine Culture Stat Micro 10/30/24 00:17 Received Medical Decision Narrative: In summary, this 29-year-old female presents to the emergency department today with bloody urine, painful urination, urinary urgency and frequency. On initial evaluation patient is hemodynamically stable, afebrile, overall well-ap pearing with a benign physical exam, patient thought she was having urinary bleeding but could not confirm whether it was vaginal or not so I performed a speculum exam. Patient has no evidence of vaginal bleeding. She appears to have small amount of normal vaginal discharge, normal-appearing cervix. No vaginal bleeding. I considered the possibility of vaginal bleeding on my differential which could have been caused by miscarriage, etc. however based on exam had no evidence of this. I have much higher suspicion for urinary tract infection, I considered pyelonephritis as well but patient has no CVA tenderness. Urine study was sent. This demonstrates blood, WBCs, trace bacteria. She has nitrate negative but does have proteinuria. This increases concern for possible ascending urinary infection. Patient was given a dose of cefdinir due to concern of possible ascending infection which would not be well-managed by Macrobid which was the reason for the choice of cefdinir. Due to unclear safety data in , Azo was not prescribed. Cefdinir was prescribed. I performed [id number] bedside ultrasound to evaluate the . Patient has a live intrauterine with heart rate 167, crown-rump length measuring 12 weeks. No concerning findings on my personal interpretation. I believe patient is appropriate for discharge. Patient was given instructions on symptomatic management, follow up instructions for close follow-up with OB, and return precautions for the emergency department. Patient indicated understanding and was discharged in stable condition. Procedures Miscellaneous Procedure Procedure Performed: Limited OB ultrasound Indication: Known Identified structures: [-Uterus -Left adnexa -Right adnexa -Pouch of Woody] Findings: Uterus: Definitive IUP FHR: 167 Right adnexa: Normal Left adnexa: Normal Cul de sac: No free fluid Impression: -IUP: Present - heart rate: 167 -Ectopic : Absent -Free fluid: Absent -EGA based on crown-rump length: 12w 0d Images were saved to permanent archive The study was technically adequate CPT Transabdominal: 11540-67 This study was performed by me, and I personally interpreted all images/videos. Based on my clinical judgement, these images were adequate and did not necessitate further imaging. Critical Care Critical Care Time Critical Care Time: No
[2024-10-30 01:30] VITALS: BP 126/73; PULSE 68; RESP 18; TEMP 37.1; O2SAT 99
== END 2024-10-30 01:37 | disposition home or self-care (01) ==
PROVIDERS: Emergency Provider Emergency Medicine; PCP Family Medicine
DX: O23.40 Unspecified infection of urinary tract in pregnancy, unspecified trimester (principal); N30.01 Acute cystitis with hematuria; R30.9 Painful micturition, unspecified; R35.0 Frequency of micturition; F17.210 Nicotine dependence, cigarettes, uncomplicated; Z3A.11 11 weeks gestation of pregnancy
CPT/HCPCS: 81001; 87086; 99283

== ENCOUNTER 2024-11-11 16:00 | Outpatient (CLI) | payer MEDICAID, SELFPAY ==
[2024-11-11 17:56] LABS: Coronavirus 19, PCR Not Detected (NotDetected); Influenza A, PCR Not Detected (NotDetected); Influenza B, PCR Not Detected (NotDetected)
== END 2024-11-11 23:59 | disposition home or self-care (01) ==
LOC: LAB.DROPOF 11-12 12:08
PROVIDERS: PCP Family Medicine; Visit Provider Family Medicine
DX: J06.9 Acute upper respiratory infection, unspecified (principal)
CPT/HCPCS: 87636

== ENCOUNTER 2024-12-02 01:03 | Emergency (ER) | payer MEDICAID, SELFPAY ==
[2024-12-02 01:11] VITALS: BP 147/94; PULSE 83; RESP 16; O2SAT 95
[2024-12-02 01:14] VITALS: BP 147/94; PULSE 83; RESP 16; TEMP 36.9; O2SAT 97; BMI 40.7
[2024-12-02 01:17] LABS: Appearance,Urine CLOUDY (Clear); Bilirubin,Urine Negative (Negative); Blood, Urine 3+ (Negative); Color,Urine YELLOW (Yellow); Glucose,Urine (UA) Negative (Negative); Ketones,Urine Negative (Negative); Leukocyte Esterase,Urine 1+ (Negative); Microscopic, Urine URINE MICROSCOPIC (MICROSCOPIC); Nitrate,Urine Negative (Negative); Protein,Urine 2+ (Negative); Urobilinogen,Urine 0.2 EU/dl (0.2)
--- NOTE | 2024-12-02 01:24 | ED_ITS ---
Discharge Plan Disposition Patient Disposition: Home, Self-Care Prescriptions Prescriptions: New sulfamethoxazole-trimethoprim 800-160 mg tablet 1 tab PO BID 7 Days Qty: 14 0RF No Action promethazine 12.5 mg tablet 12.5 mg PO Q4-6H PRN (Reason: nausea and vomiting) Qty: 30 1RF dextromethorphan polistirex [Robitussin ER] 30 mg/5 mL suspension,extended rel 12 hr 10 ml PO Q12H Qty: 600 0RF albuterol sulfate 90 mcg/actuation HFA aerosol inhaler 1 inh inhalation QID PRN (Reason: shortness of breath or wheezing) Qty: 6.7 0RF Alive Daily Support 180 mcg-25 mg- 25 mg tablet,chewable 1 tab PO DAILY Qty: 90 2RF Referrals Follow up/Referrals: Staci Shaw APRN [Primary Care Provider] - See instructions Activity Restrictions/Add. Instructions Additional Instructions/Restrictions: Please take antibiotics as prescribed to treat your urinary tract infection. Please follow-up with your CUSTOMER SERVICES MANAGER and primary care provider. Please return to the emergency department if you develop any new or worsening symptoms or become concerned for your health. Clinical Impressions Clinical Impression: UTI (urinary tract infection) Instructions Patient Instructions: DI for Urinary Tract Infection (UTI), DI for Urinary Tract Infection in Children Print Language Print Language: Albanian Discharge ED Provider: John Chavez Adult HPI General Chief complaint: Urogenital-Female Stated complaint: 16 wks , UTI, frequent urination Time Seen by Provider: 12/02/24 01:05 Mode of Arrival: Ambulatory Source of Information: Patient Description of Symptoms (Recalled from ER Triage Doc. by RN): Patient reports frequent and painful urination; is History of Present Illness HPI narrative: 29-year-old female, 16 weeks , has had numerous pregnancies miscarriages, presents with concern for recurrent urinary tract infection. She reports burning with urination and frequent urination that been ongoing for the last few days. She reports that she has had 4 urinary tract infections since the beginning of this . She denies any flank pain fever or systemic sy mptoms. She reports that she took cefdinir last time and took a powdered antibiotic the time before that but she is not sure what it was called. Related Data Previous Rx's ?Medication ?Instructions ?Recorded mv-mn no.97-folic 180 mcg-dha 25 1 tab PO DAILY #90 tabs 09/06/24 mg-herb no.293 25 mg chewable tablet (Alive Daily Support ) promethazine 12.5 mg tablet 12.5 mg PO Q4-6H PRN nausea and 10/04/24 vomiting #30 tabs albuterol sulfate 90 mcg/actuation 1 inh inhalation QID PRN shortness 11/11/24 aerosol inhaler of breath or wheezing #6.7 grams dextromethorphan polistirex 30 10 ml PO Q12H #600 mL 11/11/24 mg/5 mL oral susp ext.release 12hr (Robitussin ER) sulfamethoxazole 800 1 tab PO BID 7 days #14 tabs 12/02/24 mg-trimethoprim 160 mg tablet Allergies Allergy/AdvReac Type Severity Reaction Status Date / Time onion Allergy Verified 11/11/24 14:48 sertraline (From Zoloft) Allergy Swelling Verified 11/11/24 14:48 of Lip/Tongue/Throat PFSH PFS Disclaimer: The information contained in this section may have been updated after the patient was seen, as this information can be updated by other users. 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 Rubella non-immune status, antepartum History of miscarriage x 5 reported by patient History of hypertension Maternal obesity affecting , antepartum Positive test Pain of wrist after trauma Hyperlipidemia Depression Anxiety Hypertension Gastroesophageal reflux disease with 22 completed weeks gestation Round ligament pain Positive home test LMP 08/18/17. Positive urine test here. EDC 08/25/17. Call Dr Martinez for 1st OB appt. Start vitamins. Stop Zofran (takes PRN). Stop Advil, Aleve. No alcohol. Surgical History History of section x 4 Family History Other No significant family history Social History Smoking Status: Current every day smoker tobacco type: cigarettes packs per day: 1 second hand exposure: No alcohol intake: never substance use type: former substance user and marijuana current occupational status: unemployed Travel in the last 8 weeks?: None housing: house number of children: 1 current occupational exposures/hazards: No caffeine: No Have you lived/traveled outside US in past 30 days?: No Contact w/someone who lives/traveled outside US past 30 days?: No Exposure to someone with infectious disease in past 14 days?: No Do you have a fever (greater than 100.4 F or 38 C)?: No Have you tested positive for COVID-19?: No Exposed to someone with COVID-19 in past 14 days?: No Do you have a sore throat?: No Do you have a cough?: No Do you have any weakness?: No Do you have any diarrhea?: No Are you experiencing any unusual bleeding?: No Do you have any muscle aches/pain?: No Do you have any abdominal pain?: No Are you experiencing loss of taste or smell?: No Other 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 Have you received the Flu Vaccine for this season: No Have you received the Pneumonia Vaccine: No ROS Obtained: Yes All systems reviewed & no additional complaints except as docu mented Physical Exam General General appearance: alert and in no apparent distress Head Head exam: atraumatic and normocephalic Eye Eye exam: Present normal appearance, PERRL and EOMI ENT ENT exam: Present normal oropharynx and normal external ear exam Neck Neck exam: Present normal inspection and full ROM Chest Chest inspection: Present normal inspection and symmetric chest wall rise; Absent tenderness Respiratory Respiratory exam: Present normal lung sounds bilaterally; Absent respiratory distress Cardiovascular Cardiovascular exam: Present regular rate and normal rhythm Abdominal Exam Abdominal exam: Present soft; Absent distention, tenderness or guarding Extremities Exam Extremities exam: Present normal inspection; Absent edema or joint swelling Back Exam Back exam: Present normal inspection; Absent tenderness Neurological Exam Neurological exam: Present alert and oriented X3; Absent motor sensory deficit Psychiatric Psychiatric exam: Present normal affect and normal mood Skin Skin exam: Present warm, dry and normal color Lymphatic Lymphatic Findings: no adenopathy Medical Decision Making Medical Records Medical records reviewed: Yes I reviewed the patient's medical records. Screening: Per USPSTF and CDC recommendations, given the prevalence of disease in our region, it is our hospital?s policy to screen for HIV and viral Hepatitis for all patients aged 18 and over and those with ongoing risk factors. Vinny Inquiry Pt receiving controlled substance: No Vinny was queried for this patient: No Vital Signs: 12/02/24 01:11 12/02/24 01:14 Temperature 98.4 F Temperature Source Oral Pulse Rate 83 Pulse Rate [Left Radial] 83 Respiratory Rate 16 16 Blood Pressure 147/94 H Blood Pressure [Right Arm] 147/94 H Blood Pressure Mean [Right Arm] 111 Blood Pressure Source [Right Arm] Automatic Cuff Blood Pressure Position [Right Arm] Supine 02 Sat by Pulse Oximetry 95 97 Oxygen Delivery Method Room Air Lab Data Lab results reviewed: Yes I reviewed the patient's lab results. Lab Results 12/02/24 00:12: Urine Color Yellow, Urine Appearance Cloudy, Urine pH 7.0, Ur Specific [employer] 1.010, Urine Protein 2+ A, Urine Glucose (UA) Negative, Urine Ketones Negative, Urine Blood 3+ A, Urine Nitrate Negative, Urine Bilirubin Negative, Urine Urobilinogen 0.2, Ur Leukocyte Esterase 1+ A, Urine RBC Tntc, Urine WBC 50-100, Ur Squamous Epith Cells 20-50, Urine Bacteria 1+ Orders (Tests/Meds): ED MEDICATIONS Generic Name Dose Route Start Last Admin Trade Name Freq PRN Reason Stop Dose Admin Trimethoprim/Sulfamethoxazole 1 each 12/02/24 01:33 Sulfa/Trimethoprim 1 Tablet PO 12/02/24 01:34 ONCE ONE ORDERS Category Date Time Status UA [Urinalysis and Microscopic] Stat Lab 12/02/24 00:12 Completed Urine Culture Stat Micro 12/02/24 00:12 Received Medical Decision Narrative: 29-year-old female, 16 weeks , presents with dysuria and urinary frequency. Has had multiple UTIs in this so far. She denies any related concerns at this time. History was obtained via interactive discussion with patient, chart review. On arrival, patient is [afebrile, hemodynamically stable, satting appropriately, alert, oriented x4, GCS 15], moving all extremities spontaneously. Full physical exam performed and significant for no significant physical exam abnormalities. Differential includes but is not limited to UTI, pyelonephritis, interstitial cystitis. On chart review patient has had multiple urine samples that returned with multiple organisms. She did have a urine culture that was positive for Proteus that was resistant to several antibiotics. Urinalysis was ordered. On my independent interpretation, it shows numerous RBCs and WBCs with 1+ bacteria consistent with acute urinary tract infection. Imaging was considered, but deemed unnecessary given patient does not have any flank pain to suggest pyelonephritis or kidney stone. She does not have any history of kidney stones. Given patient history, exam and workup, patient's presentation most likely represents recurrent urinary tract infection I prescribed patient Bactrim based on the culture results from her most recent positive culture. Patient was discharged with prescription for same. Encouraged follow-up with CUSTOMER SERVICES MANAGER and PCP. Procedures Risk/Benefits of Procedure(s) Were Explained: Yes Critical Care Critical Care Time Critical Care Time: No
[2024-12-02 01:28] LABS: Bacteria,Urine 1+ /lpf; RBC,Urine TNTC #/hpf (0-3); Squamous Epithelial Cell,Urine 20-50 #/hpf (0-5); WBC,Urine 50-100 #/hpf (0-3)
[2024-12-02 01:41] VITALS: BP 126/86; PULSE 84; RESP 20; TEMP 36.6; O2SAT 100
[2024-12-02] MEDS: SULFA/TRIMETHOPRIM 1 TABLET 1 EACH PO (01:41)
--- NOTE | 2024-12-04 12:22 | PC.NURSE ---
I discussed pts urine culture with . no change needed in treatment plan.
== END 2024-12-02 01:42 | disposition home or self-care (01) ==
PROVIDERS: Emergency Provider Emergency Medicine; PCP Family Medicine
DX: O23.42 Unspecified infection of urinary tract in pregnancy, second trimester (principal); R00.0 Tachycardia, unspecified; R35.0 Frequency of micturition; Z3A.16 16 weeks gestation of pregnancy
CPT/HCPCS: 81001; 87086; 87088; 87186; 99283

== ENCOUNTER 2024-12-10 21:49 | Emergency (ER) | payer MEDICAID, SELFPAY ==
[2024-12-10 21:53] VITALS: BP 135/79; PULSE 83; RESP 16; TEMP 36.6; O2SAT 100; BMI 37.5
--- NOTE | 2024-12-10 22:06 | PC.NURSE ---
heart tones obtained and range from 165-200 bpm
[2024-12-10 22:12] VITALS: BP 128/72; PULSE 78; RESP 16; TEMP 36.6; O2SAT 100
--- NOTE | 2024-12-10 22:24 | HMH.EDGENADL ---
Discharge Plan Disposition Patient Disposition: Home, Self-Care Condition: Good Prescriptions Prescriptions: No Action promethazine 12.5 mg tablet 12.5 mg PO Q4-6H PRN (Reason: nausea and vomiting) Qty: 30 1RF dextromethorphan polistirex [Robitussin ER] 30 mg/5 mL suspension,extended rel 12 hr 10 ml PO Q12H Qty: 600 0RF albuterol sulfate 90 mcg/actuation HFA aerosol inhaler 1 inh inhalation QID PRN (Reason: shortness of breath or wheezing) Qty: 6.7 0RF Alive Daily Support 180 mcg-25 mg- 25 mg tablet,chewable 1 tab PO DAILY Qty: 90 2RF sulfamethoxazole-trimethoprim 800-160 mg tablet 1 tab PO BID 7 Days Qty: 14 0RF Referrals Follow up/Referrals: Staci Shaw APRN [Primary Care Provider] - See instructions Activity Restrictions/Add. Instructions Additional Instructions/Restrictions: You were evaluated in the emergency department today. You you have good heart tones, so at this time there is no indication to suggest that anything is acutely wrong. It is normal to intermittently feel kicking at this stage of . Your lungs are very clear with no wheezing heard right now. Continue using your inhaler at home as needed for wheezing and shortness of breath. Follow-up closely with primary care provider as well as OB for reassessment. Return to the emergency department for new or worsening symptoms. Clinical Impressions Clinical Impression: Decreased movement Instructions Patient Instructions: DI for Asthma -- Adult, DI for -- Discomforts and Remedies Print Language Print Language: Mohawk Discharge ED Provider: Anum Mauricio General Adult HPI General Chief complaint: Recheck/Abnormal Lab/Rx Stated complaint: 17 weeks ,has not felt baby move,wheezing Time Seen by Provider: 12/10/24 22:04 Mode of Arrival: Ambulatory Source of Information: Patient Description of Symptoms (Recalled from ER Triage Doc. by RN): Patient hasn't felt baby move since yesterday; 17 weeks History of Present Illness HPI narrative: This patient is a 29-year-old female who is currently 17 weeks with multiple prior ED visits with concern for related complaints presenting to the emergency department for evaluation because she has not felt the baby kick since yesterday. She has had multiple recent transabdominal ultrasounds in the ED for related complaints, which have been reassuring. She notes she has intermittently felt kicking up until today. No abdominal pain, leakage of fluid, bleeding. She also notes that she feels slightly short of breath and wheezy, having to use her inhaler at home for asthma. No fevers, congestion, or other concerns. Related Data Previous Rx's ?Medication ?Instructions ?Recorded mv-mn no.97-folic 180 mcg-dha 25 1 tab PO DAILY #90 tabs 09/06/24 mg-herb no.293 25 mg chewable tablet (Alive Daily Support ) promethazine 12.5 mg tablet 12.5 mg PO Q4-6H PRN nausea and 10/04/24 vomiting #30 tabs albuterol sulfate 90 mcg/actuation 1 inh inhalation QID PRN shortness 11/11/24 aerosol inhaler of breath or wheezing #6.7 grams dextromethorphan polistirex 30 10 ml PO Q12H #600 mL 11/11/24 mg/5 mL oral susp ext.release 12hr (Robitussin ER) sulfamethoxazole 800 1 tab PO BID 7 days #14 tabs 12/02/24 mg-trimethoprim 160 mg tablet Allergies Allergy/AdvReac Type Severity Reaction Status Date / Time onion Allergy Verified 11/11/24 14:48 sertraline (From Zoloft) Allergy Swelling Verified 11/11/24 14:48 of Lip/Tongue/Throat [facility] PFS Disclaimer: The information contained in this section may have been updated after the patient was seen, as this information can be updated by other users. 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 Rubella non-immune status, antepartum History of miscarriage History of hypertension Maternal obesity affecting , antepartum Positive test Pain of wrist after trauma Hyperlipidemia Depression Anxiety Hypertension Gastroesophageal reflux disease with 22 completed weeks gestation Round ligament pain Positive home test Surgical History History of section Family History Other No significant family history Social History Smoking Status: Current every day smoker tobacco type: cigarettes packs per day: 1 second hand exposure: No alcohol intake: never substance use type: former substance user and marijuana current occupational status: unemployed Travel in the last 8 weeks?: None housing: house number of children: 1 current occupational exposures/hazards: No caffeine: No Have you lived/traveled outside US in past 30 days?: No Contact w/someone who lives/traveled outside US past 30 days?: No Exposure to someone with infectious disease in past 14 days?: No Do you have a fever (greater than 100.4 F or 38 C)?: No Have you tested positive for COVID-19?: No Exposed to someone with COVID-19 in past 14 days?: No Do you have a sore throat?: No Do you have a cough?: No Do you have any weakness?: No Do you have any diarrhea?: No Are you experiencing any unusual bleeding?: No Do you have any muscle aches/pain?: No Do you have any abdominal pain?: No Are you experiencing loss of taste or smell?: No Other 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 Have you received the Flu Vaccine for this season: No Have you received the Pneumonia Vaccine: No ROS Obtained: Yes All systems reviewed & no additional complaints except as documented Physical Exam General General appearance: alert and in no apparent distress Head Head exam: atraumatic and normocephalic Eye Eye exam: Present normal appearance, PERRL and EOMI ENT ENT exam: Present normal exam, normal oropharynx, mucous membranes moist and normal external ear exam Neck Neck exam: Present normal inspection, full ROM and trachea midline; Absent tenderness Chest Chest inspection: Present normal inspection and symmetric chest wall rise; Absent tenderness Respiratory Respiratory exam: Present normal lung sounds bilaterally; Absent respiratory distress, wheezes, stridor or accessory muscle use Cardiovascular Cardiovascular exam: Present regular rate and normal rhythm Abdominal Exam Abdominal exam: Present soft; Absent distention, tenderness or guarding Extremities Exam Extremities exam: Present normal inspection, full ROM and normal capillary refill; Absent tenderness or edema Back Exam Back exam: Present normal inspection and full ROM; Absent tenderness Neurological Exam Neurological exam: Present alert, oriented X3, CN II-XII intact and normal gait; Absent motor sensory deficit Psychiatric Psychiatric exam: Present normal affect and normal mood Skin Skin exam: Present warm and dry Medical Decision Making Medical Records Medical records reviewed: Yes I reviewed the patient's medical records. Screening: Per USPSTF and CDC recommendations, given the prevalence of disease in our region, it is our hospital?s policy to screen for HIV and viral Hepatitis for all patients aged 18 and over and those with ongoing risk factors. Vinny Inquiry Pt receiving controlled substance: No Vital Signs: 12/10/24 21:53 12/10/24 22:12 Temperature 97.9 F 97.9 F Temperature Source Oral Oral Pulse Rate 78 Pulse Rate [Right Radial] 83 Respiratory Rate 16 16 Blood Pressure 128/72 Blood Pressure [Right Arm] 135/79 Blood Pressure Mean [Right Arm] 97 Blood Pressure Source Automatic Cuff Blood Pressure Source [Right Arm] Automatic Cuff Blood Pressure Position Supine Blood Pressure Position [Right Arm] Supine 02 Sat by Pulse Oximetry 100 Oxygen Delivery Method Room Air Room Air Lab Data Lab results reviewed: Yes I reviewed the patient's lab results. Medical Decision Narrative: In summary, this patient is a 29-year-old female presenting to the Emergency Department for evaluation of wheezing and the fact that she has not felt her baby move since yesterday in the setting of at 17 weeks gestation. Differential diagnoses considered include but are not limited to missed , normal physiologic changes of , asthma exacerbation, URI. Ruling out the most morbid conditions drove assessment. On exam, the patient is very well-appearing with normal cardiopulmonary exam with no wheezing heard. She has no increased work of breathing with completely normal vitals on cardiac telemetry. Abdominal exam is completely benign. heart tones were dopplerable in the 160s. I do not feel that another ultrasound is indicated at this time, as she has already had confirmed IUP and has no acute complaint such as significant pain or bleeding. I feel she is appropriate for discharge with instructions to continue using her albuterol inhaler at home as needed for wheezing and follow-up closely outpatient with OB. Strict return precautions given Critical Care Critical Care Time Critical Care Time: No
== END 2024-12-10 22:16 | disposition home or self-care (01) ==
PROVIDERS: Emergency Provider Emergency Medicine; PCP Family Medicine
DX: O36.8121 Decreased fetal movements, second trimester, fetus 1 (principal); Z3A.17 17 weeks gestation of pregnancy
CPT/HCPCS: 99282

== ENCOUNTER 2025-01-03 13:30 | Outpatient (CLI) | payer MEDICAID, SELFPAY ==
--- OUTSIDE RECORDS SUMMARY | 2024-11-12 06:15 | XMS_ITS ---
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 Name Role Phone Deidre Frost Unavailable [phone] Sophia Blount Unavailable [phone] Allergies Allergen (clinical drug ingredient) Drug/Non Drug Allergy documented on EMR Reaction Allergy Type Onset Date Status ZOFRAN (uncoded) Unspecified Allergy 01/23/2018 Active REASON FOR VISIT 13 week Medications Medication SIG (Take, Route, Frequency, Duration) Notes Start Date End Date Status Ondansetron 4 MG Tablet Disintegrating Oral; Duration: 4 Active Promethazine HCl 12.5 MG Tablet Oral; Duration: 14 Days Acti ve SM Sleep Aid 25 MG Tablet Oral; Duration: 30 Days Active Ondansetron 4 MG Tablet Disintegrating 1 tablet sublingually every 6h as needed for nausea 10/11/2024 Active 19 - Tablet Chewable Oral; Duration: 90 Active Vitamin B-6 25 MG Tablet Oral; Duration: 30 Days Active hydrOXYzine HCl 25 MG Tablet Oral; Duration: 30 Days Acti ve Social History Sex Assigned At : Social History Observation Description Sex Assigned At Female Vital Signs Weight 228.4 lbs 11/12/2024 BMI 38.008 kg/m2 11/12/2024 Encounters Encounter Location Date Provider Diagnosis [facility] [address] [place] [address] 11/12/2024 Sophia Blount 13 weeks gestation of Z3A.13 and Encounter for supervision of other normal , first trimester Z34.81 Assessments Encounter Date Diagnosis (ICD Code) Assessment Notes Treatment Notes Treatment Clinical Notes Section Notes 11/12/2024 13 weeks gestation of (ICD-10 - Z3A.13) 11/12/2024 Encounter for supervision of other normal , first trimester (ICD-10 - Z34.81) Plan Of Treatment Next Appt Details Follow Up: 4 Weeks, Reason: TRUDY @ 17w4d Provider Name:Valentina Queen, 01/05/2025 09:30:00 AM, [address], [address], [place], [address], Provider Name:Valentina Queen, 01/05/2025 10:00:00 AM, [address], [address], [place], [address], Provider Name:Sophia Blount, 01/31/2025 10:45:00 AM, [address], [address], [place], [address], Provider Name:Sophia Blount, 03/03/2025 09:45:00 AM, [address], [address], [place], [address], Provider Name:Sophia Blount, 04/07/2025 09:45:00 AM, [address], [address], [place], [address], Progress Notes * Lan HERNANDEZ KDOB: [birth year] (29 yo F)Acc No.[id number]:11/12/2024 Progress Note Patient: Lan VEGA Provider: Ayan Blount MD :1995 A ge:29 Y S ex:Female Date:11/12/2024 Address:[address] [place] [address] , [place], [id number] Subjective: * Chief Complaints: * 1 3 week * 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: Smoker Anxiety Asthma Depression HTN UTI Yeast infection : yes * 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 * OB History: P regnancy History (GPA) Total Pregnancies 1 0 Full Term 4 Premature 0 AB. Spontaneous 5 Living 4 AB. Induced 0 C-Sections 4 Ectopics 0 Multiple Births 0 G P : 8 Para: 4 P regnancy # 1: Ayan morin, 2018, male. P regnancy # 2: marcel gracia, 2019, Male. P regnancy # 3: G abirel, 05/2020, Male. P regnancy # 4: 2 022 , Repeat , Iris F. * Surgical History: ,2019 * Hospitalization/Major Diagno stic Procedure: labor and delivery * Family History: Acid reflux, Asthma, Diabetes, HTN, History of stillbirth, Obesity, Ulcers, UTI, Yeast infection. * Medications: T akinghydrOXYzine HCl 25 MG Tablet Oral Ondansetron 4 MG Tablet Disintegrating Oral Ondansetron 4 MG Tablet Disintegrating 1 tablet sublingually every 6h as needed for nausea 19( Vit-Fe Fumarate-FA) - Tablet Chewable Oral Promethazine HCl 12.5 MG Tablet Oral SM Sleep Aid 25 MG Tablet Oral Vitamin B-6 25 MG Tablet Oral Medication List reviewed and reconciled with the patientTaking hydrOXYzine HCl 25 MG Tablet Oral Taking Ondansetron 4 MG Tablet Disintegrating Oral Taking Ondansetron 4 MG Tablet Disintegrating 1 tablet sublingually every 6h as needed for nausea Taking 19( Vit-Fe Fumarate-FA) - Tablet Chewable Oral Taking Promethazine HCl 12.5 MG Tablet Oral Taking SM Sleep Aid 25 MG Tablet Oral Taking Vitamin B-6 25 MG Tablet Oral Medication List reviewed and reconciled with the patient * Allergies: Z OFRAN: Unspecified - Allergy - Onset Date [id number][Allergies Verified] Objective: * Vitals: W t: 228.4 lbs, BMI: 38.008 Index. Assessment: * Assessment: 1. E ncounter for supervision of other normal , first trimester - Z34.81 (Primary)? 2. 1 3 weeks gestation of - Z3A.13 Plan: * Treatment: * Procedure Codes: r ob Return OB [id number] HEDIS SUBSEQUENT CARE * Follow Up: 4 Weeks (Reason: TRUDY @ 17w4d) * Billing Information: * Visit Code: trudy Return OB Visit. * Procedure Codes: trudy Return OB Visit. [id number] HEDIS SUBSEQUENT CARE. * Sign off status: Completed Visit Status: A RR (Check-In) true * Provider: Ayan Blount MD Date: 11/12/2024 Generated for Jennifer fernández/Livia/Allenitting on: 01/03/2025 01:49 PM EDT
--- OUTSIDE RECORDS SUMMARY | 2024-12-03 06:00 | XMS_ITS ---
Author Organization [facility] [place] Group Address [address] [place] [address] Care Team Providers Care Cook Taco Name Role Phone Santosh Deidre Unavailable [phone] Sophia Blount Unavailable [phone] Results Component Value Reference Range Notes *US OB Limited Reviewed date:12/03/2024 11:24:11 AM Interpretation: Performing Lab: Notes/Report: [facility] Transabdominal Obstetric Study Report Name: ANGLE HERNANDEZ Accession/Encounter No:[id number] Procedure/Order ID: [id number] : 1995 Age: 29 Gender: F Study Date: December 03, 2024 Study Time: 10:54 AM Reading Group: Carla Morgan MD Referring Group: Sophia Blount MD Ordering Phys: Sophia Blount MD Performing User: Mayra Dennis RDMS Equipment: Affiniti 30 Study Quality: Good Indications: Heart tones A viability ultrasound was performed. Disclaimer: Ultrasound cannot detect all structural defects or underlying genetic abnormalities. Additionally, some abnormalities develop over time and/or are not detectable until after . General Information Trimester: 2nd/3rd trimester Gestations: 1 : Intrauterine Gestational Age (Best) Best: 16w 4d Determined by: LMP JILL: 2025-05-16 Gestational Age (LMP) LMP: 16w 4d First Day of LMP: 2024-08-09 JILL: 2025-05-16 General Evaluation cardiac activity: Present Biometry (Fetus A) HR: 153 bpm Findings: Anatomy: Sonographic evaluation reveals [facility] intrauterine . cardiac activity present. Conclusions: Limited ultrasound for heart tones only. [facility] IUP with cardiac activity noted. Approved By: Carla Morgan MD Approved at: December 03, 2024 11:08 AM EDT Electronically Signed on Studycast ANGLE HERNANDEZ 2024-12-03 Page 1 of 1 Imaging Center - , [facility] - Tristen Vallejo REASON FOR VISIT wi heart tones Social History Sex Assigned At : Social History Observation Description Sex Assigned At Female Encounters Encounter Location Date Provider Diagnosis [facility] [address] [place] [address] 12/03/2024 Sophia Blount 16 weeks gestation of Z3A.16 and Encounter for related examination in second trimester Z34.82 Assessments Encounter Date Diagnosis (ICD Code) Assessment Notes Treatment Notes Treatment Clinical Notes Section Notes 12/03/2024 16 weeks gestation of (ICD-10 - Z3A.16) 12/03/2024 Encounter for related examination in second trimester (ICD-10 - Z34.82) Plan Of Treatment Next Appt Details Provider Name:Valentina Queen, 01/05/2025 09:30:00 AM, [address], [address], [place], [address], Provider Name:Valentina Queen, 01/05/2025 10:00:00 AM, [address], [address], [place], [address], Provider Name:Sophia Blount, 01/31/2025 10:45:00 AM, [address], [address], [place], [address], Provider Name:Sophia Blount, 03/03/2025 09:45:00 AM, [address], [address], [place], [address], Provider Name:Sophia Blount, 04/07/2025 09:45:00 AM, [address], [address], [place], [address], Progress Notes * Chapin HERNANDEZta KDOB: [birth year] (29 yo F)Acc No.[id number]:12/03/2024 Progress Note Patient: Angle Eugene Provider: Ayan Blount MD :1995 A ge:29 Y S ex:Female Date:12/03/2024 Address:[address] [place] [address] [id number] Subjective: * Chief Complaints: * W i heart tones Assessment: * Assessment: 1. 1 6 weeks gestation of - Z3A.16 (Primary) 2 . E ncounter for related examination in second trimester - Z34.82 Plan: * Treatment: 2. E ncounter for related examination in second trimester I maging: *US OB Limited (Performed Date - 12/03/2024) Billing Information: * Procedure Codes: * Electronic signature of Boy Blount MD on 01/03/2025 at 01:49 PM EDT Sign off status: Pending Visit Status: C HK (Check Out) * Provider: Ayan Blount MD Date: 0 12/03/2024 Generated for Jennifer fernández/Livia/Allenitting on: 0 01/03/2025 01:49 PM EDT
--- OUTSIDE RECORDS SUMMARY | 2024-12-03 06:15 | XMS_ITS ---
Author Organization [facility] Address [address] [place] [address] Care Team Providers Care Insurance Biller Name Role Phone Deidre Frost Unavailable [phone] Sophia Blount Unavailable [phone] Allergies Allergen (clinical drug ingredient) Drug/Non Drug Allergy documented on EMR Reaction Allergy Type Onset Date Status ZOFRAN (uncoded) Unspecified Allergy 01/23/2018 Active REASON FOR VISIT 16 week Medications Medication SIG (Take, Route, Frequency, Duration) Notes Start Date End Date Status SM Sleep Aid 25 MG Tablet Oral; Duration: 30 Days Active Promethazine HCl 12.5 MG Tablet Oral; Duration: 14 Days Acti ve Vitamin B-6 25 MG Tablet Oral; Duration: 30 Days Active 19 - Tablet Chewable Oral; Duration: 90 Active Ondansetron 4 MG Tablet Disintegrating 1 tablet sublingually every 6h as needed for nausea 10/11/2024 Active Ondansetron 4 MG Tablet Disintegrating Oral; Duration: 4 Active hydrOXYzine HCl 25 MG Tablet Oral; Duration: 30 Days Acti ve Social History Sex Assigned At : Social History Observation Description Sex Assigned At Female Vital Signs Weight 226.0 lbs 12/03/2024 BMI 37.608 kg/m2 12/03/2024 Encounters Encounter Location Date Provider Diagnosis [facility] [address] [place] [address] 12/03/2024 Sophia Blount 16 weeks gestation of Z3A.16 and Encounter for related examination in second trimester Z34.82 Assessments Encounter Date Diagnosis (ICD Code) Assessment Notes Treatment Notes Treatment Clinical Notes Section Notes 12/03/2024 16 weeks gestation of (ICD-10 - Z3A.16) 12/03/2024 Encounter for related examination in second trimester (ICD-10 - Z34.82) Plan Of Treatment Future Test Test Name Order Date *US OB Detailed Anatomy 12/31/2024 Next Appt Details Follow Up: 4 Weeks, Reason: TRUDY @ 20w4d + anatomy US Provider Name:Valentina Queen, 01/05/2025 09:30:00 AM, [address], [address], [place], [address], Provider Name:Valentina Queen, 01/05/2025 10:00:00 AM, [address], [address], [place], [address], Provider Name:Sophia Blount, 01/31/2025 10:45:00 AM, [address], [address], [place], [address], Provider Name:Sophia Blount, 03/03/2025 09:45:00 AM, [address], [address], [place], [address], Provider Name:Sophia Blount, 04/07/2025 09:45:00 AM, [address], [address], [place], [address], Progress Notes * Chapin HERNANDEZta KDOB: [birth year] (29 yo F)Acc No.[id number]:12/03/2024 Progress Note Patient: Lan VEGA K Provider: Ayan Blount MD :1995 A ge:29 Y S ex:Female Date:12/03/2024 Address:[address] [place] [address] [id number] Subjective: * Chief Complaints: * 1 6 week * 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: Smoker Anxiety Asthma Depression HTN UTI Yeast infection * 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 * OB History: P regnancy History (GPA) Total Pregnancies 9 Full Term 4 AB. Spontaneous 4 Living 4 C-Sections 4 G P : 8 Para: 4 P [...] OFRAN: Unspecified - Allergy - Onset Date [id number][Allergies Verified] Objective: * Vitals: W t: 226.0 lbs, BMI: 37.608 Index. Assessment: * Assessment: 1. E ncounter for related examination in second trimester - Z34.82 (Primary) ? 2 . 1 6 weeks gestation of - Z3A.16 Plan: * Treatment: 2. 1 6 weeks gestation of I maging: *US OB Limited (Ordered for 12/03/2024) (Performed Date - 12/03/2024) * Procedure Codes: r ob Return OB [id number] HEDIS SUBSEQUENT CARE * Follow Up: 4 Weeks (Reason: TRUDY @ 20w4d + anatomy US) * Billing Information: * Visit Code: trudy Return OB Visit. * Procedure Codes: trudy Return OB Visit. 0502F HEDIS SUBSEQUENT CARE. * Sign off status: Completed Visit Status: A RR (Check-In) true * Provider: Ayan Blount MD Date: 0 12/03/2024 Generated for Jennifer fernández/Livia/Alainasmitting on: 0 01/03/2025 01:49 PM EDT
--- OUTSIDE RECORDS SUMMARY | 2025-01-03 13:49 | XMS_ITS | Clinical Summary ---
Author Organization [facility] Address [address] [place] [address] Care Team Providers Care Call Center Trainer Name Role Phone Unknown, Attending Provider Primary Care Provide r Unavailable Source Comments This information has been disclosed to you from confidential records protectedfrom disclosure by state law. You shall make no further disclosure of thisinformation without the specific, written, and informed release of theindividual to whom it pertains, or as otherwise permitted by law. A generalauthorization for the release of medical or other information is not sufficientfor the purposes of therelease of HIV test results or diagnoses. [id number] Allergies No known active allergies Social History Tobacco Use Types Packs/Day Years Used Date Smoking Tobacco: Never Assessed Comments Yes Sex and Gender Information Value Date Recorded Sex Assigned at Not on file Legal Sex Female 9:29 AM EST Gender Identity Not on file Sexual Orientation Not on file Last Filed Vital Signs Vital Sign Reading Time Taken Comments Blood Pressure 141/84 09/23/2024 11:50 AM EST Pulse 83 09/23/2024 11:50 AM EST Temperature 37.2 C (98.9 F) 09/23/2024 11:50 AM EST Respiratory Rate 18 09/23/2024 11:50 AM EST Oxygen Saturation 96% 09/23/2024 11:50 AM EST Inhaled Oxygen Concentration 96% 09/23/2024 1 1:50 AM EST Weight - - Height - - Body Mass Index - - Plan of Treatment Health Maintenance Due Date Last Done Comments Hepatitis C Screening (MyChart) 1995 Alcohol Misuse Screening 2013 Depression Screening 2013 HIV Screening 2013 Immunization: Hepatitis B (1 of 3 - 19+ 3-dose series) 2014 Cervical Cancer Screening/Pa p Smear (MyChart) 2016 Immunization: DTaP/Tdap/Td ( 2 - Td or Tdap) 02/23/2017 02/23/2007 Immunization: COVID-19 ( season) 2024 Immunization: Influenza (MyChart) (Season Ended) 2025 03/07/2020, 05/05/2008 Immunization: RSV (Adult) (1 - 1-dose 75+ series) 2070 Immunization: Pneumococcal Aged Out N o longer eligible based on patient's age to complete this topic Insurance [facility] care Address: [facility] [address] [place] [address] Care Teams Call Center Trainer Relationship Specialty Start Date End Date Unknown, Attending Provider PCP - General 09/23/24
--- OUTSIDE RECORDS SUMMARY | 2025-01-03 13:49 | XMS_ITS | Clinical Summary ---
Author Organization [facility] Address [address] [place] [address] Care Team Providers Care Metrology Technician Name Role Phone Unavailable Primary Care Provider Unavailabl e Social History Tobacco Use Types Packs/Day Years Used Date Smoking Tobacco: Never Assessed Comments Unknown Sex and Gender Information Value Date Recorded Sex Assigned at Female 06/13/2023 2:37 PM EST Legal Sex Female 6:34 PM EDT Gender Identity Female 06/13/2023 2:37 PM EST Sexual Orientation Straight 06/13/2023 2: 37 PM EST Plan of Treatment Not on file Insurance [facility] [place] [address]
--- OUTSIDE RECORDS SUMMARY | 2025-01-03 13:49 | XMS_ITS | Encounter Summary ---
Author Organization [facility] Address [address] [place] [address] Care Team Providers Care Supervisor Chassis Assembly Name Role Phone Unavailable Primary Care Provider Unavailabl e Encounter Details Date Type Department Care Team (Late st Contact Info) Description 08/31/2021 Lab Requisition [facility] [address] [place] [address] Hope Potter MD [address] [place] [address] Encounter for general adult medical examination without abnormal findings Social History Tobacco Use Types Packs/Day Years Used Date Smoking Tobacco: Never Assessed Comments Unknown Sex and Gender Information Value Date Recorded Sex Assigned at Female 06/13/2023 2:37 PM EST Legal Sex Female 6:34 PM EDT Gender Identity Female 06/13/2023 2:37 PM EST Sexual Orientation Straight 06/13/2023 2: 37 PM EST documented as of this encounter Plan of Treatment Not on file documented as of this encounter Procedures Procedure Name Priority Date/Time Associated Diagnosis Comments THC URINE CONFIRM STAT 08/30/2021 2:0 2 PM EST Encounter for general adult medical examination without abnormal findings documented in this encounter Results * (ABNORMAL) THC Urine Confirm LCMSMS (08/30/2021 2:02 PM EST) 9 Carboxy THC 87(H) <10 ng/mL 09/02/2021 1:40 PM EST [facility] 9 Carboxy THC Glucuronide >250(H) <50 ng/mL 09/02/2021 1:40 PM EST [facility] Urine Urine specimen obtained by clean catch procedure / Unknown 08/30/2021 2:02 PM EST 08/31/2021 11:33 AM EST Narrative [facility] - 09/02/2021 1:40 PM EST Drug analysis is confirmed by LC-MS/MS (LC Tandem Mass Spectrometry) on Urine specimens. This test was developed and its performance characteristics determined by [facility]. It has not been cleared or approved by the FDA. The laboratory is regulated under CLIA as qualified to perform high-complexity testing. This test is used for clinical purposes. Testing is performed at the [facility]. us Hope Potter MD LAB URINE ORDERABLES Final Re sult [facility] [address] [place] [address] documented in this encounter Visit Diagnoses Diagnosis Encounter for general adult medical examination without abnormal findings documented in this encounter
--- OUTSIDE RECORDS SUMMARY | 2025-01-03 13:50 | XMS_ITS | Patient Health Record ---
Author Organization [facility] Address [address] [address] Care Team Providers Care Amusement Or Recreation Card Checker Name Role Phone Deidre Frost Unavailable [phone] Sophia Blount Unavailable [phone] Allergies Allergen (clinical drug ingredient) Drug/Non Drug Allergy documented on EMR Reaction Allergy Type Onset Date Status ZOFRAN (uncoded) Unspecified Allergy 01/23/2018 Active Results Component Value Reference Range Notes *US OB Complete Transabdomin al/Vaginal Reviewed date:10/11/2024 02:31:17 PM Interpretation: Performing Lab: Notes/Report: [facility] Transabdominal Obstetric Study Report Name: ANGLE HERNANDEZ Accession/Encounter No:[id number] : 1995 Age: 29 Gender: F Study Date: Oct 11, 2024 Study Time: 10:36 AM Reading Group: Carla Morgan MD Referring Group: Sophia Blount MD Ordering Phys: Sophia Blount MD Performing User: Ama Linn RDMS Equipment: Affiniti 30 Study Quality: Fair Indications: NOB Prior scan in ER Risk Factors: Obesity. MABS. Smoker. CS A 1st Trimester ultrasound was performed. General Information Trimester: 1st trimester Gestations: 1 : Intrauterine Gestational Age (Best) Best: 9w 0d Determined by: Current US JILL: 2025-05-16 Gestational Age (LMP) LMP: 10w 5d First Day of LMP: 2024-07-28 JILL: 2025-05-04 Gestational Age (Current US) Current US: 9w 0d Current US JILL by: JILL: 2025-05-16 General Evaluation cardiac activity: Present Biometry (Fetus A) HR: 176 bpm Miranda-rump length:22.99 mm9w 0d 60% Conclusions: [facility] IUP noted with cardiac activity. Size is NOT consistent with LMP dating. Uterus, ovaries and bilateral adnexa appear normal. Approved By: Carla Morgan MD Approved at: October 11, 2024 12:43 PM EDT Electronically Signed on Studycast ANGLE HERNANDEZ 2024-10-11 Page 1 of 1 [facility] - , [facility] Non Invasive Testin g Reviewed date:11/19/2024 04:00:05 PM Interpretation:low risk NIPT/XY Performing Lab: Notes/Report: low risk NIPT/XY *US OB Limited Reviewed date:12/03/2024 11:24:11 AM Interpretation: Performing Lab: Notes/Report: [facility] Transabdominal Obstetric Study Report Name: ANGLE HERNANDEZ Accession/Encounter No:[id number] Procedure/Order ID: [id number] : 1995 Age: 29 Gender: F Study [...] 2024 11:08 AM EDT Electronically Signed on David HERNANDEZ 2024-12-03 Page 1 of 1 [facility] - , [facility] Reason For Referral No Information Medications Medication SIG (Take, Route, Frequency, Duration) Notes Start Date End Date Status Ondansetron 4 MG Tablet Disintegrating 1 tablet on the tongue and allow to dissolve Oral Once a day; Duration: 30 days Active SM Sleep Aid 25 MG Tablet Oral; Duration: 30 Days Active Promethazine HCl 12.5 MG Tablet Oral; Duration: 14 Days Acti ve Vitamin B-6 25 MG Tablet Oral; Duration: 30 Days Active 19 - Tablet Chewable Oral; Duration: 90 Active Ondansetron 4 MG Tablet Disintegrating 1 tablet sublingually every 6h as needed for nausea 10/11/2024 Active Promethazine HCl 12.5 MG Tablet 1 tablet as needed Orally every 6 hrs; Duration: 30 days 12/23/2024 Active hydrOXYzine HCl 25 MG Tablet Oral; Duration: 30 Days Acti ve Social History Sex Assigned At : Social History Observation Description Sex Assigned At Female Social History Drugs/Alcohol: Social Info Question Answer Notes Steroid Use Have you used anabolic (body building) st eroids? No Problems Problem Type SNOMED Code ICD Code Onset Dates Problem Status W/U Status Risk Notes Problem Third trimester (82572938) Supervision of other normal , third trimester (Z34.83) 018 Active confirmed Encounter for supervision of other normal , third trimester Problem Streptococcus agalactiae infection (257919721) Positive GBS test (B95.1) Active confirmed Problem Supervision of high risk (522487622) Supervision of other high risk pregnancies, third trimester (O09.893) Active confirmed Problem Past history of section (situation) (725567114) Previous delivery, antepartum (O34.219) Active confirmed Vital Signs Weight 226.0 lbs 12/03/2024 BMI 37.608 kg/m2 12/03/2024 Encounters Encounter Location Date Provider Diagnosis [facility] [address] [facility] [address] [place] [phone] [facility] for test, result positive Z32.01 [facility] [address] [facility] [address] [place] [phone] 10/26/2024 [facility] [address] [place] [address] 12/08/2024 [facility] [address] [place] [address] 12/09/2024 [facility] [address] [facility] [address] [place] [phone] 12/23/2024 [facility] [address] [facility] [address] [place] [phone] 10/11/2024 Sophia Blount 9 weeks gestation of Z3A.09 and Encounter for supervision of other normal , first trimester Z34.81 [facility] [address] [facility] [address] [place] [phone] 11/12/2024 Sophia Blount 13 weeks gestation of Z3A.13 and Encounter for supervision of other normal , first trimester Z34.81 [facility] [address] [facility] [address] [place] [phone] 12/03/2024 Sophiarichar Blount 16 weeks gestation of Z3A.16 and Encounter for related examination in second trimester Z34.82 [facility] [address] [facility] [address] [place] [address] 12/03/2024 Sophiarichar Blount 16 weeks gestation of Z3A.16 and Encounter for related examination in second trimester Z34.82 [facility] [address] [facility] [address] [place] [address] 10/11/2024 Sophia Blount Encounter for test, result positive Z32.01 Assessments Encounter Date Diagnosis (ICD Code) Assessment Notes Treatment Notes Treatment Clinical Notes Section Notes 10/11/2024 9 weeks gestation of (ICD-10 - Z3A.09) 10/11/2024 Encounter for supervision of other normal , first trimester (ICD-10 - Z34.81) 10/11/2024 Encounter for test, result positive (ICD-10 - Z32.01) 09/19/2024 Encounter for test, result positive (ICD-10 - Z32.01) 11/12/2024 13 weeks gestation of (ICD-10 - Z3A.13) 11/12/2024 Encounter for supervision of other normal , first trimester (ICD-10 - Z34.81) 12/03/2024 Encounter for related examination in second trimester (ICD-10 - Z34.82) 12/03/2024 16 weeks gestation of (ICD-10 - Z3A.16) 12/03/2024 16 weeks gestation of (ICD-10 - Z3A.16) 12/03/2024 Encounter for related examination in second trimester (ICD-10 - Z34.82) Plan Of Treatment Future Test Test Name Order Date *US OB Detailed Anatomy 12/31/2024 Next Appt Details Provider Name:Valentina Queen, 01/05/2025 09:30:00 AM, [address], [place], [address], Provider Name:Valentina Queen, 01/05/2025 10:00:00 AM, [address], [place], [address], Provider Name:Sophia Blount, 01/31/2025 10:45:00 AM, [address], [place], [address], Provider Name:Sophia Blount, 03/03/2025 09:45:00 AM, [address], [place], [address], Provider Name:Sophia Blount, 04/07/2025 09:45:00 AM, [address], [place], [address], Insurance Providers Payer Name Payer Address Payer Phone Subscriber Number Group Number Insured Name Patient Relationship to Insured Coverage Start Date Coverage End Date [facility] (Medicaid) [address] [address] [place], [place] [id number] Angle Hernandez Self - patient is the insured Medical (General) History 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 History ICD Code Smoker Anxiety Asthma Depression HTN UTI Yeast infection Surgical History Surgery Date(Month/Year) ,2019 Hospitalization History Reason Date(Month/Year) labor and delivery
[2025-01-03 14:00] VITALS: BMI 37.5
[2025-01-03 14:07] VITALS: BP 117/71; PULSE 69; RESP 16; TEMP 36.7; O2SAT 97; BMI 37.5
[2025-01-03 14:15] LABS: Microscopic, Urine URINE MICROSCOPIC (MICROSCOPIC)
[2025-01-03 14:17] LABS: Appearance,Urine CLOUDY (Clear); Blood, Urine Negative (Negative); Color,Urine YELLOW (Yellow); Glucose,Urine (UA) Negative (Negative); Ketones,Urine 3+ (Negative); Leukocyte Esterase,Urine TRACE (Negative); Nitrate,Urine Negative (Negative); Protein,Urine TRACE (Negative)
[2025-01-03 14:37] LABS: Bacteria,Urine 1+ /lpf; Squamous Epithelial Cell,Urine 20-50 #/hpf (0-5)
[2025-01-03 14:42] LABS: Bilirubin,Urine 1+ (Negative)
[2025-01-03 15:10] LABS: Albumin Level 4.2 g/dl (3.5-5.0); Chloride 106 mmol/L (98-107); Sodium 137 mmol/L (136-145)
[2025-01-03 15:11] LABS: Potassium 3.6 mmoL/L (3.5-5.1)
[2025-01-03 15:13] LABS: Alanine Aminotransferase 21 U/L (12-78); Albumin/Globulin Ratio 1.2 (1.1-1.8); Alkaline Phosphatase 50 U/L (38-126); Amylase 119 U/L (30-110); Anion Gap 9.6 mEq/L (5-15); Aspartate Amino Transferase 33 U/L (14-36); Bilirubin,Total 0.7 mg/dl (0.2-1.3); Blood Urea Nitrogen 4 mg/dl (7-17); Calcium 9.5 mg/dl (8.4-10.2); Carbon Dioxide 25 mmol/L (22.0-30.0); Creatinine Clearance Estimated 224 mL/min (50-200); Estimated Glomerular Filt Rate 118 ml/min (>60); GFR (African American) 143 ML/MIN (>60); Globulin 3.6 g/dL (1.3-3.2); Glucose 79 mg/dl (74-100); Lipase 85 U/L (23-300); Total Protein,Serum 7.8 g/dl (6.3-8.2)
[2025-01-03 15:55] LABS: Basophils % 0.1 % (0.1-2.0); Eosinophils % 0.3 % (0.1-12.0); Hematocrit 41.8 % (37.0-47.0); Hemoglobin 13.9 g/dL (12.2-16.2); Immature Granulocytes # 0.04 10^3uL; Immature Granulocytes % 0.3 %; Lymphocytes % 16.7 % (10-50); Mean Corpuscular HGB Conc 33.3 g/dL (31.8-35.4); Mean Corpuscular Hemoglobin 28.3 pg (27.0-31.2); Mean Corpuscular Volume 85.1 fl (81-99); Mean Platelet Volume 13.4 fl (7.4-10.4); Monocytes # 0.4 K/mm3 (0.1-1.0); Monocytes % 3.7 % (1.7-9.3); Neutrophils # 9.5 K/mm3 (1.8-7.8); Neutrophils % 78.9 % (37.0-80.0); Nucleated Red Blood Cells # 0 10^3/uL; Nucleated Red Blood Cells % 0 %; Platelet Count 194 K/mm3 (142-424); Red Blood Count 4.91 M/mm3 (4.20-5.40); Red Cell Distribution Width 14.1 % (11.5-17.5); Red Cell Distribution Width-SD 43.2 fL
== END 2025-01-03 16:08 | disposition home or self-care (01) ==
LOC: OBOUT 13:32 → OB 13:33
PROVIDERS: PCP Family Medicine; Visit Provider Obstetrics & Gynecology
DX: Z34.01 Encounter for supervision of normal first pregnancy, first trimester (principal); Z3A.00 Weeks of gestation of pregnancy not specified
CPT/HCPCS: 80053; 81001; 82150; 83690; 85025; 96360; 99212; G0463

== ENCOUNTER 2025-01-12 21:55 | Outpatient (CLI) | payer MEDICAID, SELFPAY ==
--- OUTSIDE RECORDS SUMMARY | 2024-12-03 06:15 | XMS_ITS ---
Author Organization [facility] Address [address] [place] [address] Care Team Providers Care Net Developer Software Engineer C Name Role Phone Deidre Frost Unavailable [phone] Sophia Blount Unavailable [phone] Allergies Allergen (clinical drug ingredient) Drug/Non Drug [...] 12/03/2024 Encounters Encounter Location Date Provider Diagnosis [facility] [address] [place] [address] 12/03/2024 Sophia Blount 16 weeks gestation of Z3A.16 and Encounter for related examination in second trimester Z34.82 Assessments Encounter Date Diagnosis (ICD Code) Assessment Notes Treatment Notes Treatment Clinical Notes Section Notes 12/03/2024 16 weeks gestation of (ICD-10 - Z3A.16) 12/03/2024 Encounter for related examination in second trimester (ICD-10 - Z34.82) Plan Of Treatment Next Appt Details Follow Up: 4 Weeks, Reason: TRUDY @ 20w4d + anatomy US Provider Name:Sophia Blount, 01/31/2025 10:30:00 AM, [address], [facility] [address] [place] [address], [address], Provider Name:Sophia Blount, 01/31/2025 10:45:00 AM, [address], [facility] [address] [place] [address], [address], Provider Name:Sophia Blount, 03/03/2025 09:45:00 AM, [address] , [address], [address], Provider Name:Sophia Blount, 04/07/2025 09:45:00 AM, [address] [facility] [address] [place] [address], [address], Progress Notes * Lan HERNANDEZ KDOB: [birth year] (29 yo F)Acc No.[id number]:12/03/2024 Progress Note Patient: Lan VEGA Provider: Ayan Blount MD :1995 A ge:29 Y S ex:Female Date:12/03/2024 Address:[address] [place] [address] [place], [id number] Subjective: * Chief Complaints: * 1 6 week * 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: Smoker Anxiety Asthma Depression HTN UTI Yeast infection * 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 * OB History: P regnancy History (GPA) Total Pregnancies 9 Full Term 4 AB. Spontaneous 4 Living 4 C-Sections 4 G P : 8 Para: 4 P regnancy # 1: A bel, 2018, male. P regnancy # 2: marcel gracia, 2019, Male. P regnancy # 3: Rangel diaz, 05/2020, Male. P regnancy # 4: 2 022 , Repeat , Gilda F. * Surgical History: ,2019 * Hospitalization/Major [...] OFRAN: Unspecified - Allergy - Onset Date [id number][Allergies Verified] Objective: * Vitals: W t: 226.0 [...] * Procedure Codes: r ob [id number] * Follow Up: 4 Weeks (Reason: TRUDY @ 20w4d + anatomy US) * Billing Information: * Visit Code: trudy Return OB Visit. * Procedure Codes: trudy Return OB Visit. 0502F HEDIS SUBSEQUENT CARE. * Sign off status: Completed Visit Status: A RR (Check-In) true * Provider: Ayan Blount MD Date: 0 12/03/2024 Generated for Jennifer fernández/Livia/Gricelda on: 0 01/12/2025 09:58 PM EDT
--- OUTSIDE RECORDS SUMMARY | 2025-01-05 05:30 | XMS_ITS ---
Author Organization [facility] Address [address] [facility] [address] [place] [address] Care Team Providers Care Hash Slinger Name Role Phone SantoshShuni Unavailable [phone] Valentina Queen Unavailable [phone] Results Component Value Reference Range Notes *US OB Detailed Anatomy Reviewed date:01/05/2025 01:16:23 PM Interpretation: Performing Lab: Notes/Report: [facility] Transabdominal Obstetric Study Report Name: ANGLE HERNANDEZ Accession/Encounter No:[id number] Procedure/Order ID: [id number] : 1995 Age: 29 Gender: F Study Date: Jan 05, 2025 Study Time: 09:24 AM Reading Group: Carla Morgan MD Referring Group: Valentina Queen APRN Ordering Phys: Valentina Queen APRN Performing User: Britni Bo RDMS Equipment: Affiniti 30 Study Quality: Technically Difficult Indications: anatomy scan Risk Factors: Obesity, c/s, hx mab, smoker An anatomy ultrasound was performed. Disclaimer: Ultrasound cannot detect all structural defects or underlying genetic abnormalities. Additionally, some abnormalities develop over time and/or are not detectable until after . General Information Trimester: 2nd/3rd trimester Gestations: 1 : Intrauterine Gestational Age (Best) Best: 21w 2d Determined by: First US JILL: 2025-05-16 Gestational Age (Prev Study) Previous US: 21w 2d Previous Study: November 2024 by LMP JILL: 2025-05-16 Gestational Age (Current US) Current US: 22w 1d JILL: 2025-05-10 Gestational Age (Other) Other: 21w 2d Description: First US JILL: 2025-05-16 General Evaluation gender: M cardiac activity: Present Presentation/Position: Breech Placental cord insert: Centrally located Placental location: Posterior Biometry (Fetus A) EFW: 503.1g 1 lb 2 oz 62% BRET-76 HR: 158 bpm BPD: 5.15 cm 21w 4d 62% HADLOCK-84 HC: 19.36 cm21w 4d 54% HADLOCK-84 AC: 18.34 cm23w 1d 92% HADLOCK-84 FL: 3.71 cm 21w 6d 59% HADLOCK-84 FL/HC: 0.19 HC/AC: 1.06 FL/BPD: 0.72 FL/AC: 0.2 Cisterna magna: 4.1 mm Lateral vents: 5.2 mm TCD: 2.23 cm 22w 1d 59% Anatomy (Fetus A) Midline falx: Normal Cisterna magna: Normal Choroid plexus: Normal Lateral ventricles: Normal Cerebellum: Normal CSP: Normal Orbits: Normal Face: Normal Profile: Suboptimal Nose/Lips: Normal Right upper extr: Normal Right lower extr: Normal Left upper extr: Normal Left lower extr: Normal 4-chamber heart: Suboptimal LVOT: Suboptimal RVOT: Suboptimal Cardiac rhythm: Normal Spine: Normal Stomach: Normal Diaphragm: Normal Bowel: Normal Right kidney: Normal Left kidney: Normal Bladder: Normal Abdom. cord insert: Normal Cord vessels: 3 vessel cord Findings: Anatomy: Sonographic evaluation reveals kaiser intrauterine in breech position, centrally located cord insert. Posterior placenta. cardiac activity present. growth appears normal. Maternal Anatomy: Cervix is 3.87 cm long. Conclusions: Kaiser IUP noted with cardiac activity. No anomalies noted at this time, however heart and profile suboptimal due to MBH and position. growth is consistent with dating. Fluid appears normal Approved By: Carla Morgan MD Approved at: January 05, 2025 12:08 PM EDT Electronically Signed on [employer] HERNANDEZ 2025-01-05 Page 1 of 1 Imaging Center - , [facility] [place] REASON FOR VISIT FAS. LRM. JILL 05/16. smoker, MABS, obesity, C/Sx4...sent to ..sdw Social History Sex Assigned At : Social History Observation Description Sex Assigned At Female Encounters Encounter Location Date Provider Diagnosis [facility] [address] [place] [address] 01/05/2025 Valentina Queen Encounter for related examination in second trimester Z34.82 Assessments Encounter Date Diagnosis (ICD Code) Assessment Notes Treatment Notes Treatment Clinical Notes Section Notes 01/05/2025 Encounter for related examination in second trimester (ICD-10 - Z34.82) Plan Of Treatment Next Appt Details Provider Name:Sophia Blount, 01/31/2025 10:30:00 AM, [address], [address], [place], [address], Provider Name:Sophia Blount, 01/31/2025 10:45:00 AM, [address], [address], [place], [address], Provider Name:Sophia Blount, 03/03/2025 09:45:00 AM, [address], [address], [place], [address], Provider Name:Sophia Blount, 04/07/2025 09:45:00 AM, [address], [address], [place], [address], Progress Notes * Angle HERNANDEZ KDOB: [birth year] (29 yo F)Acc No.[id number]:01/05/2025 Progress Note Patient: Angle Eugene Provider: Alessandra Queen APRN :1995 A ge:29 Y S ex:Female Date:01/05/2025 Address:[address] [place] [address] , [place], [id number] Subjective: * Chief Complaints: * F . LRM. JILL 05/16. smoker, MABS, obesity, C/Sx4...sent to ..sdw Assessment: * Assessment: 1. E ncounter for related examination in second trimester - Z34.82 (Primary) ? Plan: * Treatment: Billing Information: * Procedure Codes: * Electronic signature of Kathy Queen NP on 01/12/2025 at 09:58 PM EDT Sign off status: Pending Visit Status: Maik SELLERS (Check Out) * Provider: Alessandra Queen APRN Date: 01/05/2025 Generated for Jennifer fernández/Livia/eTransmitting on: 01/12/2025 09:58 PM EDT
--- OUTSIDE RECORDS SUMMARY | 2025-01-05 06:00 | XMS_ITS ---
Author Organization [facility] Address [address] [place] [address] Care Team Providers Care Redipper Name Role Phone Santosh Deidre Unavailable [phone] Valentina Queen Unavailable [phone] REASON FOR VISIT 21 weeks Medications Medication SIG (Take, Route, Frequency, Duration) Notes Start Date End Date Status Promethazine HCl 12.5 MG Tablet Oral; Duration: 14 Days Acti ve Ondansetron 4 MG Tablet Disintegrating 1 tablet on the tongue and allow to dissolve Oral Once a day; Duration: 30 days Active Promethazine HCl 12.5 MG Tablet 1 tablet as needed Orally every 6 hrs; Duration: 30 days 12/23/2024 Active SM Sleep Aid 25 MG Tablet Oral; Duration: 30 Days Active Vitamin B-6 25 MG Tablet Oral; Duration: 30 Days Active Ondansetron 4 MG Tablet Disintegrating 1 tablet sublingually every 6h as needed for nausea 10/11/2024 Active 19 - Tablet Chewable Oral; Duration: 90 Active hydrOXYzine HCl 25 MG Tablet Oral; Duration: 30 Days Acti ve Social History Sex Assigned At : Social History Observation Description Sex Assigned At Female Vital Signs Weight 225 lbs 01/05/2025 BMI 37.442 kg/m2 01/05/2025 Encounters Encounter Location Date Provider Diagnosis [facility] [address] [place] [address] 01/05/2025 Valentina Queen 21 weeks gestation of Z3A.21 and Supervision of other normal , second trimester Z34.82 Assessments Encounter Date Diagnosis (ICD Code) Assessment Notes Treatment Notes Treatment Clinical Notes Section Notes 01/05/2025 21 weeks gestation of (ICD-10 - Z3A.21) 01/05/2025 Supervision of other normal , second trimester (ICD-10 - Z34.82) Plan Of Treatment Pending Test Test Name Order Date CBC 01/05/2025 Future Test Test Name Order Date * OB Follow-Up 01/05/2025 Next Appt Details Follow Up: 3 Weeks, Reason: Provider Name:Sophia Blount, 01/31/2025 10:30:00 AM, [facility] [address], [facility] [address] [place] [address], [address], Provider Name:Sophia Blount, 01/31/2025 10:45:00 AM, [address], [facility] [address] [place] [address], [address], Provider Name:Sophia Blount, 03/03/2025 09:45:00 AM, [facility] [address], [facility] [address] [place] [address], [address], Provider Name:Sophia Blount, 04/07/2025 09:45:00 AM, [facility] , [address], [address], History and Physical Notes * HPI (History of Present Illness) Category Sub-Category Detail Notes Category Not es CHRIS Statement CHRIS Statement I examined the p atient and provided services as documented to the [facility] physician-approved plan of care. Today's services were rendered incident-to __Borders , who was the supervising physician present in the office and immediately available to provide direction during the encounter Progress Notes * Lan HERNANDEZ KDOB: [birth year] (29 yo F)Acc No.[id number]:01/05/2025 Progress Note Patient: Lan Eugene Provider: Alessandra Queen APRN :1995 A ge:29 Y S ex:Female Date:01/05/2025 Address:[address] [place] [address] [place], [id number] Subjective: * Chief Complaints: * 2 1 weeks * HPI: A PP Statement: CHRIS Statement I examined the patient and [facility]. Today's services were rendered incident-to __Borders , who was the supervising physician present in the office and immediately available to provide direction during the encounter. * Automation Sales Manager History: M enstrual History: L MP: 0 07/28/2024 L ast Pap Smear/HPV Date (Historical) U nknown. * OB History: P regnancy History (GPA) Total Pregnancies 9 Full Term 4 AB. Spontaneous 4 Living 4 C-Sections 4 G P : 8 Para: 4 P regnancy # 1: A mikel, 2018, male. P regnancy # 2: marcel basil, 2019, Male. P regnancy # 3: G abirel, 05/2020, Male. P regnancy # 4: 2 022 , Repeat , Iris F. * Medications: T akinghydrOXYzine HCl 25 MG Tablet Oral Ondansetron 4 MG Tablet Disintegrating 1 tablet sublingually every 6h as needed for nausea Ondansetron 4 MG Tablet Disintegrating 1 tablet on the tongue and allow to dissolve Oral Once a day 19( Vit-Fe Fumarate-FA) - Tablet Chewable Oral Promethazine HCl 12.5 MG Tablet Oral Promethazine HCl 12.5 MG Tablet 1 tablet as needed Orally every 6 hrs SM Sleep Aid 25 MG Tablet Oral Vitamin B-6 25 MG Tablet Oral Taking hydrOXYzine HCl 25 MG Tablet Oral Taking Ondansetron 4 MG Tablet Disintegrating 1 tablet sublingually every 6h as needed for nausea Taking Ondansetron 4 MG Tablet Disintegrating 1 tablet on the tongue and allow to dissolve Oral Once a day Taking 19( Vit-Fe Fumarate-FA) - Tablet Chewable Oral Taking Promethazine HCl 12.5 MG Tablet Oral Taking Promethazine HCl 12.5 MG Tablet 1 tablet as needed Orally every 6 hrs Taking SM Sleep Aid 25 MG Tablet Oral Taking Vitamin B-6 25 MG Tablet Oral Objective: * Vitals: W t: 225 lbs, BMI: 37.442 Index. Assessment: * Assessment: 1. 2 1 weeks gestation of - Z3A.21 (Primary) 2 . S upervision of other normal , second trimester - Z34.82 Plan: * Treatment: 2. S upervision of other normal , second trimester I maging: *US OB Follow-Up (Ordered for 01/05/2025) * Procedure Codes: r ob Return OB [id number] HEDIS SUBSEQUENT CARE * Follow Up: 3 Weeks Billing Information: * Procedure Codes: trudy Return OB Visit. [id number] HEDIS SUBSEQUENT CARE. * Sign off status: Completed Visit Status: C HK (Check Out) true * Provider: Alessandra Queen APRN Date: 01/05/2025 Generated for Jennifer fernández/Livia/Gricelda on: 01/12/2025 09:58 PM EDT
--- OUTSIDE RECORDS SUMMARY | 2025-01-12 21:58 | XMS_ITS | Clinical Summary ---
Author Organization [facility] Address [address] [place] [address] Care Team Providers Care Mail Processing Machine Operator Name Role Phone Unavailable Primary Care Provider [...] Plan of Treatment Not on file Insurance [employer]
--- OUTSIDE RECORDS SUMMARY | 2025-01-12 21:58 | XMS_ITS | Encounter Summary ---
Author Organization [facility] Address [address] [place] [address] Care Team Providers Care Supervisor Leaf Spring Repair Name Role Phone Unavailable Primary Care Provider Unavailabl e Encounter Details Date Type Department Care Team (Late st Contact Info) Description 08/31/2021 Lab Requisition [facility] [address] [place] [address] Hope Potter MD [address] [place] [address] Encounter for general adult medical examination without [...] 87(H) <10 ng/mL 09/02/2021 1:40 PM EST [facility] 9 Carboxy THC Glucuronide >250(H) <50 ng/mL 09/02/2021 1:40 PM EST [facility] Urine Urine specimen obtained by clean catch procedure / Unknown 08/30/2021 2:02 PM EST 08/31/2021 11:33 AM EST Narrative [facility] - 09/02/2021 1:40 PM EST Drug analysis is confirmed by LC-MS/MS (LC Tandem Mass Spectrometry) on Urine specimens. This test was developed and its performance characteristics determined by [facility]. It has not been cleared or approved by the FDA. The laboratory is regulated under CLIA as qualified to perform high-complexity testing. This test is used for clinical purposes. Testing is performed at the [facility], Special Chemistry Laboratory. us Hope Potter MD LAB URINE ORDERABLES Final Re sult [facility] [address] [place] [address] documented in this encounter Visit Diagnoses Diagnosis Encounter for general adult medical examination without abnormal findings documented in this encounter
--- OUTSIDE RECORDS SUMMARY | 2025-01-12 21:58 | XMS_ITS | Clinical Summary ---
Author Organization [facility] Address [address] [place] [address] Care Team Providers Care Physician Coding Specialist Name Role Phone Unknown, Attending Provider Primary [...] therelease of HIV test results or diagnoses. [id number] Allergies No known active allergies Social [...] patient's age to complete this topic Insurance [employer] [place] Care Teams Physician Coding Specialist Relationship Specialty Start Date End Date Unknown, Attending Provider PCP - General 09/23/24
--- OUTSIDE RECORDS SUMMARY | 2025-01-12 21:59 | XMS_ITS | Patient Health Record ---
Author Organization [facility] Address [address] [address] Care Team Providers Care Press Tender Short Goods Name Role Phone Santosh Deidre Unavailable [phone] Sophia Blount Unavailable [phone] Valentina Queen Unavailable [phone] Allergies Allergen (clinical drug ingredient) Drug/Non Drug Allergy documented on EMR Reaction Allergy Type Onset Date Status ZOFRAN (uncoded) Unspecified Allergy 01/23/2018 Active Results Component Value Reference Range Notes *US OB Complete Transabdomin al/Vaginal Reviewed date:10/11/2024 02:31:17 PM Interpretation: Performing Lab: Notes/Report: [facility] Transabdominal Obstetric Study Report Name: ANGLE HERNANDEZ Accession/Encounter No:[id number] : 1995 Age: 29 Gender: F Study [...] Present Biometry (Fetus A) HR: 176 bpm [place]-rump length:22.99 mm9w 0d 60% Conclusions: [facility] IUP noted with cardiac activity. Size is NOT consistent with LMP dating. Uterus, ovaries and bilateral adnexa appear normal. Approved By: Carla Morgan MD Approved at: October 11, 2024 12:43 PM EDT Electronically Signed on [employer] ANGLE HERNANDEZ 2024-10-11 Page 1 of 1 Imaging Center - , [facility] [address] *US OB Limited Reviewed date:12/03/2024 11:24:11 AM Interpretation: Performing Lab: Notes/Report: [facility] Transabdominal Obstetric Study Report Name: ANGLE HERNANDEZ Accession/Encounter No:[id number] Procedure/Order ID: [id number] : 1995 Age: 29 Gender: F Study [...] 1 of 1 Imaging Center - , [facility] OB Detailed Anatomy Reviewed date:01/05/2025 01:16:23 PM Interpretation: Performing Lab: Notes/Report: [facility] Transabdominal Obstetric Study Report Name: ANGLE HERNANDEZ Accession/Encounter No:[id number] Procedure/Order ID: [id number] : 1995 Age: 29 Gender: F Study [...] 1 of 1 Imaging Center - , [facility] Non Invasive Testin g Reviewed date:11/19/2024 04:00:05 PM Interpretation:low risk NIPT/XY Performing Lab: Notes/Report: low risk NIPT/XY Reason For Referral No Information Medications Medication [...] Tablet Oral; Duration: 30 Days Acti ve Ondansetron 4 MG Tablet [...] MG Tablet Oral; Duration: 30 Days Active Social History Sex Assigned At : Social History Observation Description Sex Assigned At Female Social History Drugs/Alcohol: Social Info Question Answer Notes Steroid Use Have you used anabolic (body building) st eroids? No Problems Problem Type SNOMED Code ICD Code Onset Dates Problem Status W/U Status Risk Notes Problem Third trimester (12261765) Supervision of other normal , third trimester (Z34.83) 018 Active confirmed Encounter for supervision of other normal , third trimester Problem Streptococcus agalactiae infection (877822095) Positive GBS test (B95.1) Active confirmed Problem Supervision of high risk (593573040) Supervision of other high risk pregnancies, third trimester (O09.893) Active confirmed Problem Past history of section (situation) (116097770) Previous delivery, antepartum (O34.219) Active confirmed Vital Signs Weight 225 lbs 01/05/2025 BMI 37.442 kg/m2 01/05/2025 Encounters Encounter Location Date Provider Diagnosis [facility] [address] [facility] [address] [place] [address] [facility], result positive Z32.01 [facility] [address] [facility] [address] [place] [address] 10/26/2024 [facility] [address] [place] [address] 12/08/2024 [facility] [address] [place] [address] 12/09/2024 [facility] [address] [facility] [address] [place] [address] 12/23/2024 [facility] [address] [facility] [address] [place] [address] 01/05/2025 Valentina Queen Encounter for related examination in second trimester Z34.82 [facility] [address] [place] [address] 12/03/2024 Sophia Cook 16 weeks gestation of Z3A.16 and Encounter for related examination in second trimester Z34.82 [facility] [address] [place] [address] 10/11/2024 Sophia Cook 9 weeks gestation of Z3A.09 and Encounter for supervision of other normal , first trimester Z34.81 [facility] [address] [place] [address] 11/12/2024 Sophia Cook 13 weeks gestation of Z3A.13 and Encounter for supervision of other normal , first trimester Z34.81 [facility] [address] [facility] [address] [place] [address] 12/03/2024 Sophia Cook 16 weeks gestation of Z3A.16 and Encounter for related examination in second trimester Z34.82 [facility] [address] [facility] [address] [place] [address] 01/05/2025 Valentina Queen 21 weeks gestation of Z3A.21 and Supervision of other normal , second trimester Z34.82 [facility] [address] [facility] [address] [place] [address] 10/11/2024 Sophiarichar Blount Encounter for test, result positive Z32.01 [...] 16 weeks gestation of (ICD-10 - Z3A.16) 01/05/2025 Supervision of other normal , second trimester (ICD-10 - Z34.82) 01/05/2025 21 weeks gestation of (ICD-10 - Z3A.21) 01/05/2025 Encounter for related examination in second trimester (ICD-10 - Z34.82) 12/03/2024 Encounter for related examination in second trimester (ICD-10 - Z34.82) Plan Of Treatment Pending Test Test Name Order Date CBC 01/05/2025 Future Test Test Name Order Date * OB Follow-Up 01/05/2025 Next Appt Details Provider Name:Sophia Blount, 01/31/2025 10:30:00 AM, [address], [facility] [address] [place] [address], [phone], Provider Name:Sophia Blount, 01/31/2025 10:45:00 AM, [address], [facility] [address] [place] [address], [address], Provider Name:Sophia Blount, 03/03/2025 09:45:00 AM, [address], [facility] [address] [place] [address], [address], Provider Name:Sophia Blount, 04/07/2025 09:45:00 AM, [address], [facility] [address] [place] [address], [phone], Insurance Providers Payer Name Payer Address Payer Phone Subscriber Number Group Number Insured Name Patient Relationship to Insured Coverage Start Date Coverage End Date [facility] (Medicaid) [address] [address] [place], [place] [id number] [phone] [id number] Angle Hernandez Self - patient is the insured Medical (General) History 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 History ICD Code Smoker Anxiety Asthma Depression HTN UTI Yeast infection Surgical History Surgery Date(Month/Year) ,2019 Hospitalization History Reason Date(Month/Year) labor and delivery
[2025-01-12 22:03] VITALS: BP 116/81; PULSE 92; RESP 16; TEMP 36.9; O2SAT 97; BMI 37.4
[2025-01-12 23:04] LABS: Basophils % 0.1 % (0.1-2.0); Eosinophils % 0.3 % (0.1-12.0); Hematocrit 38.2 % (37.0-47.0); Hemoglobin 12.8 g/dL (12.2-16.2); Immature Granulocytes # 0.06 10^3uL; Immature Granulocytes % 0.5 %; Lymphocytes # 2.1 K/mm3 (0.7-4.5); Lymphocytes % 19.5 % (10-50); Mean Corpuscular HGB Conc 33.5 g/dL (31.8-35.4); Mean Corpuscular Hemoglobin 28.6 pg (27.0-31.2); Mean Corpuscular Volume 85.3 fl (81-99); Mean Platelet Volume 13.1 fl (7.4-10.4); Monocytes # 0.5 K/mm3 (0.1-1.0); Monocytes % 4.7 % (1.7-9.3); Neutrophils # 8.2 K/mm3 (1.8-7.8); Neutrophils % 74.9 % (37.0-80.0); Nucleated Red Blood Cells # 0 10^3/uL; Nucleated Red Blood Cells % 0 %; Platelet Count 202 K/mm3 (142-424); Red Blood Count 4.48 M/mm3 (4.20-5.40)
[2025-01-12 23:14] LABS: Activated Partial Thrombo Time 25.9 seconds (22.8-30.6); INR 1.02 (0.9-1.1); Prothrombin Time 11.3 seconds (10.1-12.5)
[2025-01-12 23:15] LABS: Albumin Level 3.7 g/dl (3.5-5.0); Chloride 106 mmol/L (98-107); Potassium 3.8 mmoL/L (3.5-5.1); Sodium 134 mmol/L (136-145)
[2025-01-12 23:17] LABS: Blood Urea Nitrogen 3 mg/dl (7-17); Creatinine Clearance Estimated 223 mL/min (50-200); Estimated Glomerular Filt Rate 118 ml/min (>60); GFR (African American) 143 ML/MIN (>60)
[2025-01-12 23:18] LABS: Alanine Aminotransferase 26 U/L (12-78); Albumin/Globulin Ratio 1.1 (1.1-1.8); Alkaline Phosphatase 54 U/L (38-126); Anion Gap 7.8 mEq/L (5-15); Aspartate Amino Transferase 33 U/L (14-36); Bilirubin,Total 0.3 mg/dl (0.2-1.3); Calcium 9.1 mg/dl (8.4-10.2); Carbon Dioxide 24 mmol/L (22.0-30.0); Globulin 3.5 g/dL (1.3-3.2); Glucose 90 mg/dl (74-100); Total Protein,Serum 7.2 g/dl (6.3-8.2)
[2025-01-12 23:36] LABS: Microscopic, Urine URINE MICROSCOPIC (MICROSCOPIC)
[2025-01-12 23:38] LABS: Appearance,Urine CLOUDY (Clear); Blood, Urine Negative (Negative); Color,Urine YELLOW (Yellow); Glucose,Urine (UA) Negative (Negative); Ketones,Urine 3+ (Negative); Leukocyte Esterase,Urine Negative (Negative); Nitrate,Urine Negative (Negative); Protein,Urine 2+ (Negative); Specific Gravity, Urine >= 1.030 (1.005-1.030)
[2025-01-12 23:43] LABS: Bacteria,Urine 2+ /lpf; Bilirubin,Urine 1+ (Negative); RBC,Urine Occasional #/hpf (0-3); Squamous Epithelial Cell,Urine TNTC #/hpf (0-5)
[2025-01-12 23:48] LABS: Barbiturates Screen,Urine Negative ng/ml (<200)
[2025-01-12 23:49] LABS: Benzodiazepines Screen,Urine Negative ng/ml (<200)
[2025-01-12 23:50] LABS: Amphetamine/Metha Screen,Urine Negative ng/ml (<1000); Cannabinoid Screen,Urine Positive ng/ml (<50)
[2025-01-12 23:51] LABS: Cocaine Screen,Urine Negative ng/ml (<300)
[2025-01-12 23:52] LABS: Methadone Screen,Urine Negative ng/ml (<300); Opiate Screen,Urine Negative ng/ml (<300)
[2025-01-12 23:53] LABS: Phencyclidine Screen,Urine Negative ng/ml (<25)
== END 2025-01-12 23:29 | disposition home or self-care (01) ==
LOC: OBOUT 21:56 → OB 21:58
PROVIDERS: PCP Family Medicine; Visit Provider Obstetrics & Gynecology
DX: Z34.83 Encounter for supervision of other normal pregnancy, third trimester (principal); Z34.82 Encounter for supervision of other normal pregnancy, second trimester; Z3A.22 22 weeks gestation of pregnancy; Y04.2XXA Assault by strike against or bumped into by another person, initial encounter
CPT/HCPCS: 80053; 80307; 81001; 85025; 85610; 85730; 87086; 99212; G0463

== ENCOUNTER 2025-03-10 12:01 | Outpatient (CLI) | payer MEDICAID, SELFPAY ==
--- OUTSIDE RECORDS SUMMARY | 2025-03-03 05:45 | XMS_ITS ---
Author Organization [facility] Address [address] [place] [address] Care Team Providers Care Banana Carrier Name Role Phone Deidre Frost Unavailable [phone] Sophia Blount Unavailable [phone] REASON FOR VISIT 28 Social History Sex Assigned At : Social History Observation Description Sex Assigned At Female Encounters Encounter Location Date Provider Diagnosis [facility] [address] [facility] [address] [place] [address] 03/03/2025 Sophia Blount Plan Of Treatment Next Appt Details Provider Name:Sophia Blount, 04/07/2025 09:45:00 AM, [address] [facility] [address], [place], [address], Provider Name:Sophia Blount, 04/21/2025 10:15:00 AM, [address] [facility] [address], [place], [address], Provider Name:Sophia Blount, 05/02/2025 09:15:00 AM, [address] [facility] [address] [place] [address], [phone], Provider Name:Sophia Blount, 05/09/2025 09:15:00 AM, [address], [place], [address], Provider Name:Hope Ptoter, 05/11/2025 07:30:00 AM, [address], [place], [address], Provider Name:Hope Potter, 05/25/2025 11:30:00 AM, [address], [address], [place], [address], Provider Name:Hope Potter, 06/22/2025 02:30:00 PM, [address], [address], [place], [address], Progress Notes * Lan CEE KDOB: [birth year] (29 yo F)Acc No.[id number]:03/03/2025 Progress Note Patient: Lan Eugene Provider: Ayan Blount MD :1995 A ge:29 Y S ex:Female Date:03/03/2025 Address:[address] [place] [address], [facility] Subjective: * Chief Complaints: * 2 8 * Electronic signature of Boy Blount MD on 03/10/2025 at 12:04 PM EDT Sign off status: Pending Visit Status: R /S (Rescheduled) * Provider: Ayan Blount MD Date: 03/03/2025 Generated for Jennifer fernández/Faosvaldog/eTransmitting on: 03/10/2025 12:04 PM EDT
--- OUTSIDE RECORDS SUMMARY | 2025-03-04 05:00 | XMS_ITS ---
Author Organization [facility] Address [address] [place] [address] Care Team Providers Care Disability Liaison Officer Name Role Phone Santosh Deidre Unavailable [phone] Sophia Blount Unavailable [phone] Results Component Value Reference Range Notes *US OB Follow-Up Reviewed date:03/04/2025 02:39:16 PM Interpretation: Performing Lab: Notes/Report: [facility] Transabdominal Obstetric Study Report Name: ANGLE HERNANDEZ Accession/Encounter No:[id number] Procedure/Order ID: [id number] : 1995 Age: 29 Gender: F Study Date: Mar 04, 2025 Study Time: 09:25 AM Reading Group: Carla Morgan MD Referring Group: Sophia Blount MD Ordering Phys: Sophia Blount MD Performing User: Britni Bo RDMS Equipment: Affiniti 30 Study Quality: Good Indications: EFW. Follow suboptimal heart x 2, obesity, prior c/s, smoker, hx mab, anxiety A growth ultrasound was performed. Disclaimer: Ultrasound cannot detect all structural defects or underlying genetic abnormalities. Additionally, some abnormalities develop over time and/or are not detectable until after . General Information Trimester: 2nd/3rd trimester Gestations: 1 : Intrauterine Gestational Age (Best) Best: 29w 4d Determined by: Previous US JILL: 2025-05-16 Gestational Age (Prev Study) Previous US: 29w 4d Previous Study: November 2024 by LMP JILL: 2025-05-16 Gestational Age (Current US) Current US: 30w 2d JILL: 2025-05-11 General Evaluation gender: M cardiac activity: Present Presentation/Position: Cephalic Placental location: Posterior Amniotic fluid index: 16.97 cm ERI percentile: 63 % LUQ: 5.22 cm LLQ: 4.69 cm RUQ: 2.33 cm RLQ: 4.73 cm Fluid: Normal Biometry (Fetus A) EFW: 1549.2g 3 lb 7 oz 66% BRET-76 HR: 142 bpm BPD: 7.38 cm 29w 4d 39% HADLOCK-84 HC: 28 cm 30w 5d 48% HADLOCK-84 AC: 26.77 cm30w 6d 81% HADLOCK-84 FL: 5.6 cm 29w 3d 32% HADLOCK-84 FL/HC: 0.2 HC/AC: 1.05 FL/BPD: 0.76 FL/AC: 0.21 Anatomy (Fetus A) 4-chamber heart: Normal LVOT: Normal RVOT: Normal Cardiac rhythm: Normal 3VV: Normal Stomach: Normal Diaphragm: Normal Right kidney: Normal Left kidney: Normal Bladder: Normal Findings: Anatomy: Sonographic evaluation reveals kaiser intrauterine in cephalic position. Posterior placenta. cardiac activity present. growth appears normal. Normal ERI (ERI = 16 .97). Maternal Anatomy: Cervix is 4.72 cm long. Conclusions: Kaiser IUP noted with cardiac activity. growth is consistent with dating. Fluid appears normal Cardiac structures appear grossly WNL on today's exam. Approved By: Carla Morgan MD Approved at: March 04, 2025 01:45 PM EDT Electronically Signed on Studycast ANGLE HERNANDEZ 2025-03-04 Page 1 of 1 Imaging Center - , [facility] Tristen [place] REASON FOR VISIT 28 week growth. Sent to for 03/03 but r/s to today. Medications Medication SIG (Take, Route, Frequency, Duration) Notes Start Date End Date Status hydrOXYzine HCl 25 MG Tablet Oral; Duration: 30 Days Acti ve Promethazine HCl 12.5 MG Tablet 1 tablet as needed Orally every 6 hrs; Duration: 30 days 12/23/2024 Active SM Sleep Aid 25 MG Tablet Oral; Duration: 30 Days Active Ondansetron 4 MG Tablet Disintegrating 1 tablet on the tongue and allow to dissolve Oral Once a day; Duration: 30 days Active Vitamin B-6 25 MG Tablet Oral; Duration: 30 Days Active Ondansetron 4 MG Tablet Disintegrating 1 tablet sublingually every 6h as needed for nausea 10/11/2024 Active 19 - Tablet Chewable Oral; Duration: 90 Active Promethazine HCl 12.5 MG Tablet Oral; Duration: 14 Days Acti ve Social History Sex Assigned At : Social History Observation Description Sex Assigned At Female Encounters Encounter Location Date Provider Diagnosis [facility] [address] [place] [address] 03/04/2025 Sophia Blount Obesity E66.9 Assessments Encounter Date Diagnosis (ICD Code) Assessment Notes Treatment Notes Treatment Clinical Notes Section Notes 03/04/2025 Obesity (ICD-10 - E66.9) Plan Of Treatment Next Appt Details Provider Name:Sophia Blount, 04/07/2025 09:45:00 AM, [address], [address], [place], [address], Provider Name:Sophia Blount, 04/21/2025 10:15:00 AM, [email or web address], [place], [address], Provider Name:Sophia Blount, 05/02/2025 09:15:00 AM, [email or web address], [place], [address], Provider Name:Sophia Blount, 05/09/2025 09:15:00 AM, [email or web address], [place], [address], Provider Name:Hope Potter, 05/11/2025 07:30:00 AM, [address], [address], [place], [address], Provider Name:Hope Potter, 05/25/2025 11:30:00 AM, [email or web address], [address], [place], [address], Provider Name:Hope Potter, 06/22/2025 02:30:00 PM, [address], [address], [place], [address], Progress Notes * MARY Angle KDOB: [birth year] (29 yo F)Acc No.[id number]:03/04/2025 Progress Note Patient: Angle Eugene Provider: Ayan lBount MD :1995 A ge:29 Y S ex:Female Date:03/04/2025 Address:[address] [place] [address] , [place], [id number] Subjective: * Chief Complaints: * 2 8 week growth. Sent to for 03/03 us but r/s to today. * Medications: T akinghydrOXYzine HCl 25 MG [...] Taking Vitamin B-6 25 MG Tablet Oral Assessment: * Assessment: 1. O besity - E66.9 Plan: * Treatment: * Electronic signature of Boy Blount MD on 03/10/2025 at 12:05 PM EDT Sign off status: Pending Visit Status: C HK (Check Out) * Provider: Ayan Blount MD Date: 03/04/2025 Generated for Jennifer fernández/Livia/Gricelda on: 03/10/2025 12:05 PM EDT
--- OUTSIDE RECORDS SUMMARY | 2025-03-04 05:15 | XMS_ITS ---
Author Organization [facility] Address [address] [place] [address] Care Team Providers Care Foreign Policy Officer Name Role Phone Deidre Frost Unavailable [phone] Sophia Blount Unavailable [phone] Allergies Allergen (clinical drug ingredient) Drug/Non Drug Allergy documented on EMR Reaction Allergy Type Onset Date Status ZOFRAN (uncoded) Unspecified Allergy 01/23/2018 Active REASON FOR VISIT 28 weeks with ultrasounds Medications Medication SIG (Take, Route, Frequency, Duration) Notes Start Date End Date Status 19 - Tablet Chewable Oral Active Ondansetron 4 MG Tablet Disintegrating 1 tablet on the tongue and allow to dissolve Oral Once a day; Duration: 30 days Active Vitamin B-6 25 MG Tablet Oral; Duration: 30 Days Active SM Sleep Aid 25 MG Tablet Oral; Duration: 30 Days Active Promethazine HCl 12.5 MG Tablet 1 tablet as needed Orally every 6 hrs; Duration: 30 days 12/23/2024 Active Ondansetron 4 MG Tablet Disintegrating 1 tablet sublingually every 6h as needed for nausea 10/11/2024 Active hydrOXYzine HCl 25 MG Tablet Oral; Duration: 30 Days Acti ve Promethazine HCl 12.5 MG Tablet Oral; Duration: 14 Days Acti ve Social History Sex Assigned At : Social History Observation Description Sex Assigned At Female Social History Drugs/Alcohol: Social Info Question Answer Notes Steroid Use Have you used anabolic (body building) st eroids? No Vital Signs Weight 229 lbs 03/04/2025 BMI 38.108 kg/m2 03/04/2025 Encounters Encounter Location Date Provider Diagnosis [facility] [address] [place] [address] 03/04/2025 Sophia Blount Encounter for related examination in third trimester Z34.83 ; 29 weeks gestation of Z3A.29 ; Supervision of other normal , third trimester Z34.83 ; Previous delivery, antepartum O34.219 and Obesity E66.9 Assessments Encounter Date Diagnosis (ICD Code) Assessment Notes Treatment Notes Treatment Clinical Notes Section Notes 03/04/2025 Encounter for related examination in third trimester (ICD-10 - Z34.83) 03/04/2025 29 weeks gestation of (ICD-10 - Z3A.29) 03/04/2025 Supervision of other normal , third trimester (ICD-10 - Z34.83) Encounter for supervision of other normal , third trimester 03/04/2025 Previous delivery, antepartum (ICD-10 - O34.219) 03/04/2025 Obesity (ICD-10 - E66.9) Plan Of Treatment Medication Medication Name Sig Start Date Stop Date Notes 19 - Tablet Chewable Oral Future Test Test Name Order Date Blood Type ABO, RH and Antibody Screen 0 03/04/2025 CBC 03/04/2025 Chlamydia/Gonorrhea, HUSSAIN (Aptima/PAP) Drug Profile Screen, Urine 03/04/2025 Gest. Diabetes Screen 1 Hr Glucose 03/04 Hepatitis B Surface Antigen 03/04/2025 Hepatitis C Virus AB 03/04/2025 HIV-1/2 Antigen and Antibodies, 4th Gene ration 03/04/2025 Rubella Antibodies, IgG 03/04/2025 Syphilis T Pallidium Screening [place] 0 03/04/2025 Urine Culture and Sensitivity 03/04/2025 Next Appt Details Follow Up: 2 Weeks, Reason: TRUDY @ 31w4d Provider Name:Sophia Blount, 04/07/2025 09:45:00 AM, [address], [place], [address], Provider Name:Sophia Blount, 04/21/2025 10:15:00 AM, [address], [place], [address], Provider Name:Sophia Jose Alejandro, 05/02/2025 09:15:00 AM, [address] [place] [address], [address], Provider Name:Sophia Jose Alejandro, 05/09/2025 09:15:00 AM, [address], [facility] [address] [place] [address], [address], Provider Name:Hope Crewsjeyson, 05/11/2025 07:30:00 AM, [address], [address] [place] [address], [address], Provider Name:Hope Crewsjeyson, 05/25/2025 11:30:00 AM, [address], [facility] [address] [place] [address], [address], Provider Name:Hope Crewsjeyson, 06/22/2025 02:30:00 PM, [address], [facility] [address] [place] [address], [phone], History and Physical Notes * HPI (History of Present Illness) Category Sub-Category Detail Notes Category Not es General Health Maintenance E PDS: 21 Progress Notes * Lan CEE KDOB: [birth year] (29 yo F)Acc No.[id number]:03/04/2025 Progress Note Patient: Lna Eugene Provider: Ayan Blount MD :1995 A ge:29 Y S ex:Female Date:03/04/2025 Address:[address] [place] [address] [place], [id number] Subjective: * Chief Complaints: * 2 8 weeks with ultrasounds * HPI: G eneral Health Maintenance: EPDS: 21. * 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: Smoker Anxiety Asthma Depression HTN UTI Yeast infection : yes 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 Verified * Software Qa Manager History: M enstrual History: L MP: [...] Repeat , Iris F. * Surgical History: Surgical History verified. * Hospitalization/Major Diagno stic Procedure: labor and delivery Hospitalization Verified. * Family History: F amily History Verified.. Acid reflux, Asthma, Diabetes, HTN, History of stillbirth, Obesity, Ulcers, UTI, Yeast infection. * Social History: T obacco Use: T obacco Use/Smoking S ARIANNE STATUS: Current every day smoker. D rugs/Alcohol: D rugs D RUG USE: no. Steroid Use H ave you used anabolic (body building) steroids? N o S ocial History Verified. * Medications: T akinghydrOXYzine HCl 25 MG [...] OFRAN: Unspecified - Allergy - Onset Date [id number] Verified. Objective: * Vitals: W t: 229 lbs, BMI: 38.108 Index. Assessment: * Assessment: 1. E ncounter for related examination in third trimester - Z34.83 (Primary) ? 2 . 2 9 weeks gestation of - Z3A.29 3 . S upervision of other normal , third trimester - Z34.83 N otes :Encounter for supervision of other normal , third trimester 4 . P revious delivery, antepartum - O34.219 5 . O besity - E66.9 Plan: * Treatment: 2. O thers Continue 19 Tablet Chewable, -, Oral. * Procedure Codes: r ob Return OB [id number] HEDIS SUBSEQUENT CARE * Follow Up: 2 Weeks (Reason: TRUDY @ 31w4d) Billing Information: * Procedure Codes: trudy Return OB Visit. [id number] HEDIS SUBSEQUENT CARE. * Sign off status: Completed Visit Status: C HK (Check Out) true * Provider: Ayan Blount MD Date: 0 03/04/2025 Generated for Jennifer fernández/Livia/Allenitting on: 03/10/2025 12:05 PM EDT
--- OUTSIDE RECORDS SUMMARY | 2025-03-10 12:05 | XMS_ITS | Clinical Summary ---
[facility] Organization [facility] Address [address] [place] [address] Care Team Providers Care Assistant Produce Manager Name Role Phone Giuliana Guzman APRN Primary Care Provider + Allergies Active Allergy Reactions Criticality Noted Date Comments Ondansetron Hcl Swelling,Rash Low 06/01/2018 Medications metFORMIN (GLUCOPHAGE) 850 MG tabletIndication s:Prediabetes Take 1 tablet by mouth Daily With Breakfast. 90 tablet 06/16/2023 Active Active Problems Problem Noted Date Diagnosed Date Anxiety and depression 06/13/2023 Bipolar disorder 06/13/2023 Other schizophrenia 06/13/2023 Dissociative identity disorder 06/13/2023 Comments Yes Resolved Problems Problem Noted Date Diagnosed Date Resolved Date Alteration in comfort associ ated with uterine contractions 08/30/2021 08/31/2021 (normal spontaneous vaginal delivery) 06/03/2020 10/26/2023 Uterine contractions during 05/31/2020 06/03/2020 39 weeks gestation of 05/31/2020 06/03/2020 Morbidly obese 05/31/2020 10/26/2023 Previous section 05/29/2020 Vaginal spotting 05/19/2020 08/31/2021 hydronephrosis during , antepartum 04/17/2020 10/26/2023 delivery delivered 07/16/2019 10/26/2023 39 weeks gestation of 07/13/2019 07/13/2019 Single liveborn, born in [facility], delivered by section 06/03/2018 07/13/2019 Unfavorable cervix in term 06/01/2018 06/03/2018 Overview (10/28/2022): 10/26/2022 DX Regulatory Update Immunizations Immunization Administration Dates Next Due HPV Quadrivalent 10/28/2012 Hep A, 2 Dose 10/28/2012,05/05/2008 Influenza Seasonal Injectable 05/05/2008 Influenza, Unspecified 03/07/2020 MCV4 Unspecified 02/23/2007 Tdap 02/23/2007 Varicella 05/05/2008,12/09/2002 Family History 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 Relation Name Comments Diabetes Maternal Grandmother Relation Name Status Comments Maternal Grandmother Social History Tobacco Use Types Packs/Day Years Used Date Smoking Tobacco: Former Cigarettes Q uit: 06/27/2018 Smokeless Tobacco: Never Tobacco Cessation:Counseling Given: No Comments: 1 cigarrette a month or year, social smoker Alcohol Use Standard Drinks/Week Comments No 0 (1 standard drink = 0.6 oz pur e alcohol) Overall Financial Resource Strain (CARDIA) Answe r Date Recorded How hard is it for you to pa y for the very basics like food, housing, medical care, and heating? Not hard at all 05/31/2020 PHQ-2 Answer Date Recorded Retired PHQ-9: Brief Depression Severity Measure Score 0 06/13/2023 Hunger Vital Sign Answer Date Recorded Within the past 12 months, y ou worried that your food would run out before you got the money to buy more. Never true 05/31/20 20 Ran Out of Food in the Last Year Not on file 05/31/2020 PRAPARE - Transportation Answer Date Re corded In the past 12 months, has l ack of transportation kept you from medical appointments or from getting medications? No 10/2019 In the past 12 months, has l ack of transportation kept you from meetings, work, or from getting things needed for daily living? No 05/31/2020 [place] Depression Scale Answer Date Recorded [place] Depression Scale Total 3 08/31/2021 The thought of harming myself has occurred to me . Never 08/31/2021 PHQ-2 Answer Date Recorded Retired PHQ-9: Brief Depression Severity Measure Score 0 06/13/2023 Comments Yes Sex and Gender Information Value Date Recorded Sex Assigned at Not on file Legal Sex Female 10:59 AM EDT Gender Identity Not on file Sexual Orientation Not on file Last Filed Vital Signs Vital Sign Reading Time Taken Comments Blood Pressure 112/62 06/13/2023 2:59 PM EST Pulse 62 06/13/2023 2:59 PM EST Temperature 36.1 C (97 F) 06/13/2023 2:59 PM EST Respiratory Rate 18 09/01/2021 12:00 PM EST Oxygen Saturation 98% 06/13/2023 2:59 PM EST Inhaled Oxygen Concentration - - Weight 108 kg (239 lb) 06/13/2023 2:59 PM EST Height 170.2 cm (5' 7 ) 06/13/2023 2:59 PM EST Body Mass Index 37.43 06/13/2023 2:59 PM EST Plan of Treatment Upcoming Encounters Date Type Department Care Team (Late st Contact Info) Description 05/09/2025 3:30 PM EDT Pre-Admission Testing [facility] [address] [place] [address] 05/11/2025 7:30 AM EDT Hospital Encounter [facility] [address] [place] [address] Hope Potter MD [id number] 05/11/2025 7:30 AM EDT - 05/11/2025 8:30 AM EDT Surgery [facility] [address] [place] [address] Hope Potter MD [address] [address] SECTION REPEAT WITH SALPINGECTOMY Scheduled Procedures Name Priority Associated Diagnoses Date/Ti me SECTION REPEAT WITH SALPINGECTOMY 05/11/2025 7:30 AM E DT Health Maintenance Due Date Last Done Comments Annual Gynecologic Pelvic an d Breast Exam 1995 TDAP/TD VACCINES (2 - Td or Tdap) 02/23/2017 007 ANNUAL PHYSICAL 06/01/2018 RSV Vaccine - Adults (1 - 1- dose 75+ series) 2070 CHLAMYDIA SCREENING Discontinued 06/07/2019 INFLUENZA VACCINE Discontinued 03/07/2020, 05/05/2008 HEPATITIS C SCREENING Completed 03/06/2021 , 11/15/2019, 12/30/2018, Additional history exists COVID-19 Vaccine Discontinued 10/05/2021, 12/08/2020 Pneumococcal Vaccine 0-49 Discontinued Medical Devices Implanted Type Area Biometric Fingerprinting Technician Device Identifier Shelf Expiration Date Model / Serial / Lot Hemost Abs Surgicel Pwdr 3gm - [id number] Implanted:Qty: 1 on 05/31/2020 by Liliana Lugo DO at [facility] Implant [employer] 04/26/2021 [id number] / / [id number] Procedures Procedure Name Priority Date/Time Associated Diagnosis Comments HEPATITIS C ANTIBODY Routine 03/06/2021 2:48 PM EDT care, subsequent , second trimester 12 weeks gestation of CHLAMYDIA TRACHOMATIS, NEISSERIA GONORRHOEAE, PCR W/ CONFIRMATION Routine 06/07/2019 from Last 3 Months or Most Recently Relevant to Health Maintenance Results * Hepatitis C Antibody (03/06/2021 2:48 PM EDT) Hepatitis C Ab Non-Reacti ve Non-Reacti ve 03/06/2021 6:45 PM EDT [facility] Blood Venipuncture / Unknown 03/06/2021 2:48 PM EDT 03/06/2021 2:48 PM EDT Narrative [facility] - 03/06/2021 6:45 PM EDT Results may be falsely decreased if patient taking Biotin. us Sophia Blount MD LAB BLOOD ORDERABLES Final Res ult [facility]
[address] [place] [address], [place] [phone] * Chlamydia trachomatis, Neisseria gonorrhoeae, PCR w/ confirmation - Swab, Vagina (06/07/2019) External Chlamydia Screen NEG Swab Specimen from vagina / Unknown Historical Provider MICROBIOLOGY - GENERAL OR DERABLES Final Result from Last 3 Months or Most Recently Relevant to Health Maintenance Insurance [facility] MEDICAID Advance Directives * CPR (Attempt to Resuscitate) (Latest Code Status on File) Date Activated Date Inactivated Comments 08/30/2021 5:13 PM 09/01/2021 3:58 PM Question Answer Comments Code Status (Patient has no pulse and is not breathing): CPR (Attempt to Resuscitate) Medical Interventions (Patie nt has pulse or is breathing): Full * CPR (Attempt to Resuscitate) Date Activated Date Inactivated Comments 08/30/2021 1:42 PM 08/30/2021 5:13 PM Question Answer Comments Code Status (Patient has no pulse and is not breathing): CPR (Attempt to Resuscitate) Medical Interventions (Patie nt has pulse or is breathing): Full Support Level Of Support Discussed With: Patient * CPR (Attempt to Resuscitate) Date Activated Date Inactivated Comments 05/31/2020 10:55 PM 06/03/2020 4:51 PM Question Answer Comments Code Status (Patient has no pulse and is not breathing): CPR (Attempt to Resuscitate) Medical Interventions (Patie nt has pulse or is breathing): Full * CPR (Attempt to Resuscitate) Date Activated Date Inactivated Comments 05/31/2020 5:27 PM 05/31/2020 10:55 PM Question Answer Comments Code Status (Patient has no pulse and is not breathing): CPR (Attempt to Resuscitate) Medical Interventions (Patie nt has pulse or is breathing): Full * CPR (Attempt to Resuscitate) Date Activated Date Inactivated Comments 07/13/2019 6:35 PM 07/16/2019 7:17 PM Question Answer Comments Code Status (Patient has no pulse and is not breathing): CPR (Attempt to Resuscitate) Medical Interventions (Patie nt has pulse or is breathing): Full Care Teams Assistant Produce Manager Relationship Specialty Start Date End Date Giuliana Guzman, FAVIOLA [address] [place] [address] PCP - General Nurse Practitioner 06/13/23
--- OUTSIDE RECORDS SUMMARY | 2025-03-10 12:05 | XMS_ITS | Clinical Summary ---
Author Organization [facility] Address [address] [place] [address] Care Team Providers Care Textile Conversion Manager Name Role Phone Unavailable Primary Care Provider [...] Treatment Not on file Insurance [facility] MEDICAID
--- OUTSIDE RECORDS SUMMARY | 2025-03-10 12:05 | XMS_ITS | Encounter Summary ---
Author Organization [facility] Address [address] [place] [address] Care Team Providers Care Microfilm Machine Operator Name Role Phone Unavailable Primary Care Provider Unavailabl e Encounter Details Date Type Department Care Team (Late st Contact Info) Description 08/31/2021 Lab Requisition [facility] [address] [place] [address] Hope Potter MD [address] [place] [address] Encounter for general adult medical examination without [...] 87(H) <10 ng/mL 09/02/2021 1:40 PM EST [facility] 9 Carboxy THC Glucuronide >250(H) <50 ng/mL 09/02/2021 1:40 PM EST [facility] Urine Urine specimen obtained by clean catch procedure / Unknown 08/30/2021 2:02 PM EST 08/31/2021 11:33 AM EST Narrative [facility] - 09/02/2021 1:40 PM EST Drug analysis is confirmed by LC-MS/MS (LC Tandem Mass Spectrometry) on Urine specimens. This test was developed and its performance characteristics determined by [facility]. It has not been cleared or approved by the FDA. The laboratory is regulated under CLIA as qualified to perform high-complexity testing. This test is used for clinical purposes. Testing is performed at the [facility], Special Chemistry Laboratory. us Hope Potter MD LAB URINE ORDERABLES Final Re sult [facility] [address] [place] [address] documented in this encounter Visit Diagnoses Diagnosis Encounter for general adult medical examination without abnormal findings documented in this encounter
--- OUTSIDE RECORDS SUMMARY | 2025-03-10 12:06 | XMS_ITS | Clinical Summary ---
Author Organization [facility] Address [address] [place] [address] Care Team Providers Care Mine Utility Operator Name Role Phone Unknown, Attending Provider Primary [...] therelease of HIV test results or diagnoses. [id number] Allergies No known active allergies Social [...] COVID-19 ( season) 2024 Immunization: Influenza (MyChart) (#1) 2025 03/07/2020, 05/05/2008 Immunization: RSV (Adult) (1 - 1-dose 75+ series) 2070 Immunization: Pneumococcal Aged Out N o longer eligible based on patient's age to complete this topic Insurance [facility] care Address: [facility] [address] [place] [address] Care Teams Mine Utility Operator Relationship Specialty Start Date End Date Unknown, Attending Provider PCP - General 09/23/24
--- OUTSIDE RECORDS SUMMARY | 2025-03-10 12:06 | XMS_ITS | Patient Health Record ---
Author Organization [facility] Address [address] [place] [address] Care Team Providers Care Sap Payroll Consultant Name Role Phone Deidre Frost Unavailable [phone] Jose AlejandroFrancescoSophia Unavailable [phone] Hope Potter Unavailable [phone] Valentina Queen Unavailable [phone] Allergies Allergen (clinical drug ingredient) Drug/Non Drug Allergy documented on EMR Reaction Allergy Type Onset Date Status ZOFRAN (uncoded) Unspecified Allergy 01/23/2018 Active Results Component Value Reference Range Notes *US OB Complete Transabdomin al/Vaginal Reviewed date:10/11/2024 02:31:17 PM Interpretation: Performing Lab: Notes/Report: [facility] Transabdominal Obstetric Study Report Name: ANGLE HERNANDEZ Accession/Encounter No:[id number] : 1995 Age: 29 Gender: F Study [...] Present Biometry (Fetus A) HR: 176 bpm Petronila-rump length:22.99 mm9w 0d 60% Conclusions: [facility] IUP noted with cardiac activity. Size is NOT consistent with LMP dating. Uterus, ovaries and bilateral adnexa appear normal. Approved By: Carla Morgan MD Approved at: October 11, 2024 12:43 PM EDT Electronically Signed on Studycast ANGLE HERNANDEZ 2024-10-11 Page 1 of 1 Imaging Center - , [facility] [address] *US OB Limited Reviewed date:12/03/2024 11:24:11 AM Interpretation: Performing Lab: Notes/Report: [facility] Transabdominal Obstetric Study Report Name: ANGLE HERNANDEZ Accession/Encounter No:[id number] Procedure/Order ID: [id number] : 1995 Age: 29 Gender: F Study [...] 1 of 1 Imaging Center - , [facility] OB Detailed Anatomy Reviewed date:01/05/2025 01:16:23 PM Interpretation: Performing Lab: Notes/Report: [facility] Transabdominal Obstetric Study Report Name: ANGLE HERNANDEZ Accession/Encounter No:[id number] Procedure/Order ID: [id number] : 1995 Age: 29 Gender: F Study [...] 2025 12:08 PM EDT Electronically Signed on Studycast ANGLE HERNANDEZ 2025-01-05 Page 1 of 1 Imaging Center - , [facility] * OB Follow-Up Reviewed date:02/10/2025 03:21:52 PM Interpretation: Performing Lab: Notes/Report: [facility] Transabdominal Obstetric Study Report Name: ANGLE HERNANDEZ Accession/Encounter No:[id number] Procedure/Order ID: [id number] : 1995 Age: 29 Gender: F Study Date: Feb 10, 2025 Study Time: 01:14 PM Reading Group: Carla Morgan MD Referring Group: Valentina Queen APRN Ordering Phys: Valentina Queen APRN Performing User: Ashley Ansari RDMS Equipment: Affiniti 30 Study Quality: Poor Indications: Incomplete screening. Follow up imaging of heart and profile Risk Factors: Obesity An anatomy ultrasound was performed. Disclaimer: Ultrasound cannot detect all structural defects or underlying genetic abnormalities. Additionally, some abnormalities develop over time and/or are not detectable until after . General Information Trimester: 2nd/3rd trimester Gestations: 1 : Intrauterine Gestational Age (Best) Best: 26w 3d Determined by: Previous US JILL: 2025-05-16 Gestational Age (Prev Study) Previous US: 26w 3d Previous Study: November 2024 by LMP JILL: 2025-05-16 Gestational Age (Current US) Current US: 27w 0d JILL: 2025-05-12 General Evaluation cardiac activity: Present Presentation/Position: Cephalic Placental location: Posterior Biometry (Fetus A) EFW: 971.3g 2 lb 2 oz 58% BRET-76 HR: 146 bpm BPD: 6.78 cm 27w 2d 69% HADLOCK-84 HC: 25.36 cm27w 4d 62% HADLOCK-84 AC: 22.9 cm 27w 2d 68% HADLOCK-84 FL: 4.67 cm 25w 4d 14% HADLOCK-84 FL/HC: 0.18 HC/AC: 1.11 FL/BPD: 0.69 FL/AC: 0.2 Anatomy (Fetus A) Profile: Normal 4-chamber heart: Suboptimal LVOT: Suboptimal RVOT: Suboptimal 3VTV: Suboptimal 3VV: Suboptimal Stomach: Normal Diaphragm: Normal Bladder: Normal Findings: Anatomy: Sonographic evaluation reveals kaiser intrauterine in cephalic position. Posterior placenta. cardiac activity present. growth appears normal. Conclusions: [facility] IUP noted with cardiac activity. Reevaluation of profile that was not previously seen appears normal on today's exam. However heart still appears suboptimal due to position and MBH. growth is consistent with dating. Fluid appears normal Approved By: Carla Morgan MD Approved at: February 10, 2025 03:08 PM EDT Electronically Signed on Studycast ANGLE HERNANDEZ 2025-02-10 Page 1 of 1 Imaging Center - , [facility] OB Follow-Up Reviewed date:03/04/2025 02:39:16 PM Interpretation: Performing Lab: Notes/Report: [facility] Transabdominal Obstetric Study Report Name: ANGLE HERNANDEZ Accession/Encounter No:[id number] Procedure/Order ID: [id number] : 1995 Age: 29 Gender: F Study [...] PM EDT Electronically Signed on Studycast ANGLE COLEMAN 2025-03-04 Page 1 of 1 Imaging Center - , [facility] Non Invasive Testin g Reviewed date:11/19/2024 04:00:05 [...] Tablet Oral; Duration: 14 Days Acti ve Promethazine HCl 12.5 MG Tablet 1 tablet as needed Orally every 6 hrs; Duration: 30 days 12/23/2024 Active Social History Sex Assigned At : Social History Observation Description Sex Assigned At Female Social History Drugs/Alcohol: Social Info Question Answer Notes Steroid Use Have you used anabolic (body building) st eroids? No Problems Problem Type SNOMED Code ICD Code Onset Dates Problem Status W/U Status Risk Notes Problem Obesity (440498139) Obesity (E66.9) Active confirmed Problem Third trimester (86497161) Supervision of other normal , third trimester (Z34.83) 03/23/20 18 Active confirmed Encounter for supervision of other normal , third trimester Problem Supervision of high risk (848352785) Supervision of other high risk pregnancies, third trimester (O09.893) Active confirmed Problem Past history of section (situation) (282529803) Previous delivery, antepartum (O34.219) Active confirmed Vital Signs Weight 229 lbs 03/04/2025 BMI 38.108 kg/m2 03/04/2025 Encounters Encounter Location Date Provider Diagnosis [facility] [address] [place] [address] 09/19/2024 [facility] Encounter for test, result positive Z32.01 [facility] [address] [place] [address] 10/26/2024 [facility] [address] [place] [address] 12/08/2024 [facility] [address] [place] [address] 12/09/2024 [facility] [address] [place] [address] 12/23/2024 [facility] [address] [place] [address] 02/07/2025 [facility] [address] [place] [address] 02/10/2025 Hope Potter [facility] [address] [address] [place] [address] 02/17/2025 Valentina Queen Encounter for other screening follow-up Z36.2 [facility] [address] [facility] [place] [address] 03/01/2025 Sophia Blount [facility] [address] [place] [address] 10/11/2024 Sophia Cook 9 weeks gestation of Z3A.09 and Encounter for supervision of other normal , first trimester Z34.81 [facility] [address] [facility] [address] [place] [address] 11/12/2024 Sophia Blount 13 weeks gestation of Z3A.13 and Encounter for supervision of other normal , first trimester Z34.81 [facility] [address] [email or web address] [address] [place] [address] 12/03/2024 Sophiarichar Blount 16 weeks gestation of Z3A.16 and Encounter for related examination in second trimester Z34.82 [facility] [address] [place] [address] 01/05/2025 Valentina [place] 21 weeks gestation of Z3A.21 and Supervision of other normal , second trimester Z34.82 [facility] [address] [place] [address] 02/10/2025 [facility] 26 weeks gestation of Z3A.26 and Encounter for related examination in second trimester Z34.82 [facility] [address] [facility] [address] [place] [address] 03/04/2025 Sophia Blount Encounter for related examination in third trimester Z34.83 ; 29 weeks gestation of Z3A.29 ; Supervision of other normal , third trimester Z34.83 ; Previous delivery, antepartum O34.219 and [facility] E66.9 [facility] [address] [email or web address] [address] [place] [address] 03/04/2025 Sophia Blount Obesity E66.9 [facility] [address] [facility] [address] [place] [address] 10/11/2024 Sophia Jose Alejandro Encounter for test, result positive Z32.01 [facility] [address] [place] [address] 02/10/2025 Valentina Queen Supervision of other normal , second trimester Z34.82 [facility] [address] [place] [address] 01/05/2025 Valentina Quene Encounter for related examination in second trimester Z34.82 [facility] [address] [place] [address] 12/03/2024 Sophia Blount 16 weeks gestation of Z3A.16 and Encounter for related examination in second trimester Z34.82 Assessments Encounter Date Diagnosis (ICD Code) Assessment Notes Treatment Notes Treatment Clinical Notes Section Notes 02/10/2025 26 weeks gestation of (ICD-10 - Z3A.26) 02/10/2025 Supervision of other normal , second trimester (ICD-10 - Z34.82) 02/17/2025 Encounter for other screening follow-up (ICD-10 - Z36.2) 03/04/2025 Obesity (ICD-10 - E66.9) 01/05/2025 Supervision of other normal , second trimester (ICD-10 - Z34.82) 01/05/2025 21 weeks gestation of (ICD-10 - Z3A.21) 01/05/2025 Encounter for related examination in second trimester (ICD-10 - Z34.82) 02/10/2025 Encounter for related examination in second trimester (ICD-10 - Z34.82) 12/03/2024 16 weeks gestation of (ICD-10 - Z3A.16) 03/04/2025 Encounter for related examination in third trimester (ICD-10 - Z34.83) 03/04/2025 29 weeks gestation of (ICD-10 - Z3A.29) 10/11/2024 9 weeks gestation of (ICD-10 - [...] examination in second trimester (ICD-10 - Z34.82) 03/04/2025 Supervision of other normal , third trimester (ICD-10 - Z34.83) Encounter for supervision of other normal , third trimester 03/04/2025 Previous delivery, antepartum (ICD-10 - O34.219) 03/04/2025 Obesity (ICD-10 - E66.9) Plan Of Treatment Pending Test Test Name Order Date * OB Follow-Up 03/03/2025 Future Test Test Name Order Date Blood Type ABO, RH and Antibody Screen 0 03/04/2025 CBC 03/04/2025 Chlamydia/Gonorrhea, HUSSAIN (Aptima/PAP) Drug Profile Screen, Urine 03/04/2025 Gest. Diabetes Screen 1 Hr Glucose 03/04 Hepatitis B Surface Antigen 03/04/2025 Hepatitis C Virus AB 03/04/2025 HIV-1/2 Antigen and Antibodies, 4th Gene ration 03/04/2025 Rubella Antibodies, IgG 03/04/2025 Syphilis T Pallidium Screening [place] 0 03/04/2025 Urine Culture and Sensitivity 03/04/2025 Next Appt Details Provider Name:Sophia Blount, 04/07/2025 09:45:00 AM, [address] [facility] [facility] [facility] [address], [place], [address], Provider Name:Sophia Blount, 04/21/2025 10:15:00 AM, [address], [address], [place], [address], Provider Name:Sophia Blount, 05/02/2025 09:15:00 AM, [address], [address], [place], [address], Provider Name:Sophia Blount, 05/09/2025 09:15:00 AM, [address], [address], [place], [address], Provider Name:Hope Potter, 05/11/2025 07:30:00 AM, [address], [address], [place], [address], Provider Name:Hope Potter, 05/25/2025 11:30:00 AM, [address], [address], [place], [address], Provider Name:Hope Potter, 06/22/2025 02:30:00 PM, [address], [address], [place], [address], Insurance Providers Payer Name Payer Address Payer Phone Subscriber Number Group Number Insured Name Patient Relationship to Insured Coverage Start Date Coverage End Date [facility] (Medicaid ) [address] [address] [place], [place] [id number] [facility] Self - patient is the insured Medical (General) History 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 History ICD Code Smoker Anxiety Asthma Depression HTN UTI Yeast infection Surgical History Surgery Date(Month/Year) ,2019 Hospitalization History Reason Date(Month/Year) labor and delivery
[2025-03-10 13:42] LABS: Hematocrit 35.6 % (37.0-47.0); Hemoglobin 11.8 g/dL (12.2-16.2); Immature Granulocytes % 0.5 %; Mean Corpuscular HGB Conc 33.1 g/dL (31.8-35.4); Mean Corpuscular Hemoglobin 28.6 pg (27.0-31.2); Mean Corpuscular Volume 86.2 fl (81-99); Nucleated Red Blood Cells % 0 %; Platelet Count 151 K/mm3 (142-424); Red Blood Count 4.13 M/mm3 (4.20-5.40); Red Cell Distribution Width-SD 42.5 fL; White Blood Count 10.3 K/mm3 (4.8-10.8)
[2025-03-10 13:54] LABS: Glucose 1 Hour 161 mg/dL (74-100)
[2025-03-10 18:46] LABS: Amphetamine/Metha Screen,Urine Negative ng/ml (<1000)
[2025-03-10 18:47] LABS: Barbiturates Screen,Urine Negative ng/ml (<200)
[2025-03-10 18:48] LABS: Benzodiazepines Screen,Urine Negative ng/ml (<200)
[2025-03-10 18:50] LABS: Methadone Screen,Urine Negative ng/ml (<300); Opiate Screen,Urine Negative ng/ml (<300)
[2025-03-10 18:51] LABS: Phencyclidine Screen,Urine Negative ng/ml (<25)
[2025-03-11 09:27] LABS: Hepatitis C Antibody Non Reactive (Non Reactive)
[2025-03-11 10:12] LABS: Rubella Antibodies, IgG <0.90 index (Immune >0.99)
[2025-03-11 11:06] LABS: RPR W/RFX Titers Nonreactive (Nonreactive)
== END 2025-03-10 23:59 | disposition home or self-care (01) ==
LOC: LAB 12:03
PROVIDERS: PCP Family Medicine; Visit Provider Student in an Organized Health Care Education/Training Program
DX: Z34.83 Encounter for supervision of other normal pregnancy, third trimester (principal); Z3A.28 28 weeks gestation of pregnancy
CPT/HCPCS: 36415; 80307; 82947; 85025; 86592; 86706; 86762; 86803; 86900; 86901; 87086; 87389

== ENCOUNTER 2025-05-07 11:37 | Outpatient (CLI) | payer MEDICAID, SELFPAY ==
--- OUTSIDE RECORDS SUMMARY | 2025-03-11 05:55 | XMS_ITS ---
Author Organization [facility] Address [address] [place] [address] Care Team Providers Care Digital Art Director Name Role Phone SantoshDeidre Unavailable [phone] Sophia Blount Unavailable [phone] Social History Sex Assigned At : Social History Observation Description Sex Assigned At Female Encounters Encounter Location Date Provider Diagnosis [facility] [address] [place] [address] 03/11/2025 Sophia Blount Encounter for related examination in third trimester Z34.83 and 29 weeks gestation of Z3A.29 Assessments Encounter Date Diagnosis (ICD Code) Assessment Notes Treatment Notes Treatment Clinical Notes Section Notes 03/11/2025 Encounter for related examination in third trimester (ICD-10 - Z34.83) 03/11/2025 29 weeks gestation of (ICD-10 - Z3A.29) Plan Of Treatment Future Test Test Name Order Date Chlamydia/Gonorrhea/Trichomonas (Aptima) 04/01/2025 Gest. Glucose Tolerance Test 3 Hr 2024 Next Appt Details Provider Name:Hope Potter, 05/11/2025 07:30:00 AM, [address], [place], [address], Provider Name:Hope Potter, 05/25/2025 11:30:00 AM, [address], [address], [place], [address], Provider Name:Ree Samano , 06/22/2025 01:45:00 PM, [address] [facility] [address], [place], [address], Progress Notes * Lan CEE KDOB: [birth year] (29 yo F)Acc No.[id number]:03/11/2025 Patient: Lan VEGA :1995 A ge:29 Y S ex:Female Address:[address] [place] [address] , [place], [address] Assessment: * Assessment: 1. E ncounter for related examination in third trimester - Z34.83 (Primary) ? 2 . 2 9 weeks gestation of - Z3A.29 Plan: * Treatment: 2. 2 9 weeks gestation of L AB: Blood Type ABO, RH and Antibody Screen (Ordered for 04/01/2025) L AB: Chlamydia/Gonorrhea/Trichomonas (Aptima) (Ordered for 04/01/2025) L AB: Drug Profile Screen, Urine (Ordered for 04/01/2025) L AB: Hepatitis B Surface Antigen (Ordered for 04/01/2025) L AB: Hepatitis C Virus AB (Ordered for 04/01/2025) L AB: HIV-1/2 Antigen and Antibodies, 4th Generation (Ordered for 04/01/2025) L AB: Rubella Antibodies, IgG (Ordered for 04/01/2025) L AB: Syphilis T Pallidium Screening [place] (Ordered for 04/01/2025) L AB: Urine Culture and Sensitivity (Ordered for 04/01/2025) L AB: Gest. Glucose Tolerance Test 3 Hr (Ordered for 04/01/2025) * true * Date: Generated for Jennifer fernández/Livia/Allenitting on: 11:40 AM EDT
--- OUTSIDE RECORDS SUMMARY | 2025-04-07 05:45 | XMS_ITS ---
Author Organization [facility] Address [address] [place] [address] Care Team Providers Care Transport Manager Name Role Phone Deidre Frost Unavailable [phone] Sophia Blount Unavailable [phone] Allergies Allergen (clinical drug ingredient) Drug/Non Drug Allergy documented on EMR Reaction Allergy Type Onset Date Status ZOFRAN (uncoded) Unspecified Allergy 01/23/2018 Active REASON FOR VISIT 34wks Medications Medication SIG (Take, Route, Frequency, Duration) Notes Start Date End Date Status Promethazine HCl 12.5 MG Tablet 1 tablet as needed Orally every 6 hrs; Duration: 30 days 12/23/2024 Active 19 - Tablet Chewable Oral Active Ondansetron 4 MG Tablet Disintegrating 1 tablet sublingually every 6h as needed for nausea; Duration: 30 days 10/11/2024 Active SM Sleep Aid 25 MG Tablet Oral Active hydrOXYzine HCl 25 MG Tablet Oral Active Ondansetron 4 MG Tablet Disintegrating 1 tablet on the tongue and allow to dissolve Oral Once a day; Duration: 30 days Active Promethazine HCl 12.5 MG Tablet Oral; Duration: 14 Days Acti ve Vitamin B-6 25 MG Tablet Oral Active Social History Sex Assigned At : Social History Observation Description Sex Assigned At Female Social History Drugs/Alcohol: Social Info Question Answer Notes Steroid Use Have you used anabolic (body building) st eroids? No Vital Signs Weight 224 lbs 04/07/2025 BMI 37.276 kg/m2 04/07/2025 Encounters Encounter Location Date Provider Diagnosis [facility] [address] [facility] [address] [place] [address] 04/07/2025 Sophia Jose Alejandro Previous delivery, antepartum O34.219 ; 34 weeks gestation of Z3A.34 ; Supervision of other high risk pregnancies, third trimester O09.893 and Obesity E66.9 Assessments Encounter Date Diagnosis (ICD Code) Assessment Notes Treatment Notes Treatment Clinical Notes Section Notes 04/07/2025 Previous delivery, antepartum (ICD-10 - O34.219) 04/07/2025 34 weeks gestation of (ICD-10 - Z3A.34) 04/07/2025 Supervision of other high risk pregnancies, third trimester (ICD-10 - O09.893) 04/07/2025 Obesity (ICD-10 - E66.9) Plan Of Treatment Medication Medication Name Sig Start Date Stop Date Notes 19 - Tablet Chewable Oral SM Sleep Aid 25 MG Tablet Oral hydrOXYzine HCl 25 MG Tablet Oral Vitamin B-6 25 MG Tablet Oral Next Appt Details Follow Up: 2 Weeks, Reason: TRUDY and growth Provider Name:Hope Potter, 05/11/2025 07:30:00 AM, [address] [facility], [address], [address], Provider Name:Hope Potter, 05/25/2025 11:30:00 AM, [address] [facility], [address], [address], Provider Name:Ree Samano , 06/22/2025 01:45:00 PM, [address] [facility], [address], [address], Progress Notes * MARY Lan KDOB: [birth year] (29 yo F)Acc No.[id number]:04/07/2025 Progress Note Patient: Lan Eugene Provider: Ayan Blount MD :1995 A ge:29 Y S ex:Female Date:04/07/2025 Address:[address] [place] [address] , [id number] Subjective: * Chief Complaints: * 3 4wks * 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: Smoker Anxiety Asthma Depression HTN UTI Yeast infection : yes 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 * Surgical History: ,2019 Surgical History verified. * Hospitalization/Major Diagno stic [...] allow to dissolve Oral Once a day Ondansetron 4 MG Tablet Disintegrating 1 tablet [...] to dissolve Oral Once a day Taking Ondansetron 4 MG Tablet Disintegrating 1 [...] OFRAN: Unspecified - Allergy - Onset Date [id number] Verified. Objective: * Vitals: W t: 224 lbs, BMI: 37.276 Index. Assessment: * Assessment: 1. P revious delivery, antepartum - O34.219 (Primary) 2 . 3 4 weeks gestation of - Z3A.34 3 . S upervision of other high risk pregnancies, third trimester - O09.893 4 . O besity - E66.9 Plan: * Treatment: 2. O thers Continue 19 Tablet Chewable, -, Oral; C ontinue hydrOXYzine HCl Tablet, 25 MG, Oral;?Continue SM Sleep Aid Tablet, 25 MG, Oral; C ontinue Vitamin B-6 Tablet, 25 MG, Oral. ? * Procedure Codes: r ob Return OB [id number] HEDIS SUBSEQUENT CARE * Follow Up: 2 Weeks (Reason: TRUDY and growth US) Billing Information: * Visit Code: trudy Return OB Visit. * Procedure Codes: trudy Return OB Visit. 0502F HEDIS SUBSEQUENT CARE. * Sign off status: Completed Visit Status: C HK (Check Out) true * Provider: Ayan Blount MD Date: 0 04/07/2025 Generated for Jennifer fernández/Livia/Allenitting on: 11:41 AM EDT
--- OUTSIDE RECORDS SUMMARY | 2025-04-21 11:00 | XMS_ITS ---
Author Organization [facility] Address [address] [place] [address] Care Team Providers Care Insurance Defense Paralegal Name Role Phone Santosh Deidre Unavailable [phone] Sophia Blount Unavailable [phone] Results Component Value Reference Range Notes *US OB Follow-Up Reviewed date:04/25/2025 08:56:18 AM Interpretation: Performing Lab: Notes/Report: [facility] Transabdominal Obstetric Study Report Name: ANGLE HERNANDEZ Accession/Encounter No:[id number] Procedure/Order ID: [id number] : 1995 Age: 29 Gender: F Study Date: Apr 21, 2025 Study Time: 02:54 PM Reading Group: Carla Morgan MD Referring Group: Sophia Blount MD Ordering Phys: Sophia Blount MD Performing User: Mayra Dennis RDMS Equipment: Affiniti 30 Study Quality: Good Indications: Growth Risk Factors: Obesity C-sec Anxiety A growth ultrasound was performed. Disclaimer: Ultrasound cannot detect all structural defects or underlying genetic abnormalities. Additionally, some abnormalities develop over time and/or are not detectable until after . General Information Trimester: 2nd/3rd trimester Gestations: 1 : Intrauterine Gestational Age (Best) Best: 36w 3d Determined by: LMP JILL: 2025-05-16 Gestational Age (LMP) LMP: 36w 3d First Day of LMP: 2024-08-09 JILL: 2025-05-16 Gestational Age (Current US) Current US: 36w 5d JILL: 2025-05-14 General Evaluation cardiac activity: Present Presentation/Position: Cephalic Placental location: Posterior Amniotic fluid index: 18.2 cm ERI percentile: 69 % LUQ: 7.76 cm LLQ: 3.94 cm RUQ: 2.68 cm RLQ: 3.82 cm Fluid: Normal Biometry (Fetus A) EFW: 3026.6g 6 lb 11 oz 74% BRET-76 HR: 144 bpm BPD: 9.02 cm 36w 4d 65% HADLOCK-84 HC: 32.55 cm36w 6d 32% HADLOCK-84 AC: 33.24 cm37w 1d 80% HADLOCK-84 FL: 7.02 cm 36w 0d 35% HADLOCK-84 FL/HC: 0.22 HC/AC: 0.98 FL/BPD: 0.78 FL/AC: 0.21 Anatomy (Fetus A) Stomach: Normal Right kidney: Normal Left kidney: Normal Bladder: Normal Findings: Anatomy: Sonographic evaluation reveals kaiser intrauterine in cephalic position. Posterior placenta. cardiac activity present. growth appears normal. Normal ERI (ERI = 18.2 ). Conclusions: Kaiser IUP noted with cardiac activity. growth is consistent with dating. Fluid appears normal Approved By: Carla Morgan MD Approved at: April 23, 2025 09:36 PM EDT Electronically Signed on Studycraig HERNANDEZ 2025-04-21 Page 1 of 1 Imaging Center - , [facility] REASON FOR VISIT 34 growth. jill 10-. obesity. cs. anxiety. sent to ..sdw Medications Medication SIG (Take, Route, Frequency, Duration) Notes Start Date End Date Status Vitamin B-6 25 MG Tablet Oral Active SM Sleep Aid 25 MG Tablet Oral Active hydrOXYzine HCl 25 MG Tablet Oral Active 19 - Tablet Chewable Oral Active Ondansetron 4 MG Tablet Disintegrating 1 tablet sublingually every 6h as needed for nausea; Duration: 30 days 10/11/2024 Active Promethazine HCl 12.5 MG Tablet [...] Female Encounters Encounter Location Date Provider Diagnosis [facility] [address] [place] [address] 04/21/2025 Sophia Blount Obesity E66.9 Assessments Encounter Date Diagnosis (ICD Code) Assessment Notes Treatment Notes Treatment Clinical Notes Section Notes 04/21/2025 Obesity (ICD-10 - E66.9) Plan Of Treatment Next Appt Details Provider Name:Hope Potter, 05/11/2025 07:30:00 AM, [address], [address], [address], Provider Name:Hope Macariokarol, 05/25/2025 11:30:00 AM, [address] [facility], [address], [address], Provider Name:Ree Selwyn , 06/22/2025 01:45:00 PM, [address] [facility], [address], [address], Progress Notes * Angle HERNANDEZ KDOB: [birth year] (29 yo F)Acc No.[id number]:04/21/2025 Progress Note Patient: Angle Eugene Provider: Ayan Blount MD :1995 A ge:29 Y S ex:Female Date:04/21/2025 Address:[address] [place] [address], [facility] Subjective: * Chief Complaints: * 3 4 growth. jill 10-20. obesity. cs. anxiety. sent to ..sdw * Medications: T akinghydrOXYzine HCl 25 MG [...] O besity - E66.9 Plan: * Treatment: Billing Information: * Procedure Codes: * Electronic signature of Boy Blount MD on 05/07/2025 at 11:40 AM EDT Sign off status: Pending Visit Status: Maik SELLERS (Check Out) * Provider: Ayan Blount MD Date: 0 04/21/2025 Generated for Jennifer fernández/Livia/Gricelda on: 1 11:40 AM EDT
--- OUTSIDE RECORDS SUMMARY | 2025-04-21 12:00 | XMS_ITS ---
Author Organization [facility] Address [address] [place] [address] Care Team Providers Care Clothing And Textiles Teacher Name Role Phone Deidre Frost Unavailable [phone] Sophia Blount Unavailable [phone] Allergies Allergen (clinical drug ingredient) Drug/Non Drug Allergy documented on EMR Reaction Allergy Type Onset Date Status ZOFRAN (uncoded) Unspecified Allergy 01/23/2018 Active Results Component Value Reference Range Flag Notes Group B Strep by PCR Reviewed date:04/27/2025 09:08:50 AM Interpretation:Positive Performing Lab:[facility] - [place] CLIA ID [id number], [address], [address], [place] [address], Director - Juma Martinez MD Notes/Report: Group B Strep by PCR (XC) POSITIVE Negative A Method: The FDA-Approved Xpert GBS LB XC Assay is a real-time PCR assay utilizing enriched Menjivar broth culture of vaginal/rectal swabs after 18-24 hours incubation. This test is intended to determine the Group B Streptococcus (GBS) colonization status of antepartum and intrapartum women. POSITIVE indicates the GBS target nucleic acid is detected-presumptive for GBS colonization. NEGATIVE indicates the GBS target nucleic acid is not detected. False negative result may occur if the number of organisms in the sample is below the limit of detection. REASON FOR VISIT 36 Medications Medication SIG (Take, Route, Frequency, Duration) Notes Start Date End Date Status Ondansetron 4 MG Tablet Disintegrating 1 tablet sublingually every 6h as needed for nausea; Duration: 30 days 10/11/2024 Active Promethazine HCl 12.5 MG Tablet 1 tablet as needed Orally every 6 hrs; Duration: 30 days 12/23/2024 Active Promethazine HCl 12.5 MG Tablet Oral; Duration: 14 Days Acti ve SM Sleep Aid 25 MG Tablet Oral Active Vitamin B-6 25 MG Tablet Oral Active 19 - Tablet Chewable Oral Active hydrOXYzine HCl 25 MG Tablet Oral Active Ondansetron 4 MG Tablet Disintegrating 1 tablet on the tongue and allow to dissolve Oral Once a day; Duration: 30 days Active Social History Sex Assigned At : Social History Observation Description Sex Assigned At Female Social History Drugs/Alcohol: Social Info Question Answer Notes Steroid Use Have you used anabolic (body building) st eroids? No Problems Problem Type SNOMED Code ICD Code Onset Dates Problem Status W/U Status Risk Notes Problem Anxiety (74996220) Anxiety (F41.1) Active confirmed Vital Signs Weight 222.0 lbs 04/21/2025 BMI 36.943 kg/m2 04/21/2025 Encounters Encounter Location Date Provider Diagnosis [facility] [address] [place] [address] 04/21/2025 Sophia Blount Supervision of other normal , third trimester Z34.83 ; Previous delivery, antepartum O34.219 ; 36 weeks gestation of Z3A.36 ; Obesity E66.9 and Anxiety F41.1 Assessments Encounter Date Diagnosis (ICD Code) Assessment Notes Treatment Notes Treatment Clinical Notes Section Notes 04/21/2025 Supervision of other normal , third trimester (ICD-10 - Z34.83) 04/21/2025 Previous delivery, antepartum (ICD-10 - O34.219) 04/21/2025 36 weeks gestation of (ICD-10 - Z3A.36) 04/21/2025 Obesity (ICD-10 - E66.9) 04/21/2025 Anxiety (ICD-10 - F41.1) Plan Of Treatment Medication Medication Name Sig Start Date Stop Date Notes 19 - Tablet Chewable Oral hydrOXYzine HCl 25 MG Tablet Oral Next Appt Details Follow Up: 1 Week, Reason: Provider Name:Hope Potter, 05/11/2025 07:30:00 AM, [address], [address], [address], Provider Name:Hope Potter, 05/25/2025 11:30:00 AM, [address] [facility], [address], [address], Provider Name:Ree Samano , 06/22/2025 01:45:00 PM, [address] [facility], [address], [address], Progress Notes * Lan CEE KDOB: [birth year] (29 yo F)Acc No.[id number]:04/21/2025 Progress Note Patient: Lan Eugene Provider: Ayan Blount MD :1995 A ge:29 Y S ex:Female Date:04/21/2025 Address:[address] [place] [address] , [facility] Subjective: * Chief Complaints: * 3 6 * 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: Smoker Anxiety Asthma Depression HTN UTI Yeast infection : yes 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 N o * Medications: T akinghydrOXYzine HCl 25 MG Tablet Oral Ondansetron 4 MG Tablet Disintegrating 1 tablet on the tongue and allow to dissolve Oral Once a day Ondansetron 4 MG Tablet Disintegrating 1 tablet sublingually every 6h as needed for nausea 19( Vit-Fe Fumarate-FA) - Tablet Chewable Oral Promethazine HCl 12.5 MG Tablet 1 tablet as needed Orally every 6 hrs Promethazine HCl 12.5 MG Tablet Oral SM [...] as needed Orally every 6 hrs Taking Promethazine HCl 12.5 MG Tablet Oral Taking SM Sleep Aid 25 MG Tablet Oral Taking Vitamin B-6 25 MG Tablet Oral Medication List reviewed and reconciled with the patient * Allergies: Z OFRAN: Unspecified - Allergy - Onset Date [id number] Verified. Objective: * Vitals: W t: 222.0 lbs, BMI: 36.943 Index. Assessment: * Assessment: 1. S upervision of other normal , third trimester - Z34.83 (Primary) 2 . P revious delivery, antepartum - O34.219 3 . 3 6 weeks gestation of - Z3A.36 4 . O besity - E66.9 5 . A nxiety - F41.1 Plan: * Treatment: 2. 3 6 weeks gestation of Continue 19 Tablet Chewable, -, Oral. L AB: Group B Strep by PCR (Collection Date & Time - 04/21/2025 04:22 PM) 3. A nxiety Continue hydrOXYzine HCl Tablet, 25 MG, Oral. * Procedure Codes: r ob Return OB [id number] HEDIS SUBSEQUENT CARE * Follow Up: 1 Week Billing Information: * Visit Code: trudy Return OB Visit. * Procedure Codes: trudy Return OB Visit. 0502F HEDIS SUBSEQUENT CARE. * Sign off status: Completed Visit Status: C HK (Check Out) true * Provider: Ayan Blount MD Date: 0 04/21/2025 Generated for Jennifer fernández/Livia/Gricelda on: 1 11:40 AM EDT
--- OUTSIDE RECORDS SUMMARY | 2025-05-02 05:15 | XMS_ITS ---
Author Organization [facility] [place] Address [address] [place] [address] Care Team Providers Care Tug Boat Engineer Name Role Phone Deidre Frost Unavailable [phone] Sophia Blount Unavailable [phone] Allergies Allergen (clinical drug ingredient) Drug/Non Drug Allergy documented on EMR Reaction Allergy Type Onset Date Status ZOFRAN (uncoded) Unspecified Allergy 01/23/2018 Active REASON FOR VISIT 38 Medications Medication SIG (Take, Route, Frequency, Duration) Notes Start Date End Date Status hydrOXYzine HCl 25 MG Tablet Oral Active Glucometer and Testing Supplies (Device, Lancets, & Strips) 04/21/2025 Active 19 - Tablet Chewable Oral Active SM Sleep Aid 25 MG Tablet Oral Active Vitamin B-6 25 MG Tablet Oral Active Ondansetron 4 [...] for nausea; Duration: 30 days 10/11/2024 Active Social History Sex Assigned At : Social History Observation Description Sex Assigned At Female Social History Drugs/Alcohol: Social Info Question Answer Notes Steroid Use Have you used anabolic (body building) st eroids? No Problems Problem Type SNOMED Code ICD Code Onset Dates Problem Status W/U Status Risk Notes Problem Gestation period, 38 weeks ([id number]) 38 weeks gestation of (Z3A.38) Active confirmed Vital Signs Weight 221 lbs 05/02/2025 BMI 36.776 kg/m2 05/02/2025 Encounters Encounter Location Date Provider Diagnosis [facility] [address] [facility] [facility] [address] [place] [address] 05/02/2025 Sophia Blount Anxiety F41.1 ; Obesity E66.9 ; 38 weeks gestation of Z3A.38 ; Supervision of other high risk pregnancies, third trimester O09.893 ; 38 weeks gestation of Z3A.38 and Previous delivery, antepartum O34.219 Assessments Encounter Date Diagnosis (ICD Code) Assessment Notes Treatment Notes Treatment Clinical Notes Section Notes 05/02/2025 Anxiety (ICD-10 - F41.1) 05/02/2025 Obesity (ICD-10 - E66.9) 05/02/2025 38 weeks gestation of (ICD-10 - Z3A.38) 05/02/2025 Supervision of other high risk pregnancies, third trimester (ICD-10 - O09.893) 05/02/2025 38 weeks gestation of (ICD-10 - Z3A.38) 05/02/2025 Previous delivery, antepartum (ICD-10 - O34.219) Plan Of Treatment Medication Medication Name Sig Start Date Stop Date Notes hydrOXYzine HCl 25 MG Tablet Oral 19 - Tablet Chewable Oral Next Appt Details Follow Up: 1 Week, Reason: Provider Name:Hope Potter, 05/11/2025 07:30:00 AM, [address] [facility], [facility] [address] [place] [address], [address], Provider Name:Hope Potter, 05/25/2025 11:30:00 AM, [address] [facility], [facility] [address] [place] [address], [address], Provider Name:Ree Samano , 06/22/2025 01:45:00 PM, [address] [facility], [facility] [address] [place] [address], [address], Progress Notes * Lan HERNANDEZ KDOB: [birth year] (29 yo F)Acc No.[id number]:05/02/2025 Progress Note Patient: Lan Eugene Provider: Ayan Blount MD :1995 A ge:29 Y S ex:Female Date:05/02/2025 Address:[address] [place] [address] [place], [id number] Subjective: * Chief Complaints: * 3 8 * 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: Smoker Anxiety Asthma Depression HTN UTI Yeast infection : yes 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 * OB History: P regnancy History (GPA) Total Pregnancies 9 Full Term 4 AB. Spontaneous 4 Living 4 C-Sections 4 G P : 8 Para: 4 P regnancy # 1: Ayan mikel, 2018, male. P regnancy # 2: [...] building) steroids? N o * Medications: T akingGlucometer and Testing Supplies (Device, Lancets, & Strips) hydrOXYzine HCl 25 MG Tablet Oral Ondansetron 4 MG Tablet Disintegrating 1 tablet on the tongue and allow to dissolve Oral Once a day Ondansetron 4 MG Tablet Disintegrating 1 tablet sublingually every 6h as needed for nausea 19( Vit-Fe Fumarate- FA) - Tablet Chewable Oral Promethazine HCl 12.5 MG Tablet 1 tablet as needed Orally every 6 hrs Promethazine HCl 12.5 MG Tablet Oral SM Sleep Aid 25 MG Tablet Oral Vitamin B-6 25 MG Tablet Oral Taking Glucometer and Testing Supplies (Device, Lancets, & Strips) Taking hydrOXYzine HCl 25 MG Tablet Oral [...] Taking Vitamin B-6 25 MG Tablet Oral * Allergies: Z OFRAN: Unspecified - Allergy - Onset Date [id number] Verified. Objective: * Vitals: W t: 221 lbs, BMI: 36.776 Index. Assessment: * Assessment: 1. A nxiety - F41.1 (Primary) 2 . O besity - E66.9 3 . 3 8 weeks gestation of - Z3A.38 4 . S upervision of other high risk pregnancies, third trimester - O09.893 5 . 3 8 weeks gestation of - Z3A.38 6 . P revious delivery, antepartum - O34.219 Plan: * Treatment: 2. 3 8 weeks gestation of Continue 19 Tablet Chewable, -, Oral. * Procedure Codes: r ob Return OB [id number] HEDIS SUBSEQUENT CARE * Follow Up: 1 Week Billing Information: * Visit Code: trudy Return OB Visit. * Procedure Codes: trudy Return OB Visit. 0502F HEDIS SUBSEQUENT CARE. * Sign off status: Completed Visit Status: C HK (Check Out) true * Provider: Ayan Blount MD Date: 1 Generated for Jennifer fernández/Livia/Alainasmitting on: 11:40 AM EDT
--- OUTSIDE RECORDS SUMMARY | 2025-05-07 11:40 | XMS_ITS | Clinical Summary ---
Author Organization [facility] Address [address] [place] [address] Care Team Providers Care Cheesemaker Name Role Phone Unavailable Primary Care Provider [...] Plan of Treatment Not on file Insurance [facility] MEDICAID
--- OUTSIDE RECORDS SUMMARY | 2025-05-07 11:40 | XMS_ITS | Clinical Summary ---
[facility] Organization [facility] Address [address] [place] [address] Care Team Providers Care Efficiency Manager Name Role Phone Giuliana Guzman APRN Primary Care Provider + Allergies Active Allergy Reactions Criticality Noted Date Comments Ondansetron Hcl Swelling,Rash Low 06/01/2018 Medications metFORMIN (GLUCOPHAGE) 850 MG tabletIndication s:Prediabetes Take 1 tablet by mouth Daily With Breakfast. 90 tablet 06/16/2023 Active Active Problems Problem Noted Date Diagnosed Date Term 05/05/2025 Anxiety and depression 06/13/2023 Bipolar disorder 06/13/2023 Other schizophrenia 06/13/2023 Dissociative identity disorder 06/13/2023 Estimated Date of Delivery Comme nts Yes 05/16/2025 Based on Other B asis, per MD Resolved Problems Problem Noted Date Diagnosed Date [...] of 07/13/2019 07/13/2019 Single liveborn, born in [facility], delivered by section 06/03/2018 07/13/2019 Unfavorable cervix in term 06/01/2018 06/03/2018 Overview (10/28/2022): 10/26/2022 DX Regulatory Update Encounters Date Type Department Care Team Description 04/27/2025 Patient Outreach [facility] [address] [place] [address] Sneha Hagan, RN 04/26/2025 Patient Outreach [facility] [address] [place] [address] Sneha Hagan, RN 04/21/2025 Referral Triage [facility] [address] [place] [address] Sneha Hagan, RN from Last 3 Months Immunizations Immunization Administration Dates Next Due HPV [...] 06/27/2018 Smokeless Tobacco: Never Tobacco Cessation:Counseling Given: Not Answered Comments: 1 cigarrette a month or year, social smoker Alcohol Use Standard Drinks/Week Comments No 0 (1 standard drink = 0.6 oz pur e alcohol) [facility] Utilities Answer Date Recorded In the past 12 months has [employer], gas, oil, or water company threatened to shut off services in your home? No 04/27/2025 AUDIT-C Answer Date Recorded Q1: How often do you have a drink containing alcohol? Never 04/27/2025 Q2: How many drinks containi ng alcohol do you have on a typical day when you are drinking? Patient does not drink Q3: How often do you have si x or more drinks on one occasion? Never 04/27/2025 Overall Financial Resource Strain (CARDIA) Answe r Date Recorded How hard is it for you to pa y for the very basics like food, housing, medical care, and heating? Not very hard 04/27/2025 PHQ-2 Answer Date Recorded Retired PHQ-9: Brief Depression Severity Measure Score 0 06/13/2023 Hunger Vital Sign Answer Date Recorded Within the past 12 months, y ou worried that your food would run out before you got the money to buy more. Never true 04/27/20 25 Within the past 12 months, t he food you bought just didn't last and you didn't have money to get more. Never true 04/27/2025 PRAPARE - Transportation Answer Date Re corded In the past 12 months, has l ack of transportation kept you from medical appointments or from getting medications? Yes 07/2024 In the past 12 months, has l ack of transportation kept you from meetings, work, or from getting things needed for daily living? Yes 04/27/2025 [place] Depression Scale Answer Date Recorded [place] Depression Scale Total 3 08/31/2021 The thought of harming myself has occurred to me . Never 08/31/2021 Abuse Screen Answer Date Recorded Feels Unsafe at Home or Work/School yes 04/27/2025 Feels Threatened by Someone yes 07/2024 Does Anyone Try to Keep You From Having Contact with Others or Doing Things Outside Your Home? no 04/27/2025 Physical Sign of Abuse Present Not on file 1 Housing Stability Answer Date Recorded Current Living Arrangements apartment 07/2024 Potentially Unsafe Housing Conditions none 04/27/2025 Family and Community Support Answer Yamil e Recorded If for any reason you need h elp with day-to-day activities such as bathing, preparing meals, shopping, managing finances, etc., do you get the help you need? I don't need any help 04/27/2025 How often do you feel lonely or isolated from those around you? Never 04/27/2025 Employment Answer Date Recorded Do you want help finding or keeping work or a job? I do not need or want help 04/27/2025 Disabilities Answer Date Recorded Difficulty Concentrating, Remembering or Making Decisions no 04/27/2025 Difficulty Managing Errands Independently no 04/27/2025 Education Answer Date Recorded Do you want help with school or training? For example, starting or completing job training or getting a high school diploma, GED or equivalent Yes 04/27/2025 Preferred Language Spanish 04/27/2025 PHQ-2 Answer Date Recorded Patient Health Questionnaire-2 Score 0 04/27/2025 Estimated Date of Delivery Comme nts Yes 05/16/2025 Based on Other B asis, per MD Sex and Gender Information Value Date Recorded [...] Description 05/09/2025 3:30 PM EDT Pre-Admission Testing [facility] [address] [place] [address] 05/11/2025 7:30 AM EDT Hospital Encounter [facility] [address] [place] [address] Hope Potter MD [address] [place] [address] Previous section (Primary Dx) 05/11/2025 7:30 AM EDT - 05/11/2025 8:30 AM EDT Surgery [facility] [address] [place] [address] Hope Potter MD [address] [place] [address] SECTION REPEAT WITH SALPINGECTOMY Scheduled Procedures Name Priority Associated Diagnoses Date/Ti me SECTION REPEAT WITH SALPINGECTOMY 05/11/2025 7:30 AM E DT Health Maintenance Due Date Last Done Comments Annual Gynecologic Pelvic an d Breast Exam 1995 TDAP/TD VACCINES (2 - Td or Tdap) 02/23/2017 007 ANNUAL PHYSICAL 06/01/2018 CHLAMYDIA SCREENING Discontinued 06/07/2019 INFLUENZA VACCINE Discontinued 03/07/2020, 05/05/2008 HEPATITIS C SCREENING Completed 03/06/2021 , 11/15/2019, 12/30/2018, Additional history exists Pneumococcal Vaccine 0-49 Discontinued RSV Vaccine - Adults (No Dos es Required) Completed Medical Devices Implanted Type Area Straight Line Edger Device Identifier Shelf Expiration Date Model / Serial / Lot Hemost Abs Surgicel Pwdr 3gm - [id number] Implanted:Qty: 1 on 05/31/2020 by Liliana Lugo DO at [facility] Implant [employer] [...] ve Non-Reacti ve 03/06/2021 6:45 PM EDT [facility] Blood Venipuncture / Unknown 03/06/2021 2:48 PM EDT 03/06/2021 2:48 PM EDT Narrative [facility] - 03/06/2021 6:45 PM EDT Results may be falsely decreased if patient taking Biotin. Sophia Blount MD LAB BLOOD ORDERABLES Final Res ult [facility]
[address] [place] [address], * Chlamydia trachomatis, Neisseria gonorrhoeae, PCR w/ confirmation - Swab, Vagina (06/07/2019) External Chlamydia Screen NEG Swab Specimen from vagina / Unknown Historical Provider MICROBIOLOGY - GENERAL OR DERABLES Final Result from Last 3 Months or Most Recently Relevant to Health Maintenance Insurance [employer] MEDICA[employer] Advance Directives * CPR (Attempt to [...] pulse or is breathing): Full Care Teams Efficiency Manager Relationship Specialty Start Date End Date Giuliana Guzman APRN [address] [place] [id number] PCP - General Nurse Practitioner 06/13/23
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
--- OUTSIDE RECORDS SUMMARY | 2025-05-07 11:40 | XMS_ITS | Encounter Summary ---
Author Organization [facility] Address [address] [place] [address] Care Team Providers Care Roll Hand Name Role Phone Unavailable Primary Care Provider Unavailabl e Encounter Details Date Type Department Care Team (Late st Contact Info) Description 08/31/2021 Lab Requisition [facility] [address] [place] [address] Hope Potter MD [address] [place] [address] Encounter for general adult medical examination without [...] 87(H) <10 ng/mL 09/02/2021 1:[address] [facility] 9 Carboxy THC Glucuronide >250(H) <50 ng/mL 09/02/2021 1:[address] [facility] Urine Urine specimen obtained by clean catch procedure / Unknown 08/30/2021 2:02 PM EST 08/31/2021 11:[address] [facility] - 09/02/2021 1:40 PM EST Drug analysis is confirmed by LC-MS/MS (LC Tandem Mass Spectrometry) on Urine specimens. This test was developed and its performance characteristics determined by [facility]. It has not been cleared or approved by the FDA. The laboratory is regulated under CLIA as qualified to perform high-complexity testing. This test is used for clinical purposes. Testing is performed at the [facility]. us Hope Potter MD LAB URINE ORDERABLES Final Re sult [facility] [address] [place] [address] documented in this encounter Visit Diagnoses Diagnosis Encounter for general adult medical examination without abnormal findings documented in this encounter
--- OUTSIDE RECORDS SUMMARY | 2025-05-07 11:40 | XMS_ITS ---
Author Organization [facility] Address [address] [place] [address] Care Team Providers Care Toilet Attendant Name Role Phone Giuliana Guzman APRN Primary Care Provider + Motherhood Connection Status:Engaged (Active) Start date:04/21/2025 Enrollment date:04/27/2025 Case Team Name Relationship Phone Sneha Hagan RN(Responsible Staff) Nurse Carol Montilla RN Nurse Navigator Continued Care and Services Coordination
--- OUTSIDE RECORDS SUMMARY | 2025-05-07 11:40 | XMS_ITS | Encounter Summary ---
Author Organization [facility] Address [address] [place] [address] Care Team Providers Care Financial Systems Analyst Name Role Phone ThomasGiuliana webb Rangel SALMERON Primary Care Provider + Encounter Details Date Type Department Care Team (Late st Contact Info) Description 04/21/2025 Referral Triage [facility] DEL[facility] [address] [place] [phone] Sneha Hagan, RN Social History Tobacco Use Types Packs/Day Years Used Date Smoking Tobacco: Former Cigarettes Q uit: 06/27/2018 Smokeless Tobacco: Never Comments: 1 cigarrette a fri or year, social smoker Alcohol Use Standard [...] things needed for daily living? No 05/31/2020 [place] Depression Scale Answer Date Recorded [place] Depression Scale Total 3 08/31/2021 The thought of harming myself has occurred to me . Never 08/31/2021 PHQ-2 Answer Date Recorded Retired PHQ-9: Brief Depression Severity Measure Score 0 06/13/2023 Estimated Date of Delivery Comme nts Yes 05/16/2025 Based on Other B asis, per MD Sex and Gender Information Value Date Recorded Sex Assigned at Not on file Legal Sex Female 10:59 AM EDT Gender Identity Not on file Sexual Orientation Not on file documented as of this encounter Plan of Treatment Upcoming Encounters Date Type Department Care Team (Late st Contact Info) Description 05/09/2025 3:30 PM EDT Pre-Admission Testing [facility] P[facility] T [address] [place] [address] 05/11/2025 7:30 AM EDT Hospital Encounter [facility] [address] [place] [address] Hope Potter MD [address] [place] [id number] Previous section (Primary Dx) 05/11/2025 7:30 AM EDT - 05/11/2025 8:30 AM EDT Surgery [facility] [address] [place] [address] Hope Potter MD [address] [address] SECTION REPEAT WITH SALPINGECTOMY Scheduled Procedures Name Priority Associated Diagnoses Date/Ti me SECTION REPEAT WITH SALPINGECTOMY 05/11/2025 7:30 AM E DT documented as of this encounter Visit Diagnoses Not on filedocumented in this encounter Care Teams Financial Systems Analyst Relationship Specialty Start Date End Date Giuliana Guzman APRN [address] [place] [address] PCP - General Nurse Practitioner 06/13/23 documented as of this encounter
--- OUTSIDE RECORDS SUMMARY | 2025-05-07 11:40 | XMS_ITS | Encounter Summary ---
Author Organization [facility] Address [address] [place] [address] Care Team Providers Care Automation Qa Tester Name Role Phone Giuliana Guzman Rangel SALMERON Primary Care Provider + Encounter Details Date Type Department Care Team (Late st Contact Info) Description 04/26/2025 Patient Outreach [facility] [address] [place] [phone] Malissa Hagan, RN Social History Tobacco Use Types Packs/Day Years Used Date Smoking Tobacco: Former Cigarettes Q uit: 06/27/2018 Smokeless Tobacco: Never Comments: 1 cigarrette a fri or year, social smoker Alcohol Use Standard Drinks/Week Comments No 0 (1 standard drink = 0.6 oz pur e alcohol) [facility] Utilities Answer Date Recorded In the past 12 months has e [employer], gas, oil, or water [employer] threatened to shut off services in your [...] things needed for daily living? Yes 04/27/2025 [place] Depression Scale Answer Date Recorded [place] Depression Scale Total 3 08/31/2021 The thought [...] GED or equivalent Yes 04/27/2025 Preferred Language Thai 04/27/2025 PHQ-2 Answer Date Recorded Patient Health Questionnaire-2 Score 0 04/27/2025 Estimated Date of Delivery Comme nts Yes 05/16/2025 Based on Other B asis, per MD Sex and Gender Information Value Date Recorded Sex Assigned at Not on file Legal Sex Female 10:59 AM EDT Gender Identity Not on file Sexual Orientation Not on file documented as of this encounter Miscellaneous Notes * Outreach Note - Malissa Hagan, RN - 04/26/2025 4:41 PM EDTSummary: Motherhood Connection Motherhood Connection Unable to Reach Questions/Answers Flowsheet Row Responses Pending Outreach Confirm Patient Interest Call Attempt First Outcome Missing or invalid number Next Call Attempt Date 04/27/25 MALISSA Bergman - underwear hemmer Nurse Navigator 04/26/2025, 16:43 EDT documented in this encounter Plan of Treatment Upcoming Encounters Date Type Department Care Team (Late st Contact Info) Description 05/09/2025 3:30 PM EDT Pre-Admission Testing [facility] T [address] [place] [address] 05/11/2025 7:30 AM EDT Hospital Encounter [facility] [address] [place] [address] Hope Potter MD [address] [address] Previous section (Primary Dx) 05/11/2025 7:30 AM EDT - 05/11/2025 8:30 AM EDT Surgery [facility] [address] [place] [address] Hope Potter MD [address] [address] SECTION REPEAT WITH SALPINGECTOMY Scheduled Procedures Name Priority Associated Diagnoses Date/Ti me SECTION REPEAT WITH SALPINGECTOMY 05/11/2025 7:30 AM E DT documented as of this encounter Visit Diagnoses Not on filedocumented in this encounter Care Teams Automation Qa Tester Relationship Specialty Start Date End Date Giuliana Guzman APRN [address] [place] [address] PCP - General Nurse Practitioner 06/13/23 documented as of this encounter
--- OUTSIDE RECORDS SUMMARY | 2025-05-07 11:40 | XMS_ITS | Clinical Summary ---
Author Organization [facility] Address [address] [place] [address] Care Team Providers Care Import Dispatcher Name Role Phone Unknown, Attending Provider Primary [...] therelease of HIV test results or diagnoses. [id number] Allergies No known active allergies Social [...] Tdap) 02/23/2017 02/23/2007 Immunization: COVID-19 ( season) 2025 Immunization: Influenza (MyChart) (#1) 2025 03/07/2020, 05/05/2008 Immunization: RSV (Adult) (1 - 1-dose 75+ series) 2070 Immunization: Pneumococcal Aged Out N o longer eligible based on patient's age to complete this topic Insurance [facility] Care Teams Import Dispatcher Relationship Specialty Start Date End Date Unknown, Attending Provider PCP - General 09/23/24
--- OUTSIDE RECORDS SUMMARY | 2025-05-07 11:41 | XMS_ITS | Patient Health Record ---
Author Organization [facility] Address [address] [place] [address] Care Team Providers Care Adjunct Professor Of English Name Role Phone Deidre Frost Unavailable [phone] Jose AlejandroFrancescoSophia Unavailable [phone] Hope Potter Unavailable [phone] Valentina Queen Unavailable [phone] Allergies Allergen (clinical drug ingredient) Drug/Non Drug Allergy documented on EMR Reaction Allergy Type Onset Date Status ZOFRAN (uncoded) Unspecified Allergy 01/23/2018 Active Results Component Value Reference Range Flag Notes *US OB Complete Transabdomin al/Vaginal Reviewed date:10/11/2024 02:31:17 PM Interpretation: Performing Lab: Notes/Report: [facility] Transabdominal Obstetric Study Report Name: ANGLE CEE Accession/Encounter No:[id number] : 1995 Age: 29 Gender: F Study [...] Present Biometry (Fetus A) HR: 176 bpm [place]-rump length:22.99 mm9w 0d 60% Conclusions: [facility] noted with cardiac activity. Size is NOT consistent with LMP dating. Uterus, ovaries and bilateral adnexa appear normal. Approved By: Carla Morgan MD Approved at: October 11, 2024 12:43 PM EDT Electronically Signed on Studycast ANGLE CEE 2024-10-11 Page 1 of 1 Imaging Center - , [facility] [address] * OB Detailed Anatomy Reviewed date:01/05/2025 01:16:23 PM Interpretation: Performing Lab: Notes/Report: [facility] Transabdominal Obstetric Study Report Name: ANGLE CEE Accession/Encounter No:[id number] Procedure/Order ID: [id number] : 1995 Age: 29 Gender: F Study [...] 2025 12:08 PM EDT Electronically Signed on Studycraig CEE 2025-01-05 Page 1 of 1 Imaging Center - , [facility] B Strep by PCR Reviewed date:04/27/2025 09:08:50 AM Interpretation:Positive Performing Lab:[facility] [place] CLIA ID [id number], [address], [address], [place] [address], Director - Juma Martinez MD Notes/Report: Group [...] sample is below the limit of detection. Non Invasive Testin g Reviewed date:11/19/2024 04:00:05 PM Interpretation:low risk NIPT/XY Performing Lab: Notes/Report: low risk NIPT/XY Blood Type ABO, RH and Antib frandy Screen Reviewed date:03/11/2025 10:49:26 AM Interpretation:O+ Performing Lab: Notes/Report: O+ Drug Profile Screen, Urine Reviewed date:03/11/2025 10:49:26 AM Interpretation:+THC Performing Lab: Notes/Report: +THC Hepatitis B Surface Antigen Reviewed date:03/11/2025 12:02:30 PM Interpretation:wrong lab ordered - needs hep B surface antigen NOT antibody Performing Lab: Notes/Report: wrong lab ordered - needs hep B surface antigen NOT antibody Hepatitis C Virus AB Reviewed date:03/11/2025 12:02:38 PM Interpretation:Negative Performing Lab: Notes/Report: Negative HIV-1/2 Antigen and Antibodi es, 4th Generation Reviewed date:03/11/2025 10:49:26 AM Interpretation:Negative Performing Lab: Notes/Report: Negative Rubella Antibodies, IgG Reviewed date:03/11/2025 12:02:30 PM Interpretation:non-immune Performing Lab: Notes/Report: non-immune Syphilis T Pallidium Screeni ng [place] Reviewed date:03/11/2025 12:49:59 PM Interpretation:Negative Performing Lab: Notes/Report: Negative Urine Culture and Sensitivit y Reviewed date:03/14/2025 10:05:33 AM Interpretation:contaminated catch Performing Lab: Notes/Report: contaminated catch CBC Reviewed date:03/10/2025 02:55:04 PM Interpretation:see scanned document, CBC normal Performing Lab: Notes/Report: see scanned document, CBC normal *US OB Follow-Up Reviewed date:04/25/2025 08:56:18 AM Interpretation: Performing Lab: Notes/Report: [facility] Transabdominal Obstetric Study Report Name: ANGLE CEE Accession/Encounter No:[id number] Procedure/Order ID: [id number] : 1995 Age: 29 Gender: F Study [...] 2025 09:36 PM EDT Electronically Signed on Studycast ANGLE CEE 2025-04-21 Page 1 of 1 Imaging Center - , [facility] OB Follow-Up Reviewed date:03/04/2025 02:39:16 PM Interpretation: Performing Lab: Notes/Report: [facility] Transabdominal Obstetric Study Report Name: ANGLE CEE Accession/Encounter No:[id number] Procedure/Order ID: [id number] : 1995 Age: 29 Gender: F Study [...] PM EDT Electronically Signed on Studycast ANGLE CEE 2025-03-04 Page 1 of 1 Imaging Center - , [facility] OB Limited Reviewed date:12/03/2024 11:24:11 AM Interpretation: Performing Lab: Notes/Report: [facility] Transabdominal Obstetric Study Report Name: ANGLE CEE Accession/Encounter No:[id number] Procedure/Order ID: [id number] : 1995 Age: 29 Gender: F Study [...] 153 bpm Findings: Anatomy: Sonographic evaluation reveals kaiesr intrauterine . cardiac activity present. Conclusions: Limited ultrasound for heart tones only. [facility] with cardiac activity noted. Approved By: Carla Morgan MD Approved at: December 03, 2024 11:08 AM EDT Electronically Signed on Studycast ANGLE CEE 2024-12-03 Page 1 of 1 Imaging Center - , [facility] [address] [facility] * OB Follow-Up Reviewed date:02/10/2025 03:21:52 PM Interpretation: Performing Lab: Notes/Report: [facility] Transabdominal Obstetric Study Report Name: ANGLE CEE Accession/Encounter No:[id number] Procedure/Order ID: [id number] : 1995 Age: 29 Gender: F Study [...] 2025 03:08 PM EDT Electronically Signed on Studycraig CEE 2025-02-10 Page 1 of 1 [facility] Reason For Referral No Information Medications Medication SIG (Take, Route, Frequency, Duration) Notes Start Date End Date Status Ondansetron 4 MG Tablet Disintegrating 1 tablet on the tongue and allow to dissolve Oral Once a day; Duration: 30 days Active hydrOXYzine HCl 25 MG Tablet Oral Active Glucometer and Testing Supplies (Device, Lancets, & Strips) 04/21/2025 Active 19 - Tablet Chewable Oral Active SM Sleep Aid 25 MG Tablet Oral Active Vitamin B-6 25 MG Tablet Oral Active Promethazine HCl 12.5 MG Tablet 1 [...] Status W/U Status Risk Notes Problem Obesity (048830147) Obesity (E66.9) Active confirmed Problem Third trimester (74207276) Supervision of other normal , third trimester (Z34.83) 03/23/20 18 Active confirmed Encounter for supervision of other normal , third trimester Problem Supervision of high risk (024167811) Supervision of other high risk pregnancies, third trimester (O09.893) Active confirmed Problem Past history of section (situation) (813755790) Previous delivery, antepartum (O34.219) Active confirmed Problem Gestation period, 38 weeks (38832285) 38 weeks gestation of (Z3A.38) Active confirmed Problem Anxiety (22689193) Anxiety (F41.1) Active confirmed Vital Signs Weight 221 lbs 05/02/2025 BMI 36.776 kg/m2 05/02/2025 Encounters Encounter Location Date Provider Diagnosis [facility] [address] [facility] [address] [place] [address] 09/19/2024 [facility] Encounter for test, result positive Z32.01 [facility] [address] [facility] [address] [place] [address] 10/26/2024 [facility] [address] [place] [address] 12/08/2024 [facility] [address] [place] [address] 12/09/2024 [facility] [address] [facility] [address] [place] [address] 12/23/2024 [facility] [address] [place] [address] 02/07/2025 Sophia Blount [facility] [address] [place] [address] 02/10/2025 Hope Amirahkarol [facility] [address] [place] [address] 02/17/2025 Valentina Queen Encounter for other screening follow-up Z36.2 [facility] [address] [place] [address] 03/01/2025 Sophia [facility] [address] [place] [address] 03/11/2025 Sophia [place] Encounter for related examination in third trimester Z34.83 and 29 weeks gestation of Z3A.29 [facility] [address] [place] [address] 03/29/2025 Sophia [facility] [address] [place] [address] 04/05/2025 Sophia Blount 9 weeks gestation of Z3A.09 [facility] [address] [place] [address] 04/21/2025 Sophia [facility] [address] [place] [address] 03/29/2025 Sophia [facility] [address] [place] [address] 10/11/2024 Sophia Blount 9 weeks gestation of Z3A.09 and Encounter for supervision of other normal , first trimester Z34.81 [facility] [address] [place] [address] 11/12/2024 Sophia Blount 13 weeks gestation of Z3A.13 and Encounter for supervision of other normal , first trimester Z34.81 [facility] [address] [facility] [address] [place] [address] 12/03/2024 Sophia Blount 16 weeks gestation of Z3A.16 and Encounter for related examination in second trimester Z34.82 [facility] [address] [facility] [address] [place] [address] 01/05/2025 [facility] 21 weeks gestation of Z3A.21 and Supervision of other normal , second trimester Z34.82 [facility] [address] [facility] [address] [place] [address] 02/10/2025 Valentina Queen 26 weeks gestation of Z3A.26 and Encounter for related examination in second trimester Z34.82 [facility] [address] [facility] [address] [place] [address] 03/04/2025 Sophia Blount Encounter for related examination in third trimester Z34.83 ; 29 weeks gestation of Z3A.29 ; Supervision of other normal , third trimester Z34.83 ; Previous delivery, antepartum O34.219 and Obesity E66.9 [facility] [address] [facility] [address] [place] [address] 04/07/2025 Sophia Blount Previous delivery, antepartum O34.219 ; 34 weeks gestation of Z3A.34 ; Supervision of other high risk pregnancies, third trimester O09.893 and Obesity E66.9 [facility] [address] [facility] [address] [place] [address] 04/21/2025 Sophia Blount Supervision of other normal , third trimester Z34.83 ; Previous delivery, antepartum O34.219 ; 36 weeks gestation of Z3A.36 ; Obesity E66.9 and Anxiety F41.1 [facility] [address] [facility] [address] [place] [address] 05/02/2025 Sophia Blount Anxiety F41.1 ; Obesity E66.9 ; 38 weeks gestation of Z3A.38 ; Supervision of other high risk pregnancies, third trimester O09.893 ; 38 weeks gestation of Z3A.38 and Previous delivery, antepartum O34.219 [facility] [address] [place] [address] 03/04/2025 Sophiarichar Blount Obesity E66.9 [facility] [address] [place] [address] 04/21/2025 Sophiarichar Blount Obesity E66.9 [facility] [address] [place] [address] 10/11/2024 Sophia Blount Encounter for test, result positive Z32.01 [facility] [address] [facility] [address] [place] [address] 02/10/2025 Valentina Queen Supervision of other normal , second trimester Z34.82 [facility] [address] [facility] [address] [place] [address] 01/05/2025 Valentina Queen Encounter for related examination in second trimester Z34.82 [facility] [address] [facility] [address] [place] [address] 12/03/2024 Sophia Blount 16 weeks gestation of Z3A.16 and Encounter for related examination in second trimester Z34.82 Assessments Encounter Date Diagnosis (ICD Code) Assessment Notes Treatment Notes Treatment Clinical Notes Section Notes 02/10/2025 26 weeks gestation of (ICD-10 - Z3A.26) 04/21/2025 Supervision of other normal , third trimester (ICD-10 - Z34.83) 03/11/2025 Encounter for related examination in third trimester (ICD-10 - Z34.83) 05/02/2025 Anxiety (ICD-10 - F41.1) 03/04/2025 Encounter for related examination in third trimester (ICD-10 - Z34.83) 03/04/2025 29 weeks gestation of (ICD-10 - Z3A.29) 03/04/2025 Obesity (ICD-10 - E66.9) 03/11/2025 29 weeks gestation of (ICD-10 - Z3A.29) 04/05/2025 9 weeks gestation of (ICD-10 - Z3A.09) 04/21/2025 Obesity (ICD-10 - E66.9) 05/02/2025 Obesity (ICD-10 - E66.9) 02/17/2025 Encounter for other screening follow-up (ICD-10 - Z36.2) 04/21/2025 Previous delivery, antepartum (ICD-10 - O34.219) 02/10/2025 Supervision of other normal , second trimester (ICD-10 - Z34.82) 04/07/2025 34 weeks gestation of (ICD-10 - Z3A.34) 12/03/2024 16 weeks gestation of (ICD-10 - Z3A.16) 04/07/2025 Previous delivery, antepartum (ICD-10 - O34.219) 01/05/2025 Supervision of other normal , second trimester (ICD-10 - Z34.82) 01/05/2025 21 weeks gestation of (ICD-10 - Z3A.21) 01/05/2025 Encounter for related examination in second trimester (ICD-10 - Z34.82) 02/10/2025 Encounter for related examination in second trimester (ICD-10 - Z34.82) 10/11/2024 9 weeks gestation of (ICD-10 - [...] examination in second trimester (ICD-10 - Z34.82) 04/07/2025 Supervision of other high risk pregnancies, third trimester (ICD-10 - O09.893) 04/21/2025 36 weeks gestation of (ICD-10 - Z3A.36) 05/02/2025 38 weeks gestation of (ICD-10 - Z3A.38) 03/04/2025 Supervision of other normal , third trimester (ICD-10 - Z34.83) Encounter for supervision of other normal , third trimester 03/04/2025 Previous delivery, antepartum (ICD-10 - O34.219) 05/02/2025 Supervision of other high risk pregnancies, third trimester (ICD-10 - O09.893) 04/21/2025 Obesity (ICD-10 - E66.9) 04/07/2025 Obesity (ICD-10 - E66.9) 04/21/2025 Anxiety (ICD-10 - F41.1) 05/02/2025 38 weeks gestation of (ICD-10 - Z3A.38) 03/04/2025 Obesity (ICD-10 - E66.9) 05/02/2025 Previous delivery, antepartum (ICD-10 - O34.219) Plan Of Treatment Pending Test Test Name Order Date *US OB Follow-Up 03/03/2025 Future Test Test Name Order Date Chlamydia/Gonorrhea/Trichomonas (Aptima) 04/01/2025 Gest. Glucose Tolerance Test 3 Hr 2024 Next Appt Details Provider Name:Hope Potter, 05/11/2025 07:30:00 AM, [address] , [address], [address], Provider Name:Hope Potter, 05/25/2025 11:30:00 AM, [address] , [facility] [address] [place] [address], [address] Provider Name:Ree Samano , 06/22/2025 01:45:00 PM, [address] , [address], [address] Insurance Providers Payer Name Payer Address Payer Phone Subscriber Number Group Number Insured Name Patient Relationship to Insured Coverage Start Date Coverage End Date [facility] (Medicaid ) [address] [address] [place], [place] [id number] Angle Cee Self - patient is the insured Medical (General) History 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 History ICD Code Smoker Anxiety Asthma Depression HTN UTI Yeast infection Surgical History Surgery Date(Month/Year) ,2019 Hospitalization History Reason Date(Month/Year) labor and delivery
[2025-05-07 12:00] VITALS: BP 109/68; PULSE 77; RESP 17; TEMP 36.8; O2SAT 98; BMI 37.0
[2025-05-07 12:05] LABS: Microscopic, Urine URINE MICROSCOPIC (MICROSCOPIC)
[2025-05-07 12:17] LABS: Fetal Membrane Rupture (Rapid) Negative (Negative)
[2025-05-07 12:27] VITALS: BMI 37.0
[2025-05-07] MEDS: LACTATED RINGERS 1000ML 1,000 ML 999 ML IV (12:35)
[2025-05-07 12:58] LABS: Bilirubin,Urine Negative (Negative); Color,Urine YELLOW (Yellow); Glucose,Urine (UA) Negative (Negative); Ketones,Urine Negative (Negative); Leukocyte Esterase,Urine Negative (Negative); PH,Urine 7.5 (5.0-8.5); Protein,Urine TRACE (Negative); Specific Gravity, Urine 1.015 (1.005-1.030); Urobilinogen,Urine 2.0 EU/dl (0.2)
[2025-05-07 13:00] LABS: Bacteria,Urine Trace /lpf; WBC,Urine Occasional #/hpf (0-3)
== END 2025-05-07 13:56 | disposition home or self-care (01) ==
LOC: OBOUT 11:39 → OB 11:39
PROVIDERS: PCP Family Medicine; Visit Provider Obstetrics & Gynecology
DX: O42.92 Full-term premature rupture of membranes, unspecified as to length of time between rupture and onset of labor (principal); O26.893 Other specified pregnancy related conditions, third trimester; R25.2 Cramp and spasm; Z3A.38 38 weeks gestation of pregnancy
CPT/HCPCS: 59025; 81001; 84112; 96360; 99212; G0463; J7120